=== PATIENT | female | born 1990 | race African-American/Black ===

== ENCOUNTER → 2021-02-12 20:00 | Outpatient (CLI) | payer MEDICAID, SELFPAY | PROVIDERS: PCP Internal Medicine; Referring Provider Internal Medicine; Visit Provider Internal Medicine | DX: G47.33 Obstructive sleep apnea (adult) (pediatric) (principal) | CPT/HCPCS: 95810 ==

== ENCOUNTER 2025-03-02 07:00 | Inpatient (IN) | payer MEDICAID, SELFPAY ==
[2025-03-02] VITALS (33 sets, daily range): BP systolic 120–171; BP diastolic 57–91; PULSE 81–105; RESP 16–18; TEMP 36.2–37.1; O2SAT 98–100; BMI 41.9; BMI 1015.0; BMI 20250710.0
--- OUTSIDE RECORDS SUMMARY | 2025-03-02 07:06 | XMS RPT_ITS | CCD ---
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 Unavailable Yolande PA-C Mee Unavailable Apple PA-C, Jaky L Unavailable Bogdevon PA-C Mee Unavailable GANTA, LAVERNE Primary Care Unavailable VALERIE ELIZABETH Attending Unavailable RUBI, SHI Referring Unavailable GANTA, LAVERNE Primary Care Unavailable RUBI, SHI Referring Unavailable GANTA, LAVERNE Primary Care Unavailable TORCHIA, CRISTAL Referring Unavailable GANTA, LAVERNE Primary Care Unavailable TORCHIA, CRISTAL Referring Unavailable GANTA, LAVERNE Primary Care Unavailable RUBI, SHI Referring Unavailable GANTA, LAVERNE Primary Care Unavailable GANTA, LAVERNE Primary Care Unavailable RUBI, SHI Referring Unavailable GANTA, LAVERNE Primary Care Unavailable FAYE TORRES Attending Unavailable RUBI, SHI Referring Unavailable GANTA, LAVERNE Primary Care Unavailable GANTA, LAVERNE Primary Care Unavailable FAYE TORRES Attending Unavailable RUBI, SHI Referring Unavailable GANTA, LAVERNE Primary Care Unavailable ROOSEVELT BECKMANRE Attending Unavail able RUBI, SHI Referring Unavailable GANTA, LAVERNE Primary Care Unavailable NEYHART JARETT RUTHIE Referring Unavail able GANTA, LAVERNE Primary Care Unavailable WISWELL, VALERIE Referring Unavailable GANTA, LAVERNE Primary Care Unavailable TORCHIA, CRISTAL Referring Unavailable GANTA, LAVERNE Attending Unavailable GANTA, LAVERNE Primary Care Unavailable TORCHIA, CRISTAL Referring Unavailable RUBI, SHI Referring Unavailable GANTA, LAVERNE Primary Care Unavailable RUBI, SHI Attending Unavailable RUBI, SHI Referring Unavailable GANTA, LAVERNE Primary Care Unavailable GANTA, LAVERNE Primary Care Unavailable FAYE TORRES Attending Unavailable SELF Referring Unavailable GANTA, LAVERNE Primary Care Unavailable RUBI, SHI Referring Unavailable KARIN IGNACIO Attending Unavailable GANTA, LAVERNE Primary Care Unavailable SELF Referring Unavailable CHANDLER MORAN Attending Unavailable GANTA, LAVERNE Primary Care Unavailable CHANDLER MORAN Referring Unavailable GANTA, LAVERNE Primary Care Unavailable RUBI, SHI Referring Unavailable MAYUR ALEJANDRE Attending Unavailable GANTA, LAVERNE Primary Care Unavailable RUBI, SHI Referring Unavailable GANTA, LAVERNE Primary Care Unavailable TORCHIA, CRISTAL Referring Unavailable GANTA, LAVERNE Primary Care Unavailable RUBI, SHI Referring Unavailable GANTA, LAVERNE Primary Care Unavailable FAYE TORRES Attending Unavailable RUBI, SHI Referring Unavailable GANTA, LAVERNE Primary Care Unavailable TORCHIA, CRISTAL Referring Unavailable RUBI, SHI Referring Unavailable GANTA, LAVERNE Primary Care Unavailable GANTA, LAVERNE Primary Care Unavailable URSULA ELIZABETHA Attending Unavailable RUBI, SHI Referring Unavailable GANTA, LAVERNE Primary Care Unavailable RUBI, SHI Referring Unavailable GANTA, LAVERNE Primary Care Unavailable FAYE TORRES Attending Unavailable GANTA, LAVERNE Primary Care Unavailable GANTA, LAVERNE Primary Care Unavailable RUBI, SHI Referring Unavailable GANTA, LAVERNE Primary Care Unavailable FAYE TORRES Referring Unavailable GANTA, LAVERNE Primary Care Unavailable RUBI, SHI Attending Unavailable RUBI, SHI Referring Unavailable GANTA, LAVERNE Primary Care Unavailable KARIN IGNACIO Attending Unavailable GANTA, LAVERNE Primary Care Unavailable RUBI, SHI Referring Unavailable Allergies Allergy Classification Reported Allergen(s) Allergy Type Date of Onset Reaction(s) Facility (20 sources) Morphine; Translations: [MORPHINE] Drug Allergy 04-16-2022 Mental Status Change [facility] Medications Current Medications Medication Drug Class(es) Dates Sig (Normalized) Sig (Original) [id number] 200 actuat albuterol 0.09 mg/actuat metered dose inhaler (20 sources) beta2-Adrenergic Agonist Start: 01-23-2021 End: 02-13-2025 take 2 puff(s) by inhalation every four hours as needed for wheezing albuterol HFA (VENTOLIN HFA) 90 mcg/actuation inhaler Indications: Reactive airway disease, unspecified asthma severity, uncomplicated (HCC) Inhale 2 puffs as instructed every 4 hours as needed for wheezing/shortness of breath. 18 g 02/13/2025 Active Comment on above: Inhale 2 Puffs as in structed every 4 hours as needed for wheezing/shortness of breath. amoxicillin 500 mg oral capsule (4 sources) Penicillin-class Antibacterial Start: 08-25-2024 End: 09-04-2024 take 1 capsule by mouth twice daily amoxicillin (AMOXIL) 500 mg capsule Take 1 capsule by mouth two times a day for 10 days. 20 capsule 08/25/2024 09/04/2024 Active Start: 12-05-2023 End: 12-10-2023 take 1 tablet by mouth twice daily amoxicillin (AMOXIL) 875 mg tablet Take 1 tablet by mouth two times a day for 5 days. 10 tablet 0 12/05/2023 12/10/2023 Active Comment on above: Take 1 tablet by rogerio two times a day for 5 days. aspirin 81 mg delayed release oral tablet (20 sources) Platelet Aggregation Inhibitor, Nonsteroidal Anti-inflammatory Drug Start: 08-30-2024 End: 08-30-2024 take 2 tablets by mouth once daily at bedtime aspirin, enteric coated (ECOTRIN LOW STRENGTH) 81 mg EC tablet Indications: Supervision of other high risk , antepartum (HCC) Take 2 tablets by mouth daily at bedtime. 180 tablet 3 08/30/2024 Active Start: 07-22-2024 End: 08-30-2024 take 1 tablet by mouth once daily aspirin, enteric coated (ECOTRIN LOW STRENGTH) 81 mg EC tablet Indications: with uncertain dates, antepartum Take 1 tablet by mouth once daily. 90 tablet 3 07/22/2024 08/30/2024 Discontinued cholecalciferol 0.025 mg oral tablet (20 sources) Vitamin D Start: 11-19-2023 End: 11-18-2024 take 1 tablet by mouth once daily cholecalciferol (VITAMIN D3) 1,000 unit tab tablet Take 1 tablet by mouth once daily. 30 tablet 11 11/19/2023 Active Start: 02-08-2019 End: 04-16-2022 take 2 capsules by mouth once daily Cholecalciferol, Vitamin D3, 2,000 unit cap Take 2 capsules by mouth once daily. 180 capsule 2 02/08/2019 04/16/2022 Discontinued Comment on above: Take 2 capsules by [facility] once daily. Take 1 tablet by rogerio once daily. ergocalciferol 1.25 mg oral capsule (3 sources) Provitamin D2 Compound Start: 10-26-19 End: 05-27-20 22 take 1 capsule by mouth two times weekly, then take 1 capsule by mouth two times weekly, then take 1 capsule by mouth every week ergocalciferol 50,000 unit capsule (VITAMIN D2, DRISDOL) Take 1 capsule by mouth two times a week. TO BE TAKEN ORALLY DIRECTED. Take 1 tablet by mouth twice weekly [id number], then decrease to 1 tablet weekly. 8 capsule 5 10/25/2020 05/27/2022 Discontinued Comment on above: Take 1 capsule by [facility] two times a week. TO BE TAKEN ORALLY DIRECTED. Take 1 tablet by mouth twice weekly [id number], then decrease to 1 tablet weekly. Ethinyl Estradiol / norgestimate (3 sources) Progestin, Estrogen Start: 04-23-20 End: 05-27-20 take 1 tablet by mouth once daily norgestimate 0.25 mg-ethinyl estradiol 35 mcg (SPRINTEC) 0.25-35 mg-mcg per tablet Take 1 tablet by mouth once daily. 1 Package 11 04/23/2021 05/27/2022 Discontinued Start: 04-23-2021 take 1 tablet by rogerio once daily norgestimate 0.25 mg-ethinyl estradiol 35 mcg (SPRINTEC) 0.25-35 mg-mcg per tablet Take 1 tablet by mouth once daily. 1 Package 11 04/23/2021 Active Comment on above: Take 1 tablet by rogerio th once daily. famotidine 40 mg oral tablet (1 source) Histamine-2 Receptor Antagonist Start: 07-22-20 End: 08-21-20 take 1 tablet by mouth once daily famotidine (PEPCID) 40 mg tablet Take 1 tablet by mouth once daily. 30 tablet 4 07/22/2024 08/21/2024 Active ferrous sulfate 325 mg oral tablet (18 sources) take 1 tablet by mouth every other day ferrous sulfate (IRON) 325 mg (65 mg iron) tablet Take 325 mg by mouth every other day. Active fluticasone propionate 0.05 mg/actuat metered dose nasal spray (20 sources) Corticosteroid Start: 05-25-20 End: 09-18-19 take 1 spray(s) by mouth once daily fluticasone (FLONASE) 50 mcg/actuation nasal spray Indications: Non-recurrent acute serous otitis media of right ear Use 1 [place] in each nostril once daily. Rinse mouth after use. 1 Each 09/19/2024 Active Comment on above: Use 1 [place] in each nostril once daily. Rinse mouth after use. pantoprazole 40 mg delayed release oral tablet (19 sources) Proton Pump Inhibitor Start: 12-24-19 take 1 tablet by mouth once daily pantoprazole DR (PROTONIX) 40 mg tablet Take 1 tablet by mouth once daily. 30 tablet 2 12/23/2024 Active VIT 9-EIEW-RGPUV-DHA ORAL (20 sources) VIT 3-KQRO-ONBKA-DHA ORAL Take by mouth. Active Completed/Discontinued Medications Medication Drug Class(es) Dates Sig (Normalized) Sig (Original) amitriptyline hydrochloride 10 mg oral tablet (11 sources) Tricyclic Antidepressant Start: 04-01-2023 End: 08-30-2024 take 2 tablets by mouth once daily at bedtime amitriptyline (ELAVIL) 10 mg tablet Take 2 tablets by mouth daily at bedtime. 60 tablet 3 07/02/2023 08/30/2024 Discontinued (Other) Start: 10-10-2021 take 2 tablets by mo uth once daily at bedtime amitriptyline (ELAVIL) 10 mg tablet Take 2 tablets by mouth daily at bedtime. 180 tablet 3 10/10/2021 Active Comment on above: Take 2 tablets by mo uth daily at bedtime. ibuprofen 800 mg oral tablet (8 sources) Nonsteroidal Anti-inflammatory Drug Start: End: take 1 tablet by mouth every eight hours as needed ibuprofen (MOTRIN) 800 mg tablet Take 1 tablet by mouth every 8 hours as needed for Pain. FOR PAIN. 60 tablet 1 09/30/2016 07/22/2024 Discontinued (Course of therapy completed) Comment on above: Take 1 tablet by rogerio th every 8 hours as needed for Pain. FOR PAIN. 10 ml iron sucrose 20 mg/ml injection (5 sources) Parenteral Iron Replacement Start: End: 200 mg, INTRAVENOUS, ONCE, 1 dose, On Thu02/17/25 at 1430, May administer up to 200 mg via IV push over 5-10 minutes. Start: 02-15-2025 End: 02-15-2025 200 mg, INTRAVENOUS, ONCE, 1 dose, On Thu02/15/25 at 1030, May administer up to 200 mg via IV push over 5-10 minutes. Start: 02-13-2025 End: 02-13-2025 200 mg, INTRAVENOUS, ONCE, 1 dose, On Thu02/13/25 at 1030, May administer up to 200 mg via IV push over 5-10 minutes. Start: 02-10-2025 End: 02-10-2025 200 mg, INTRAVENOUS, ONCE, 1 dose, On Thu02/10/25 at 0930, May administer up to 200 mg via IV push over 5-10 minutes. Start: 02-07-2025 End: 02-07-2025 200 mg, INTRAVENOUS, ONCE, 1 dose, On Thu02/07/25 at 1000, May administer up to 200 mg via IV push over 5-10 minutes. montelukast 10 mg oral tablet (11 sources) Leukotriene Receptor Antagonist Start: 01-23-2021 End: 08-30-2024 take 1 tablet by mouth once daily at bedtime montelukast (SINGULAIR) 10 mg tablet Indications: Reactive airway disease, unspecified asthma severity, uncomplicated , SOB (shortness of breath) Take 1 tablet by mouth daily at bedtime. 30 tablet 11 11/17/2023 08/30/2024 Discontinued (Other) Comment on above: Take 1 tablet by rogerio th daily at bedtime. SUMAtriptan 50 mg oral tablet (10 sources) Serotonin-1b and Serotonin-1d Receptor Agonist Start: 04-01-2023 End: 08-25-2024 take 1 tablet by mouth every two hours as needed for headache SUMAtriptan (IMITREX) 50 mg tablet Take 1 tablet (50 mg) by mouth as needed for migraine headache (see administration instructions). at onset of headache. May repeat after 2 hours. 6 tablet 4 07/02/2023 08/25/2024 Discontinued (Discontinued by Patient) Start: 10-10-2021 take 1 tablet by rogerio th every two hours as needed for headache SUMAtriptan (IMITREX) 50 mg tablet Take 1 tablet by mouth as needed for migraine headache (see administration instructions). at onset of headache. May repeat after 2 hours. 6 tablet 4 10/10/2021 Active Comment on above: Take 1 tablet by rogerio th as needed for migraine headache (see administration instructions). at onset of headache. May repeat after 2 hours. Take 1 tablet (50 mg ) by mouth as needed for migraine headache (see administration instructions). at onset of headache. May repeat after 2 hours. Problems Active Problems Problem Classification Problem Date Documented Da te Episodic/Chronic Asthma (20 sources) Reactive airway disease; Translations: [Unspecified asthma, uncomplicated] Onset: 09-21-2017 Chronic Deficiency and other anemia (1 source) Iron deficiency anemia, unspecified; Translations: [Maternal iron deficiency anemia complicating , third trimester (HCC)] Onset: 01-26-2025 Episodic Disorders of teeth and jaw (1 source) Toothache; Translations: [Other specified disorders of teeth and supporting structures] 12-05-2023 Episodic Headache; including migraine (20 sources) Migraine; Translations: [Migraine, unspecified, not intractable, without status migrainosus] Onset: 02-18-2023 Chronic Immunizations and screening for infectious disease (10 sources) Patient encounter status; Translations: [Encounter for screening for infections with a predominantly sexual mode of transmission] Episodic Nutritional deficiencies (20 sources) Vitamin D deficiency; Translations: [Vitamin D deficiency, unspecified] Onset: 10-21-2018 Chronic Other complications of (20 sources) Obesity; Translations: [Obesity complicating , unspecified trimester] Onset: 07-22-2024 07-22-2024 Chronic Other complications of (20 sources) Anemia in mother complicating , childbirth AND/OR puerperium; Translations: [Anemia complicating , third trimester] Onset: 01-26-2025 01-26-2025 Chronic Other complications of (2 sources) Anemia complicating , third trimester; Translations: [Maternal iron deficiency anemia complicating , third trimester (HCC)] Onset: 01-26-2025 Chronic Other complications of (2 sources) Obesity complicating , unspecified trimester; Translations: [Obesity in (HCC)] Onset: 07-22-2024 Chronic Other complications of (20 sources) High risk ; Translations: [Supervision of other high risk pregnancies, unspecified trimester] Onset: 07-22-2024 07-22-2024 Episodic Other complications of (19 sources) Multigravida of advanced maternal age; Translations: [Supervision of elderly multigravida, first trimester] 08-30-2024 Episodic Other complications of (2 sources) Supervision of other high risk pregnancies, unspecified trimester; Translations: [Supervision of other high risk , antepartum (HCC)] Onset: 11-01-2024 Episodic Other complications of (3 sources) Supervision of elderly multigravida, second trimester; Translations: [AMA (advanced maternal age) multigravida 35+, second trimester (HCC)] Onset: 09-21-2024 Episodic Other complications of (1 source) Supervision of high risk , unspecified, third trimester; Translations: [Supervision of high risk in third trimester (HCC)] Onset: 02-10-2025 Episodic Other complications of (1 source) Supervision of elderly multigravida, third trimester; Translations: [AMA (advanced maternal age) multigravida 35+, third trimester (HCC)] Onset: 01-13-2025 Episodic Other complications of (1 source) Other specified related conditions, third trimester; Translations: [Heartburn during in third trimester (HCC)] Onset: 12-23-2024 Episodic Other ear and sense organ disorders (1 source) Otalgia, right ear; Translations: [Otalgia, unspecified] 08-25-2024 Episodic Other gastrointestinal disorders (1 source) Heartburn; Translations: [Heartburn during in third trimester (HCC)] Onset: 12-23-2024 Episodic Other lower respiratory disease (1 source) Dyspnea; Translations: [Shortness of breath] 11-17-2023 Episodic Other lower respiratory disease (1 source) Cough; Translations: [Acute cough] 09-18-2024 Episodic Other screening for suspected conditions (not mental disorders or infectious disease) (4 sources) Cancer cervix screening status; Translations: [Encounter for screening for malignant neoplasm of cervix] Onset: 09-21-2024 11-05-2023 Episodic Other upper respiratory infections (4 sources) Sore throat symptom; Translations: [Acute pharyngitis, unspecified] 08-25-2024 Episodic Otitis media and related conditions (2 sources) Acute non-suppurative otitis media - serous; Translations: [Acute serous otitis media, right ear] 09-18-2024 Episodic Residual codes; unclassified (1 source) Family history of cancer of colon; Translations: [Family history of malignant neoplasm of digestive organs] Episodic Residual codes; unclassified (1 source) Gestation period, 7 weeks; Translations: [Less than 8 weeks gestation of ] 07-22-2024 Episodic Residual codes; unclassified (2 sources) Gestation period, 12 weeks; Translations: [12 weeks gestation of ] 08-30-2024 Episodic Residual codes; unclassified (2 sources) Gestation period, 15 weeks; Translations: [15 weeks gestation of ] 09-16-2024 Episodic Residual codes; unclassified (4 sources) Gestation period, 19 weeks; Translations: [19 weeks gestation of ] 10-14-2024 Episodic Residual codes; unclassified (1 source) Gestation period, 27 weeks; Translations: [27 weeks gestation of ] 12-09-2024 Episodic Residual codes; unclassified (1 source) Gestation period, 29 weeks; Translations: [29 weeks gestation of ] 12-23-2024 Episodic Residual codes; unclassified (1 source) Gestation period, 33 weeks; Translations: [33 weeks gestation of ] 01-20-2025 Episodic Residual codes; unclassified (1 source) Gestation period, 34 weeks; Translations: [34 weeks gestation of ] 01-27-2025 Episodic Residual codes; unclassified (1 source) Gestation period, 35 weeks; Translations: [35 weeks gestation of ] 02-03-2025 Episodic Residual codes; unclassified (1 source) Gestation period, 36 weeks; Translations: [36 weeks gestation of ] 02-10-2025 Episodic Residual codes; unclassified (2 sources) Gestation period, 37 weeks; Translations: [37 weeks gestation of ] 02-13-2025 Episodic Residual codes; unclassified (2 sources) Gestation period, 38 weeks; Translations: [38 weeks gestation of ] 02-23-2025 Episodic Residual codes; unclassified (1 source) 38 weeks gestation of ; Translations: [38 weeks gestation of (HCC)] Onset: 02-23-2025 Episodic Residual codes; unclassified (2 sources) 19 weeks gestation of ; Translations: [19 weeks gestation of (HCC)] Onset: 11-01-2024 Episodic Residual codes; unclassified (1 source) 37 weeks gestation of ; Translations: [37 weeks gestation of (HCC)] Onset: 02-17-2025 Episodic Residual codes; unclassified (1 source) 36 weeks gestation of ; Translations: [36 weeks gestation of (HCC)] Onset: 02-10-2025 Episodic Residual codes; unclassified (1 source) 35 weeks gestation of ; Translations: [35 weeks gestation of (HCC)] Onset: 02-03-2025 Episodic Residual codes; unclassified (1 source) 34 weeks gestation of ; Translations: [34 weeks gestation of (HCC)] Onset: 01-27-2025 Episodic Residual codes; unclassified (1 source) 33 weeks gestation of ; Translations: [33 weeks gestation of (HCC)] Onset: 01-20-2025 Episodic Residual codes; unclassified (1 source) 32 weeks gestation of ; Translations: [32 weeks gestation of (HCC)] Onset: 01-13-2025 Episodic Residual codes; unclassified (1 source) 29 weeks gestation of ; Translations: [29 weeks gestation of (HCC)] Onset: 12-23-2024 Episodic Residual codes; unclassified (1 source) 27 weeks gestation of ; Translations: [27 weeks gestation of (HCC)] Onset: 12-09-2024 Episodic Substance-related disorders (20 sources) Cannabis abuse; Translations: [Marijuana use disorder in remission] Onset: 07-22-2024 07-22-2024 Chronic Unclassified (20 sources) [facility] Education - COMMON Onset: 07-22-2024 07-22-2024 Unclassified (20 sources) Education - [place] Onset: 07-22-2024 07-22-2024 Past or Other Problems Problem Classification Problem Date Documented Date Episodic/Chronic Cancer of cervix (20 sources) Cervical atypism; Translations: [Atypical squamous cells of undetermined significance on cytologic smear of cervix (ASC-US)] Onset: 11-05-2011 Resolved: 11-06-2015 08-19-2021 Episodic Headache; including migraine (20 sources) Headache; Translations: [Chronic nonintractable headache, unspecified headache type] Onset: 10-10-2011 Resolved: 08-18-2024 Episodic Hemorrhage during ; abruptio placenta; placenta previa (20 sources) Low lying placenta; Translations: [Low lying placenta NOS or without hemorrhage, unspecified trimester] Onset: 04-04-2013 Resolved: 09-26-2013 08-19-2021 Episodic Inflammatory diseases of female pelvic organs (20 sources) Bacterial vaginosis; Translations: [Acute vaginitis] Onset: 09-04-2015 Resolved: 07-22-2024 09-04-2015 Episodic Menstrual disorders (20 sources) Irregular periods; Translations: [Irregular menstruation, unspecified] Onset: 07-22-2024 Resolved: 08-18-2024 07-22-2024 Chronic Other complications of (20 sources) Anemia of ; Translations: [Anemia complicating , unspecified trimester] Onset: 06-01-2013 Resolved: 09-26-2013 09-26-2013 Chronic Other complications of (20 sources) Heartburn; Translations: [Other specified related conditions, first trimester] Onset: 07-22-2024 07-22-2024 Episodic Other complications of (20 sources) Diseases of the digestive system complicating , first trimester; Translations: [Other current conditions classifiable elsewhere of mother, antepartum condition or complication] Onset: 07-22-2024 07-22-2024 Episodic Other complications of (20 sources) Rubella non-immune; Translations: [Supervision of other high risk pregnancies, unspecified trimester] Onset: 07-22-2024 08-18-2024 Episodic Other complications of (20 sources) History of hemorrhage; Translations: [Supervision of with other poor reproductive or obstetric history, first trimester] Onset: 08-30-2024 08-30-2024 Episodic Other female genital disorders (20 sources) Cervical intraepithelial neoplasia grade 2; Translations: [Moderate cervical dysplasia] Onset: 03-24-2013 08-19-2021 Episodic Other nutritional; endocrine; and metabolic disorders (20 sources) Obese class I; Translations: [Obesity, unspecified] Onset: 04-13-2014 Resolved: 07-22-2024 Chronic Other and delivery including normal (2 sources) with uncertain dates; Translations: [Encounter for supervision of normal , unspecified, unspecified trimester] Onset: 08-12-2024 07-22-2024 Episodic Residual codes; unclassified (20 sources) Finding of menstrual bleeding; Translations: [Other specified health status] Onset: 07-22-2024 Resolved: 08-30-2024 07-22-2024 Episodic Residual codes; unclassified (1 source) 15 weeks gestation of ; Translations: [15 weeks gestation of ] Onset: 09-21-2024 Episodic Residual codes; unclassified (1 source) 12 weeks gestation of ; Translations: [12 weeks gestation of ] Onset: 08-30-2024 Episodic Sexually transmitted infections (not HIV or hepatitis) (20 sources) Gonorrhea; Translations: [Gonococcal infection, unspecified] Onset: 02-08-2013 Resolved: 10-22-2015 08-19-2021 Episodic Results Test Name Value Interpretation Reference Range Facil ity URINE OB DIP B/Oon 5 Glucose Ql (U) Negative Neg mg/dL [facility] Interpretation and review of laboratory results Normal [facility] Protein.monoclonal (U) [Mass/Vol] trace Neg mg/dL [facility] URINE OB DIP B/Oon 5 Glucose Ql (U) Negative Neg mg/dL [facility] Interpretation and review of laboratory results Normal [facility] Protein.monoclonal (U) [Mass/Vol] Negative Neg mg/dL [facility] CNOVon 02-13-2025 CNOV Office Visit (INTMWS ) SLOANE LINDER ([id number]) 1990 F Date Time Provider Department 02/13/25 2:40 PM LAVERNE RAMIREZ INTMWS During your visit today, we recorded the following information about you: Pulse Respiration Blood pressure Weight 100/minute 16/minute 122/77 120.1 kg Laverne Ramirez MD 02/13/2025 3:22 PM Signed We discussed your : - Congratulations on your ! You are currently 37 weeks along, and your baby is head down, which is great. - Continue taking your vitamins, Protonix, Vitamin D, and Vitamin C as you have been. - Your iron levels are low, and you are already receiving iron infusions. Please continue with these as directed. - Your glucose tolerance test results were normal, with a reading of 120. - Keep active, eat healthy, and try to get as much rest as possible, even though sleeping may be uncomfortable at this stage. - The baby can arrive at any time now. Best of luck with your delivery! We discussed your vaccinations: - You are due for a tetanus vaccine. If you did not receive it during this , you can get it after delivery. We discussed your asthma: - You mentioned needing an albuterol refill. This has been provided for use only if you experience wheezing. Do not use it for general discomfort or heat-related symptoms. Follow-up: - I do not see the need for further investigations at this time. Please schedule a follow-up visit with me after your delivery. Laverne Ramirez MD 02/13/2025 3:35 PM Signed Reason for Visit HPI Sloane Linder is a 34-year-old female, , presenting for an annual visit. Sloane is currently 36 weeks and 5 days with her second child, a female, with an 11-year gap between pregnancies. She is under the care of Dr. Moran for her care. She is taking vitamins, iron supplements, vitamin D, vitamin C, and Protonix for reflux, which is well-controlled. She is also receiving iron infusions for low iron levels. She reports difficulty sleeping due to discomfort, but denies any stress, sadness, or depression. Sloane has not received a tetanus vaccine during this and is unsure if she is up to date. She has not needed to use her albuterol inhaler, but requests a refill due to the heat and living upstairs. She reports a normal glucose tolerance test with a result of 120 mg/dL. Social History Tobacco Use Smoking status: Never Passive exposure: Never Smokeless tobacco: Never Vaping Use Vaping status: Never Used Substance Use Topics Alcohol use: Yes Comment: occasionally, NOT WHILE Drug use: No Past medical history, appointments, medications, allergies reviewed. Pertinent Lab/Diagnostic Studies are reviewed and discussed today Current Outpatient Medications: ferrous sulfate (IRON) 325 mg (65 mg iron) tablet pantoprazole DR (PROTONIX) 40 mg tablet fluticasone (FLONASE) 50 mcg/actuation nasal spray aspirin, enteric coated (ECOTRIN LOW STRENGTH) 81 mg EC tablet VIT 9-CZZP-FOWLQ-DHA ORAL albuterol HFA (VENTOLIN HFA) 90 mcg/actuation inhaler cholecalciferol (VITAMIN D3) 1,000 unit tab tablet Health Maintenance HPV Vaccine: Recommended Based On Risk Depression Screening Anxiety Screening DTaP,Tdap,Td Vaccine(7 - Td or Tdap) Covid-19 Vaccine( season)@ Review Of Systems Constitutional: (+) insomnia Psychiatric: (-) stress, (-) depressed mood Physical Exam BP 122/77 Pulse 100 Resp 16 Wt 120.1 kg (264 lb 12.8 oz) LMP 04/30/2024 (Approximate) SpO2 99% BMI 42.42 kg/m? GENERAL: NAD, alert and oriented. SKIN: Unremarkable, no rash or skin lesions. HEAD: Normocephalic. EYES: PERRLA, EOMI, conjunctiva clear. EARS: External ears normal, canals clear, TM's normal. NOSE/SINUSES: Nares normal. Septum midline. OROPHARYNX: Lips, mucosa, and tongue normal, good dentition. No oral lesions noted. NECK: Supple, no lymphadenopathy, normal thyroid, no carotid bruits. LUNGS: Clear to auscultation bilaterally, no wheezes/rhonchi/rales . HEART: Regular rate and rhythm, no murmurs. No ectopy. EXTREMITIES: Normal, no deformities, no skin discoloration, no edema. NEURO: Awake, alert and oriented x3, cranial nerves II-XII grossly intact, normal gait, no involuntary motions. Labs: - Iron levels: Decreased - Hemoglobin: Decreased - White blood cell count: Elevated - Glucose tolerance test: 120 mg/dL Assessment and Plan 1. Annual physical exam (Z00.00) Patient is 37 weeks , experiencing difficulty sleeping due to discomfort. No significant stress, sadness, or depression reported. Reflux is well-controlled with Protonix. Up to date on vaccinations except for tetanus. No acute issues noted on physical exam. - Encouraged patient to maintain activity and rest as much as possible. - Follow-up after . 2. Reactiv (more content not included)... Normal [facility] Examination level ultrasound on 02-10-2025 [facility] Radiology Study observation (narrative) [facility] ROUTINE, GROUP B ST REPTOCOCCUS BY PCRon 02-10-2025 ROUTINE, GROUP B STREPTOCOCCUS BY PCR Detected Abnormal [facility] Comment on above: Performed By: #### G BPCR ####[facility] [id number] [place] [address] [place] URINE OB DIP B/Oon Glucose Ql (U) Negative Neg mg/dL [facility] Interpretation and review of laboratory results Normal [facility] Protein.monoclonal (U) [Mass/Vol] Negative Neg mg/dL [facility] CNPSneha 01-31-2025 CNPN Telephone (INTMMN) SLOANE LINDER ([id number]) 1990 F Date Time Provider Department 01/31/25 LESLEE CA During your visit today, we recorded the following information about you: Leslee Ca, PRANAY 01/31/2025 12:09 PM Signed Venofer order signed and PA completed. Ready for scheduling. Cristal Mayes 01/31/2025 1:38 PM Signed Please review and advise Cristal Sims Lucinda 02/02/2025 9:20 AM Signed Scheduled with patient Start email sent Allergies As of Date: 01/31/2025 Noted Allergy Reaction MORPHINE 04/16/2022 1 - Mental Status Change Date Reviewed: 01/27/2025 Reviewed by: Iraida Pak MA - Fully Assessed Reason for Visit: Hematology [Other] Prescriptions as of 02/04/2025 - ferrous sulfate (IRON) 325 mg (65 mg iron) tablet Take 325 mg by mouth every other day. - pantoprazole DR (PROTONIX) 40 mg tablet Take 1 tablet by mouth once daily. - albuterol HFA (VENTOLIN HFA) 90 mcg/actuation inhaler Inhale 2 Puffs as instructed every 4 hours as needed for wheezing/shortness of breath. - fluticasone (FLONASE) 50 mcg/actuation nasal spray Use 1 [place] in each nostril once daily. Rinse mouth after use. - aspirin, enteric coated (ECOTRIN LOW STRENGTH) 81 mg EC tablet Take 2 tablets by mouth daily at bedtime. - VIT 2-GILS-ZSUMF-DHA ORAL Take by mouth. - cholecalciferol (VITAMIN D3) 1,000 unit tab tablet Take 1 tablet by mouth once daily. Meds Comments as of 09/14/2007: Reviewed current med list, 09/14/2007. Bridgett White LPN Problem List As Of Date 01/31/2025 Noted Resolved Chronic headaches [R51.9, G89.29] 10/10/2011 08/18/2024 Papanicolaou smear of cervix with atypical squa*11/05/2011 11/06/2015 Gonorrhea [A54.9] 02/08/2013 10/22/2015 Chlamydia trachomatis infection of lower genito*02/08/2013 10/22/2015 BRUNO II (cervical intraepithelial neoplasia II) *03/24/2013 Low lying placenta without hemorrhage, antepart*04/04/2013 09/26/2013 Anemia in [O99.019] 06/01/2013 09/26/2013 Obesity (BMI 30.0-34.9) [E66.811] 04/13/2014 07/22/2024 BV (bacterial vaginosis) [N76.0, B96.89] 09/04/2015 07/22/2024 Reactive airway disease, unspecified asthma sev*09/21/2017 Vitamin D deficiency [E55.9] 10/21/2018 Migraine headache [G43.909] 02/18/2023 Diagnosed: 11/05/2023 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] 07/22/2024 Date of last menstrual period (LMP) unknown [Z7*07/22/2024 08/30/2024 Irregular menses [N92.6] 07/22/2024 08/18/2024 Heartburn during in first trimester (*07/22/2024 Constipation during in first trimeste*07/22/2024 headache, antepartum [O26.899, R51.9] 07/22/2024 Rubella non-immune status, antepartum [O09.899,*07/22/2024 Obesity in [O99.210] 07/22/2024 Supervision of other high risk pregnancies, sec*08/18/2024 History of hemorrhage, currently pre*08/30/2024 Maternal iron deficiency anemia complicating pr*01/26/2025 Encounter Status:Closed by LESLEE STEVEN on 01/31/25 Normal [facility] URINE OB DIP B/Oon Glucose Ql (U) Negative Neg mg/dL [facility] Interpretation and review of laboratory results Normal [facility] Protein.monoclonal (U) [Mass/Vol] Negative Neg mg/dL [facility] Ferritin SerPl-mCncon 2024 Ferritin [Mass/Vol] 28.8 ng/mL Normal 14.7-205.1 [facility] Comment on above: Order Comment: Speci men Type: BLOOD SPECIMEN Ordering Facility: [facility] Address: [address] [place], [place] [address] Performed By: #### 5 0190-8, 2276-4 #### [facility] CLIA [id number] [address] [place] [address] [place] Iron and Iron binding capaci ty panelon 01-24-2025 Iron [Mass/Vol] 55 ug/dL Normal 41-186 [facility] Comment on above: Order Comment: Speci men Type: BLOOD SPECIMEN Ordering Facility: [facility] Address: [address] [place] [address] Performed By: #### 5 0190-8, 2276-4 #### [facility] CLIA [id number] [address] [place] [address] [place] Iron binding capacity [Mass/Vol] 432 ug/dL High 232-386 [facility] Comment on above: Order Comment: Speci men Type: BLOOD SPECIMEN Ordering Facility: [facility] Address: [address] [place] [address] Performed By: #### 5 0190-8, 2276-4 #### [facility] CLIA [id number] [address] [place] [address] [place] Iron/TIBC [Molar ratio] 12.7 % Low 15.0-57.0 [facility] Comment on above: Order Comment: Speci men Type: BLOOD SPECIMEN Ordering Facility: [facility] Address: [address] [place] [address] Performed By: #### 5 0190-8, 2276-4 #### [facility] CLIA [id number] [address] [place] [address] [place] CBC panel Auto (Bld)on 01-20 Erythrocyte distribution width (RBC) [Ratio] 15 % 11.5 - 15.0 % [facility] Hematocrit (Bld) [Volume fraction] 30 % Low 36.0 - 46.0 % [facility] Hemoglobin (Bld) [Mass/Vol] 9.3 g/dL Low 11.5 - 15.5 g/dL [facility] Interpretation and review of laboratory results Abnormal [facility] MCH (RBC) [Entitic mass] 26.6 pg 26.0 - 34.0 pg [facility] MCHC (RBC) [Mass/Vol] 31 g/dL 30.5 - 36.0 g/dL [facility] MCV (RBC) [Entitic vol] 85.7 fL 80.0 - 100.0 fL [facility] Nucleated RBC (Bld) [#/Vol] NINF [facility] Platelet mean volume (Bld) [Entitic vol] 10.1 fL 9.0 - 12.7 fL [facility] Platelets (Bld) [#/Vol] 227 10*3/uL [facility] RBC (Bld) [#/Vol] 3.5 10*6/uL Low 3.90 - 5.2 0 m/uL [facility] WBC (Bld) [#/Vol] 11.33 10*3/uL [facility] Erythrocyte distribution width (RBC) [Ratio] 15.0 % Normal 11.5-15.0 [facility] Comment on above: Order Comment: Speci men Type: BLOOD SPECIMEN Ordering Facility: [facility] Address: [address] [place] [address] Performed By: #### 5 0190-8, 6-4 #### [facility] CLIA [id number] [address] [place] [address] [place] Hematocrit (Bld) [Volume fraction] 30.0 % Low 36.0-46.0 [facility] Comment on above: Order Comment: Speci men Type: BLOOD SPECIMEN Ordering Facility: [facility] Address: [address] [place] [address] Performed By: #### 5 0190-8, 6-4 #### [facility] CLIA [id number] [address] [place] [address] [place] Hemoglobin (Bld) [Mass/Vol] 9.3 g/dL Low 11.5-15.5 [facility] Comment on above: Order Comment: Speci men Type: BLOOD SPECIMEN Ordering Facility: [facility] Address: [address] [place] [address] Performed By: #### 5 0190-8, 6-4 #### [facility] CLIA [id number] [address] [place] [address] [place] MCH (RBC) [Entitic mass] 26.6 pg Normal 26.0-34.0 [facility] Comment on above: Order Comment: Speci men Type: BLOOD SPECIMEN Ordering Facility: [facility] Address: [address] [place] [address] Performed By: #### 5 0190-8, 2275- #### [facility] CLIA [id number] [address] [place] [address] [place] MCHC (RBC) [Mass/Vol] 31.0 g/dL Normal 30.5-36.0 [facility] Comment on above: Order Comment: Speci men Type: BLOOD SPECIMEN Ordering Facility: [facility] Address: [address] [place] [address] Performed By: #### 5 0190-8, 2275-11 #### [facility] CLIA [id number] [address] [place] [address] [place] MCV (RBC) [Entitic vol] 85.7 fL Normal 80.0-100.0 [facility] Comment on above: Order Comment: Speci men Type: BLOOD SPECIMEN Ordering Facility: [facility] Address: [address] [place] [address] Performed By: #### 5 0190-8, 2275-11 #### [facility] CLIA [id number] [address] [place] [address] [place] Nucleated RBC (Bld) [#/Vol] 10*3/uL Normal <0.01 [facility] Comment on above: Order Comment: Speci men Type: BLOOD SPECIMEN Ordering Facility: [facility] Address: [address] [place] [address] Performed By: #### 5 0190-8, 2275- #### [facility] CLIA [id number] [address] [id number] [address] [place] Platelet mean volume (Bld) [Entitic vol] 10.1 fL Normal 9.0-12.7 [facility] Comment on above: Order Comment: Speci men Type: BLOOD SPECIMEN Ordering Facility: [facility] Address: [address] [place] [address] Performed By: #### 5 0190-8, 6-4 #### [facility] CLIA [id number] [address] [place] [address] [place] Platelets (Bld) [#/Vol] 227 10*3/uL Normal 150-400 [facility] Comment on above: Order Comment: Speci men Type: BLOOD SPECIMEN Ordering Facility: [facility] Address: [address] [place] [address] Performed By: #### 5 0190-8, 2275-4 #### [facility] CLIA [id number] [address] [place] [address] [place] RBC (Bld) [#/Vol] 3.50 10*6/uL Low 3.90-5.20 [facility] Comment on above: Order Comment: Speci men Type: BLOOD SPECIMEN Ordering Facility: [facility] Address: [address] [place] [address] Performed By: #### 5 0190-8, 2275-4 #### [facility] CLIA [id number] [address] [place] [address] [place] WBC (Bld) [#/Vol] 11.33 10*3/uL High 3.70-11.00 [facility] Comment on above: Order Comment: Speci men Type: BLOOD SPECIMEN Ordering Facility: [facility] Address: [address] [place] [address] Performed By: #### 5 0190-8, 2275-4 #### [facility] CLIA [id number] [address] [place] [address] [place] CNPNon 01-20-2025 CNPN Telephone (OBGYWM) SLOANE LINDER ([id number]) 1990 F Date Time Provider Department 01/20/25 RUTHIE BECKMAN OBGYWM During your visit today, we recorded the following information about you: Kelsi Bates RN 01/20/2025 2:51 PM Signed Ruthie Beckman MD to [facility] Ob-Patient Services Clerk Pool (Selected Message) 01/20/25 2:33 PM Result Note Hg still low- will recommend IV iron therapy. Please pend smart set. COMPLETE BLOOD COUNT Kelsi Bates RN 01/20/2025 2:51 PM Signed Blood management referral placed. Please file and will route to Leslee Steven AND notify Pt. PRANAY Davidson Deidre, MD 01/20/2025 2:54 PM Signed ordered Kelsi Bates RN 01/20/2025 3:19 PM Signed Pt notified that Blood management referral has been placed and to anticipate a call re: iron infusions as we are forwarding her chart to Blood management/Hematology . Pt voiced understanding. PRANAY Davidson Tara, RN 01/23/2025 2:22 PM Signed 33w4d Pt needs new iron and ferritin drawn - the last ones were from November. Necessary to have within the last 30 days for insurance authorization. Lab orders pending. Please file and will call Pt. PRANAY Davidson Sara, MD 01/23/2025 3:43 PM Signed filed Kelsi Bates RN 02/07/2025 1:42 PM Signed Blood management has been in contact with Pt. See 01/26/25 patient update. Kelsi Bates RN Allergies As of Date: 01/20/2025 Noted Allergy Reaction MORPHINE 04/16/2022 1 - Mental Status Change Date Reviewed: 01/20/2025 Reviewed by: Nicola Nur MA - Fully Assessed Reason for Visit: Anemia [6] Primary Visit Diagnosis:Anemia during in third trimester (HCC) [O99.013] Order(s):BLOOD MANAGEMENT REFERRAL [[id number]] Order #: [id number]: 1 IRON AND TIBC [SQIRON] Order #: [id number] FUTURE FERRITIN [SQFERR] Order #: [id number] FUTURE Prescriptions as of 02/07/2025 - ferrous sulfate (IRON) 325 mg (65 mg iron) tablet Take 325 mg by mouth every other day. - pantoprazole DR (PROTONIX) 40 mg tablet Take 1 tablet by mouth once daily. - albuterol HFA (VENTOLIN HFA) 90 mcg/actuation inhaler Inhale 2 Puffs as instructed every 4 hours as needed for wheezing/shortness of breath. - fluticasone (FLONASE) 50 mcg/actuation nasal spray Use 1 [place] in each nostril once daily. Rinse mouth after use. - aspirin, enteric coated (ECOTRIN LOW STRENGTH) 81 mg EC tablet Take 2 tablets by mouth daily at bedtime. - VIT 7-LZRN-SYJIZ-DHA ORAL Take by mouth. - cholecalciferol (VITAMIN D3) 1,000 unit tab tablet Take 1 tablet by mouth once daily. Meds Comments as of 09/14/2007: Reviewed current med list, 09/14/2007. 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 Problem List As Of Date 01/20/2025 Noted Resolved Chronic headaches [R51.9, G89.29] 10/10/2011 08/18/2024 Papanicolaou smear of cervix with atypical squa*11/05/2011 11/06/2015 Gonorrhea [A54.9] 02/08/2013 10/22/2015 Chlamydia trachomatis infection of lower genito*02/08/2013 10/22/2015 BRUNO II (cervical intraepithelial neoplasia II) *03/24/2013 Low lying placenta without hemorrhage, antepart*04/04/2013 09/26/2013 Anemia in [O99.019] 06/01/2013 09/26/2013 Obesity (BMI 30.0-34.9) [E66.811] 04/13/2014 07/22/2024 BV (bacterial vaginosis) [N76.0, B96.89] 09/04/2015 07/22/2024 Reactive airway disease, unspecified asthma sev*09/21/2017 Vitamin D deficiency [E55.9] 10/21/2018 Migraine headache [G43.909] 02/18/2023 Diagnosed: 11/05/2023 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] 07/22/2024 Date of last menstrual period (LMP) unknown [Z7*07/22/2024 08/30/2024 Irregular menses [N92.6] 07/22/2024 08/18/2024 Heartburn during in first trimester (*07/22/2024 Constipation during in first trimeste*07/22/2024 headache, antepartum [O26.899, R51.9] 07/22/2024 Rubella non-immune status, antepartum [O09.899,*07/22/2024 Obesity in [O99.210] 07/22/2024 Supervision of other high risk pregnancies, sec*08/18/2024 History of hemorrhage, currently pre*08/30/2024 Encounter Status:Closed by MESHA FU on 01/23/25 Normal [facility] CBC W Auto Differential pane l (Bld)on 12-09-2024 Basophils (Bld) [#/Vol] 10*3/uL Normal <0.11 [facility] Comment on above: Order Comment: Speci men Type: BLOOD SPECIMEN Ordering Facility: [facility] Address: [address] [place] [address] Performed By: #### G LTGST #### [facility] CLIA [id number] [address] [place] [address] [place] Basophils/100 WBC (Bld) 0.2 % Normal [facility] Comment on above: Order Comment: Speci men Type: BLOOD SPECIMEN Ordering Facility: [facility] Address: [address] [place] [address] Performed By: #### G LTGST #### [facility] CLIA [id number] [address] [place] [address] [place] Differential cell count method Nom (Bld) Auto Normal [facility] Comment on above: Order Comment: Speci men Type: BLOOD SPECIMEN Ordering Facility: [facility] Address: [address] [place] [address] Performed By: #### G LTGST #### [facility] CLIA [id number] [address] [place] [address] [place] Eosinophils (Bld) [#/Vol] 0.09 10*3/uL Normal <0.46 [facility] Comment on above: Order Comment: Speci men Type: BLOOD SPECIMEN Ordering Facility: [facility] Address: [address] [place] [address] Performed By: #### G LTGST #### [facility] CLIA [id number] [address] [place] [address] [place] Eosinophils/100 WBC (Bld) 0.9 % Normal [facility] Comment on above: Order Comment: Speci men Type: BLOOD SPECIMEN Ordering Facility: [facility] Address: [address] [place] [address] Performed By: #### G LTGST #### [facility] CLIA [id number] [address] [place] [address] [place] Erythrocyte distribution width (RBC) [Ratio] 14.8 % Normal 11.5-15.0 [facility] Comment on above: Order Comment: Speci men Type: BLOOD SPECIMEN Ordering Facility: [facility] Address: [address] [place] [address] Performed By: #### G LTGST #### [facility] CLIA [id number] [address] [place] [address] [place] Hematocrit (Bld) [Volume fraction] 30.5 % Low 36.0-46.0 [facility] Comment on above: Order Comment: Speci men Type: BLOOD SPECIMEN Ordering Facility: [facility] Address: [address] [place] [address] Performed By: #### G LTGST #### [facility] CLIA [id number] [address] [place] [address] [place] Hemoglobin (Bld) [Mass/Vol] 9.6 g/dL Low 11.5-15.5 [facility] Comment on above: Order Comment: Speci men Type: BLOOD SPECIMEN Ordering Facility: [facility] Address: [address] [place] [address] Performed By: #### G LTGST #### [facility] CLIA [id number] [address] [place] [address] [place] Immature granulocytes (Bld) [#/Vol] 0.07 10*3/uL Normal <0.10 [facility] Comment on above: Order Comment: Speci men Type: BLOOD SPECIMEN Ordering Facility: [facility] Address: [address] [place] [address] Performed By: #### G LTGST #### [facility] CLIA [id number] [address] [place] [address] [place] Immature granulocytes/100 WBC (Bld) 0.7 % Normal [facility] Comment on above: Order Comment: Speci men Type: BLOOD SPECIMEN Ordering Facility: [facility] Address: [address] [place] [address] Performed By: #### G LTGST #### [facility] CLIA [id number] [address] [place] [address] [place] Lymphocytes (Bld) [#/Vol] 1.97 10*3/uL Normal 1.00-4.00 [facility] Comment on above: Order Comment: Speci men Type: BLOOD SPECIMEN Ordering Facility: [facility] Address: [address] [place] [address] Performed By: #### G LTGST #### [facility] CLIA [id number] [address] [place] [address] [place] Lymphocytes/100 WBC (Bld) 19.0 % Normal [facility] Comment on above: Order Comment: Speci men Type: BLOOD SPECIMEN Ordering Facility: [facility] Address: [address] [place] [address] Performed By: #### G LTGST #### [facility] CLIA [id number] [address] [place] [address] [place] MCH (RBC) [Entitic mass] 26.8 pg Normal 26.0-34.0 [facility] Comment on above: Order Comment: Speci men Type: BLOOD SPECIMEN Ordering Facility: [facility] Address: [address] [place] [address] Performed By: #### G LTGST #### [id number] [address] [place] [address] [place] MCHC (RBC) [Mass/Vol] 31.5 g/dL Normal 30.5-36.0 [facility] Comment on above: Order Comment: Speci men Type: BLOOD SPECIMEN Ordering Facility: [facility] Address: [address] [place] [address] Performed By: #### G LTGST #### [id number] [address] [place] [address] [place] MCV (RBC) [Entitic vol] 85.2 fL Normal 80.0-100.0 [facility] Comment on above: Order Comment: Speci men Type: BLOOD SPECIMEN [facility] [facility] Address: [address] [place] [address] Performed By: #### G LTGST #### [facility] CLIA [id number] [address] [place] [address] [place] Monocytes (Bld) [#/Vol] 0.54 10*3/uL Normal <0.87 [facility] Comment on above: Order Comment: Speci men Type: BLOOD SPECIMEN Ordering Facility: [facility] Address: [address] [place] [address] Performed By: #### G LTGST #### [facility] CLIA [id number] [address] [place] [address] [place] Monocytes/100 WBC (Bld) 5.2 % Normal [facility] Comment on above: Order Comment: Speci men Type: BLOOD SPECIMEN Ordering Facility: [facility] Address: [address] [place] [address] Performed By: #### G LTGST #### [facility] CLIA [id number] [address] [place] [address] [place] Neutrophils (Bld) [#/Vol] 7.66 10*3/uL High 1.45-7.50 [facility] Comment on above: Order Comment: Speci men Type: BLOOD SPECIMEN Ordering Facility: [facility] Address: [address] [place] [address] Performed By: #### G LTGST #### [facility] CLIA [id number] [address] [place] [address] [place] Neutrophils/100 WBC (Bld) 74.0 % Normal [facility] Comment on above: Order Comment: Speci men Type: BLOOD SPECIMEN Ordering Facility: [facility] Address: [address] [place] [address] Performed By: #### G LTGST #### [facility] CLIA [id number] [address] [place] [address] [place] Nucleated RBC (Bld) [#/Vol] 10*3/uL Normal <0.01 [facility] Comment on above: Order Comment: Speci men Type: BLOOD SPECIMEN Ordering Facility: [facility] Address: [address] [place] [address] Performed By: #### G LTGST #### [id number] [address] [place] [address] [place] Nucleated RBC/100 WBC (Bld) [Ratio] 0.0 /100 WBC Normal [facility] Comment on above: Order Comment: Speci men Type: BLOOD SPECIMEN Ordering Facility: [facility] Address: [address] [place] [address] Performed By: #### G LTGST #### [facility] CLIA [id number] [address] [place] [address] [place] Platelet mean volume (Bld) [Entitic vol] 10.1 fL Normal 9.0-12.7 [facility] Comment on above: Order Comment: Speci men Type: BLOOD SPECIMEN Ordering Facility: [facility] Address: [address] [place] [address] Performed By: #### G LTGST #### [facility] CLIA [id number] [address] [place] [address] [place] Platelets (Bld) [#/Vol] 252 10*3/uL Normal 150-400 [facility] Comment on above: Order Comment: Speci men Type: BLOOD SPECIMEN Ordering Facility: [facility] Address: [address] [place] [address] Performed By: #### G LTGST #### [facility] CLIA [id number] [address] [place] [address] [place] RBC (Bld) [#/Vol] 3.58 10*6/uL Low 3.90-5.20 [facility] Comment on above: Order Comment: Speci men Type: BLOOD SPECIMEN Ordering Facility: [facility] Address: [address] [place] [address] Performed By: #### G LTGST #### [facility] CLIA [id number] [address] [place] [address] [place] WBC (Bld) [#/Vol] 10.35 10*3/uL Normal 3.70-11.00 [facility] Comment on above: Order Comment: Speci debbie Type: BLOOD SPECIMEN Ordering Facility: [facility] Address: [address] [place] [address] Performed By: #### G LTGST #### [facility] CLIA [id number] [address] [place] [address] [place] Ferritin SerPl-mCncon 2024 Ferritin [Mass/Vol] 22.1 ng/mL Normal 14.7-205.1 [facility] Comment on above: Order Comment: Jesusi debbie Type: BLOOD SPECIMEN Ordering Facility: [facility] Address: [address] [place] [address] Performed By: #### G LTGST #### [facility] CLIA [id number] [address] [place] [address] [place] GESTATIONAL GLUCOSE SCREEN, 1-HOUR, 50 GRAM, NON-FASTINGon 12-09-2024 Glucose [Mass/Vol] 126 mg/dL Normal 74-134 [facility] Comment on above: Order Comment: Jeffry lewis Type: BLOOD SPECIMEN Ordering Facility: [facility] Address: [address] [place] [address] Result Comment: [facility] Congress of Obstetricians and Gynecologists (Betsy/Dago) guidelines state a gestational diabetes mellitus positive screen is made, in women not previously diagnosed with overt diabetes, when the 1 hr plasma glucose level is equal to or above 140 mg/dL. [facility] [employer] [facility] [employer] recommends a 135 mg/dL cutoff. Performed By: #### G LTGST #### [id number] [address] [place] [address] [place] Iron and Iron binding capaci ty panelon 12-09-2024 Iron [Mass/Vol] 96 ug/dL Normal 41-186 [facility] Comment on above: Order Comment: Speci men Type: BLOOD SPECIMEN Ordering Facility: [facility] Address: [address] [place], [place] [id number] Performed By: #### G LTGST #### [facility] CLIA [id number] [address] [place] [address] [place] Iron binding capacity [Mass/Vol] 413 ug/dL High 232-386 [facility] Comment on above: Order Comment: Speci men Type: BLOOD SPECIMEN Ordering Facility: [facility] Address: [address] [place] [address] Performed By: #### G LTGST #### [facility] CLIA [id number] [address] [place] [address] [place] Iron/TIBC [Molar ratio] 23.2 % Normal 15.0-57.0 [facility] Comment on above: Order Comment: Speci men Type: BLOOD SPECIMEN Ordering Facility: [facility] Address: [address] [place] [address] Performed By: #### G LTGST #### [facility] CLIA [id number] [address] [place] [address] [place] Reagin and Treponema pallidu m IgG and IgM [Interp]on 12-09-2024 T. pallidum IgG+IgM IA Ql (S) Non-Reactive Normal Nonreactive [facility] Comment on above: Order Comment: Speci men Type: BLOOD SPECIMEN Ordering Facility: [facility] Address: [address] [place] [address] Performed By: #### G LTGST #### [facility] [id number] [address] [place] [address] [place] Reagin+T pallidum IgG+IgM Se rPl-Impon 12-09-2024 Reagin and Treponema pallidum IgG and IgM [Interp] Cannot exclude recent Treponemal infection if specimen collected within 7-10 days after appearance of suspect lesions or 2-3 weeks after an exposure. Clinical correlation is required. Normal [facility] Comment on above: Order Comment: Speci men Type: BLOOD SPECIMEN Ordering Facility: [facility] Address: [address] [place] [address] Performed By: #### G LTGST #### [facility] CLIA [id number] [address] [id number] [place] Examination level ultrasound on 11-01-2024 Indication Cervical length Maternal obesity, BMI >40, Advanced maternal age, History of LEEP Impression REMOTE READ The patient is referred for completion of the anatomic survey. - Single, live, intrauterine . - No malformations were visualized on a follow-up anatomic survey. - Anatomic survey was completed today. - The amniotic fluid volume is normal amount. - The placenta is posterior, fundal. - Not all structural malformations can be detected by ultrasound examination. -The cervical length measures 31.3 mm with no evidence of funneling or other dynamic changes. Recommendations Additional follow-up as clinically indicated. Maternal Assessment Height 168 cm Height (ft) 5 ft Height (in) 6 in Physical Exam Initial weight (lb) 262 lb Initial BMI 42.29 kg/m Maternal assessment other: 2 Para 1 Growth Overview Exam date GA BPD (mm) HC (mm) AC (mm) FL (mm) HL (mm) EFW (g) 09/21/2024 15w 6d 33.3 69% 122.1 45% 106.8 76% 18.8 40% 18.6 34% 143 53% 10/14/2024 19w 1d 49 97% 172.2 70% 141.6 59% 29.4 63% 28.7 57% 288 57% Method Transabdominal and transvaginal ultrasound examination Wagoner . Number of fetuses: 1 Dating LMP on: 04/30/2024 GA by LMP 26 w + 3 d MATI by LMP: 02/04/2025 GA by prior assessment 21 w + 5 d MATI by prior assessment: 03/09/2025 Assigned: based on stated MATI, selected on 10/14/2024 Assigned GA 21 w + 5 d Assigned MATI: 03/09/2025 General Evaluation Cardiac activity present. FHR 149 bpm. movements: present. Presentation: cephalic Placenta: Placental site: posterior, fundal Umbilical cord: Cord vessels: 3 vessel cord Amniotic fluid: Amount of AF: normal amount Anatomy Lateral ventricles: normal Cavum septi pellucidi: normal Cerebellum: normal Profile: normal 4-chamber view: normal RVOT view: normal LVOT view: normal 3-vessel view: normal Heart / Thorax Situs: situs solitus (normal) Diaphragm: normal Stomach: normal Kidneys: normal Bladder: normal sex: female Wants to know sex: yes Maternal Structures Uterus / Cervix Cervix: Visualized Approach: Transvaginal Cervical length 31.3 mm Performed By: Madie Maria RDMS, RVT Read By: Hilda Menard M.D. MATERNAL MEDICINE [facility] (OBGYWM) SLOANE LINDER ([id number]) 1990 F Date Time Provider Department 10/17/24 SHI RUBI During your visit today, we recorded the following information about you: Sloane Davis 10/17/2024 9:24 AM Signed Patient called to schedule additional two OB US anatomy per 10/14/24 Results Follow-Up encounter. PSS only able to schedule one US due to current order not having enough visits remaining. Patient is needing to be scheduled for anatomy US again around 11/11/24. Please submit new orders for OB US and notify patient when available for scheduling. Madie Crooks RN 10/17/2024 9:30 AM Signed Patient only needs 1 anatomy ultrasound follow up within 2 to 4 week time frame. Follow up anatomy is scheduled, no further needed. Madie Crooks RN Allergies As of Date: 10/17/2024 Noted Allergy Reaction MORPHINE 04/16/2022 1 - Mental Status Change Date Reviewed: 10/14/2024 Reviewed by: Jose Cruz Muro MA - Fully Assessed Reason for Visit: Orders [681] Cmt: OB US - Anatomy Prescriptions as of 10/17/2024 - albuterol HFA (VENTOLIN HFA) 90 mcg/actuation inhaler Inhale 2 Puffs as instructed every 4 hours as needed for wheezing/shortness of breath. - fluticasone (FLONASE) 50 mcg/actuation nasal spray Use 1 [place] in each nostril once daily. Rinse mouth after use. - aspirin, enteric coated (ECOTRIN LOW STRENGTH) 81 mg EC tablet Take 2 tablets by mouth daily at bedtime. - VIT 7-IUXA-JWSTO-DHA ORAL Take by mouth. - cholecalciferol (VITAMIN D3) 1,000 unit tab tablet Take 1 tablet by mouth once daily. Meds Comments as of 09/14/2007: Reviewed current med list, 09/14/2007. 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 Problem List As Of Date 10/17/2024 Noted Resolved Chronic headaches [R51.9, G89.29] 10/10/2011 08/18/2024 Papanicolaou smear of cervix with atypical squa*11/05/2011 11/06/2015 Gonorrhea [A54.9] 02/08/2013 10/22/2015 Chlamydia trachomatis infection of lower genito*02/08/2013 10/22/2015 BRUNO II (cervical intraepithelial neoplasia II) *03/24/2013 Low lying placenta without hemorrhage, antepart*04/04/2013 09/26/2013 Anemia in [O99.019] 06/01/2013 09/26/2013 Obesity (BMI 30.0-34.9) [E66.811] 04/13/2014 07/22/2024 BV (bacterial vaginosis) [N76.0, B96.89] 09/04/2015 07/22/2024 Reactive airway disease, unspecified asthma sev*09/21/2017 Vitamin D deficiency [E55.9] 10/21/2018 Migraine headache [G43.909] 02/18/2023 Diagnosed: 11/05/2023 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] 07/22/2024 Date of last menstrual period (LMP) unknown [Z7*07/22/2024 08/30/2024 Irregular menses [N92.6] 07/22/2024 08/18/2024 Heartburn during in first trimester [*07/22/2024 Constipation during in first trimeste*07/22/2024 headache, antepartum [O26.899, R51.9] 07/22/2024 Rubella non-immune status, antepartum [O09.899,*07/22/2024 Obesity in [O99.210] 07/22/2024 Supervision of other high risk pregnancies, sec*08/18/2024 History of hemorrhage, currently pre*08/30/2024 Encounter Status:Closed by MADIE CROOKS on 10/17/24 Normal [facility] Examination level ultrasound on 10-14-2024 Indication Detailed anatomic survey Advanced maternal age, Maternal obesity, BMI >40, History of LEEP Impression REMOTE READ The patient is referred for a detailed anatomic survey. - Single, live, intrauterine . - biometry is consistent with the established gestational age. - No malformations were visualized on a detailed anatomic survey, although some anatomical structures were suboptimally seen as detailed below. - The amniotic fluid volume is normal amount. - The placenta is posterior, fundal. - The Transvaginal cervical length measures 30.8 mm with no evidence of funneling or other dynamic changes. - Not all structural malformations can be detected by ultrasound examination. Recommendations Return in 2-4 weeks to complete anatomic survey Maternal Assessment Height 168 cm Height (ft) 5 ft Height (in) 6 in Physical Exam Initial weight (lb) 262 lb Initial BMI 42.29 kg/m Maternal assessment other: 2 Para 1 Method Transabdominal and transvaginal ultrasound examination. View: Suboptimal view: limited by position Wagoner . Number of fetuses: 1 Dating LMP on: 04/30/2024 GA by LMP 23 w + 6 d MATI by LMP: 02/04/2025 GA by prior assessment 19 w + 1 d MATI by prior assessment: 03/09/2025 Ultrasound examination on: 10/14/2024 GA by U/S based upon: AC, BPD, Femur, HC GA by U/S 19 w + 6 d MATI by U/S: 03/04/2025 Assigned: based on stated MATI, selected on 10/14/2024 Assigned GA 19 w + 1 d Assigned MATI: 03/09/2025 General Evaluation Cardiac activity present. FHR 148 bpm. movements: present. Presentation: cephalic Placenta: Placental site: posterior, fundal Umbilical cord: Cord vessels: 3 vessel cord Amniotic fluid: Amount of AF: normal amount. MVP 4.4 cm Growth Overview Exam date GA BPD (mm) HC (mm) AC (mm) FL (mm) HL (mm) EFW (g) 09/21/2024 15w 6d 33.3 69% 122.1 45% 106.8 76% 18.8 40% 18.6 34% 143 53% 10/14/2024 19w 1d 49 97% 172.2 70% 141.6 59% 29.4 63% 28.7 57% 288 57% Biometry Standard BPD 49.0 mm 20w 6d 97% Hadlock OFD 58.9 mm 19w 2d 77% Nicolaides HC 172.2 mm 19w 5d 70% Dougie Cerebellum tr 21.9 mm 20w 4d 96% Hill Nuchal fold 2.7 mm AC 141.6 mm 19w 4d 59% Hadlock Femur 29.4 mm 19w 1d 63% Dougie Humerus 28.7 mm 19w 2d 57% Dougie EFW 288 g 19w 2d 57% Hadlock EFW (lb) 0 lb EFW (oz) 10 oz EFW by: Hadlock (HC-AC-FL) Extended Racing Secretary 6.5 mm CM 4.4 mm 38% Nicolaides Extremities / Bony Struc FL / HC 0.17 13% Hadlock Other Structures FHR 148 bpm Anatomy Cranium: normal Lateral ventricles: normal Choroid plexus: normal Midline falx: normal Cavum septi pellucidi: suboptimally visualized Cerebellum: normal Cisterna magna: normal Head / Neck Vermis: normal Neck: normal Nuchal fold: normal Lips: normal Profile: normal Nose: normal Face Maxilla: normal Mandible: normal Orbits: normal Lens: normal 4-chamber view: normal RVOT view: normal LVOT view: normal 3-vessel view: normal 8-[id number]-wkddpbq view: normal Heart / Thorax Situs: situs solitus (normal) Aortic arch view: normal SVC: normal IVC: normal Cardiac axis: normal Rt lung: normal Lt lung: normal Diaphragm: normal Cord insertion: normal Stomach: normal Kidneys: normal Bladder: normal Genitals: normal Abdomen Abdom. wall: normal Cervical spine: normal Thoracic spine: normal Lumbar spine: normal Sacral spine: normal Arms: normal Legs: normal Rt upper arm: normal Rt forearm: normal Rt hand: normal Rt fingers: normal Lt upper arm: normal Lt forearm: normal Lt hand: normal Lt fingers: normal Rt upper leg: normal Rt lower leg: normal Rt foot: normal Lt upper leg: normal Lt lower leg: normal Lt foot: normal sex: female Wants to know sex: yes Maternal Structures Uterus / Cervix Uterus: Visualized Cervix: Visualized Approach: Transvaginal Cervical length 30.8 mm Ovaries / Tubes / Adnexa Rt ovary: Visualized Lt ovary: Visualized Performed By: Madie Maria RDMS, RVT Read By: Hilda Menard M.D. MATERNAL MEDICINE [facility] Radiology Study observation (narrative) [facility] Telephone (OBGYWM) SLOANE LINDER ([id number]) 1990 F Date Time Provider Department 09/21/24 SHI RUBI During your visit today, we recorded the following information about you: Kelsi Bates RN 09/21/2024 2:08 PM Signed ----- Message from Shi Rubi APRN.CNM sent at 09/21/2024 12:55 PM EST ----- NT US normal. Please update PN record. Please assist in scheduling 20wk US with MARISEL same day if not scheduled. MURPHY Salazar Tara, RN 09/21/2024 2:10 PM Signed US sent to [facility]. Pt has US scheduled 10/14/24 with OB appt following. Kelsi Bates RN Allergies As of Date: 09/21/2024 Noted Allergy Reaction MORPHINE 04/16/2022 1 - Mental Status Change Date Reviewed: 09/18/2024 Reviewed by: Lucinda Silverio MA - Fully Assessed Prescriptions as of 09/21/2024 - albuterol HFA (VENTOLIN HFA) 90 mcg/actuation inhaler Inhale 2 Puffs as instructed every 4 hours as needed for wheezing/shortness of breath. - fluticasone (FLONASE) 50 mcg/actuation nasal spray Use 1 [place] in each nostril once daily. Rinse mouth after use. - aspirin, enteric coated (ECOTRIN LOW STRENGTH) 81 mg EC tablet Take 2 tablets by mouth daily at bedtime. - VIT 8-DBLV-EXELR-DHA ORAL Take by mouth. - cholecalciferol (VITAMIN D3) 1,000 unit tab tablet Take 1 tablet by mouth once daily. Meds Comments as of 09/14/2007: Reviewed current med list, 09/14/2007. 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 Problem List As Of Date 09/21/2024 Noted Resolved Chronic headaches [R51.9, G89.29] 10/10/2011 08/18/2024 Papanicolaou smear of cervix with atypical squa*11/05/2011 11/06/2015 Gonorrhea [A54.9] 02/08/2013 10/22/2015 Chlamydia trachomatis infection of lower genito*02/08/2013 10/22/2015 BRUNO II (cervical intraepithelial neoplasia II) *03/24/2013 Low lying placenta without hemorrhage, antepart*04/04/2013 09/26/2013 Anemia in [O99.019] 06/01/2013 09/26/2013 Obesity (BMI 30.0-34.9) [E66.811] 04/13/2014 07/22/2024 BV (bacterial vaginosis) [N76.0, B96.89] 09/04/2015 07/22/2024 Reactive airway disease, unspecified asthma sev*09/21/2017 Vitamin D deficiency [E55.9] 10/21/2018 Migraine headache [G43.909] 02/18/2023 Diagnosed: 11/05/2023 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] 07/22/2024 Date of last menstrual period (LMP) unknown [Z7*07/22/2024 08/30/2024 Irregular menses [N92.6] 07/22/2024 08/18/2024 Heartburn during in first trimester [*07/22/2024 Constipation during in first trimeste*07/22/2024 headache, antepartum [O26.899, R51.9] 07/22/2024 Rubella non-immune status, antepartum [O09.899,*07/22/2024 Obesity in [O99.210] 07/22/2024 Supervision of other high risk pregnancies, sec*08/18/2024 History of hemorrhage, currently pre*08/30/2024 Encounter Status:Closed by KELSI BATES on 09/21/24 Normal [facility] Examination level ultrasound on 09-21-2024 Indication Early anatomic survey Advanced maternal age, Maternal obesity, BMI >40, History of LEEP Impression REMOTE READ The patient is referred for an early anatomic survey because of identified risk factors. - Single, live, intrauterine . - biometry is consistent with the established gestational age. - No malformations were visualized on an early anatomic assessment, although some anatomical structures were suboptimally seen as detailed below. - The amniotic fluid volume is normal amount. - The placenta is posterior. - The transvaginal cervical length measures 34.6 mm with no evidence of funneling or other dynamic changes. - Not all structural malformations can be detected by ultrasound examination. Recommendations Return at 20 weeks for detailed anatomic survey Maternal Assessment Height 168 cm Height (ft) 5 ft Height (in) 6 in Physical Exam Initial weight (lb) 262 lb Initial BMI 42.29 kg/m Maternal assessment other: 2 Para 1 Method Transabdominal and transvaginal ultrasound examination. View: Suboptimal view: limited by early gestational age Wagoner . Number of fetuses: 1 Dating LMP on: 04/30/2024 GA by LMP 20 w + 4 d MATI by LMP: 02/04/2025 GA by prior assessment 15 w + 6 d MATI by prior assessment: 03/09/2025 Ultrasound examination on: 09/21/2024 GA by U/S based upon: AC, BPD, Femur, HC GA by U/S 16 w + 0 d MATI by U/S: 03/08/2025 Assigned: based on stated MATI, selected on 09/21/2024 Assigned GA 15 w + 6 d Assigned MATI: 03/09/2025 General Evaluation Cardiac activity present. FHR 144 bpm. movements: present. Presentation: breech Placenta: Placental site: posterior Umbilical cord: Cord vessels: 3 vessel cord Amniotic fluid: Amount of AF: normal amount Biometry Standard BPD 33.3 mm 16w 2d 69% Hadlock OFD 42.6 mm 15w 1d 32% Nicolaides HC 122.1 mm 15w 5d 45% Dougie AC 106.8 mm 16w 4d 76% Hadlock Femur 18.8 mm 15w 4d 40% Dougie Humerus 18.6 mm 15w 3d 34% Douige EFW 143 g 15w 6d 53% Hadlock EFW (lb) 0 lb EFW (oz) 5 oz EFW by: Hadlock (HC-AC-FL) Extremities / Bony Struc FL / HC 0.15 10% Hadlock Other Structures FHR 144 bpm Anatomy Cranium: normal Lateral ventricles: suboptimally visualized Choroid plexus: normal Midline falx: normal Cerebellum: normal Cisterna magna: normal Lips: normal Profile: normal Nose: normal 4-chamber view: normal RVOT view: normal LVOT view: suboptimally visualized 3-vessel view: normal 0-rhbkmy-rexfwos view: normal Heart / Thorax Diaphragm: normal Cord insertion: normal Stomach: normal Kidneys: normal Bladder: normal Cervical spine: normal Thoracic spine: normal Lumbar spine: normal Sacral spine: normal Arms: normal Legs: normal Rt upper arm: normal Rt forearm: normal Rt hand: normal Lt upper arm: normal Lt forearm: normal Lt hand: normal Rt upper leg: normal Rt lower leg: normal Rt foot: normal Lt upper leg: normal Lt lower leg: normal Lt foot: normal sex: female Wants to know sex: yes Maternal Structures Uterus / Cervix Uterus: Visualized Approach: Transvaginal Cervical length 34.6 mm Performed By: Madie Maria RDMS, RVT Read By: Hilda Menard M.D. MATERNAL MEDICINE [facility] Radiology Study observation (narrative) [facility] Marleny 09-19-2024 [facility] Telephone (WSTR) SLOANE LINDER ([id number]) 1990 F Date Time Provider Department 09/19/24 [place] ALEJANDRE During your visit today, we recorded the following information about you: Az Alejandre APRN.[employer]IDEO GAME TESTER 09/19/2024 7:16 AM Signed Patient mother know that she has RSV. This is a virus and there is no treatment. Patient should just do supportive therapies. Hanna Olmos LPN 09/19/2024 7:44 AM Signed Left message for patient to return call for results.CARL Yu Laurie Lynn, LPN 09/19/2024 9:10 AM Signed Spoke with pt and information listed below given. Pt verbalizes understanding. Kaleb Willingham LPN Allergies As of Date: 09/19/2024 Noted Allergy Reaction MORPHINE 04/16/2022 1 - Mental Status Change Date Reviewed: 09/18/2024 Reviewed by: Lucinda Silverio MA - Fully Assessed Reason for Visit: Results [95] Prescriptions as of 09/19/2024 - albuterol HFA (VENTOLIN HFA) 90 mcg/actuation inhaler Inhale 2 Puffs as instructed every 4 hours as needed for wheezing/shortness of breath. - fluticasone (FLONASE) 50 mcg/actuation nasal spray Use 1 [place] in each nostril once daily. Rinse mouth after use. - aspirin, enteric coated (ECOTRIN LOW STRENGTH) 81 mg EC tablet Take 2 tablets by mouth daily at bedtime. - VIT 0-LIVC-CKGFD-DHA ORAL Take by mouth. - cholecalciferol (VITAMIN D3) 1,000 unit tab tablet Take 1 tablet by mouth once daily. Meds Comments as of 09/14/2007: Reviewed current med list, 09/14/2007. Bridgett White LPN Problem List As Of Date 09/19/2024 Noted Resolved Chronic headaches [R51.9, G89.29] 10/10/2011 08/18/2024 Papanicolaou smear of cervix with atypical squa*11/05/2011 11/06/2015 Gonorrhea [A54.9] 02/08/2013 10/22/2015 Chlamydia trachomatis infection of lower genito*02/08/2013 10/22/2015 BRUNO II (cervical intraepithelial neoplasia II) *03/24/2013 Low lying placenta without hemorrhage, antepart*04/04/2013 09/26/2013 Anemia in [O99.019] 06/01/2013 09/26/2013 Obesity (BMI 30.0-34.9) [E66.811] 04/13/2014 07/22/2024 BV (bacterial vaginosis) [N76.0, B96.89] 09/04/2015 07/22/2024 Reactive airway disease, unspecified asthma sev*09/21/2017 Vitamin D deficiency [E55.9] 10/21/2018 Migraine headache [G43.909] 02/18/2023 Diagnosed: 11/05/2023 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] 07/22/2024 Date of last menstrual period (LMP) unknown [Z7*07/22/2024 08/30/2024 Irregular menses [N92.6] 07/22/2024 08/18/2024 Heartburn during in first trimester [*07/22/2024 Constipation during in first trimeste*07/22/2024 headache, antepartum [O26.899, R51.9] 07/22/2024 Rubella non-immune status, antepartum [O09.899,*07/22/2024 Obesity in [O99.210] 07/22/2024 Supervision of other high risk pregnancies, sec*08/18/2024 History of hemorrhage, currently pre*08/30/2024 Encounter Status:Closed by KALEB WILLINGHAM on 09/19/24 [facility] CNPN Telephone (OBGYWM) SLOANE LINDER ([id number]) 1990 F Date Time Provider Department 09/19/24 SHI RUBI During your visit today, we recorded the following information about you: Mesha Fu RN 09/19/2024 10:52 AM Signed 15w4d Ramses tested positive for RSV yesterday in urgent care. Asking if she can take Vitamin C and if so, how much? Any other recommendations to help? Also, she is scheduled for early anatomy u/s in 2 days on 09/21/24. Is that okay to keep? PRANAY Styles Jessica, APRN.CNM 09/19/2024 1:16 PM Signed Ok to take Vitamin 500mg PO once daily. Vitamin D 2,000 international unit(s) po daily. Hope she feels better soon. MURPHY Salazar Trisha, RN 09/19/2024 1:18 PM Signed Left message for patient to call office. PRANAY Styles Jennifer, RN 09/19/2024 2:49 PM Signed Patient notified. Faye Solis RN Allergies As of Date: 09/19/2024 Noted Allergy Reaction MORPHINE 04/16/2022 1 - Mental Status Change Date Reviewed: 09/18/2024 Reviewed by: Lucinda Silverio MA - Fully Assessed Reason for Visit: Positive RSV [Other] Prescriptions as of 09/19/2024 - albuterol HFA (VENTOLIN HFA) 90 mcg/actuation inhaler Inhale 2 Puffs as instructed every 4 hours as needed for wheezing/shortness of breath. - fluticasone (FLONASE) 50 mcg/actuation nasal spray Use 1 [place] in each nostril once daily. Rinse mouth after use. - aspirin, enteric coated (ECOTRIN LOW STRENGTH) 81 mg EC tablet Take 2 tablets by mouth daily at bedtime. - VIT 3-AYSU-ZTMXC-DHA ORAL Take by mouth. - cholecalciferol (VITAMIN D3) 1,000 unit tab tablet Take 1 tablet by mouth once daily. Meds Comments as of 09/14/2007: Reviewed current med list, 09/14/2007. Bridgett White LPN Problem List As Of Date 09/19/2024 Noted Resolved Chronic headaches [R51.9, G89.29] 10/10/2011 08/18/2024 Papanicolaou smear of cervix with atypical squa*11/05/2011 11/06/2015 Gonorrhea [A54.9] 02/08/2013 10/22/2015 Chlamydia trachomatis infection of lower genito*02/08/2013 10/22/2015 BRUNO II (cervical intraepithelial neoplasia II) *03/24/2013 Low lying placenta without hemorrhage, antepart*04/04/2013 09/26/2013 Anemia in [O99.019] 06/01/2013 09/26/2013 Obesity (BMI 30.0-34.9) [E66.811] 04/13/2014 07/22/2024 BV (bacterial vaginosis) [N76.0, B96.89] 09/04/2015 07/22/2024 Reactive airway disease, unspecified asthma sev*09/21/2017 Vitamin D deficiency [E55.9] 10/21/2018 Migraine headache [G43.909] 02/18/2023 Diagnosed: 11/05/2023 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] 07/22/2024 Date of last menstrual period (LMP) unknown [Z7*07/22/2024 08/30/2024 Irregular menses [N92.6] 07/22/2024 08/18/2024 Heartburn during in first trimester [*07/22/2024 Constipation during in first trimeste*07/22/2024 headache, antepartum [O26.899, R51.9] 07/22/2024 Rubella non-immune status, antepartum [O09.899,*07/22/2024 Obesity in [O99.210] 07/22/2024 Supervision of other high risk pregnancies, sec*08/18/2024 History of hemorrhage, currently pre*08/30/2024 Encounter Status:Closed by FAYE SOLIS on 09/19/24 [facility] CNOVon 09-18-2024 CNOV Office Visit (UCWSTR ) SLOANE LINDER ([id number]) 1990 F Date Time Provider Department 09/18/24 10:30 AM AZ ALEJANDREWSTR During your visit today, we recorded the following information about you: Temperature Pulse Respiration Blood pressure 98.2 degrees 96/minute 16/minute 124/80 Weight 113 kg Az Alejandre APRN.VIDEO GAME TESTER 09/18/2024 11:01 AM Signed CC: Patient presents with: Nasal Congestion: drainage, cough, and bilateral ear pain x 5 days HPI: Sloane Linder is a 34 year old female who presents to the office with complaint of head congestion, cough, nonproductive, sore throat, and sinus symptoms for 5 days. Symptoms are staying the same. Associated symptoms includes cough. Denies wheezing, dyspnea, nausea, vomiting , and diarrhea. Treatments tried include nothing so far. with no relief of symptoms. Sick contacts: unknown. History of asthma, frequent episodes of bronchitis, chronic bronchitis, bronchiectasis or COPD: No Smoker: No Seasonal/environmenta l allergies: No The ROS is otherwise negative. The patient's pmh, medications, allergies, and past visits are reviewed. PHYSICAL EXAM: BP 124/80 Pulse 96 Temp 36.8 ?C (98.2 ?F) Resp 16 Wt 113 kg (249 lb 1.9 oz) LMP 04/30/2024 (Approximate) SpO2 99% BMI 39.91 kg/m? General appearance: alert, cooperative, pleasant, in no acute distress Head: Normocephalic Eyes: EOM's intact, conjunctiva pink and moist, no icterus, sclera white, non-injected Ears: Right ear: External ear/canal- Normal, TM - clear with good landmarks. Left ear: External ear/canal- Normal, TM - clear with good landmarks Oropharynx:mild erythema, without exudates present Heart: Negative. RRR without obvious murmur, gallop, or rubs. No ectopy. Lungs: clear to auscultation, without rales or wheeze, good air exchange PAST MEDICAL HISTORY Diagnosis Date Abnormal Pap smear of cervix Anemia AGE 17 Bacterial vaginitis Chlamydia 08/24/2012 Chronic headaches 08/24/1999 Gonorrhea 02/08/2013 History of hemorrhage Migraines sometimes with auras Reactive airway disease, unspecified asthma severity, uncomplicated 09/21/2017 PAST SURGICAL HISTORY Procedure Laterality Date CERVIX UTERI CONIZA LP ELCTRO EXCI CONIZATION CERVIX W/WO DANDC RPR ELTRD EXC 11/2013 LEEP-Cervix NEXPLANON INSERTION 09/04/2015 removed OTHER SURGICAL HISTORY (PLEASE SPECIFY) HX 10/23/2015 diagnostic laparascopy ALLERGIES Morphine MEDICATIONS aspirin, enteric coated (ECOTRIN LOW STRENGTH) 81 mg EC tablet Take 2 tablets by mouth daily at bedtime. VIT 5-NCTG-EPIBQ-DHA ORAL Take by mouth. cholecalciferol (VITAMIN D3) 1,000 unit tab tablet Take 1 tablet by mouth once daily. albuterol HFA (VENTOLIN HFA) 90 mcg/actuation inhaler Inhale 2 Puffs as instructed every 4 hours as needed for wheezing/shortness of breath. fluticasone (FLONASE) 50 mcg/actuation nasal spray Use 1 [place] in each nostril once daily. Rinse mouth after use. FAMILY HISTORY Problem Relation Age of Onset Headache Mother Colon Cancer Father 52 No Known Problems Sister No Known Problems Sister Allergies Brother No Known Problems Maternal Grandmother Heart Maternal Grandfather Diabetes Paternal Grandmother Heart Paternal Grandfather Cancer Paternal Grandfather Social History Tobacco Use Smoking status: Never Passive exposure: Never Smokeless tobacco: Never Vaping Use Vaping status: Never Used Substance Use Topics Alcohol use: Yes Comment: occasionally, NOT WHILE Drug use: No ASSESSMENT/PLAN: 1. Sore throat - ICD9: 462, ICD10: J02.9 (primary diagnosis) - STREP A MOLECULAR (POC) - neg 2. URI, acute - ICD9: 465.9, ICD10: J06.9 - COVID AND INFLUENZA A/B AND RSV PCR, ROUTINE 3. Acute cough - ICD9: 786.2, ICD10: R05.1 - XR CHEST 2V FRONTAL/LAT -viral testing is negative patient will come in on Thursday to have the chest x-ray done. Patient was exposed to pneumonia but low risk for suspicions due to day 5 oxygen being normal no shortness of breath and lungs being clear. Not willing to treat without a positive x-ray due to patient being . Otc meds safe for baby and supportive care. . Potential red flag symptoms discussed with the patient. Reviewed appropriate action plan to take if red flag symptoms occur. Patient agreeable to treatment plan. Az Alejandre APRN.VIDEO GAME TESTER Allergies As of Date: 09/18/2024 Noted Allergy Reaction MORPHINE 04/16/2022 1 - Mental Status Change Date Reviewed: 09/18/2024 Reviewed by: Lucinda Silverio MA - Fully Assessed Reason for Visit: Nasal Congestion [235] Cmt: drainage, cough, and bilateral ear pain x 5 days Primary Visit Diagnosis:Sore throat [J02.9] Other Visit Diagnoses:URI, acute [J06.9] Acute cough [R05.1] Order(s):COVID AND INFLUENZA A/B AND RSV PCR, ROUTINE [SQCVFLRS] Order #: [id number] (more content not included)... Normal [facility] COVID AND INFLUENZA A/B AND RSV PCR, ROUTINEon 09-18-2024 SARS-CoV-2 (COVID-19) RNA NIKUNJ+probe Ql (Unsp spec) SARS-COV-2 (AGENT OF COVID-19) RNA: Not detected INFLUENZA A RNA: Not detected INFLUENZA B RNA: Not detected RESPIRATORY SYNCYTIAL VIRUS (RSV) RNA: Detected Abnormal [facility] Comment on above: Performed By: #### C VFLRS ####[facility] LABCLIA [id number] [place] [address] [place] STREP A MOLECULAR (POC)on Procedural Control Valid [facility] Strep A (POCT) Negative Negative [facility] CNPNon 09-15-2024 CNPN Telephone (OBGYWM) SLOANE LINDER ([id number]) 1990 F Date Time Provider Department 09/15/24 PILI, KARMON OBGYWM During your visit today, we recorded the following information about you: Madie Crooks RN 09/15/2024 4:11 PM Signed Left message to call office. Patient is scheduled for early anatomy ultrasound and cervical length tomorrrow. Patient will only be 15w1d, see needs to be at least 16 weeks to have this completed. plant technician/control room operator can add patient to her schedule on 09/21 at 11 for 60 minute ultrasound. If this date/time does not work patient will need to be seen at another location. PRANAY Ortega Trisha, RN 09/15/2024 4:48 PM Signed Patient notified and rescheduled to 09/21. Mesha Fu RN Allergies As of Date: 09/15/2024 Noted Allergy Reaction MORPHINE 04/16/2022 1 - Mental Status Change Date Reviewed: 08/30/2024 Reviewed by: Ning Holguin MA - Fully Assessed Reason for Visit: Future Appointment [256] Prescriptions as of 09/15/2024 - aspirin, enteric coated (ECOTRIN LOW STRENGTH) 81 mg EC tablet Take 2 tablets by mouth daily at bedtime. - VIT 9-LHZC-TYXZC-DHA ORAL Take by mouth. - cholecalciferol (VITAMIN D3) 1,000 unit tab tablet Take 1 tablet by mouth once daily. - albuterol HFA (VENTOLIN HFA) 90 mcg/actuation inhaler Inhale 2 Puffs as instructed every 4 hours as needed for wheezing/shortness of breath. - fluticasone (FLONASE) 50 mcg/actuation nasal spray Use 1 [place] in each nostril once daily. Rinse mouth after use. Meds Comments as of 09/14/2007: Reviewed current med list, 09/14/2007. Bridgett White LPN Problem List As Of Date 09/15/2024 Noted Resolved Chronic headaches [R51.9, G89.29] 10/10/2011 08/18/2024 Papanicolaou smear of cervix with atypical squa*11/05/2011 11/06/2015 Gonorrhea [A54.9] 02/08/2013 10/22/2015 Chlamydia trachomatis infection of lower genito*02/08/2013 10/22/2015 BRUNO II (cervical intraepithelial neoplasia II) *03/24/2013 Low lying placenta without hemorrhage, antepart*04/04/2013 09/26/2013 Anemia in [O99.019] 06/01/2013 09/26/2013 Obesity (BMI 30.0-34.9) [E66.811] 04/13/2014 07/22/2024 BV (bacterial vaginosis) [N76.0, B96.89] 09/04/2015 07/22/2024 Reactive airway disease, unspecified asthma sev*09/21/2017 Vitamin D deficiency [E55.9] 10/21/2018 Migraine headache [G43.909] 02/18/2023 Diagnosed: 11/05/2023 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] 07/22/2024 Date of last menstrual period (LMP) unknown [Z7*07/22/2024 08/30/2024 Irregular menses [N92.6] 07/22/2024 08/18/2024 Heartburn during in first trimester [*07/22/2024 Constipation during in first trimeste*07/22/2024 headache, antepartum [O26.899, R51.9] 07/22/2024 Rubella non-immune status, antepartum [O09.899,*07/22/2024 Obesity in [O99.210] 07/22/2024 Supervision of other high risk pregnancies, sec*08/18/2024 History of hemorrhage, currently pre*08/30/2024 Encounter Status:Closed by MESHA FU on 09/15/24 Normal [facility](OH)[facility] 25-hydroxyvitamin D3 [Mass/Vol] 36.4 ng/mL Normal 31.0-80.0 [facility] Comment on above: Order Comment: Speci men Type: BLOOD SPECIMENOrdering Facility: [facility] Address: [facility] [place] [address] Result Comment: Clas sification of 25 [place] Vitamin D status: Deficiency/Insufficiency: < or = 30 ng/ml. Sufficiency/Optimal Levels: 31-80 ng/mL Toxicity: > 100 ng/mL. Test performed by chemiluminescent immunoassay. Performed By: #### 1 989-3 ####[facility] LABCLIA [id number] [place] [address] [place] nuchal translucency me asured by on 08-30-2024 Indication First trimester anatomic survey, BMI > 35 Impression The patient is referred for a first trimester anatomy scan including nuchal translucency measurement as clinically indicated. - Single, live, intrauterine . - Scammon rump length measurement is consistent with the established gestational age. - A qualitative screen of the nuchal translucency and other anatomic structures was unremarkable on a complete first trimester anatomic assessment. - Not all structural malformations can be detected by ultrasound examination. Recommendations - A standard anatomic survey at 16 weeks can be offered and a detailed exam at 20 weeks is recommended for increased risk. Maternal Assessment Height 168 cm Height (ft) 5 ft Height (in) 6 in Physical Exam Initial weight (lb) 262 lb Initial BMI 42.29 kg/m Method Transabdominal ultrasound examination, Color Doppler examination. View: Adequate visualization Wagoner . Number of fetuses: 1 Dating LMP on: 04/30/2024 GA by LMP 17 w + 3 d MATI by LMP: 02/04/2025 GA by prior assessment 12 w + 5 d MATI by prior assessment: 03/09/2025 Ultrasound examination on: 08/30/2024 GA by U/S based upon: CRL GA by U/S 13 w + 1 d MATI by U/S: 03/06/2025 Assigned: based on ultrasound (CRL), selected on 07/22/2024 Assigned GA 12 w + 5 d Assigned MATI: 03/09/2025 General Evaluation Cardiac activity present Placenta: anterior Cord vessels: 3 vessel cord Amniotic fluid: normal amount Biometry Standard FHR 154 bpm CRL 68.1 mm 13w 1d 68% Hadlock First Trimester Anatomy Calvarium: normal Falx cerebri: normal Choroid plexus: normal Profile: normal Nasal bone: normal Retronasal triangle: normal Maxilla: normal Mandible: normal Nuchal translucency: Unremarkable Situs: normal Cardiac position: normal Cardiac axis: normal 4-chamber view: visualized 4-chamber view with color: visualized 8-[id number] view: normal Abdominal cord insertion: normal Stomach: normal Kidneys: normal Bladder: normal Color doppler of perivesical umbilical arteries: normal Vertebral alignment: suboptimal Arms: normal Hands: normal Legs: normal Feet: normal Maternal Structures Uterus / Cervix Uterus: Visualized Ovaries / Tubes / Adnexa Rt ovary: Not visualized Lt ovary: Not visualized Performed By: Grace Patel RDMS Read By: Hilda Menard M.D. MATERNAL MEDICINE [facility] Radiology Study observation (narrative) [facility] [id number] PLUSon 08-30-2024 Cell-free DNA./Cell-free DNA.total Dosage of chromosome-specific cfDNA (cfDNA) [Molar fraction] 16% Normal [facility] Comment on above: Order Comment: Speci men Type: BLOOD SPECIMENOrdering Facility: [facility] Address: [address] [place] [address] Performed By: #### M AT21 ####[facility] LABCLIA [id number] [place] [address] Chr 13+18+21+X+Y aneuploidy Dosage of chromosome-specific cfDNA Ql (cfDNA) Negative Normal [facility] Comment on above: Order Comment: Speci men Type: BLOOD SPECIMENOrdering Facility: [facility] Address: [address] [place] [address] Performed By: #### M AT21 ####[facility] LABShanghai Yinku networkIA [id number] [place] [address] Chr 21 trisomy Dosage of chromosome-specific cfDNA Ql (cfDNA) Negative Normal [facility] Comment on above: Order Comment: Speci men Type: BLOOD SPECIMENOrdering Facility: [facility] Address: [address] [place] [address] Performed By: #### M AT21 ####[facility] LABCLIA [id number] [place] [address] Chr X and Y aneuploidy risk Sequencing Ql (cfDNA) [Interp] Not detected Normal [facility] Comment on above: Order Comment: Speci men Type: BLOOD SPECIMENOrdering Facility: [facility] Address: [address] [place] [address] Result Comment: Not Detected Not Detected Performed By: #### M AT21 ####[facility] LABCLIA [id number] [place] [id number] Citation Severino (Reference lab test) Comment Normal [facility] Comment on above: Order Comment: Speci men Type: BLOOD SPECIMENOrdering Facility: [facility] Address: [address] [place] [address] Result Comment: 1. P denis ADAMES et al. Nancy Med. 2012;14(3):296-305. 2. Remigio SPARKS et al. Prenat Diag. 2013;33(6):591-597. 3. Tien C, et al. Clin Chem. 2015 Nov;61(4):608-616. 4. Ruiz ADAMES, et al. Nancy Med. 2011;13(11):913-920. 5. ACOG/SMFM Practice Bulletin No. 226, May 2020. Performed By: #### M AT21 ####[facility] LABCLIA [id number] [place] [id number] Gestational age Estimated from conception date Wagoner Normal [facility] Comment on above: Order Comment: Speci men Type: BLOOD SPECIMENOrdering Facility: [facility] Address: [address] [place] [address] Performed By: #### M AT21 ####[facility] LABCLIA [id number] [place] [id number] GESTATIONALAGE AGE > OR = 9W Yes Normal [facility] Comment on above: Order Comment: Speci debbie Type: BLOOD SPECIMENOrdering Facility: [facility] Address: [address] [place] [address] Performed By: #### M AT21 ####[facility] LABCLIA [id number] [place] [address] Laboratory comment Severino (Report) Comment Normal [facility] Comment on above: Order Comment: Jesusi men Type: BLOOD SPECIMENOrdering Facility: [facility] Address: [address] [place] [address] Result Comment: The MaterniT(R) 21 PLUS laboratory-developed test (LDT) analyzes circulating cell-free DNA from a maternal blood sample. This test is used for screening purposes and not diagnostic. Clinical correlation is recommended. Validation data on twin pregnancies is limited and the ability of this test to detect aneuploidy in higher multiple gestations has not yet been validated. Performed By: #### M AT21 ####[facility] LABCLIA [id number] [place] [address] director airport operations name Nom (Provider) Comment Normal [facility] Comment on above: Order Comment: Speci men Type: BLOOD SPECIMENOrdering Facility: [facility] Address: [address] [place] [address] Result Comment: This specimen showed an expected representation of chromosome 21, 18 and 13 material. Clinical correlation is suggested. Comment Smith Laura MD, PhD, Director, [facility] Performed By: #### M AT21 ####[facility] LABCLIA [id number] [place] [address] LIMITATIONS OF THE TEST Comment Normal [facility] Comment on above: Order Comment: Speci men Type: BLOOD SPECIMENOrdering Facility: [facility] Address: [address] [place] [address] Result Comment: Zenaida wallace the results of these tests are highly reliable, discordant results, including inaccurate sex prediction, may occur due to placental, maternal, or mosaicism or neoplasm; vanishing twin; prior maternal organ transplant; or other causes. These tests are screening tests and not diagnostic; they do not replace the accuracy and precision of diagnosis with CVS or amniocentesis. A patient with a positive test result should be referred for genetic counseling and offered invasive diagnosis for confirmation of test results.[5] The results of this testing, including the benefits and limitations, should be discussed with a qualified healthcare provider. management decisions, including termination of the , should not be based on the results of these tests alone. The healthcare provider is responsible for the use of this information in the management of their patient. Sex chromosomal aneuploidies are not reportable for known multiple gestations. A negative result does not ensure an unaffected nor does it exclude the possibility of other chromosomal abnormalities or defects which are not a part of these tests. An uninformative result may be reported, the causes of which may include, but are not limited to, insufficient sequencing coverage, noise or artifacts in the region, amplification or sequencing bias, or insufficient fraction. These tests are not intended to identify pregnancies at risk for neural tube defects or ventral wall defects. Testing for whole chromosome abnormalities (including sex chromosomes) and for subchromosomal abnormalities could lead to the potential discovery of both and maternal genomic abnormalities that could have major, minor, or no, clinical significance. Evaluating the significance of a positive or a non-reportable result may involve both invasive testing and additional studies on the mother. Such investigations may lead to a diagnosis of maternal chromosomal or subchromosomal abnormalities, which on occasion may be associated with benign or malignant maternal neoplasms. These tests may not accurately identify triploidy, balanced rearrangements, or the precise location of subchromosomal duplications or deletions; these may be detected by diagnosis with CVS or amniocentesis. The ability to report results may be impacted by maternal BMI, maternal weight, maternal systemic lupus erythematosus (SLE) and/or by certain pharmaceutical agents such as low molecular weight heparin (for example: Lovenox(R), Xaparin(R), Clexane(R) and Fragmin(R)). Performed By: #### M AT21 ####[facility] [id number] [place] [address] Monosomy X risk Dosage of chromosome-specific cfDNA Ql (Plasma cell-free+WBC DNA) [Interp] Not detected Normal [facility] Comment on above: Order Comment: Speci men Type: BLOOD SPECIMENOrdering Facility: [facility] Address: [address] [place] [address] Performed By: #### M AT21 ####[facility] LABCLIA [id number] [place] [address] NEGATIVE PREDICTIVE VALUE Note Normal [facility] Comment on above: Order Comment: Speci debbie Type: BLOOD SPECIMENOrdering Facility: [facility] Address: [address] [place], [place] [id number] Result Comment: The Negative Predictive Value (NPV) for trisomy 21, 18, and 13 is greater than 99%. The NPV for SCA and ESS cannot be calculated as SCA and ESS are only reported when an abnormality is detected. Performed By: #### M AT21 ####[facility] LABShanghai Yinku networkIA [id number] [place] [address] NOTE Comment Normal [facility] Comment on above: Order Comment: Speci men Type: BLOOD SPECIMENOrdering Facility: [facility] Address: [address] [place] [address] Result Comment: See Notes [employer] is a subsidiary of [employer], using the brand [employer]. This test was developed and its performance characteristics determined by [employer]. It has not been cleared or approved by the Food and Drug Administration. This laboratory is certified under the Clinical Laboratory Improvement Amendments (CLIA) as qualified to perform high complexity clinical laboratory testing and accredited by the [employer] ([employer]). If there is future clinical need for adding MaterniT GENOME testing, this specimen will be available until term. [facility] samples will not be retained beyond 60 days. [facility] patients will have to send a new sample for re-sequencing ([facility] Test Code: 216923). Performed By: #### M AT21 ####[facility]ST[facility]ITALM[facility] LABIA [id number] [place] [address] PERFORMANCE CHARACTERISTICS Note Normal [facility] Comment on above: Order Comment: Jesusi men Type: BLOOD SPECIMENOrdering Facility: [facility] Address: [address] [place] [address] Result Comment: ! Sex ! Accuracy: 99.4% ! ! ! ! Region (associated syndrome) ! Est. Sens# ! Est. Spec ! ! ! ! Trisomy 21 (Down Syndrome) ! 99.1% ! 99.9% ! ! ! ! Trisomy 18 ([place]wood Syndrome) ! >99.9% ! 99.6% ! ! ! ! Trisomy 13 ([place] Syndrome) ! 91.7% ! 99.7% ! ! ! ! Sex Chromosome Aneuploidies## ! 96.2% ! 99.7% ! ! ! * As reported in [facility] database nstd37 [https://www.ncbi.nlm.nih.gov/dbvar/studies/nstd37/ ] # Estimated Sensitivity. Sensitivity estimated across the observed size distribution of each syndrome [per ISC[employer] database nstd37] and across the range of fractions observed in routine clinical NIPT. Actual sensitivity can also be influenced by other factors such as the size of the event, total sequence counts, amplification bias, or sequence bias. ## Wagoner gestation only. Performed By: #### M AT21 ####[employer] LABCLIA [id number] [place] [address] POSITIVE PREDICTIVE VALUE N/A Normal [facility] Comment on above: Order Comment: Speci men Type: BLOOD SPECIMENOrdering Facility: [facility] Address: [address] [place] [address] Performed By: #### M AT21 ####[employer] LABCLIA [id number] [place] [address] Reference Lab Test Method Comment Normal [facility] Comment on above: Order Comment: Speci men Type: BLOOD SPECIMENOrdering Facility: [facility] Address: [address] [place] [address] Result Comment: See Notes Circulating cell-free DNA was purified from the plasma component of maternal blood. The extracted DNA was then converted into a genomic DNA library for aneuploidy analysis of chromosomes 21, 18, and 13 via next generation sequencing.[1] Optional findings based on the test order include sex chromosome aneuploidy (SCA)[2], and enhanced sequencing series (ESS)[3], which will only be reported on as an additional finding when an abnormality is detected. SCA testing includes information on X and Y representation, while ESS testing includes deletions in selected regions (22q, 15q, 11q, 8q, 5p, 4p, 1p) and trisomy of chromosomes 16 and 22. Performed By: #### M AT21 ####[employer] LABCLIA [id number] [place] [address] Sex Dosage of chromosome-specific cfDNA Nom (cfDNA) Comment Normal [facility] Comment on above: Order Comment: Speci debbie Type: BLOOD SPECIMENOrdering Facility: [facility] Address: [address] [place] [address] Result Comment: Cons istent with Female Performed By: #### M AT21 ####[facility] LABCLIA [id number] [place] [address] Test performance information Severino (Unsp spec) Comment Normal [facility] Comment on above: Order Comment: Speci men Type: BLOOD SPECIMENOrdering Facility: [facility] Address: [address] [place] [address] Result Comment: The performance characteristics of the MaterniT(R) 21 PLUS laboratory-developed test (LDT) have been determined in a clinical validation study with women at increased risk for chromosomal aneuploidy.[1-4] Performed By: #### M AT21 ####[facility] LABCLIA [id number] [place] [address] Trisomy 13 risk Dosage of chromosome-specific cfDNA Ql (cfDNA) [Interp] Negative Normal [facility] Comment on above: Order Comment: Speci men Type: BLOOD SPECIMENOrdering Facility: [facility] Address: [address] [place] [address] Performed By: #### M AT21 ####[facility] LABCLIA [id number] [place] [address] Trisomy 18 risk Dosage of chromosome-specific cfDNA Ql (Plasma cell-free+WBC DNA) [Interp] Negative Normal [facility] Comment on above: Order Comment: Speci men Type: BLOOD SPECIMENOrdering Facility: [facility] Address: [address] [place] [address] Performed By: #### M AT21 ####[facility] LABCLIA [id number] [place] [address] CNOVon 08-25-2024 CNOV Office Visit (UCWSTR ) SLOANE LINDER ([id number]) 1990 F Date Time Provider Department 08/25/24 6:30 PM RICKY GRAVES [facility] During your visit today, we recorded the following information about you: Temperature Pulse Respiration Blood pressure 99.4 degrees 120/minute 20/minute 119/84 Weight 114 kg Ricky Graves PA 08/25/2024 7:06 PM Signed This note was created using 3G Multimediariter. Subjective Sloane Linder is a 34 year old female. HPI 34-year-old female presents for sore throat, headache, chills, right ear pain starting last night. Patient states she started getting sore throat and ear pain yesterday. She denies any cough or congestion. She has some chills and fatigue. She has a low-grade fever today. She took Tylenol around 12:30 PM. Patient is 12 weeks . No vaginal bleeding, vaginal discharge, pelvic pain or abdominal pain. Still able to eat and drink. No vomiting or diarrhea. No other complaint. PAST MEDICAL HISTORY Diagnosis Date Abnormal Pap smear of cervix Anemia AGE 17 Bacterial vaginitis Chlamydia 08/24/2012 Chronic headaches 08/24/1999 Gonorrhea 02/08/2013 History of hemorrhage Migraines sometimes with auras Reactive airway disease, unspecified asthma severity, uncomplicated 09/21/2017 PAST SURGICAL HISTORY Procedure Laterality Date CERVIX UTERI CONIZA LP ELCTRO EXCI CONIZATION CERVIX W/WO DANDC RPR ELTRD EXC 11/2013 LEEP-Cervix NEXPLANON INSERTION 09/04/2015 removed OTHER SURGICAL HISTORY (PLEASE SPECIFY) HX 10/23/2015 diagnostic laparascopy ALLERGIES Morphine MEDICATIONS aspirin, enteric coated (ECOTRIN LOW STRENGTH) 81 mg EC tablet Take 1 tablet by mouth once daily. VIT 9-MMIX-PAOAA-DHA ORAL Take by mouth. cholecalciferol (VITAMIN D3) 1,000 unit tab tablet Take 1 tablet by mouth once daily. albuterol HFA (VENTOLIN HFA) 90 mcg/actuation inhaler Inhale 2 Puffs as instructed every 4 hours as needed for wheezing/shortness of breath. fluticasone (FLONASE) 50 mcg/actuation nasal spray Use 1 [place] in each nostril once daily. Rinse mouth after use. montelukast (SINGULAIR) 10 mg tablet Take 1 tablet by mouth daily at bedtime. (Patient not taking: Reported on 08/25/2024) amitriptyline (ELAVIL) 10 mg tablet Take 2 tablets by mouth daily at bedtime. FAMILY HISTORY Problem Relation Age of Onset Headache Mother Colon Cancer Father 52 No Known Problems Sister No Known Problems Sister Allergies Brother No Known Problems Maternal Grandmother Heart Maternal Grandfather Diabetes Paternal Grandmother Heart Paternal Grandfather Cancer Paternal Grandfather Social History Tobacco Use Smoking status: Never Passive exposure: Never Smokeless tobacco: Never Vaping Use Vaping status: Never Used Substance Use Topics Alcohol use: Yes Comment: occasionally, NOT WHILE Drug use: No Review of Systems Constitutional: Positive for chills, fatigue and fever. HENT: Positive for ear pain and sore throat. Negative for congestion. Respiratory: Negative for cough and shortness of breath. Cardiovascular: Negative for chest pain. Gastrointestinal: Negative for diarrhea and vomiting. Neurological: Positive for headaches. Objective BP 119/84 Pulse 120 Temp 37.4 ?C (99.4 ?F) Resp 20 Wt 114 kg (251 lb 5.2 oz) LMP 04/30/2024 (Approximate) SpO2 100% BMI 40.26 kg/m? Physical Exam Vitals and nursing note reviewed. Constitutional: General: She is not in acute distress. Appearance: Normal appearance. She is not toxic-appearing. HENT: Right Ear: Tympanic membrane and ear canal normal. Left Ear: Tympanic membrane and ear canal normal. Nose: Nose normal. Mouth/Throat: Mouth: Mucous membranes are moist. Pharynx: Uvula midline. Posterior oropharyngeal erythema present. Tonsils: Tonsillar exudate present. 2+ on the right. 2+ on the left. Eyes: Conjunctiva/sclera: Conjunctivae normal. Cardiovascular: Rate and Rhythm: Normal rate and regular rhythm. Pulmonary: Effort: Pulmonary effort is normal. Breath sounds: Normal breath sounds. Lymphadenopathy: Cervical: No cervical adenopathy. Skin: General: Skin is warm and dry. Neurological: Mental Status: She is alert. Assessment and Plan ASSESSMENT/PLAN: 1. Strep pharyngitis - ICD9: 034.0, ICD10: J02.0 (primary diagnosis) - suspect strep - Group A strep molecular testing positive - Amoxicillin for 10 days. - Discussed supportive care treatment with fluids, rest and analgesia. 2. Sore throat - ICD9: 462, ICD10: J02.9 - STREP A MOLECULAR (POC) - COVID AND INFLUENZA A/B AND RSV PCR, ROUTINE -COVID/flu pending. In window for Tamiflu until evening of 08/26/2024. Patient is . 3. Right ear pain - ICD9: 388.70, ICD10: H92.01 -Normal exam. -Suspect radiating from throat -Treating strep as above. Diagnosis and treatment pl (more content not included)... Normal [facility] COVID AND INFLUENZA A/B AND RSV PCR, ROUTINEon 08-25-2024 SARS-CoV-2 (COVID-19) RNA NIKUNJ+probe Ql (Unsp spec) SARS-COV-2 (AGENT OF COVID-19) RNA: Not detected INFLUENZA A RNA: Not detected INFLUENZA B RNA: Not detected RESPIRATORY SYNCYTIAL VIRUS (RSV) RNA: Not detected Normal [facility] Comment on above: Performed By: #### C VFLRS ####[facility] LABCLIA [id number] [place] [address] [place] STREP A MOLECULAR (POC)on Interpretation and review of laboratory results Abnormal [facility] Procedural Control Valid [facility] Strep A (POCT) Positive Abnormal Negative [facility] CBC W Auto Diff [place] 2023 Erythrocyte distribution width (RBC) [Ratio] 15.9 % High 11.5-15.0 [facility] Comment on above: Order Comment: Jeffry lewis Type: BLOOD SPECIMEN [facility] Address: [address] [place] [address] Performed By: #### G LTGST #### [facility] [id number] [address] [place] [address] [place] Hematocrit (Bld) [Volume fraction] 36.3 % Normal 36.0-46.0 [facility] Comment on above: Order Comment: Jeffry lewis Type: BLOOD SPECIMEN [facility] Address: [address] [place] [address] Performed By: #### G LTGST #### [facility] [id number] [address] [place] [address] [place] Hemoglobin (Bld) [Mass/Vol] 11.1 g/dL Low 11.5-15.5 [facility] Comment on above: Order Comment: Jeffry lewis Type: BLOOD SPECIMEN [facility] Address: [address] [place] [address] Performed By: #### G LTGST #### [facility] [id number] [address] [place] [address] [place] MCH (RBC) [Entitic mass] 25.5 pg Low 26.0-34.0 [facility] Comment on above: Order Comment: Speci men Type: BLOOD SPECIMEN [facility] Address: [address] [place] [address] Performed By: #### G LTGST #### [facility] CLIA [id number] [address] [place] [address] [facility] MCHC (RBC) [Mass/Vol] 30.6 g/dL Normal 30.5-36.0 [facility] Comment on above: Order Comment: Speci men Type: BLOOD SPECIMEN [facility] Address: [address] [place] [address] Performed By: #### G LTGST #### [facility] [id number] [address] [place] [address] MCV (RBC) [Entitic vol] 83.4 fL Normal 80.0-100.0 [facility] Comment on above: Order Comment: Speci men Type: BLOOD SPECIMEN [facility] Address: [address] [place] [address] Performed By: #### G LTGST #### [facility] [id number] [address] [place] [address] [place] RBC (Bld) [#/Vol] 4.35 10*6/uL Normal 3.90-5.20 [facility] Comment on above: Order Comment: Speci men Type: BLOOD SPECIMEN [facility] Address: [address] [place] [address] Performed By: #### G LTGST #### [facility] [id number] [address] [place] [address] [place] CBC W Auto Differential pane l (Bld)on 08-12-2024 Basophils (Bld) [#/Vol] 0.03 10*3/uL Normal <0.11 [facility] Comment on above: Order Comment: Speci men Type: BLOOD SPECIMEN [facility] Address: [address] [place] [address] Performed By: #### G LTGST #### [facility] CLIA [id number] [address] [place] [address] [place] Basophils/100 WBC (Bld) 0.3 % Normal [facility] Comment on above: Order Comment: Speci men Type: BLOOD SPECIMEN [facility] Address: [address] [place] [address] Performed By: #### G LTGST #### [facility] CLIA [id number] [address] [place] [address] [place] Differential cell count method Nom (Bld) Auto Normal [facility] Comment on above: Order Comment: Speci men Type: BLOOD SPECIMEN [facility] Address: [address] [place] [address] Performed By: #### G LTGST #### [facility] CLIA [id number] [address] [place] [address] [place] Eosinophils (Bld) [#/Vol] 0.12 10*3/uL Normal <0.46 [facility] Comment on above: Order Comment: Speci men Type: BLOOD SPECIMEN [facility] Address: [address] [place] [address] Performed By: #### G LTGST #### [facility] CLIA [id number] [address] [place] [address] [place] Eosinophils/100 WBC (Bld) 1.0 % Normal [facility] Comment on above: Order Comment: Speci men Type: BLOOD SPECIMEN [facility] Address: [address] [place] [address] Performed By: #### G LTGST #### [facility] CLIA [id number] [address] [place] [address] [place] Immature granulocytes (Bld) [#/Vol] 0.05 10*3/uL Normal <0.10 [facility] Comment on above: Order Comment: Speci men Type: BLOOD SPECIMEN [facility] Address: [address] [place] [address] Performed By: #### G LTGST #### [facility] CLIA [id number] [address] [place] [address] [place] Immature granulocytes/100 WBC (Bld) 0.4 % Normal [facility] Comment on above: Order Comment: Speci men Type: BLOOD SPECIMEN [facility] Address: [address] [place] [address] Performed By: #### G LTGST #### [facility] CLIA [id number] [address] [place] [address] [place] Lymphocytes (Bld) [#/Vol] 3.01 10*3/uL Normal 1.00-4.00 [facility] Comment on above: Order Comment: Speci men Type: BLOOD SPECIMEN [facility] Address: [address] [place] [address] Performed By: #### G LTGST #### [facility] CLIA [id number] [address] [place] [address] [place] Lymphocytes/100 WBC (Bld) 25.7 % Normal [facility] Comment on above: Order Comment: Speci men Type: BLOOD SPECIMEN [facility] Address: [address] [place] [address] Performed By: #### G LTGST #### [facility] CLIA [id number] [address] [place] [address] [place] Monocytes (Bld) [#/Vol] 0.57 10*3/uL Normal <0.87 [facility] Comment on above: Order Comment: Speci men Type: BLOOD SPECIMEN [facility] Address: [address] [id number] Performed By: #### G LTGST #### [facility] CLIA [id number] [address] [place] [address] [place] Monocytes/100 WBC (Bld) 4.9 % Normal [facility] Comment on above: Order Comment: Speci men Type: BLOOD SPECIMEN [facility] Address: [address] [place] [address] Performed By: #### G LTGST #### [facility] CLIA [id number] [address] [place] [address] [place] Neutrophils (Bld) [#/Vol] 7.92 10*3/uL High 1.45-7.50 [facility] Comment on above: Order Comment: Speci men Type: BLOOD SPECIMEN [facility] Address: [address] [place] [address] Performed By: #### G LTGST #### [facility] CLIA [id number] [address] [place] [address] [place] Neutrophils/100 WBC (Bld) 67.7 % Normal [facility] Comment on above: Order Comment: Speci men Type: BLOOD SPECIMEN [facility] Address: [address] [place] [address] Performed By: #### G LTGST #### [facility] CLIA [id number] [address] [place] [address] [place] Nucleated RBC (Bld) [#/Vol] 10*3/uL Normal <0.01 [facility] Comment on above: Order Comment: Speci men Type: BLOOD SPECIMEN [facility] Address: [address] [place], [place] [address] Performed By: #### G LTGST #### [facility] CLIA [id number] [address] [place] [address] [place] Nucleated RBC/100 WBC (Bld) [Ratio] 0.0 /100 WBC Normal [facility] Comment on above: Order Comment: Speci men Type: BLOOD SPECIMEN [facility] Address: [address] [place] [address] Performed By: #### G LTGST #### [facility] [id number] [address] [place] [address] [place] Platelet mean volume (Bld) [Entitic vol] 11.5 fL Normal 9.0-12.7 [facility] Comment on above: Order Comment: Jesusi men Type: BLOOD SPECIMEN [facility] Address: [address] [place] [address] Performed By: #### G LTGST #### [facility] [id number] [address] [place] [address] [place] Platelets (Bld) [#/Vol] 337 10*3/uL Normal 150-400 [facility] Comment on above: Order Comment: Speci men Type: BLOOD SPECIMEN [facility] Address: [address] [place] [address] Performed By: #### G LTGST #### [facility] [id number] [address] [place] [address] [place] WBC (Bld) [#/Vol] 11.70 10*3/uL High 3.70-11.00 [facility] Comment on above: Order Comment: Speci men Type: BLOOD SPECIMEN [facility] Address: [address] [place] [address] Performed By: #### G LTGST #### [facility] [id number] [address] [place] [address] [place] HBV surface Ag Ser Qlon 07-25 HBV surface Ag Ql (S) Negative Normal Negative [facility] Comment on above: Order Comment: Speci men Type: BLOOD SPECIMEN [facility] Address: [address] [place] [address] Performed By: #### 5 0190-8, 2276-4 #### [facility] CLIA [id number] [address] [place] [address] [place] HCV Ab Ser Qlon 08-12-2024 HCV Ab Ql (S) Negative Normal Negative [facility] Comment on above: Order Comment: Speci men Type: BLOOD SPECIMEN [facility] Address: [address] [place] [address] Result Comment: The result suggests no evidence of active infection with Hepatitis C virus. Should recent infection be suspected, repeat testing may be considered 4-6 weeks after this draw. Performed By: #### 5 0190-8, 6-4 #### [facility] CLIA [id number] [address] [place] [address] [place] HGB ELECTROPHORESIS FOR EVAL (LAB ORDER)on 08-12-2024 Hemoglobin A (Bld) [Mass fraction] 97.6 % Normal 96.2-98.0 [facility] Comment on above: Order Comment: Jesusi men Type: BLOOD SPECIMENOrdering Facility: [facility] Address: [address] [place] [address] Performed By: #### L [id number], HGBELEV ####[facility] LABCLIA [id number] [place] [address] [place] Hemoglobin A2 (Bld) [Mass fraction] 2.4 % Normal 2.0-3.1 [facility] Comment on above: Order Comment: Jesusi men Type: BLOOD SPECIMENOrdering Facility: [facility] Address: [address] [place] [address] Performed By: #### L [id number], HGBELEV ####[facility] LABCLIA [id number] [place] [address] [place] Hemoglobin Unsp Elph (Bld) [Mass fraction] No abnormal hemoglobin identified. Normal No abnormal hemoglobin identified. [facility] Comment on above: Order Comment: Speci men Type: BLOOD SPECIMENOrdering Facility: [facility] Address: [address] [place] [address] Performed By: #### L [id number], HGBELEV ####[facility] LABCLIA [id number] [place] [address] [place] HGB EVALUATION CASCADE INTER Eric 08-12-2024 Hemoglobin pattern (Bld) [Interp] Reviewed by Chacorta Farley MD, PhD Normal [facility] Comment on above: Order Comment: Speci men Type: BLOOD SPECIMENOrdering Facility: [facility] Address: [address] [place] [address] Performed By: #### L [id number], HGBELEV ####[facility] LABIA [id number] [place] [address] [place] INTERPRETATION (HGB EVAL) Normal [facility] Comment on above: Order Comment: Speci men Type: BLOOD SPECIMENOrdering Facility: [facility] Address: [address] [place] [address] Result Comment: Hemo globins were analyzed by capillary electrophoresis and CBC red cell parameters were reviewed. No abnormal hemoglobin is identified. There is a normal hemoglobin capillary electrophoresis pattern. Performed By: #### L [id number], HGBELEV ####[facility]CL[facility] [id number] [place] [address] [place] HIV 1+2 Ab IA Qlon 4 HIV 1 and 2 Ab IA.rapid Nom (S/P/Bld) Normal [facility] Comment on above: Order Comment: Speci men Type: BLOOD SPECIMEN [facility] Address: [address] [place] [address] Result Comment: Test not indicated. Performed By: #### 5 0190-8, 2276-4 #### [facility] CLIA [id number] [address] [place] [address] [place] HIV 1+2 Ab+HIV1 p24 Ag IA Ql Non-Reactive Normal Nonreactive [facility] Comment on above: Order Comment: Speci men Type: BLOOD SPECIMEN [facility] Address: [address] [place] [address] Performed By: #### 5 0190-8, 6-4 #### [facility] CLIA [id number] [address] [place] [address] [place] HIV immunoassay testing algorithm interpretation (S/P/Bld) [Interp] Normal [facility] Comment on above: Order Comment: Speci men Type: BLOOD SPECIMEN Ordering Facility: [facility] Address: [address] [place] [address] Result Comment: No e vidence of HIV-1 or HIV-2 infection. Should recent infection be suspected, repeat testing may be considered 2-3 weeks after this draw. [place] Rev. Code 3701.243(E): This information has been disclosed to you from confidential records protected from disclosure by state law. ???You shall make no further disclosure of this information without the specific, written, and informed release of the individual to whom it pertains or as otherwise permitted by state law. A general authorization for the release of medical or other information is not sufficient for the purpose of the release of HIV test results or diagnoses. Performed By: #### 5 0190-8, 6-4 #### [facility] CLIA [id number] [address] [place] [address] [place] HbA1c (Bld)on 08-12-2024 Average glucose Estimated from glycated hemoglobin (Bld) [Mass/Vol] 85 mg/dL Normal [facility] Comment on above: Order Comment: Speci men Type: BLOOD SPECIMEN Ordering Facility: [facility] Address: [address] [place] [address] Result Comment: eAG: (Estimated average glucose) is a calculated value from HgbA1c and is procurement representative of the average blood glucose level in the last 2-3 month period. Performed By: #### 5 0190-8, 2275- #### [facility] CLIA [id number] [address] [place] [address] [place] HbA1c (Bld) [Mass fraction] 4.6 % Normal 4.3-5.6 [facility] Comment on above: Order Comment: Speci debbie Type: BLOOD SPECIMEN Ordering Facility: [facility] Address: [address] [place] [address] Result Comment: Amer [place] Diabetes Association guidelines indicate that patients with HgbA1c in the range 5.7-6.4% are at increased risk for development of diabetes, and intervention by lifestyle modification may be beneficial. HgbA1c greater or equal to 6.5% is considered diagnostic of diabetes. Performed By: #### 5 0190-8, 2275-11 #### [facility] CLIA [id number] [address] [place] [address] [place] RUBELLA IGG ANTIBODYon 08-12 RUBELLA IGG AB, QUAL Equivocal Abnormal Positive [facility] Comment on above: Order Comment: Jeffry lewis Type: BLOOD SPECIMENOrdering Facility: [facility] Address: [address] [place] [address] Result Comment: Juhi ot exclude non-specific reactivity or recent or past exposure to Rubella virus including vaccination. Equivocal result may also be seen due to waning immunity to Rubella virus or presence of passively-transferred antibodies. Please correlate with patient's history. Performed By: #### R UBIGG ####[facility] [id number] [place] [address] [place] Reagin and Treponema pallidu m IgG and IgM [Interp]on 08-12-2024 T. pallidum IgG+IgM IA Ql (S) Non-Reactive Normal Nonreactive [facility] Comment on above: Order Comment: Jeffry lewis Type: BLOOD SPECIMEN Ordering Facility: [facility] Address: [address] [place] [address] Performed By: #### 5 0190-8, 2275-4 #### [facility] CLIA [id number] [address] [place] [address] [place] Reagin+T pallidum IgG+IgM Se rPl-Impon 08-12-2024 Reagin and Treponema pallidum IgG and IgM [Interp] Cannot exclude recent Treponemal infection if specimen collected within 7-10 days after appearance of suspect lesions or 2-3 weeks after an exposure. Clinical correlation is required. Normal [facility] Comment on above: Order Comment: Speci men Type: BLOOD SPECIMEN Ordering Facility: [facility] Address: [address] [place] [address] Performed By: #### 5 0190-8, 2276-4 #### [facility] CLIA [id number] [address] [place] [address] [place] TYPE + SCREEN PRENATALon ABO A Normal [facility] Comment on above: Order Comment: Speci men Type: BLOOD SPECIMEN Ordering Facility: [facility] Address: [address] [place] [address] Performed By: #### G LTGST #### [facility] CLIA [id number] [address] [place] [address] [place] Rh Nom (Bld) Positive Normal [facility] Comment on above: Order Comment: Speci men Type: BLOOD SPECIMEN Ordering Facility: [facility] Address: [address] [place] [address] Performed By: #### G LTGST #### [facility] CLIA [id number] [address] [place] [address] [place] TYPE AND SCREEN EXPIRATION 08/15/2024 23:59 Normal [facility] Comment on above: Order Comment: Speci men Type: BLOOD SPECIMEN Ordering Facility: [facility] Address: [address] [place] [address] Performed By: #### G LTGST #### [facility] CLIA [id number] [address] [place] [address] [place] BACTERIAL VAGINOSIS NAATon 1 09-21-2023 Lactobacillus crispatus+gasseri+je nsenii + Gardnerella vaginalis + Atopobium vaginae rRNA NIKUNJ+probe Ql (Vag fld) Not detected Normal Not detected [facility] Comment on above: Order Comment: Speci men Type: SWABOrdering Facility: [facility] Address: [address] [place] [address] Performed By: #### B VAMP, CVTV ####[facility] [id number] [place] [address] [place] Bacteria Ur Culton Bacteria identified Cx Nom (U) ORGANISM ID: 1 10,000 -<50,000 CFU/ml Normal urogenital ganesh Normal [facility] Comment on above: Performed By: #### 6 30-4 ####[facility] [id number] [place] [address] [place] C. trachomatis+N. gonorrhoea e DNA NIKUNJ+probe Ql (Unsp spec)on 07-22-2024 C. trachomatis rRNA NIKUNJ+probe Ql (Unsp spec) Not detected Normal Not detected [facility] Comment on above: Order Comment: Speci men Type: BLOOD SPECIMEN Ordering Facility: [facility] Address: [address] [place] [address] Performed By: #### 5 0190-8, 6-4 #### [facility] CLIA [id number] [address] [place] [address] [place] N. gonorrhoeae rRNA NIKUNJ+probe Ql (Unsp spec) Not detected Normal Not detected [facility] Comment on above: Order Comment: Speci men Type: BLOOD SPECIMEN Ordering Facility: [facility] Address: [address] [place] [address] Performed By: #### 5 0190-8, 6-4 #### [facility] CLIA [id number] [address] [place] [address] [place] SHIRA/TRICHOMONAS NAATon 1 09-21-2023 C. glabrata RNA NIKUNJ+probe Ql (Vag fld) Not detected Normal Not detected [facility] Comment on above: Order Comment: Speci men Type: SWABOrdering Facility: [facility] Address: [address] [place] [address] Performed By: #### B VAMP, CVTV ####[facility] [id number] [place] [address] [place] Shira sp DNA NIKUNJ+probe Ql (Vag fld) Not detected Normal Not detected [facility] Comment on above: Order Comment: Speci men Type: SWABOrdering Facility: [facility] Address: [address] [place] [address] Result Comment: The Shria species group target includes C. albicans, C. tropicalis, C. parapsilosis, and C. dubliniensis. Performed By: #### B VAMP, CVTV ####[facility] [id number] [address] [place] T. vaginalis DNA NIKUNJ+probe Ql (Unsp spec) Not detected Normal Not detected [facility] Comment on above: Order Comment: Speci men Type: SWABOrdering Facility: [facility] Address: [address] [place] [address] Performed By: #### B VAMP, CVTV ####[facility] [id number] [place] [address] [place] Office Visit Reporton 2023 Office Visit Report [facility] [address] [place] [address] OFFICE VISIT Date of Service: 06/13/24 MR#: [id number] Acct: [id number] Patient: SLOANE LINDER Rep #: [id number] 7 : 1990 Provider: KIMBERLEE Flores Age/Sex: 34/F Location: [facility] Status: Signed Intake Vital Signs 08/11/13 00:13 06/13/24 09:16 Height 5 ft 6 in 5 ft 6 in Intake Visit Reasons: PE NON DOT DRUG SCREEN/ [place] Allergies No Known Allergies Allergy (Verified 08/11/13 00:03) Office Procedures [facility] Billing Sheet Testing Drug Screen Collection Only: Yes 06/14/24 0837 Date Dylan Larson Signature: Date (if applicable) CC: Normal [facility] CBC panel Auto (Bld)on 04-16 Erythrocyte distribution width (RBC) [Ratio] 14.6 % 11.5 - 15.0 % [facility] Hematocrit (Bld) [Volume fraction] 39.1 % 36.0 - 46.0 % [facility] Hemoglobin (Bld) [Mass/Vol] 11.9 g/dL 11.5 - 15.5 g/dL [facility] MCH (RBC) [Entitic mass] 25.6 pg Low 26.0 - 34.0 pg [facility] MCHC (RBC) [Mass/Vol] 30.4 g/dL Low 30.5 - 36.0 g/dL [facility] MCV (RBC) [Entitic vol] 84.1 fL 80.0 - 100.0 fL [facility] Nucleated RBC (Bld) [#/Vol] <0.01 k/uL [facility] Platelet mean volume (Bld) [Entitic vol] 11.3 fL 9.0 - 12.7 fL [facility] Platelets (Bld) [#/Vol] 292 10*3/uL 150 - 400 k/uL [facility] RBC (Bld) [#/Vol] 4.65 10*6/uL 3.90 - 5.2 0 m/uL [facility] WBC (Bld) [#/Vol] 10.10 10*3/uL 3.70 - 11 .00 k/uL [facility] NOVEL CORONAVIRUS NASOPHARYN GEAL - [facility] SPECIMEN ONLYon 04-05-2020 SARS-COV-2 NOT DETECTED Normal NOT DETECTED [facility] Comment on above: Order Comment: Submi tter Name: YON DONG Agent Suspected: SARS-COV-2 This test was performed using real time PCR and has been approved for the qualitative detection of SARS-CoV-2 nucleic acid. The test has been authorized by the FDA under an emergency use authorization for use by authorized laboratories. Result Comment: Nega tive results do not preclude SARS-CoV-2 infection and should not be used as the sole basis for treatment or other patient management decisions. Optimum specimen types and timing for peak viral levels during infections caused by SARS-CoV-2 has not been determined. The possibility of a false negative result should especially be considered if the patient's recent exposures or clinical presentation suggest that SARS-CoV-2 infection is probable, and diagnostic tests for other causes of illness (e.g., other respiratory illness) are negative. Collection of a new specimen and re-testing may be necessary if the patient is critically ill or clinically deteriorating. Performed By: #### L [id number] #### [facility] (DEFAULT) [address] [place] [address] COVID PCR, SCREENING CONGREG ATEon 02-16-2020 CORONAVIRUS 2019,PCR NOT DETECTED Normal Not Detected [facility] Comment on above: Result Comment: This assay is designed to detect the N, ORF1ab and/or S genes of SARS-CoV-2 via nucleic acid amplification. A Negative (NOT DETECTED) result does not preclude 2019-nCoV infection since the adequacy of sample collection and/or low viral burden may result in presence of viral nucleic acids below the clinical sensitivity of this test method. Negative (NOT DETECTED) result should not be used as the sole basis for treatment or other patient management decisions. Rather negative results should be combined with clinical observations, patient history, and epidemiological information to make patient management decisions. Fact sheet for providers: https://www.fda.gov/media/341489/download Fact sheet for patients: https://www.fda.gov/media/569284/download This test has received FDA Emergency Use Authorization (EUA) and has been verified by [facility] ([facility]). This test is only authorized for the duration of time that circumstances exist to justify the authorization of the emergency use of in vitro diagnostic tests for the detection of SARS-CoV-2 virus and/or diagnosis of COVID-19 infection under section 564(b)(1) of the Act, 21 U.S.C. 360bbb-3(b)(1), unless the authorization is terminated or revoked sooner. [facility] ([facility]) is certified under CLIA-88 as qualified to perform high complexity testing. This tests analytical performance characteristics have been determined by [facility]. Testing is performed at [facility] is located at [address] [place] [address] (CLIA License #[id number], CAP #[id number]). Performed By: #### C VCLA #### [facility] [address] [place] [address] COVID PCR, SCREENING CONGREG ATEon 02-15-2020 Lab Specimen Source Nasal, Nasopharyngeal Normal [facility] Comment on above: Performed By: #### C VCLA #### [facility] [address] [place] [address] Vital Signs Date Time Vital Sign Value Performing Clinician Facility 02-27-2025 10:53-0400 Body mass index (BMI) [Ratio] 41.71 kg/m2 Faye Torres MD Work Phone: [facility] 02-27-2025 10:53-0400 Body weight 118.12 kg Faye Torres MD Work Phone: [facility] 02-27-2025 10:53-0400 Diastolic blood pressure 83 mm[Hg] Faye Torres MD Work Phone: [facility] 02-27-2025 10:53-0400 Systolic blood pressure 132 mm[Hg] Faye Torres MD Work Phone: [facility] 02-23-2025 10:09-0400 Body mass index (BMI) [Ratio] 41.81 kg/m2 Karin Ignacio APRN.CNM Work Phone: [facility] 02-23-2025 10:09-0400 Body weight 118.39 kg Karin Ignacio TOW TRUCK OPERATOR.CNM Work Phone: [facility] 02-23-2025 10:09-0400 Diastolic blood pressure 72 mm[Hg] Karin Ignacio TOW TRUCK OPERATOR.CNM Work Phone: [facility] 02-23-2025 10:09-0400 Systolic blood pressure 124 mm[Hg] Karin Ignacio TOW TRUCK OPERATOR.CNM Work Phone: [facility] 02-17-2025 14:00-0400 Body temperature 97.2 [degF] Treatment Wstr Work Phone: [facility] 02-17-2025 14:00-0400 Diastolic blood pressure 77 mm[Hg] Treatment Wstr Work Phone: [facility] 02-17-2025 14:00-0400 Heart rate 75 /min Treatment Wstr Work Phone: [facility] 02-17-2025 14:00-0400 Systolic blood pressure 122 mm[Hg] Treatment Wstr Work Phone: [facility] 02-17-2025 09:49-0400 Body mass index (BMI) [Ratio] 42.29 kg/m2 Faye Torres MD Work Phone: [facility] 02-17-2025 09:49-0400 Body weight 119.75 kg Faye Torres MD Work Phone: [facility] 02-17-2025 09:49-0400 Diastolic blood pressure 80 mm[Hg] Faye Torres MD Work Phone: [facility] 02-17-2025 09:49-0400 Systolic blood pressure 126 mm[Hg] Faye Torres MD Work Phone: [facility] 02-15-2025 10:07-0400 Body temperature 98.01 [degF] Treatment Wstr Work Phone: [facility] 02-15-2025 10:07-0400 Diastolic blood pressure 81 mm[Hg] Treatment Wstr Work Phone: [facility] 02-15-2025 10:07-0400 Heart rate 107 /min Treatment Wstr Work Phone: [facility] 02-15-2025 10:07-0400 SaO2% (BldA) [Mass fraction] 97 % Treatment Wstr Work Phone: [facility] 02-15-2025 10:07-0400 Systolic blood pressure 119 mm[Hg] Treatment Wstr Work Phone: [facility] 02-13-2025 14:40-0400 Body mass index (BMI) [Ratio] 42.42 kg/m2 Laverne Ramirez MD Work Phone: [facility] 02-13-2025 14:40-0400 Body weight 120.11 kg Laverne Ramirez MD Work Phone: [facility] 02-13-2025 14:40-0400 Diastolic blood pressure 77 mm[Hg] Laverne Ramirez MD Work Phone: [facility] 02-13-2025 14:40-0400 Heart rate 100 /min Laverne Ramirez MD Work Phone: [facility] 02-13-2025 14:40-0400 Respiratory rate 16 /min Laverne Ramirez MD Work Phone: [facility] 02-13-2025 14:40-0400 SaO2% (BldA) [Mass fraction] 99 % Laverne Ramirez MD Work Phone: [facility] 02-13-2025 14:40-0400 Systolic blood pressure 122 mm[Hg] Laverne Ramirez MD Work Phone: [facility] 02-10-2025 10:23-0400 Body mass index (BMI) [Ratio] 42.42 kg/m2 Faye Torres MD Work Phone: [facility] 02-10-2025 10:23-0400 Body weight 120.11 kg Faye Torres MD Work Phone: [facility] 02-10-2025 10:23-0400 Diastolic blood pressure 70 mm[Hg] Faye Torres MD Work Phone: [facility] 02-10-2025 10:23-0400 Systolic blood pressure 110 mm[Hg] Faye Torres MD Work Phone: [facility] 02-10-2025 09:06-0400 Body temperature 97.3 [degF] Treatment Wstr Work Phone: [facility] 02-10-2025 09:06-0400 Diastolic blood pressure 82 mm[Hg] Treatment Wstr Work Phone: [facility] 02-10-2025 09:06-0400 Heart rate 90 /min Treatment Wstr Work Phone: [facility] 02-10-2025 09:06-0400 SaO2% (BldA) [Mass fraction] 98 % Treatment Wstr Work Phone: [facility] 02-10-2025 09:06-0400 Systolic blood pressure 130 mm[Hg] Treatment Wstr Work Phone: [facility] 02-07-2025 09:50-0400 Body temperature 97.81 [degF] Treatment Wstr Work Phone: [facility] 02-07-2025 09:50-0400 Diastolic blood pressure 78 mm[Hg] Treatment Wstr Work Phone: [facility] 02-07-2025 09:50-0400 Heart rate 100 /min Treatment Wstr Work Phone: [facility] 02-07-2025 09:50-0400 Respiratory rate 20 /min Treatment Wstr Work Phone: [facility] 02-07-2025 09:50-0400 SaO2% (BldA) [Mass fraction] 97 % Treatment Wstr Work Phone: [facility] 02-07-2025 09:50-0400 Systolic blood pressure 114 mm[Hg] Treatment Wstr Work Phone: [facility] 02-03-2025 09:30-0400 Body mass index (BMI) [Ratio] 42.03 kg/m2 Faye Torres MD Work Phone: [facility] 02-03-2025 09:30-0400 Body weight 119.02 kg Faye Torres MD Work Phone: [facility] 02-03-2025 09:30-0400 Diastolic blood pressure 82 mm[Hg] Faye Torres MD Work Phone: [facility] 02-03-2025 09:30-0400 Systolic blood pressure 127 mm[Hg] Faye Torres MD Work Phone: [facility] 01-27-2025 10:17-0400 Body mass index (BMI) [Ratio] 41.23 kg/m2 Valerie Elizabeth MD Work Phone: [facility] 01-27-2025 10:17-0400 Body weight 116.76 kg Valerie Elizabeth MD Work Phone: [facility] 01-27-2025 10:17-0400 Diastolic blood pressure 64 mm[Hg] Valerie Elizabeth MD Work Phone: [facility] 01-27-2025 10:17-0400 Systolic blood pressure 108 mm[Hg] Valerie Elizabeth MD Work Phone: [facility] 01-20-2025 13:40-0400 Body mass index (BMI) [Ratio] 41.01 kg/m2 Ruthie Bundy MD Work Phone: [facility] 01-20-2025 13:40-0400 Body weight 116.12 kg Ruthie Bundy MD Work Phone: [facility] 01-20-2025 13:40-0400 Diastolic blood pressure 77 mm[Hg] Ruthie Bundy MD Work Phone: [facility] 01-20-2025 13:40-0400 Systolic blood pressure 123 mm[Hg] Ruthie Bundy MD Work Phone: [facility] 12-23-2024 09:51-0400 Body mass index (BMI) [Ratio] 40.53 kg/m2 Karin Ignacio TOW TRUCK OPERATOR.CNM Work Phone: [facility] 12-23-2024 09:51-0400 Body weight 114.76 kg Karin Ignacio TOW TRUCK OPERATOR.CNM Work Phone: [facility] 12-23-2024 09:51-0400 Diastolic blood pressure 62 mm[Hg] Karin Ignacio TOW TRUCK OPERATOR.CNM Work Phone: [facility] 12-23-2024 09:51-0400 Systolic blood pressure 116 mm[Hg] Karin Ignacio TOW TRUCK OPERATOR.CNM Work Phone: [facility] 12-09-2024 09:52-0400 Body mass index (BMI) [Ratio] 40.69 kg/m2 Faye Torres MD Work Phone: [facility] 12-09-2024 09:52-0400 Body weight 115.21 kg Faye Torres MD Work Phone: [facility] 12-09-2024 09:52-0400 Diastolic blood pressure 74 mm[Hg] Faye Torres MD Work Phone: [facility] 12-09-2024 09:52-0400 Systolic blood pressure 118 mm[Hg] Faye Torres MD Work Phone: [facility] 11-11-2024 10:00-0400 Body mass index (BMI) [Ratio] 39.73 kg/m2 Faye Torres MD Work Phone: [facility] 11-11-2024 10:00-0400 Body weight 112.49 kg Faye Torres MD Work Phone: [facility] 11-11-2024 10:00-0400 Diastolic blood pressure 84 mm[Hg] Faye Torres MD Work Phone: [facility] 11-11-2024 10:00-0400 Systolic blood pressure 122 mm[Hg] Faye Torres MD Work Phone: [facility] 10-14-2024 11:02-0500 Body mass index (BMI) [Ratio] 39.73 kg/m2 Shi Rubi APRN.CNM Work Phone: [facility] 10-14-2024 11:02-0500 Body weight 112.49 kg Shi Rubi APRN.CNM Work Phone: [facility] 09-18-2024 10:31-0500 Body mass index (BMI) [Ratio] 39.91 kg/m2 Az Alejandre APRN.VIDEO GAME TESTER Work Phone: [facility] 09-18-2024 10:31-0500 Body temperature 98.2 [degF] Az Alejandre APRN.VIDEO GAME TESTER Work Phone: [facility] 09-18-2024 10:31-0500 Body weight 113 kg Az Alejandre APRN.VIDEO GAME TESTER Work Phone: [facility] 09-18-2024 10:31-0500 Diastolic blood pressure 80 mm[Hg] Az Alejandre APRN.VIDEO GAME TESTER Work Phone: [facility] 09-18-2024 10:31-0500 Heart rate 96 /min Az Alejandre APRN.VIDEO GAME TESTER Work Phone: [facility] 09-18-2024 10:31-0500 Respiratory rate 16 /min Az Alejandre APRN.VIDEO GAME TESTER Work Phone: [facility] 09-18-2024 10:31-0500 SaO2% (BldA) [Mass fraction] 99 % Az Alejandre APRN.VIDEO GAME TESTER Work Phone: [facility] 09-18-2024 10:31-0500 Systolic blood pressure 124 mm[Hg] Az Alejandre APRN.VIDEO GAME TESTER Work Phone: [facility] 09-16-2024 09:53-0500 Body mass index (BMI) [Ratio] 39.73 kg/m2 Mayur Alejandre MD Work Phone: [facility] 09-16-2024 09:53-0500 Body weight 112.49 kg Mayur Alejandre MD Work Phone: [facility] 09-16-2024 09:53-0500 Diastolic blood pressure 64 mm[Hg] Mayur Alejandre MD Work Phone: [facility] 09-16-2024 09:53-0500 Systolic blood pressure 120 mm[Hg] Mayur Alejandre MD Work Phone: [facility] 08-30-2024 10:26-0500 Body mass index (BMI) [Ratio] 39.89 kg/m2 Chandler Moran MD Work Phone: [facility] 08-30-2024 10:26-0500 Body weight 112.95 kg Chandler Moran MD Work Phone: [facility] 08-30-2024 10:26-0500 Diastolic blood pressure 74 mm[Hg] Chandler Moran MD Work Phone: [facility] 08-30-2024 10:26-0500 Systolic blood pressure 122 mm[Hg] Chandler Moran MD Work Phone: [facility] 08-25-2024 18:47-0500 Body mass index (BMI) [Ratio] 40.26 kg/m2 Krislyn Aberegg PA Work Phone: [facility] 08-25-2024 18:47-0500 Body temperature 99.39 [degF] Krislyn Aberegg PA Work Phone: [facility] 08-25-2024 18:47-0500 Body weight 114 kg Krislyn Aberegg PA Work Phone: [facility] 08-25-2024 18:47-0500 Diastolic blood pressure 84 mm[Hg] Krislyn Aberegg PA Work Phone: [facility] 08-25-2024 18:47-0500 Heart rate 120 /min Krislyn Aberegg PA Work Phone: [facility] 08-25-2024 18:47-0500 Respiratory rate 20 /min Krislyn Aberegg PA Work Phone: [facility] 08-25-2024 18:47-0500 SaO2% (BldA) [Mass fraction] 100 % Krislyn Aberegg PA Work Phone: [facility] 08-25-2024 18:47-0500 Systolic blood pressure 119 mm[Hg] Krislyn Aberegg PA Work Phone: [facility] 07-22-2024 08:43-0500 Body height 168.3 cm Shi Rubi APRN.CNM Work Phone: [facility] 07-22-2024 08:43-0500 Body mass index (BMI) [Ratio] 42.29 kg/m2 Shi Rubi TOW TRUCK OPERATOR.CNM Work Phone: [facility] 07-22-2024 08:43-0500 Body weight 119.75 kg Shi Rubi APRN.CNM Work Phone: [facility] 07-22-2024 08:43-0500 Diastolic blood pressure 72 mm[Hg] Shi Rubi APRN.CNM Work Phone: [facility] 07-22-2024 08:43-0500 Systolic blood pressure 116 mm[Hg] Shi Rubi APRN.CNM Work Phone: [facility] 12-05-2023 13:31-0400 Body temperature 97.39 [degF] Krislyn Aberegg PA Work Phone: [facility] 12-05-2023 13:31-0400 Body weight 119.2 kg Krislyn Aberegg PA Work Phone: [facility] 12-05-2023 13:31-0400 Diastolic blood pressure 90 mm[Hg] Krislyn Aberegg PA Work Phone: [facility] 12-05-2023 13:31-0400 Heart rate 110 /min Krislyn Aberegg PA Work Phone: [facility] 12-05-2023 13:31-0400 Respiratory rate 21 /min Krislyn Aberegg PA Work Phone: [facility] 12-05-2023 13:31-0400 SaO2% (BldA) [Mass fraction] 99 % Ricky Graves PA Work Phone: [facility] 12-05-2023 13:31-0400 Systolic blood pressure 134 mm[Hg] Ricky Romerogg PA Work Phone: [facility] 11-17-2023 09:35-0400 Body height 166.4 cm Radha Lorenz TOW TRUCK OPERATOR.TAPE EDGE MACHINE OPERATOR Work Phone: [facility] 11-17-2023 09:35-0400 Body temperature 98.49 [degF] Radha Lorenz TOW TRUCK OPERATOR.TAPE EDGE MACHINE OPERATOR Work Phone: [facility] 11-17-2023 09:35-0400 Body weight 117.03 kg Radha Lorenz TOW TRUCK OPERATOR.TAPE EDGE MACHINE OPERATOR Work Phone: [facility] 11-17-2023 09:35-0400 Diastolic blood pressure 81 mm[Hg] Radha Lorenz TOW TRUCK OPERATOR.TAPE EDGE MACHINE OPERATOR Work Phone: [facility] 11-17-2023 09:35-0400 Heart rate 82 /min Radha Lorenz TOW TRUCK OPERATOR.TAPE EDGE MACHINE OPERATOR Work Phone: [facility] 11-17-2023 09:35-0400 Respiratory rate 16 /min Radha Lorenz TOW TRUCK OPERATOR.TAPE EDGE MACHINE OPERATOR Work Phone: [facility] 11-17-2023 09:35-0400 Systolic blood pressure 122 mm[Hg] Radha Lorenz TOW TRUCK OPERATOR.TAPE EDGE MACHINE OPERATOR Work Phone: [facility] 11-05-2023 12:55-0400 Body height 165.1 cm Namita Kimberly TOW TRUCK OPERATOR.VIDEO GAME TESTER Work Phone: [facility] 11-05-2023 12:55-0400 Body weight 120.2 kg Namita Kimberly TOW TRUCK OPERATOR.VIDEO GAME TESTER Work Phone: [facility] 11-05-2023 12:55-0400 Diastolic blood pressure 82 mm[Hg] Namita Rosita TOW TRUCK OPERATOR.VIDEO GAME TESTER Work Phone: [facility] 11-05-2023 12:55-0400 Systolic blood pressure 120 mm[Hg] Namita Becker SHERLEY Work Phone: [facility] 07-02-2023 10:24-0500 Body height 167.6 cm Farida Nagy MD Work Phone: [facility] 07-02-2023 10:24-0500 Diastolic blood pressure 75 mm[Hg] Farida Nagy MD Work Phone: [facility] 07-02-2023 10:24-0500 Heart rate 68 /min Farida Nagy MD Work Phone: [facility] 07-02-2023 10:24-0500 Respiratory rate 16 /min Farida Nagy MD Work Phone: [facility] 07-02-2023 10:24-0500 SaO2% (BldA) [Mass fraction] 99 % Farida Nagy MD Work Phone: [facility] 07-02-2023 10:24-0500 Systolic blood pressure 113 mm[Hg] Farida Nagy MD Work Phone: [facility] 02-18-2023 23:15-0400 Body height 167.6 cm JEANA GAGE MD [facility] 02-18-2023 23:15-0400 Body temperature 98.24 [degF] JEANA GAGE MD [facility] 02-18-2023 23:15-0400 Body weight 120.5 kg JEANA GAGE MD [facility] 02-18-2023 23:15-0400 Diastolic Blood Pressure Non-Invasive 77 1 JEANA GAGE MD [facility] 02-18-2023 23:15-0400 Heart rate 88 /min JEANA GAGE MD [facility] 02-18-2023 23:15-0400 Respiratory rate 16 /min JEANA GAGE MD [facility] 02-18-2023 23:15-0400 Systolic Blood Pressure Non-Invasive 129 1 JEANA GAGE MD [facility] 05-27-2022 07:01-0400 Body height 167.6 cm Namita Rosita TOW TRUCK OPERATOR.VIDEO GAME TESTER Work Phone: [facility] 05-27-2022 07:01-0400 Body weight 115.21 kg Namita Kimberly TOW TRUCK OPERATOR.VIDEO GAME TESTER Work Phone: [facility] 05-27-2022 07:01-0400 Diastolic blood pressure 70 mm[Hg] Namita Rosita TOW TRUCK OPERATOR.VIDEO GAME TESTER Work Phone: [facility] 05-27-2022 07:01-0400 Systolic blood pressure 112 mm[Hg] Namita Rosita TOW TRUCK OPERATOR.VIDEO GAME TESTER Work Phone: [facility] 04-16-2022 10:41-0400 Body height 166 cm 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: [facility] 04-16-2022 10:41-0400 Body weight 117.21 kg 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: [facility] 04-16-2022 10:41-0400 Diastolic blood pressure 78 mm[Hg] 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: [facility] 04-16-2022 10:41-0400 Heart rate 64 /min 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: [facility] 04-16-2022 10:41-0400 Respiratory rate 18 /min 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: [facility] 04-16-2022 10:41-0400 Systolic blood pressure 120 mm[Hg] 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: [facility] Encounters Encounter Date Encounter Type Care Provider Facility Start: 02-27-2025 End: 02-27-2025 Patient encounter procedure Faye Torres MD Work Phone: OB/Gynecology Comment on above: 38 weeks gestation o f (HCC) (Primary Dx); AMA (advanced maternal age) multigravida 35+, third trimester (HCC); Obesity in (HCC); Supervision of high risk in third trimester (HCC) Start: 02-23-2025 End: 02-23-2025 Patient encounter procedure Karin Ignacio TOW TRUCK OPERATOR.CNM Work Phone: OB/Gynecology Comment on above: 38 weeks gestation o f (HCC) (Primary Dx); AMA (advanced maternal age) multigravida 35+, third trimester (HCC); Obesity in (HCC) Start: 02-23-2025 End: 02-23-2025 ambulatory LAVERNE RAMIREZ Facility:[facility] Start: 02-17-2025 End: 02-17-2025 Patient encounter procedure Faye Torres MD Work Phone: OB/Gynecology Comment on above: 37 weeks gestation o f (HCC) (Primary Dx); AMA (advanced maternal age) multigravida 35+, third trimester (HCC); Obesity in (HCC); Supervision of high risk in third trimester (HCC) Start: 02-17-2025 End: 02-17-2025 [facility] Work Phone: [facility] Comment on above: Maternal iron defici ency anemia complicating , third trimester (HCC) (Primary Dx) Start: 02-15-2025 End: 02-15-2025 ambulatory Treatment Rm 17 [facility] Work Phone: Hematology/Oncology Comment on above: Maternal iron defici ency anemia complicating , third trimester (HCC) (Primary Dx) Start: 02-13-2025 End: 02-13-2025 Periodic preventive med est patient 18-39 yrs Laverne Ramirez MD Work Phone: [facility] [place] Comment on above: Annual physical exam (Primary Dx); Reactive airway disease, unspecified asthma severity, uncomplicated (HCC); with 37 weeks completed gestation (HCC); Maternal iron deficiency anemia complicating in third trimester (HCC) Start: 02-13-2025 End: 02-13-2025 ambulatory LAVERNE RAMIREZ Facility:[facility] Start: 02-13-2025 End: 02-13-2025 Patient encounter procedure Laverne Ramirez MD Work Phone: [facility] Work Phone: Start: 02-13-2025 End: 02-13-2025 ambulatory Treatment Rm 15 [facility] Work Phone: Hematology/Oncology Comment on above: Maternal iron defici ency anemia complicating , third trimester (HCC) (Primary Dx) Start: 02-10-2025 End: 02-10-2025 Patient encounter procedure [employer] [facility] Comment on above: AMA (advanced matern al age) multigravida 35+, second trimester (HCC); Obesity in (HCC) 36 weeks gestation o f (HCC) (Primary Dx); AMA (advanced maternal age) multigravida 35+, third trimester (HCC); Obesity in (HCC); Supervision of high risk in third trimester (HCC) Start: 02-10-2025 End: 02-10-2025 ambulatory Treatment Rm 16 [facility] Work Phone: Hematology/Oncology Comment on above: Maternal iron defici ency anemia complicating , third trimester (HCC) (Primary Dx) Start: 02-07-2025 End: 02-07-2025 ambulatory Treatment Rm 17 [facility] Work Phone: Hematology/Oncology Comment on above: Maternal iron defici ency anemia complicating , third trimester (HCC) (Primary Dx) Start: 02-03-2025 End: 02-03-2025 Patient encounter procedure Faye Torres MD Work Phone: OB/Gynecology Comment on above: AMA (advanced matern al age) multigravida 35+, third trimester (HCC) (Primary Dx); Obesity in (HCC); Supervision of high risk in third trimester (HCC); Anemia during in third trimester (HCC); 35 weeks gestation of (HCC) Start: 02-03-2025 End: 02-03-2025 [facility] Facility:[facility] Start: 01-31-2025 End: 01-31-2025 Telephone encounter Leslee Ca 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 compressor [employer] [place] Comment on above: Hematology Start: 01-27-2025 End: 01-27-2025 Patient encounter procedure Valerie Elizabeth MD Work Phone: OB/Gynecology Comment on above: AMA (advanced matern al age) multigravida 35+, third trimester (HCC) (Primary Dx); 34 weeks gestation of (HCC); Obesity in (HCC); Supervision of high risk in third trimester (HCC) Start: 01-27-2025 End: 01-27-2025 [facility] Facility:[facility] Start: 01-26-2025 End: 01-26-2025 ambulatory Leslee Ca RNoutsole compressor [employer] [place] Comment on above: Blood Management Maternal iron defici ency anemia complicating , third trimester (HCC) (Primary Dx) Start: 01-24-2025 End: 01-24-2025 [facility] Facility:[facility] Start: 01-20-2025 End: 01-20-2025 [facility] Facility:[facility] Start: 01-20-2025 End: 01-20-2025 Patient encounter procedure Ruthie Bundy MD Work Phone: OB/Gynecology Comment on above: AMA (advanced matern al age) multigravida 35+, third trimester (HCC) (Primary Dx); Obesity in (HCC); Anemia during in third trimester (HCC); 33 weeks gestation of (HCC) Start: 01-20-2025 End: 01-23-2025 Telephone encounter Ruthie Bundy MD Work Phone: OB/Gynecology Comment on above: Anemia Start: 01-20-2025 End: 01-20-2025 [facility] Facility[facility] Start: 01-13-2025 End: 01-13-2025 [facility] Facility[facility] Start: 12-23-2024 End: 12-23-2024 Patient encounter procedure Karin Ignacio TOW TRUCK OPERATOR.CNM Work Phone: OB/Gynecology Comment on above: AMA (advanced matern al age) multigravida 35+, third trimester (HCC) (Primary Dx); Obesity in (HCC); 29 weeks gestation of (HCC); Supervision of high risk in third trimester ([facility]); Reactive airway disease, unspecified asthma severity, uncomplicated ([facility]); Heartburn during in third trimester ([facility]) Start: 12-23-2024 End: 12-23-2024 [facility] [place] Facility:[facility] Start: 12-09-2024 End: 02-08-2025 Follow-up encounter Faye Torres MD Work Phone: OB/Gynecology Start: 12-09-2024 End: 12-09-2024 Patient encounter procedure Faye Torres MD Work Phone: OB/Gynecology Comment on above: AMA (advanced matern al age) multigravida 35+, second trimester (HCC) (Primary Dx); Obesity in (HCC); Screening for diabetes mellitus; 27 weeks gestation of ([facility]) Start: 12-09-2024 End: 12-09-2024 [facility] Facility[facility] Start: 11-11-2024 End: 11-11-2024 [facility] Start: 11-11-2024 End: 11-11-2024 Patient encounter procedure Faye Torres MD Work Phone: OB/Gynecology Comment on above: Supervision of other high risk , antepartum (Primary Dx); AMA (advanced maternal age) multigravida 35+, second trimester; Obesity in ; Marijuana use disorder in remission; Screening for diabetes mellitus Start: 11-02-2024 End: 01-02-2025 Follow-up encounter Chandler Moran MD Work Phone: OB/Gynecology Start: 11-01-2024 End: 11-01-2024 ambulatory [facility] Facility:[facility] Start: 11-01-2024 End: 11-01-2024 Patient encounter procedure [employer] [facility] Maternal [facility] Comment on above: Encounter for follow -up ultrasound of anatomy (Primary Dx); AMA (advanced maternal age) multigravida 35+, second trimester; Obesity in ; History of loop electrical excision procedure (LEEP) Start: 10-17-2024 End: 10-17-2024 Telephone encounter Shi Rubi APRN.CNM Work Phone: OB/Gynecology Comment on above: Orders (OB US - Renea milagros) Start: 10-14-2024 End: 12-14-2024 Follow-up encounter Shi Rubi APRN.CNM Work Phone: OB/Gynecology Start: 10-14-2024 End: 10-14-2024 Refill Stormy Hope APRN.CNP Work Phone: [facility] Comment on above: Med Change Request Start: 10-14-2024 End: 10-14-2024 ambulatory [facility] Facility:[facility] Start: 10-14-2024 End: 10-14-2024 Patient encounter procedure Shi Rubi APRN.CNM Work Phone: OB/Gynecology Comment on above: Supervision of other high risk , antepartum (Primary Dx); AMA (advanced maternal age) multigravida 35+, second trimester; 19 weeks gestation of ; Obesity in ; Marijuana use disorder in remission; History of hemorrhage, currently in first trimester; Constipation during in first trimester; Heartburn during in first trimester; Reactive airway disease, unspecified asthma severity, uncomplicated Encounter for anatomic survey (Primary Dx); Obesity in ; 19 weeks gestation of ; Multigravida of advanced maternal age in second trimester Start: 09-21-2024 End: 09-21-2024 Telephone encounter Shi Rubi APRN.CNM Work Phone: OB/Gynecology Start: 09-21-2024 End: 09-21-2024 Patient encounter procedure [employer] [facility] Comment on above: Encounter for hoang elizalde screening for malformation using ultrasound (Primary Dx); Obesity in ; 15 weeks gestation of ; Multigravida of advanced maternal age in second trimester Start: 09-21-2024 End: 09-21-2024 [facility] SHI [facility] Facility:[facility] Start: 09-19-2024 End: 09-19-2024 Telephone encounter Az Alejandre APRN.VIDEO GAME TESTER Work Phone: [facility] Comment on above: Results Positive RSV Start: 09-18-2024 End: 09-18-2024 [facility] Facility:[facility] Start: 09-18-2024 End: 09-19-2024 Patient encounter procedure Az Alejandre APRN.VIDEO GAME TESTER Work Phone: [facility] Comment on above: Sore throat (Primary Dx); URI, acute; Acute cough Refill Request Start: 09-16-2024 End: 09-16-2024 [facility] Facility:[facility] Start: 09-16-2024 End: 09-16-2024 Patient encounter procedure Mayur Alejandre MD Work Phone: OB/Gynecology Comment on above: Supervision of other high risk , antepartum (Primary Dx); Obesity in ; AMA (advanced maternal age) multigravida 35+, first trimester; 15 weeks gestation of Start: 09-15-2024 End: 09-15-2024 Telephone encounter Mayur Alejandre MD Work Phone: OB/Gynecology Comment on above: Future Appointment Start: 08-30-2024 End: 08-30-2024 [facility] Facility:[facility] Start: 08-30-2024 End: 08-30-2024 [facility] Start: 08-30-2024 End: 08-30-2024 Patient encounter procedure Chandler Moran MD Work Phone: OB/Gynecology Comment on above: Supervision of other high risk , antepartum (Primary Dx); Obesity in ; 12 weeks gestation of ; AMA (advanced maternal age) multigravida 35+, first trimester; Vitamin D deficiency; History of hemorrhage, currently in first trimester; Supervision of other high risk pregnancies, second trimester Encounter for hoang elizalde screening for malformation using ultrasound (Primary Dx); 12 weeks gestation of Start: 08-25-2024 End: 08-25-2024 [facility] Facility:[facility] Start: 08-25-2024 End: 08-25-2024 Patient encounter procedure Ricky MOHAN Work Phone: [facility] Comment on above: Strep pharyngitis (P rimary Dx); Sore throat; Right ear pain Start: 08-12-2024 End: 08-12-2024 [facility] Facility[facility] Start: 07-22-2024 End: 07-22-2024 [facility] Facility:[facility] Start: 07-22-2024 End: 07-22-2024 Patient encounter procedure Shi Rubi APRN.CNM Work Phone: OB/Gynecology Comment on above: Supervision of other high risk , antepartum (Primary Dx); with uncertain dates, antepartum; Marijuana use disorder in remission; Obesity in ; Date of last menstrual period (LMP) unknown; Irregular menses; Heartburn during in first trimester; Constipation during in first trimester; headache, antepartum; 7 weeks gestation of Start: 06-13-2024 End: 06-13-2024 ambulatory Dylan MOHAN Facility:[facility] Start: 12-05-2023 End: 12-05-2023 Patient encounter procedure Ricky MOHAN Work Phone: [facility] Comment on above: Pain, dental (Primar y Dx) Start: 11-17-2023 End: 11-17-2023 Patient encounter procedure Radha Lorenz APRN.CNS Work Phone: [facility] [place] Comment on above: Routine medical exam (Primary Dx); Special screening examination for viral disease; Encounter for immunization; Reactive airway disease, unspecified asthma severity, uncomplicated; SOB (shortness of breath); Vitamin D deficiency; Chronic nonintractable headache, unspecified headache type Start: 11-17-2023 End: 11-17-2023 Patient encounter status Radha Lorenz TOW TRUCK OPERATORScarletTAPE EDGE MACHINE OPERATOR Work Phone: [facility] Work Phone: Start: 11-05-2023 End: 11-05-2023 Patient encounter procedure Namita Becker TOW TRUCK OPERATOR.VIDEO GAME TESTER Work Phone: OB/Gynecology Comment on above: Encounter for gyneco logical examination (general) (routine) without abnormal findings (Primary Dx); Screening for cervical cancer; Encounter for screening for human papillomavirus (HPV) Start: 11-05-2023 End: 11-05-2023 Patient encounter status Namita Becker TOW TRUCK OPERATOR.VIDEO GAME TESTER Work Phone: [facility] Start: 07-02-2023 End: 07-02-2023 Office outpatient visit 25 minutes Farida Nagy MD Work Phone: Neurology Comment on above: Chronic nonintractab le headache, unspecified headache type (Primary Dx) Start: 02-19-2023 End: 02-19-2023 Emergency department patient visit JEANA GAGE MD Facility:[facility] Start: 02-18-2023 End: 02-18-2023 Emergency department patient visit JEANA GAGE MD [facility] [place] [facility] Start: 05-27-2022 End: 05-27-2022 Patient encounter procedure Namita Becker TOW TRUCK OPERATOR.VIDEO GAME TESTER Work Phone: OB/Gynecology Comment on above: Encounter for gyneco logical examination (general) (routine) without abnormal findings (Primary Dx); Screen for STD (sexually transmitted disease) Start: 05-27-2022 End: 05-27-2022 Patient encounter status Namita Becker TOW TRUCK OPERATOR.VIDEO GAME TESTER Work Phone: OB/Gynecology Start: 04-17-2022 Telephone encounter Lauren jordan TOW TRUCK OPERATOR.VIDEO GAME TESTER Work Phone: [facility] Comment on above: Results Start: 04-16-2022 End: 04-16-2022 Patient encounter procedure Lauren Encinas TOW TRUCK OPERATOR.VIDEO GAME TESTER Work Phone: [facility] [place] Comment on above: Wellness examination (Primary Dx); Chronic nonintractable headache, unspecified headache type; Obesity (BMI 30.0-34.9); Reactive airway disease, unspecified asthma severity, uncomplicated; Vitamin D deficiency; Family hx of colon cancer Start: 04-16-2022 End: 04-16-2022 Patient encounter status Lauren Encinas TOW TRUCK OPERATOR.VIDEO GAME TESTER Work Phone: [facility] [place] Procedures Date Procedure Procedure Detail Performing Clinician Start: 02-23-2025 Urnls dip stick/tabl et rgnt non-auto w/o micrscp Karin Ignacio TOW TRUCK OPERATOR.CNM Work Phone: Start: 02-17-2025 Urnls dip stick/tabl et rgnt non-auto w/o micrscp Faye Torres MD Work Phone: Start: 02-10-2025 Urnls dip stick/tabl et rgnt non-auto w/o micrscp Faye Torres MD Work Phone: Start: 02-10-2025 Us preg uterus after 1st trimest / gestation Shi Rubi APRN.CNM Work Phone: Start: 01-27-2025 Urnls dip stick/tabl et rgnt non-auto w/o micrscp Valerie Elizabeth MD Work Phone: Start: 11-01-2024 Us preg uterus after 1st trimest /1st gestation Shi Rubi TOW TRUCK OPERATOR.CNM Work Phone: Start: 10-14-2024 Us preg uterus after 1st trimest /1st gestation Shi Rubi TOW TRUCK OPERATOR.CNM Work Phone: Start: 09-21-2024 Us preg uterus after 1st trimest /1st gestation Shi Rubi APRN.CNM Work Phone: Start: 09-18-2024 STREP A MOLECULAR (POC) Az Alejandre TOW TRUCK OPERATOR.VIDEO GAME TESTER Work Phone: Start: 08-30-2024 Us nuchal translucency 1st gestation Shi Rubi MICA.CNM Work Phone: Start: 08-25-2024 STREP A MOLECULAR (POC) Ricky MOHAN Work Phone: Start: 08-12-2024 Antibody screen LAVERNE RAMIREZ Comment on above: Order Comment: Speci men Type: BLOOD SPECIMEN Ordering Facility: [facility] Address: [address] [place] [address] Performed By: #### G LTGST #### [facility] CLIA [id number] [address] [place] [address] Start: 10-10-2021 Adult depression screening assessment Lauren Sherinikki NINO.VIDEO GAME TESTER Work Phone: H/O: surgery History of loop electrical excision procedure (LEEP) Whi [facility] Plan of Treatment Date Care Activity Detail Author Start: 11-04-2028 Screening for malign ant neoplasm of cervix [facility] Start: 05-16-2025 End: 05-16-2025 Patient encounter procedure 05/16/2025 9:40 AM EDT Office Visit [facility] [place] [address] [place], [place] [id number] Laverne Ramirez MD [address] [place], [place] [id number] 3 Month F/U [facility] [place] Comment on above: 3 Month F/U Start: 04-24-2025 Influenza vaccination C [facility] Start: 03-02-2025 End: 03-02-2025 Patient encounter procedure 03/02/2025 11:00 AM EDT Routine Office Visit OB/Gynecology [address] [place], [place] [id number] Faye Torres MD [address] [place] [address] NST/OB no available slots OB/Gynecology Comment on above: NST/OB no available slots Start: 02-23-2025 End: 02-23-2025 Patient encounter procedure OB/Gynecology Comment on above: NST NST/OB 38wk Start: 02-20-2025 Influenza vaccination Influenza Vacc ine (#1) [facility] Comment on above: Postponed from 04/24 (Declined at this time) Start: 02-17-2025 End: 02-17-2025 ambulatory 02/17/2025 3:00 PM EDT [facility]fusion [facility] Hematology/Oncology [address] [place] [address] 2ND Hematology/Oncology Comment on above: 2ND Start: 02-17-2025 End: 02-17-2025 Patient encounter procedure OB/Gynecology Comment on above: NST 37wk NST/OB Start: 02-15-2025 End: 02-15-2025 ambulatory 02/15/2025 10:00 AM EDT [facility] Hematology/Oncology [address] [place] [address] 2ND Hematology/Oncology Comment on above: 2ND Start: 02-13-2025 End: 02-13-2025 ambulatory 02/13/2025 10:30 AM EDT [facility] Hematology/Oncology [address] [place] [address] 2ND Hematology/Oncology Comment on above: 2ND Start: 02-10-2025 End: 02-10-2025 Patient encounter procedure Maternal Medicine Comment on above: Growth 36wk Growth /OB Start: 02-10-2025 End: 02-10-2025 ambulatory 02/10/2025 9:00 AM EDT [facility]fusion [facility] Hematology/Oncology [address] [place] [address] 2ND Hematology/Oncology Comment on above: 2ND Start: 02-07-2025 End: 02-07-2025 ambulatory 02/07/2025 10:00 AM EDT [facility]fusion [facility] Hematology/Oncology [address] [place] [address] 2ND Hematology/Oncology Comment on above: 2ND Start: 02-03-2025 End: 02-03-2025 Patient encounter procedure OB/Gynecology Comment on above: NST only 35wk Start: 01-27-2025 End: 01-27-2025 Patient encounter procedure OB/Gynecology Comment on above: NST /OB 34wk NST/OB Start: 01-24-2025 End: 01-24-2025 ambulatory 01/24/2025 8:00 AM EDT Results Only [facility] Draw Station [address] [place] [address] [facility] Draw Station Start: 01-23-2025 End: 04-24-2025 Ferritin [Mass/volume] in Serum or Plasma FERRITIN Lab Routine Anemia during in third trimester (HCC) Expected: 01/23/2025, Expires: 04/24/2025 [facility] Comment on above: Expected: 01/23/2025 , Expires: 04/24/2025 Start: 01-23-2025 End: 04-24-2025 Iron and Iron binding capacity panel - Serum or Plasma IRON AND TIBC Lab Routine Anemia during in third trimester (HCC) Expected: 01/23/2025, Expires: 04/24/[address] [facility] Work Phone: Comment on above: Expected: 01/23/2025 , Expires: 04/24/2025 Start: 01-20-2025 End: 01-20-2025 Patient encounter procedure OB/Gynecology Comment on above: NST only 33wk Start: 01-13-2025 End: 01-13-2025 Patient encounter procedure Maternal Medicine Comment on above: Growth Growth /OB Start: 12-23-2024 End: 12-23-2024 Patient encounter procedure 12/23/2024 10:00 AM EDT Routine Office Visit OB/Gynecology [address] [place] [address] Karin Ignacio APRN.[facility] [address] [place] [address] OB OB/Gynecology Comment on above: OB Start: 12-12-2024 End: 03-13-2025 ANEMIA REFLEX PANEL ANEMIA REFLEX PANEL Lab Routine Supervision of other high risk , antepartum Expected: 12/12/2024, Expires: 03/13/2025 [facility] Comment on above: Expected: 12/12/2024 , Expires: 03/13/2025 Start: 12-12-2024 End: 11-11-2025 GESTATIONAL GLUCOSE SCREEN, 1-HOUR, 50 GRAM, NON-FASTING GESTATIONAL GLUCOSE SCREEN, 1-HOUR, 50 GRAM, NON-FASTING Lab Routine Screening for diabetes mellitus Expected: 12/12/2024, Expires: 11/11/[address] [facility] Work Phone: Comment on above: Expected: 12/12/2024 , Expires: 11/11/2025 Start: 12-12-2024 End: 11-11-2025 SYPHILIS TREPONEMAL W/REFLEX SYPHILIS TREPONEMAL W/REFLEX Lab Routine Supervision of other high risk , antepartum Expected: 12/12/2024, Expires: 11/11/2025 [facility] Comment on above: Expected: 12/12/2024 , Expires: 11/11/2025 Start: 12-09-2024 End: 12-09-2024 Patient encounter procedure 12/09/2024 9:50 AM EDT Routine Office Visit OB/Gynecology [address] [place] [address] Faye Torres MD [address] [place] [address] OB OB/Gynecology Comment on above: OB Start: 11-16-2024 Hepatitis C screening Hepatitis C [facility] Comment on above: Postponed from 03/26 (Declined at this time) Start: 11-11-2024 End: 11-11-2024 Patient encounter procedure 11/11/2024 10:00 AM EDT Routine Office Visit OB/Gynecology [address] [place] [address] Faye Torres MD [address] [place] [address] OB OB/Gynecology Comment on above: OB Start: 11-01-2024 End: 11-01-2024 Patient encounter procedure 11/01/2024 1:00 PM EDT Routine Office Visit Maternal Medicine [address] [place] [address] Anatomy [facility]aternal [facility] Comment on above: Anatomy Start: 10-14-2024 End: 10-14-2024 Patient encounter procedure Maternal Medicine Comment on above: Anatomy OB Start: 09-21-2024 End: 09-21-2024 Patient encounter procedure 09/21/2024 11:00 AM EST Routine Office Visit Maternal Medicine [address] [place] [address] Early Anatomy/cervical length per LM Maternal Medicine Comment on above: Early Anatomy/cervic al length per LM Start: 09-16-2024 End: 09-16-2024 Patient encounter procedure Maternal Medicine Comment on above: Early Anatomy OB Start: 08-30-2024 End: 11-29-2024 25-hydroxyvitamin D3 [Mass/volume] in Serum or Plasma [facility] Comment on above: Expected: 08/30/2024 , Expires: 11/29/2024 Start: 08-30-2024 End: 11-29-2024 Chromosome 21 trisomy [Presence] in Blood or Tissue by Cytogenetics [facility] Work Phone: Comment on above: Expected: 08/30/2024 , Expires: 11/29/2024 Start: 08-30-2024 End: 08-30-2024 Patient encounter procedure OB/Gynecology Comment on above: new Ob lmp ?? nuchal Start: 08-19-2024 End: 08-19-2024 Patient encounter procedure Maternal Medicine Comment on above: Nuchal OB Start: 07-22-2024 End: 10-21-2024 ANEMIA REFLEX PANEL ANEMIA REFLEX PANEL Lab Routine with uncertain dates, antepartum Expected: 07/22/2024, Expires: 10/21/2024 [facility] Comment on above: Expected: 07/22/2024 , Expires: 10/21/2024 Start: 07-22-2024 End: 10-21-2024 Hemoglobin A1c in Blood HEMOGLOBIN A1C Lab Routine with uncertain dates, antepartum Expected: 07/22/2024, Expires: 10/21/2024 [facility] Comment on above: Expected: 07/22/2024 , Expires: 10/21/2024 Start: 07-22-2024 End: 10-21-2024 HEMOGLOBIN EVALUATION CASCADE HEMOGLOBIN EVALUATION CASCADE Lab Routine with uncertain dates, antepartum Expected: 07/22/2024, Expires: 10/21/2024 [facility] Comment on above: Expected: 07/22/2024 , Expires: 10/21/2024 Start: 07-22-2024 End: 10-21-2024 Hepatitis B virus surface Ag [Presence] in Serum HEPATITIS B SURFACE ANTIGEN Lab Routine with uncertain dates, antepartum Expected: 07/22/2024, Expires: 10/21/2024 [facility] Comment on above: Expected: 07/22/2024 , Expires: 10/21/2024 Start: 07-22-2024 End: 10-21-2024 Hepatitis C virus Ab [Presence] in Serum HEPATITIS C ANTIBODY IA WITH CONFIRMATION Lab Routine with uncertain dates, antepartum Expected: 07/22/2024, Expires: 10/21/2024 [facility] Comment on above: Expected: 07/22/2024 , Expires: 10/21/2024 Start: 07-22-2024 End: 10-21-2024 HIV 1+2 Ab [Presence] in Serum or Plasma by Immunoassay HIV 1/2 COMBO WITH REFLEX TO DIFFERENTIATION Lab Routine with uncertain dates, antepartum Expected: 07/22/2024, Expires: 10/21/2024 [facility] Comment on above: Expected: 07/22/2024 , Expires: 10/21/2024 Start: 07-22-2024 End: 07-22-2025 NUCHAL TRANSLUCENCY WHI NUCHAL TRANSLUCENCY WHI Anc Imaging Routine with uncertain dates, antepartum Expected: 07/22/2024, Expires: 07/22/2025 [facility] Comment on above: Expected: 07/22/2024 , Expires: 07/22/2025 Start: 07-22-2024 End: 10-21-2024 RUBELLA IGG ANTIBODY RUBELLA IGG ANTIBODY Lab Routine with uncertain dates, antepartum Expected: 07/22/2024, Expires: 10/21/2024 [facility] Comment on above: Expected: 07/22/2024 , Expires: 10/21/2024 Start: 07-22-2024 End: 10-21-2024 SYPHILIS TREPONEMAL W/REFLEX SYPHILIS TREPONEMAL W/REFLEX Lab Routine with uncertain dates, antepartum Expected: 07/22/2024, Expires: 10/21/2024 [facility] Comment on above: Expected: 07/22/2024 , Expires: 10/21/2024 Start: 07-22-2024 End: 10-21-2024 TYPE + SCREEN TYPE + SCREEN Blood Bank Routine with uncertain dates, antepartum Expected: 07/22/2024, Expires: 10/21/2024 [facility] Comment on above: Expected: 07/22/2024 , Expires: 10/21/2024 Start: 05-05-2024 HPV TESTING HPV TESTING [facility] Start: 05-05-2024 PAP TESTING PAP TESTING [facility] Start: 05-05-2024 Screening for malign ant neoplasm of cervix [facility] Start: 04-24-2024 Covid-19 Vaccine () Covid-19 Vaccine () [facility] Start: 04-24-2024 Influenza vaccination C [facility] Start: 11-17-2023 End: 02-16-2024 25-hydroxyvitamin D3 [Mass/volume] in Serum or Plasma VITAMIN D 25 HYDROXY Lab Routine Vitamin D deficiency Expected: 11/17/2023, Expires: 02/16/[address] [facility] Work Phone: Comment on above: Expected: 11/17/2023 , Expires: 02/16/2024 Start: 11-17-2023 End: 02-16-2024 CBC W Auto Differential panel - Blood CBC + DIFF Lab Routine Reactive airway disease, unspecified asthma severity, uncomplicated Expected: 11/17/2023, Expires: 02/16/[address] [facility] Work Phone: Comment on above: Expected: 11/17/2023 , Expires: 02/16/2024 Start: 11-17-2023 End: 02-16-2024 Comprehensive metabolic 2000 panel - Serum or Plasma COMP METABOLIC PANEL Lab Routine Reactive airway disease, unspecified asthma severity, uncomplicated Expected: 11/17/2023, Expires: 02/16/[address] [facility] Work Phone: Comment on above: Expected: 11/17/2023 , Expires: 02/16/2024 Start: 08-24-2023 Behavioral Health Screening Behavioral Health Screening [facility] Start: 08-24-2023 Depression Assessment Depression Ass [facility] [facility] Start: 05-31-2023 Urine microalbumin profile [facility] Start: 04-24-2023 Covid-19 Vaccine () Covid-19 Vaccine () [facility] Start: 04-24-2023 Influenza vaccination Influenza Vacc ine (#1) [facility] Start: 04-16-2023 HEPATITIS C SCREENING HEPATITIS C SC [facility] Comment on above: Postponed from 03/26 (Declined at this time) Start: 10-10-2022 Adult depression screening assessment DEPRESSION SCREENING [facility] Start: 08-24-2022 Depression Assessment Depression Ass [facility] [place] [facility] Start: 04-24-2022 COVID-19 VACCINE (3 - Booster for Moderna series) COVID-19 VACCINE (3 - Booster for Moderna series) [facility] Start: 04-24-2022 Influenza vaccination INFLUENZA (#1) [facility] Start: 04-16-2022 End: 06-16-2022 25-hydroxyvitamin D3 [Mass/volume] in Serum or Plasma [facility] Work Phone: Comment on above: Expected: 04/16/2022 , Expires: 06/16/2022 Start: 04-16-2022 End: 06-16-2022 BLOOD TB SCREEN [facility] Work Phone: Comment on above: Expected: 04/16/2022 , Expires: 06/16/2022 Start: 04-16-2022 End: 06-16-2022 Comprehensive metabolic 2000 panel - Serum or Plasma [facility] Work Phone: Comment on above: Expected: 04/16/2022 , Expires: 06/16/2022 Start: 04-16-2022 End: 06-16-2022 Hemoglobin A1c in Blood [facility] Work Phone: Comment on above: Expected: 04/16/2022 , Expires: 06/16/2022 Start: 04-16-2022 End: 06-16-2022 Lipid 1996 panel - Serum or Plasma [facility] Work Phone: Comment on above: Expected: 04/16/2022 , Expires: 06/16/2022 Start: 04-16-2022 End: 06-16-2022 Thyrotropin [Units/volume] in Serum or Plasma [facility] Work Phone: Comment on above: Expected: 04/16/2022 , Expires: 06/16/2022 Start: 01-17-2022 COVID-19 VACCINE (3 - Booster for Moderna series) COVID-19 VACCINE (3 - Booster for Moderna series) [facility] Start: 08-24-2021 DEPRESSION ASSESSMENT DEPRESSION ASS ESSMENT [facility] Start: 2007 Anxiety Screening Anxiety Screening [facility] Start: 2007 Depression Screening Depression Scre ening [facility] Start: 2007 Hepatitis C Screening Hepatitis C [facility] Start: 2007 Hepatitis C screening Hepatitis C [facility] Start: 1989 HPV Vaccine: Recommended Based On Risk HPV Vaccine: Recommended Based On Risk [facility] Bacteria identified in Urine by Culture URINE CULTURE Microbiology Routine with uncertain dates, antepartum 07/22/2024 9:49 AM EST [facility] BACTERIAL VAGINOSIS NAAT BACTERIAL VAGINOSIS NAAT Lab Routine with uncertain dates, antepartum Ordered: 07/22/2024 [facility] Comment on above: Ordered: 07/22/2024 SHIRA/TRICHOMONAS NAAT SHIRA/TRICHOMONAS NAAT Lab Routine with uncertain dates, antepartum Ordered: 07/22/2024 [facility] Comment on above: Ordered: 07/22/2024 Chlamydia trachomatis+Neisseria gonorrhoeae DNA [Presence] in Unspecified specimen by NIKUNJ with probe detection GC/CHLAMYDIA DNA DET Lab Routine Screen for STD (sexually transmitted disease) Ordered: 05/27/[address] [facility] Work Phone: Comment on above: Ordered: 05/27/2022 Chlamydia trachomatis+Neisseria gonorrhoeae DNA [Presence] in Unspecified specimen by NIKUNJ with probe detection GONORRHEA/CHLAMYDIA NAAT Lab Routine with uncertain dates, antepartum 07/22/2024 9:49 AM [facility] COVID & INFLUENZA A/ B & RSV PCR, ROUTINE COVID & INFLUENZA A/B & RSV PCR, ROUTINE Microbiology Routine Sore throat 08/25/2024 7:15 PM EST [facility] Work Phone: COVID & INFLUENZA A/ B & RSV PCR, ROUTINE COVID & INFLUENZA A/B & RSV PCR, ROUTINE Microbiology Routine URI, acute Ordered: 09/18/[address] [facility] Work Phone: Comment on above: Ordered: 09/18/2024 End: 10-04-2025 nonstress test NON-STRESS TEST Procedures Routine Supervision of other high risk , antepartum AMA (advanced maternal age) multigravida 35+, second trimester 19 weeks gestation of Obesity in Once per week for 7 Occurrences starting 10/14/2024 until 10/04/[address] [facility] Work Phone: Comment on above: Once per week for 7 Occurrences starting 10/14/2024 until 10/04/2025 INFLUENZA VACCINE, A GE 6 MO - 64 YR, QUADRIVALENT (AFLURIA, FLULAVAL, FLUZONE) INFLUENZA VACCINE, AGE 6 MO - 64 YR, QUADRIVALENT (AFLURIA, FLULAVAL, FLUZONE) Immunization/Injection Routine Encounter for immunization 1 Occurrences starting 11/17/[address] [facility] Work Phone: Comment on above: 1 Occurrences starti ng 11/17/2023 End: 10-14-2024 OBSTETRIC ULTRASOUND WHI OBSTETRIC ULTRASOUND WHI Anc Imaging Routine Obesity in Once per month for 2 Occurrences starting 07/22/2024 until 10/14/2024 [facility] Comment on above: Once per month for 2 Occurrences starting 07/22/2024 until 10/14/2024 End: 09-28-2025 OBSTETRIC ULTRASOUND WHI OBSTETRIC ULTRASOUND WHI Anc Imaging Routine Supervision of other high risk , antepartum AMA (advanced maternal age) multigravida 35+, second trimester 19 weeks gestation of Obesity in Once per month for 3 Occurrences starting 10/14/2024 until 09/28/2025 [facility] Comment on above: Once per month for 3 Occurrences starting 10/14/2024 until 09/28/2025 PAP TEST PAP TEST Lab Iggy perkins Encounter for gynecological examination (general) (routine) without abnormal findings Screening for cervical cancer Encounter for screening for human papillomavirus (HPV) 11/05/2023 1:19 PM EDT [facility] Work Phone: PFIZER-BIONTECH COVID-19 VACCINE () AGE 12+ YR PFIZER-BIONTECH COVID-19 VACCINE () AGE 12+ YR Immunization/Injection Routine Encounter for immunization 1 Occurrences starting 11/17/[address] [facility] Work Phone: Comment on above: 1 Occurrences starti ng 11/17/2023 POC GAMING COMMISSIONER ULTRASOUND POC GAMING COMMISSIONER ULTRASO UND Anc Imaging Routine with uncertain dates, antepartum Ordered: 07/22/[address] [facility] Work Phone: Comment on above: Ordered: 07/22/2024 ROUTINE, GR OUP B STREPTOCOCCUS BY PCR ROUTINE, GROUP B STREPTOCOCCUS BY PCR Microbiology Routine 36 weeks gestation of (HCC) AMA (advanced maternal age) multigravida 35+, third trimester ([facility]) Supervision of high risk in third trimester ([facility]) 02/10/2025 1:15 PM EDT [facility] Work Phone: Tdap vaccine 7 yrs/> im TDAP VAC CINE, AGE 7+ YR (ADACEL, BOOSTRIX) Immunization/Injection Routine Encounter for immunization 1 Occurrences starting 11/17/[address] [facility] Work Phone: Comment on above: 1 Occurrences starti ng 11/17/2023 URINE OB DIP B/O URINE OB DIP B/ O Lab Routine 38 weeks gestation of (HCC) AMA (advanced maternal age) multigravida 35+, third trimester (HCC) Obesity in (HCC) Supervision of high risk in third trimester ([facility]) Ordered: 02/27/[address] [facility] Work Phone: Comment on above: Ordered: 02/27/2025 End: 09-23-2024 XR Chest PA and Lateral XR CHEST 2V FRONTAL/LAT Radiology STAT Acute cough 1 Occurrences starting 09/18/2024 until 09/23/2024 [facility] Comment on above: 1 Occurrences starti ng 09/18/2024 until 09/23/2024 [facility] Immunizations Immunization Date Immunization Notes Care Provider Namrata martinez 05-31-2019 influenza, injectabl e, quadrivalent, contains preservative 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 Phone: [facility] 05-31-2019 influenza virus vaccine, unspecified formulation Farida Nagy MD Work Phone: [facility] 05-19-2017 influenza, injectabl e, quadrivalent, contains preservative 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 Phone: [facility] 03-21-2016 tuberculin skin test ; purified protein derivative solution, intradermal Shi Rubi TOW TRUCK OPERATOR.CN Work Phone: [facility] 03-07-2016 tuberculin skin test ; purified protein derivative solution, intradermal Shi Rubi TOW TRUCK OPERATOR.CNM Work Phone: [facility] 05-31-2013 influenza virus vaccine, unspecified formulation 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 Phone: [facility] Work Phone: 05-31-2013 tetanus toxoid, redu ronda diphtheria toxoid, and acellular pertussis vaccine, adsorbed 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 Phone: [facility] Work Phone: 12-16-2004 tetanus and diphther ia toxoids, adsorbed, preservative free, for adult use (2 Lf of tetanus toxoid and 2 Lf of diphtheria toxoid) 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 Phone: [facility] Work Phone: 03-27-2003 hepatitis B vaccine, pediatric or pediatric/adolescent dosage 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 Phone: [facility] Work Phone: 05-19-2002 hepatitis B vaccine, pediatric or pediatric/adolescent dosage 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 Phone: [facility] Work Phone: 05-19-2002 measles, mumps and rubella virus vaccine 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: [facility] Work Phone: 03-11-2002 hepatitis B vaccine, pediatric or pediatric/adolescent dosage 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 Phone: [facility] Work Phone: 04-17-1994 diphtheria, tetanus toxoids and pertussis vaccine 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 Phone: [facility] Work Phone: 04-17-1994 trivalent poliovirus vaccine, live, oral 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 Phone: [facility] Work Phone: 05-05-1992 diphtheria, tetanus toxoids and pertussis vaccine 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 Phone: [facility] Work Phone: 05-05-1992 trivalent poliovirus vaccine, live, oral 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 Phone: [facility] Work Phone: 05-05-1992 tuberculin skin test ; purified protein derivative solution, intradermal Shi Rubi APRN.ROLA Work Phone: [facility] 03-18-1991 haemophilus influenz ae type b vaccine, PRP-D conjugate 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 Phone: [facility] Work Phone: 03-18-1991 measles, mumps and rubella virus vaccine 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 Phone: [facility] Work Phone: 1989 diphtheria, tetanus toxoids and pertussis vaccine 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: [facility] Work Phone: 1989 diphtheria, tetanus toxoids and pertussis vaccine 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 Phone: [facility] Work Phone: 1989 trivalent poliovirus vaccine, live, oral 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 2023 Unknown [employer] PPO [id number] 2023-Present [phone] [address] [place] [address] PPO [id number] 2023 Unknown [id number] 2023 Medicaid [id number] 2016 Medicaid [employer] [id number] 2016-Present [phone] [address] [place] [address] Medicaid [id number] 1989 Unknown [id number] Unknown [id number] Social History Date Type Detail Facility Start: 04-16-2022 End: 11-05-2023 Tobacco smoking status NHIS Never smoked tobacco [facility] Start: 04-16-2022 End: 11-05-2023 Tobacco use and exposure Smokeless tobacco non-user [facility] Start: 04-16-2022 End: 02-27-2025 Alcohol intake Current drinker of alcohol (finding) [facility] Start: 04-13-2022 History SDOH Alcohol Frequency 3 [facility] Start: 04-13-2022 End: 04-16-2022 History SDOH Alcohol Std Drinks 2 [facility] Start: 01-31-2013 History SDOH Alcohol Comment occasionally, NOT WHILE [facility] Start: 04-13-2022 History SDOH Social Connections Phone 5 [facility] Start: 04-13-2022 History SDOH Social Connections Meetings 98 [facility] Start: 04-13-2022 History SDOH Social Connections Living 8 [facility] Start: 04-13-2022 History SDOH Stress 4 [facility] Start: 04-13-2022 End: 04-16-2022 History SDOH Food Worry 1 [facility] Start: 05-24-2020 Education 15 [facility] Start: 1990 Sex Assigned At Not on file C [facility] Start: 04-06-2022 End: 05-09-2022 Exposure to SARS-CoV-2 (event) Not sure [facility] Sex Assigned At Sex [facility] Start: 04-13-2022 End: 07-02-2023 History of Social function [facility] Start: 04-13-2022 End: 07-02-2023 Social connection and isolation panel [facility] Do you belong to any clubs or organizations such as rastafarian groups, unions, fraternal or athletic groups, or school groups? No [facility] How often do you att end meetings of the clubs or organizations you belong to? Patient refused [facility] Are you now , , , , never or living with a partner? Living with partner [facility] How often to you hav e a drink containing alcohol? 2-4 times a month [facility] How many standard dr inks containing alcohol do you have on a typical day? 3 or 4 [facility] How often do you hav e 6 or more drinks on 1 occasion? Less than monthly [facility] How hard is it for y ou to pay for the very basics like food, housing, medical care, and heating Not very hard [facility] Do you feel stress - tense, restless, nervous, or anxious, or unable to sleep at night because your mind is troubled all the time - these days [OSQ] Rather much [facility] (I/We) worried wheth er (my/our) food would run out before (I/we) got money to buy more. Never true [facility] In the past 12 month s, was there a time when you were not able to pay the mortgage or rent on time? Yes [facility] How often to you hav e a drink containing alcohol? Monthly or less [facility] How many standard dr inks containing alcohol do you have on a typical day? 1 or 2 [facility] Do you feel stress - tense, restless, nervous, or anxious, or unable to sleep at night because your mind is troubled all the time - these days [OSQ] To some extent [facility] (I/We) worried [facility] (my/our) food would run out before (I/we) got money to buy more. Sometimes true [facility] Start: 06-16-2024 [facility] NEGATED: Highlighted rowStart: SALONIF History of tobacco use Passive smoker [facility] Medical Equipment Procedure Code Equipment Code Equipment Origin al Text Equipment Identifier Dates [id number] Implant - [id number] Start: 10-23-2015 Goals Date Patient Goal Desired Activity /State Personal health goal Functional Status Date Assessment Result Facility 02-18-2023 Functional Status ID band on, Call device within reach, Bed in low position, Wheels locked, Upper/Half-Length side-rails up, personal items within reach [facility] 11-10-2014 Are you deaf, or do you have serious difficulty hearing No 11/10/2014 9:54 AM EDT Ning Holguin [facility] 11-10-2014 Are you blind, or do you have serious difficulty seeing, even when wearing glasses No 11/10/2014 9:54 AM EDT Ning Holguin [facility] 11-10-2014 Do you have serious difficulty walking or climbing stairs No 11/10/2014 9:54 AM EDT Ning Holguin [facility] 11-10-2014 Do you have difficul ty dressing or bathing No 11/10/2014 9:54 AM EDT Ning Holguin [facility] 11-10-2014 Because of a physica l, mental, or emotional condition, do you have difficulty doing errands alone such as visiting a physician's office or shopping No 11/10/2014 9:54 AM EDT Ning Holguin [facility] Mental Status Date Assessment Result Facility 02-18-2023 Mental Status Oriented x 4 [facility] 11-10-2014 Because of a physica l, mental, or emotional condition, do you have serious difficulty concentrating, remembering, or making decisions No 11/10/2014 9:54 AM EDT Ning Holguin [facility] Clinical Notes 06-01-2013 to 02-27-2025 Quick Notes - Faye Torres MD - 02/27/2025 11:25 AM Faye Bello MD - 02/27/2025 11:25 AM EDTPrenatal Quick Notes - Faye Torres MD - 02/27/2025 11:25 AM EDT Note Date & Type Note Facility 02-27-2025 Progress note Formatting of t his note might be different from the original. S: Sloane Linder is a 34 year old female who presents at 03/09/2025, by Ultrasound for a routine visit. Denies headache, visual changes, chest pain, shortness of breath, vaginal bleeding, leakage of fluid, or dysuria. Feeling well, no complaints. Good movement, No contractions O: See flow sheet Gen: No apparent distress Abd: Gravid, nontender SENSITIVE EXAMINATION CONSENT: The sensitive examination was discussed with the Patient or Patient's Authorized Director Talent Management. As applicable, any other physician, advance practice provider, medical student, or other health professional student that will be observing or involved in the sensitive examination for educational or training purposes was discussed with the Patient or Authorized Director Talent Management. The Patient or Authorized Director Talent Management has agreed to proceed with the sensitive examination. Reactive NST ASSESSMENT/PLAN: 1. 38 weeks gestation of ([facility]) - ICD9: V22.2, ICD10: Z3A.38 (primary diagnosis) - URINE OB DIP B/O 2. AMA (advanced maternal age) multigravida 35+, third trimester ([facility]) - ICD9: 659.63, ICD10: O09.523 - URINE OB DIP B/O 3. Obesity in ([facility]) - ICD9: 649.10, ICD10: O99.210 NST reactive - URINE OB DIP B/O 4. Supervision of high risk in third trimester ([facility]) - ICD9: V23.9, ICD10: O09.93 - URINE OB DIP B/O Faye Torres MD [facility] 02-27-2025 History of Presen t illness Narrative NST SUMMARY PROVIDER ASSESSMENT AND INTERPRETATION Indications for NST: Obesity Baseline: 145 Variability: Moderate Accelerations: Present 15 X 15 Decelerations: None Interpretation: Reactive SIGNATURE: Faye Torres MD documented in this encounter [facility] 02-27-2025 Miscellaneous Notes S: Sloane Linder is a 34 year old female who presents at 03/09/2025, by Ultrasound for a routine visit. Denies headache, visual changes, chest pain, shortness of breath, vaginal bleeding, leakage of fluid, or dysuria. Feeling well, no complaints. Good movement, No contractions O: See flow sheet Gen: No apparent distress Abd: Gravid, nontender SENSITIVE EXAMINATION CONSENT: The sensitive examination was discussed with the Patient or Patient's Authorized Director Talent Management. As applicable, any other physician, advance practice provider, medical student, or other health professional student that will be observing or involved in the sensitive examination for educational or training purposes was discussed with the Patient or Authorized Director Talent Management. The Patient or Authorized Director Talent Management has agreed to proceed with the sensitive examination. Reactive NST ASSESSMENT/PLAN: 1. 38 weeks gestation of ([facility]) - ICD9: V22.2, ICD10: Z3A.38 (primary diagnosis) - URINE OB DIP B/O 2. AMA (advanced maternal age) multigravida 35+, third trimester ([facility]) - ICD9: 659.63, ICD10: O09.523 - URINE OB DIP B/O 3. Obesity in ([facility]) - ICD9: 649.10, ICD10: O99.210 NST reactive - URINE OB DIP B/O 4. Supervision of high risk in third trimester ([facility]) - ICD9: V23.9, ICD10: O09.93 - URINE OB DIP B/O Faye Torres MD documented in this encounter [facility] 02-27-2025 Instructions Iraida Pak MA - 02/27/2025 10:53 AM EDT SEQUENTIAL SCREENINGS The [facility] offers sequential screenings for women who are interested in screenings for chromosomal abnormalities and certain defects during a . The sequential screen combines ultrasound and blood tests to determine the risk of chromosomal abnormalities, including Down's Syndrome (Trisomy 21) and Trisomy 18, as well as open neural tube defects including spina bifida. Ultrasound examination is performed between 11 weeks and 13 weeks gestational age. Blood tests are drawn after the ultrasound and again later in the between 15 and 21 weeks gestational age. Please let your physician know if you are interested in this testing. It will require an appointment with our support technician. This is not an ultrasound performed by a physician in our office during a routine visit. SIGNS AND SYMPTOMS OF LABOR 1. Contractions every 10 minutes or more often 2. Clear, pink, or brownish fluid (water) leaking from vagina 3. Feeling that baby is pushing down, pressure 4. Low, dull backache 5. Cramps that feel like a period 6. Cramps with or without diarrhea If you notice any of the above symptoms, contact our office at [phone] and ask to speak with a nurse. After hours, you can call doctors registry at [phone] OR call [facility] at [phone] and ask to have the doctor telephone interviewer paged. If you consider this an emergency, dial [phone] or go to your nearest emergency department. NEED HELP? Are you dealing with a violent or abusive relationship? Are you a victim of rape or sexual assult? Call [facility] ([place]) 24 hour Crisis Hotline: 519.888.2329 or 795-931-1347. MANUAL Your Guide to a Healthy manual is now on-line. Visit [email or web address] to download your free copy documented in this encounter [facility] 02-23-2025 Note HNO ID: [id number] Author: KARIN IGNACIO APRN.CNM Service: ? Author Type: Screen Printing Equipment Setter Type: Progress Notes Filed: 02/23/2025 12:24 Note Text: NST SUMMARY PROVIDER ASSESSMENT AND INTERPRETATION Sloane Linder is a 34 year old female, , who is at 38w0d with an MATI of 03/09/2025, by Ultrasound dating method. Indications for NST: AMA and Obesity Baseline: 125 Variability: Moderate Accelerations: Present 15 X 15 Decelerations: None Contractions: TOCO: None Interpretation: Reactive SIGNATURE: Karin Ignacio APRN.CNM [facility] 02-23-2025 History of Presen t illness Narrative NST SUMMARY PROVIDER ASSESSMENT AND INTERPRETATION Sloane Linder is a 34 year old female, , who is at 38w0d with an MATI of 03/09/2025, by Ultrasound dating method. Indications for NST: AMA and Obesity Baseline: 125 Variability: Moderate Accelerations: Present 15 X 15 Decelerations: None Contractions: TOCO: None Interpretation: Reactive SIGNATURE: Karin Ignacio APRN.CNM documented in this encounter [facility] 02-23-2025 Progress note Formatting of t his note might be different from the original. S: Sloane Linder is a 34 year old female who presents at 38 weeks gestation for a routine visit with NST. NST reactive. Positive movements. Reports occasional contractions. Denies headache, visual changes, chest pain, shortness of breath, vaginal bleeding, leakage of fluid, or dysuria. Feeling well, no complaints. Requesting CE today. O: See flow sheet Gen: No apparent distress Abd: Gravid, non tender CE- 1/50/-3 (posterior) ASSESSMENT/PLAN: 1. 38 weeks gestation of 2. AMA (advanced maternal age) multigravida 35+, third trimester 3. Obesity in - Pregravid BMI 41 - 34 years old at time of delivery - Growth US 02/10/25- The EFW is 3371 g, at the 92%. AC is at the >99%. - Recommendation is induction at 39 weeks gestation - R/B/A reviewed and consents signed - Induction of labor scheduled for 03/02/25 7 am mooney bulb/ pitocin - RTO early next week for NST and CE Karin Ignacio APRN.CNM [facility] 02-23-2025 Miscellaneous Notes S: Sloane Linder is a 34 year old female who presents at 38 weeks gestation for a routine visit with NST. NST reactive. Positive movements. Reports occasional contractions. Denies headache, visual changes, chest pain, shortness of breath, vaginal bleeding, leakage of fluid, or dysuria. Feeling well, no complaints. Requesting CE today. O: See flow sheet Gen: No apparent distress Abd: Gravid, non tender CE- 1/50/-3 (posterior) ASSESSMENT/PLAN: 1. 38 weeks gestation of 2. AMA (advanced maternal age) multigravida 35+, third trimester 3. Obesity in - Pregravid BMI 41 - 34 years old at time of delivery - Growth US 02/10/25- The EFW is 3371 g, at the 92%. AC is at the >99%. - Recommendation is induction at 39 weeks gestation - R/B/A reviewed and consents signed - Induction of labor scheduled for 03/02/25 7 am mooney bulb/ pitocin - RTO early next week for NST and CE Karin Ignacio APRN.CNM documented in this encounter [facility] 02-23-2025 Instructions Stephenie Willingham LPN - 02/23/2025 9:50 AM EDT SEQUENTIAL SCREENINGS The [facility] offers sequential screenings for women who are interested in screenings for chromosomal abnormalities and certain defects during a . The sequential screen combines ultrasound and blood tests to determine the risk of chromosomal abnormalities, including Down's Syndrome (Trisomy 21) and Trisomy 18, as well as open neural tube defects including spina bifida. Ultrasound examination is performed between 11 weeks and 13 weeks gestational age. Blood tests are drawn after the ultrasound and again later in the between 15 and 21 weeks gestational age. Please let your physician know if you are interested in this testing. It will require an appointment with our support technician. This is not an ultrasound performed by a physician in our office during a routine visit. SIGNS AND SYMPTOMS OF LABOR 1. Contractions every 10 minutes or more often 2. Clear, pink, or brownish fluid (water) leaking from vagina 3. Feeling that baby is pushing down, pressure 4. Low, dull backache 5. Cramps that feel like a period 6. Cramps with or without diarrhea If you notice any of the above symptoms, contact our office at [phone] and ask to speak with a nurse. After hours, you can call doctors registry at [phone] OR call [facility] at [phone] and ask to have the doctor telephone interviewer paged. If you consider this an emergency, dial [phone]- or go to your nearest emergency department. NEED HELP? Are you dealing with a violent or abusive relationship? Are you a victim of rape or sexual assult? Call [facility] ([place]) 24 hour Crisis Hotline: 117.100.2560 or 088-990-5923. MANUAL Your Guide to a Healthy manual is now on-line. Visit [email or web address] to download your free copy documented in this encounter [facility] 02-17-2025 Note HNO ID: [id number] Author: FAYE TORRES MD Service: ? Author Type: Physician Type: Progress Notes Filed: 02/17/2025 10:24 Note Text: NST SUMMARY PROVIDER ASSESSMENT AND INTERPRETATION Indications for NST: Obesity Baseline: 135 Variability: Moderate Accelerations: Present 15 X 15 Decelerations: None Interpretation: Reactive SIGNATURE: Faye Torres MD [facility] 02-17-2025 History of Presen t illness Narrative NST SUMMARY PROVIDER ASSESSMENT AND INTERPRETATION Indications for NST: Obesity Baseline: 135 Variability: Moderate Accelerations: Present 15 X 15 Decelerations: None Interpretation: Reactive SIGNATURE: Faye Torres MD documented in this encounter [facility] 02-17-2025 Progress note Formatting of t his note might be different from the original. S: Sloane Linder is a 34 year old female who presents at 03/09/2025, by Ultrasound for a routine visit. Denies headache, visual changes, chest pain, shortness of breath, vaginal bleeding, leakage of fluid, or dysuria. Feeling well, no complaints. Good movement, No contractions O: See flow sheet Gen: No apparent distress Abd: Gravid, nontender SENSITIVE EXAMINATION CONSENT: The sensitive examination was discussed with the Patient or Patient's Authorized Director Talent Management. As applicable, any other physician, advance practice provider, medical student, or other health professional student that will be observing or involved in the sensitive examination for educational or training purposes was discussed with the Patient or Authorized Director Talent Management. The Patient or Authorized Director Talent Management has agreed to proceed with the sensitive examination. Unable to reach cervix behind head Reactive Nst ASSESSMENT/PLAN: 1. 37 weeks gestation of ([facility]) - ICD9: V22.2, ICD10: Z3A.37 (primary diagnosis) - URINE OB DIP B/O 2. AMA (advanced maternal age) multigravida 35+, third trimester ([facility]) - ICD9: 659.63, ICD10: O09.523 - URINE OB DIP B/O 3. Obesity in ([facility]) - ICD9: 649.10, ICD10: O99.210 Weekly NSts - URINE OB DIP B/O 4. Supervision of high risk in third trimester ([facility]) - ICD9: V23.9, ICD10: O09.93 - URINE OB DIP B/O Faye Torres MD [facility] 02-17-2025 Miscellaneous Notes S: Sloane Linder is a 34 year old female who presents at 03/09/2025, by Ultrasound for a routine visit. Denies headache, visual changes, chest pain, shortness of breath, vaginal bleeding, leakage of fluid, or dysuria. Feeling well, no complaints. Good movement, No contractions O: See flow sheet Gen: No apparent distress Abd: Gravid, nontender SENSITIVE EXAMINATION CONSENT: The sensitive examination was discussed with the Patient or Patient's Authorized Director Talent Management. As applicable, any other physician, advance practice provider, medical student, or other health professional student that will be observing or involved in the sensitive examination for educational or training purposes was discussed with the Patient or Authorized Director Talent Management. The Patient or Authorized Director Talent Management has agreed to proceed with the sensitive examination. Unable to reach cervix behind head Reactive Nst ASSESSMENT/PLAN: 1. 37 weeks gestation of ([facility]) - ICD9: V22.2, ICD10: Z3A.37 (primary diagnosis) - URINE OB DIP B/O 2. AMA (advanced maternal age) multigravida 35+, third trimester ([facility]) - ICD9: 659.63, ICD10: O09.523 - URINE OB DIP B/O 3. Obesity in ([facility]) - ICD9: 649.10, ICD10: O99.210 Weekly NSts - URINE OB DIP B/O 4. Supervision of high risk in third trimester ([facility]) - ICD9: V23.9, ICD10: O09.93 - URINE OB DIP B/O Faye Torres MD documented in this encounter [facility] 02-17-2025 Instructions Iraida Pak MA - 02/17/2025 9:47 AM EDT SEQUENTIAL SCREENINGS The [facility] offers sequential screenings for women who are interested in screenings for chromosomal abnormalities and certain defects during a . The sequential screen combines ultrasound and blood tests to determine the risk of chromosomal abnormalities, including Down's Syndrome (Trisomy 21) and Trisomy 18, as well as open neural tube defects including spina bifida. Ultrasound examination is performed between 11 weeks and 13 weeks gestational age. Blood tests are drawn after the ultrasound and again later in the between 15 and 21 weeks gestational age. Please let your physician know if you are interested in this testing. It will require an appointment with our support technician. This is not an ultrasound performed by a physician in our office during a routine visit. SIGNS AND SYMPTOMS OF LABOR 1. Contractions every 10 minutes or more often 2. Clear, pink, or brownish fluid (water) leaking from vagina 3. Feeling that baby is pushing down, pressure 4. Low, dull backache 5. Cramps that feel like a period 6. Cramps with or without diarrhea If you notice any of the above symptoms, contact our office at [phone] and ask to speak with a nurse. After hours, you can call doctors registry at [phone] OR call [facility] at [phone] and ask to have the doctor telephone interviewer paged. If you consider this an emergency, dial 8 or go to your nearest emergency department. NEED HELP? Are you dealing with a violent or abusive relationship? Are you a victim of rape or sexual assult? Call [facility] ([place]) 24 hour Crisis Hotline: 330.178.5152 or 224-819-7474. MANUAL Your Guide to a Healthy manual is now on-line. Visit [email or web address] to download your free copy documented in this encounter [facility] 02-13-2025 Note HNO ID: [id number] Author: LAVERNE RAMIREZ MD Service: ? Author Type: Physician Type: Progress Notes Filed: 02/13/2025 15:35 Note Text: Reason for Visit HPI Sloane Linder is a 34-year-old female, , presenting for an annual visit. Sloane is currently 36 weeks and 5 days with her second child, a female, with an 11-year gap between pregnancies. She is under the care of Dr. Moran for her care. She is taking vitamins, iron supplements, vitamin D, vitamin C, and Protonix for reflux, which is well-controlled. She is also receiving iron infusions for low iron levels. She reports difficulty sleeping due to discomfort, but denies any stress, sadness, or depression. Sloane has not received a tetanus vaccine during this and is unsure if she is up to date. She has not needed to use her albuterol inhaler, but requests a refill due to the heat and living upstairs. She reports a normal glucose tolerance test with a result of 120 mg/dL. Social History Tobacco Use Smoking status: Never Passive exposure: Never Smokeless tobacco: Never Vaping Use Vaping status: Never Used Substance Use Topics Alcohol use: Yes Comment: occasionally, NOT WHILE Drug use: No Past medical history, appointments, medications, allergies reviewed. Pertinent Lab/Diagnostic Studies are reviewed and discussed today Current Outpatient Medications: ferrous sulfate (IRON) 325 mg (65 mg iron) tablet pantoprazole DR (PROTONIX) 40 mg tablet fluticasone (FLONASE) 50 mcg/actuation nasal spray aspirin, enteric coated (ECOTRIN LOW STRENGTH) 81 mg EC tablet VIT 0-[id number]-DHA ORAL albuterol HFA (VENTOLIN HFA) 90 mcg/actuation inhaler cholecalciferol (VITAMIN D3) 1,000 unit tab tablet Health Maintenance HPV Vaccine: Recommended Based On Risk Depression Screening Anxiety Screening DTaP,Tdap,Td Vaccine(7 - Td or Tdap) Covid-19 Vaccine(3 - 2024-25 season)@ Review Of Systems Constitutional: (+) insomnia Psychiatric: (-) stress, (-) depressed mood Physical Exam BP 122/77 Pulse 100 Resp 16 Wt 120.1 kg (264 lb 12.8 oz) LMP 04/30/2024 (Approximate) SpO2 99% BMI 42.42 kg/m? GENERAL: NAD, alert and oriented. SKIN: Unremarkable, no rash or skin lesions. HEAD: Normocephalic. EYES: PERRLA, EOMI, conjunctiva clear. EARS: External ears normal, canals clear, TM's normal. NOSE/SINUSES: Nares normal. Septum midline. OROPHARYNX: Lips, mucosa, and tongue normal, good dentition. No oral lesions noted. NECK: Supple, no lymphadenopathy, normal thyroid, no carotid bruits. LUNGS: Clear to auscultation bilaterally, no wheezes/rhonchi/rales. HEART: Regular rate and rhythm, no murmurs. No ectopy. EXTREMITIES: Normal, no deformities, no skin discoloration, no edema. NEURO: Awake, alert and oriented x3, cranial nerves II-XII grossly intact, normal gait, no involuntary motions. Labs: - Iron levels: Decreased - Hemoglobin: Decreased - White blood cell count: Elevated - Glucose tolerance test: 120 mg/dL Assessment and Plan 1. Annual physical exam (Z00.00) Patient is 37 weeks , experiencing difficulty sleeping due to discomfort. No significant stress, sadness, or depression reported. Reflux is well-controlled with Protonix. Up to date on vaccinations except for tetanus. No acute issues noted on physical exam. - Encouraged patient to maintain activity and rest as much as possible. - Follow-up after . 2. Reactive airway disease, unspecified asthma severity, uncomplicated ([facility]) (J45.909) No recent episodes of wheezing or shortness of breath reported. Patient requested albuterol refill as a precaution due to heat and . - Refilled albuterol inhaler. - Advised patient to use inhaler only for wheezing episodes. 3. with 37 weeks completed gestation ([facility]) (Z3A.37) progressing well without complications. Patient under the care of Dr. Moran. Glucose tolerance test results were normal. - Continue care with Dr. Moran. - Monitor for signs of labor. 4. Maternal iron deficiency anemia complicating in third trimester ([facility]) (O99.013) Iron levels are low; patient is receiving iron infusions. - Continue iron infusions as prescribed. - Follow-up on iron levels post-. Voice recognition software was used to compose this office note. Please excuse any unintended typographical errors. Recording using [employer] software for draft documentation of the visit was discussed with the patient/authorized procurement representative; all questions welcomed and answered. Patient/authorized procurement representative agreed to proceed Laverne Ramirez MD [facility] 02-13-2025 History of Presen t illness Narrative Reason for Visit HPI Sloane Linder is a 34-year-old female, , presenting for an annual visit. Sloane is currently 36 weeks and 5 days with her second child, a female, with an 11-year gap between pregnancies. She is under the care of Dr. Moran for her care. She is taking vitamins, iron supplements, vitamin D, vitamin C, and Protonix for reflux, which is well-controlled. She is also receiving iron infusions for low iron levels. She reports difficulty sleeping due to discomfort, but denies any stress, sadness, or depression. Sloane has not received a tetanus vaccine during this and is unsure if she is up to date. She has not needed to use her albuterol inhaler, but requests a refill due to the heat and living upstairs. She reports a normal glucose tolerance test with a result of 120 mg/dL. Social History Tobacco Use Smoking status: Never Passive exposure: Never Smokeless tobacco: Never Vaping Use Vaping status: Never Used Substance Use Topics Alcohol use: Yes Comment: occasionally, NOT WHILE Drug use: No Past medical history, appointments, medications, allergies reviewed. Pertinent Lab/Diagnostic Studies are reviewed and discussed today Current Outpatient Medications: ferrous sulfate (IRON) 325 mg (65 mg iron) tablet pantoprazole DR (PROTONIX) 40 mg tablet fluticasone (FLONASE) 50 mcg/actuation nasal spray aspirin, enteric coated (ECOTRIN LOW STRENGTH) 81 mg EC tablet VIT [id number] ORAL albuterol HFA (VENTOLIN HFA) 90 mcg/actuation inhaler cholecalciferol (VITAMIN D3) 1,000 unit tab tablet Health Maintenance HPV Vaccine: Recommended Based On Risk Depression Screening Anxiety Screening DTaP,Tdap,Td Vaccine(7 - Td or Tdap) Covid-19 Vaccine( season)@ Review Of Systems Constitutional: (+) insomnia Psychiatric: (-) stress, (-) depressed mood Physical Exam BP 122/77 Pulse 100 Resp 16 Wt 120.1 kg (264 lb 12.8 oz) LMP 04/30/2024 (Approximate) SpO2 99% BMI 42.42 kg/m GENERAL: NAD, alert and oriented. SKIN: Unremarkable, no rash or skin lesions. HEAD: Normocephalic. EYES: PERRLA, EOMI, conjunctiva clear. EARS: External ears normal, canals clear, TM's normal. NOSE/SINUSES: Nares normal. Septum midline. OROPHARYNX: Lips, mucosa, and tongue normal, good dentition. No oral lesions noted. NECK: Supple, no lymphadenopathy, normal thyroid, no carotid bruits. LUNGS: Clear to auscultation bilaterally, no wheezes/rhonchi/rales. HEART: Regular rate and rhythm, no murmurs. No ectopy. EXTREMITIES: Normal, no deformities, no skin discoloration, no edema. NEURO: Awake, alert and oriented x3, cranial nerves II-XII grossly intact, normal gait, no involuntary motions. Labs: - Iron levels: Decreased - Hemoglobin: Decreased - White blood cell count: Elevated - Glucose tolerance test: 120 mg/dL Assessment and Plan 1. Annual physical exam (Z00.00) Patient is 37 weeks , experiencing difficulty sleeping due to discomfort. No significant stress, sadness, or depression reported. Reflux is well-controlled with Protonix. Up to date on vaccinations except for tetanus. No acute issues noted on physical exam. - Encouraged patient to maintain activity and rest as much as possible. - Follow-up after . 2. Reactive airway disease, unspecified asthma severity, uncomplicated ([facility]) (J45.909) No recent episodes of wheezing or shortness of breath reported. Patient requested albuterol refill as a precaution due to heat and . - Refilled albuterol inhaler. - Advised patient to use inhaler only for wheezing episodes. 3. with 37 weeks completed gestation (HCC) (Z3A.37) progressing well without complications. Patient under the care of Dr. Moran. Glucose tolerance test results were normal. - Continue care with Dr. Moran. - Monitor for signs of labor. 4. Maternal iron deficiency anemia complicating in third trimester (HCC) (O99.013) Iron levels are low; patient is receiving iron infusions. - Continue iron infusions as prescribed. - Follow-up on iron levels post-. Voice recognition software was used to compose this office note. Please excuse any unintended typographical errors. Recording using ambient Routeware software for draft documentation of the visit was discussed with the patient/authorized procurement representative; all questions welcomed and answered. Patient/authorized procurement representative agreed to proceed Laverne Ramirez MD documented in this encounter [facility] 02-13-2025 Instructions Laverne Ramirez MD - 02/13/2025 3:22 PM EDT We discussed your : - Congratulations on your ! You are currently 37 weeks along, and your baby is head down, which is great. - Continue taking your vitamins, Protonix, Vitamin D, and Vitamin C as you have been. - Your iron levels are low, and you are already receiving iron infusions. Please continue with these as directed. - Your glucose tolerance test results were normal, with a reading of 120. - Keep active, eat healthy, and try to get as much rest as possible, even though sleeping may be uncomfortable at this stage. - The baby can arrive at any time now. Best of luck with your delivery! We discussed your vaccinations: - You are due for a tetanus vaccine. If you did not receive it during this , you can get it after delivery. We discussed your asthma: - You mentioned needing an albuterol refill. This has been provided for use only if you experience wheezing. Do not use it for general discomfort or heat-related symptoms. Follow-up: - I do not see the need for further investigations at this time. Please schedule a follow-up visit with me after your delivery. documented in this encounter [facility] 02-10-2025 Progress note Formatting of t his note might be different from the original. S: Sloane Linder is a 34 year old female who presents at 03/09/2025, by Ultrasound for a routine visit. Denies headache, visual changes, chest pain, shortness of breath, vaginal bleeding, leakage of fluid, or dysuria. Feeling well, no complaints. Good movement, No contractions O: See flow sheet Gen: No apparent distress Abd: Gravid, nontender SENSITIVE EXAMINATION CONSENT: The sensitive examination was discussed with the Patient or Patient's Authorized Director Talent Management. As applicable, any other physician, advance practice provider, medical student, or other health professional student that will be observing or involved in the sensitive examination for educational or training purposes was discussed with the Patient or Authorized Director Talent Management. The Patient or Authorized Director Talent Management has agreed to proceed with the sensitive examination. GBS collected EFW92% REGINALD 18 Vtx on US BPP 03/31 ASSESSMENT/PLAN: 1. 36 weeks gestation of ([facility]) - ICD9: V22.2, ICD10: Z3A.36 (primary diagnosis) - URINE OB DIP B/O - ROUTINE, GROUP B STREPTOCOCCUS BY PCR 2. AMA (advanced maternal age) multigravida 35+, third trimester ([facility]) - ICD9: 659.63, ICD10: O09.523 - URINE OB DIP B/O - ROUTINE, GROUP B STREPTOCOCCUS BY PCR 3. Obesity in ([facility]) - ICD9: 649.10, ICD10: O99.210 NSTs weekly - URINE OB DIP B/O 4. Supervision of high risk in third trimester ([facility]) - ICD9: V23.9, ICD10: O09.93 - URINE OB DIP B/O - ROUTINE, GROUP B STREPTOCOCCUS BY PCR Faye Torres MD [facility] 02-10-2025 Miscellaneous Notes S: Sloane Linder is a 34 year old female who presents at 03/09/2025, by Ultrasound for a routine visit. Denies headache, visual changes, chest pain, shortness of breath, vaginal bleeding, leakage of fluid, or dysuria. Feeling well, no complaints. Good movement, No contractions O: See flow sheet Gen: No apparent distress Abd: Gravid, nontender SENSITIVE EXAMINATION CONSENT: The sensitive examination was discussed with the Patient or Patient's Authorized Director Talent Management. As applicable, any other physician, advance practice provider, medical student, or other health professional student that will be observing or involved in the sensitive examination for educational or training purposes was discussed with the Patient or Authorized Director Talent Management. The Patient or Authorized Director Talent Management has agreed to proceed with the sensitive examination. GBS collected EFW92% REGINALD 18 Vtx on US BPP 03/31 ASSESSMENT/PLAN: 1. 36 weeks gestation of ([facility]) - ICD9: V22.2, ICD10: Z3A.36 (primary diagnosis) - URINE OB DIP B/O - ROUTINE, GROUP B STREPTOCOCCUS BY PCR 2. AMA (advanced maternal age) multigravida 35+, third trimester ([facility]) - ICD9: 659.63, ICD10: O09.523 - URINE OB DIP B/O - ROUTINE, GROUP B STREPTOCOCCUS BY PCR 3. Obesity in ([facility]) - ICD9: 649.10, ICD10: O99.210 NSTs weekly - URINE OB DIP B/O 4. Supervision of high risk in third trimester ([facility]) - ICD9: V23.9, ICD10: O09.93 - URINE OB DIP B/O - ROUTINE, GROUP B STREPTOCOCCUS BY PCR Faye Torres MD documented in this encounter [facility] 02-10-2025 Note Indication Evaluation of growth. Evaluation of well-being. Advanced maternal age, Maternal obesity, BMI >40 Impression REMOTE READ - Single, live, intrauterine . - presentation is cephalic. - The biometry is consistent with the assigned gestational dating. - The EFW is 3371 g, at the 92%. AC is at the >99%. - Amniotic fluid volume is normal amount with an MVP of 6 cm and REGINALD of 18.5 cm. - The placenta is posterior, fundal. - No malformations visualized on a limited survey as detailed below. Recommendations Additional follow-up as clinically indicated. Maternal Assessment Height 168 cm Height (ft) 5 ft Height (in) 6 in Physical Exam Initial weight (lb) 262 lb Initial BMI 42.29 kg/m Method Transabdominal ultrasound examination [place] . Number of fetuses: 1 Dating GA by prior assessment 36 w + 1 d MATI by prior assessment: 03/09/2025 Ultrasound examination on: 02/10/2025 GA by U/S based upon: AC, BPD, Femur, HC GA by U/S 36 w + 6 d MATI by U/S: 03/04/2025 Assigned: based on stated MATI, selected on 01/13/2025 Assigned GA 36 w + 1 d Assigned MATI: 03/09/2025 General Evaluation Cardiac activity present. FHR 135 bpm. movements: present. Presentation: cephalic Placenta: Placental site: posterior, fundal Umbilical cord: Cord vessels: 3 vessel cord. Insertion site: normal insertion Amniotic fluid: Amount of AF: normal amount. MVP 6.0 cm. REGINALD 18.5 cm. Q1 3.6 cm, Q2 6.0 cm, Q3 5.0 cm, Q4 3.9 cm Biophysical Profile 2: breathing movements 2: Gross body movements 2: tone 2: Amniotic fluid volume 8/8 Biophysical profile score Growth Overview Exam date GA BPD (mm) HC (mm) AC (mm) FL (mm) HL (mm) EFW (g) 09/21/2024 15w 6d 33.3 69% 122.1 45% 106.8 76% 18.8 40% 18.6 34% 143 53% 10/14/2024 19w 1d 49 97% 172.2 70% 141.6 59% 29.4 63% 28.7 57% 288 57% 01/13/2025 32w 1d 84.1 87% 304.5 66% 303.8 95% 63.7 84% 2281 87% 02/10/2025 36w 1d 90.1 69% 315.4 25% 350.8 >99% 75.1 99% 3371 92% Biometry Standard BPD 90.1 mm 36w 3d 69% Hadlock OFD 107.1 mm 32w 0d 9% Nicolaides HC 315.4 mm 34w 3d 25% Dougie AC 350.8 mm 39w 0d >99% Hadlock Femur 75.1 mm 37w 5d 99% Dougie EFW 3,371 g 38w 5d 92% Hadlock EFW (lb) 7 lb EFW (oz) 7 oz EFW by: Hadlock (HC-AC-FL) Extended Racing Secretary 2.0 mm Extremities / Bony Struc FL / HC 0.24 Other Structures FHR 135 bpm Anatomy Lateral ventricles: normal Cavum septi pellucidi: normal Cerebellum: normal Cisterna magna: normal 4-chamber view: suboptimally visualized RVOT view: suboptimally visualized LVOT view: suboptimally visualized 3-vessel view: suboptimally visualized Heart / Thorax Situs: situs solitus (normal) Diaphragm: normal Stomach: normal Kidneys: normal Bladder: normal sex: female Wants to know sex: yes Performed By: Noemy Reddy RDMS Read By: Lucinda Shaver M.D. [facility] 02-10-2025 Instructions Iriada Pak MA - 02/10/2025 10:19 AM EDT SEQUENTIAL SCREENINGS The [facility] offers sequential screenings for women who are interested in screenings for chromosomal abnormalities and certain defects during a . The sequential screen combines ultrasound and blood tests to determine the risk of chromosomal abnormalities, including Down's Syndrome (Trisomy 21) and Trisomy 18, as well as open neural tube defects including spina bifida. Ultrasound examination is performed between 11 weeks and 13 weeks gestational age. Blood tests are drawn after the ultrasound and again later in the between 15 and 21 weeks gestational age. Please let your physician know if you are interested in this testing. It will require an appointment with our support technician. This is not an ultrasound performed by a physician in our office during a routine visit. SIGNS AND SYMPTOMS OF LABOR 1. Contractions every 10 minutes or more often 2. Clear, pink, or brownish fluid (water) leaking from vagina 3. Feeling that baby is pushing down, pressure 4. Low, dull backache 5. Cramps that feel like a period 6. Cramps with or without diarrhea If you notice any of the above symptoms, contact our office at [phone] and ask to speak with a nurse. After hours, you can call doctors registry at [phone] OR call [facility] at [phone] and ask to have the doctor telephone interviewer paged. If you consider this an emergency, dial 9- or go to your nearest emergency department. NEED HELP? Are you dealing with a violent or abusive relationship? Are you a victim of rape or sexual assult? Call [facility] ([place]) 24 hour Crisis Hotline: 529.565.4016 or 631-990-4742. MANUAL Your Guide to a Healthy manual is now on-line. Visit [email or web address] to download your free copy documented in this encounter [facility] 02-03-2025 Note HNO ID: [id number] Author: FAYE TORRES MD Service: ? Author Type: Physician Type: Progress Notes Filed: 02/03/2025 10:00 Note Text: NST SUMMARY PROVIDER ASSESSMENT AND INTERPRETATION Indications for NST: Obesity Baseline: 135 Variability: Moderate Accelerations: Present 15 X 15 Decelerations: None Interpretation: Reactive SIGNATURE: Faye Torres MD [facility] 02-03-2025 History of Presen t illness Narrative NST SUMMARY PROVIDER ASSESSMENT AND INTERPRETATION Indications for NST: Obesity Baseline: 135 Variability: Moderate Accelerations: Present 15 X 15 Decelerations: None Interpretation: Reactive SIGNATURE: Faye Torres MD documented in this encounter [facility] 02-03-2025 Progress note Formatting of t his note might be different from the original. NST-only. Reactive. [facility] 02-03-2025 Miscellaneous Notes NST-only. Reactive. documented in this encounter [facility] 02-03-2025 Instructions Iraida Pak MA - 02/03/2025 9:30 AM EDT SEQUENTIAL SCREENINGS The [facility] offers sequential screenings for women who are interested in screenings for chromosomal abnormalities and certain defects during a . The sequential screen combines ultrasound and blood tests to determine the risk of chromosomal abnormalities, including Down's Syndrome (Trisomy 21) and Trisomy 18, as well as open neural tube defects including spina bifida. Ultrasound examination is performed between 11 weeks and 13 weeks gestational age. Blood tests are drawn after the ultrasound and again later in the between 15 and 21 weeks gestational age. Please let your physician know if you are interested in this testing. It will require an appointment with our support technician. This is not an ultrasound performed by a physician in our office during a routine visit. SIGNS AND SYMPTOMS OF LABOR 1. Contractions every 10 minutes or more often 2. Clear, pink, or brownish fluid (water) leaking from vagina 3. Feeling that baby is pushing down, pressure 4. Low, dull backache 5. Cramps that feel like a period 6. Cramps with or without diarrhea If you notice any of the above symptoms, contact our office at [phone] and ask to speak with a nurse. After hours, you can call doctors registry at [phone] OR call [facility] at [phone] and ask to have the doctor telephone interviewer paged. If you consider this an emergency, dial 5-3-2 or go to your nearest emergency department. NEED HELP? Are you dealing with a violent or abusive relationship? Are you a victim of rape or sexual assult? Call [facility] ([place]) 24 hour Crisis Hotline: 265.774.3483 or 160-826-1784. MANUAL Your Guide to a Healthy manual is now on-line. Visit [email or web address] to download your free copy documented in this encounter [facility] 01-31-2025 Telephone encounter Note Please review and advise Cristal Mayes [facility] 01-31-2025 Miscellaneous Notes Please review and advise Cristal Mayes Venofer order signed and PA completed. Ready for scheduling. documented in this encounter [facility] 01-31-2025 Telephone encounter Note Venofer order signed and PA completed. Ready for scheduling. [facility] 01-27-2025 Note HNO ID: [id number] Author: VALERIE ELIZABETH MD Service: ? Author Type: Physician Type: Progress Notes Filed: 01/27/2025 12:54 Note Text: NST SUMMARY PROVIDER ASSESSMENT AND INTERPRETATION Sloane Linder is a 34 year old female, , who is at 34w1d with an MATI of 03/09/2025, by Ultrasound dating method. Indications for NST: Obesity Baseline: 135 Variability: Moderate Accelerations: Present 15 X 15 Decelerations: None Contractions: TOCO: None Interpretation: Reactive SIGNATURE: Valerie Elizabeth DO [facility] 01-27-2025 History of Presen t illness Narrative NST SUMMARY PROVIDER ASSESSMENT AND INTERPRETATION Sloane Linder is a 34 year old female, , who is at 34w1d with an MATI of 03/09/2025, by Ultrasound dating method. Indications for NST: Obesity Baseline: 135 Variability: Moderate Accelerations: Present 15 X 15 Decelerations: None Contractions: TOCO: None Interpretation: Reactive SIGNATURE: Valerie Elizabeth DO documented in this encounter [facility] 01-27-2025 Progress note Formatting of t his note might be different from the original. SW- Yesterday at work she had a headache with hand numbness and tingling. Some nausea and lightheadedness associated with the symptoms as well. She reports chronic migraines. Her symptoms have improved. 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 No ctx, vb, lof. Good FM. She feels better today. She had checked her BP yesterday and it was normal PE: Gen- NAD, well appearing Abd- Soft, gravid, NT LE- No swelling or calf tenderness See flowsheet A/p 34 wk gestation - Migraine headaches: Discussed reasons to call. Encouraged hydration and tylenol PRN - Obesity: NST reactive today. Cont weekly antepartum testing and growth US. Delivery 39 weeks - RTO 1 wk Valerie Elizabeth DO [facility] 01-27-2025 Miscellaneous Notes SW- Yesterday at work she had a headache with hand numbness and tingling. Some nausea and lightheadedness associated with the symptoms as well. She reports chronic migraines. Her symptoms have improved. 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 No ctx, vb, lof. Good FM. She feels better today. She had checked her BP yesterday and it was normal PE: Gen- NAD, well appearing Abd- Soft, gravid, NT LE- No swelling or calf tenderness See flowsheet A/p 34 wk gestation - Migraine headaches: Discussed reasons to call. Encouraged hydration and tylenol PRN - Obesity: NST reactive today. Cont weekly antepartum testing and growth US. Delivery 39 weeks - RTO 1 wk Valerie Elizabeth DO documented in this encounter [facility] 01-27-2025 Instructions Iraida Pak MA - 01/27/2025 10:15 AM EDT SEQUENTIAL SCREENINGS The [facility] offers sequential screenings for women who are interested in screenings for chromosomal abnormalities and certain defects during a . The sequential screen combines ultrasound and blood tests to determine the risk of chromosomal abnormalities, including Down's Syndrome (Trisomy 21) and Trisomy 18, as well as open neural tube defects including spina bifida. Ultrasound examination is performed between 11 weeks and 13 weeks gestational age. Blood tests are drawn after the ultrasound and again later in the between 15 and 21 weeks gestational age. Please let your physician know if you are interested in this testing. It will require an appointment with our support technician. This is not an ultrasound performed by a physician in our office during a routine visit. SIGNS AND SYMPTOMS OF LABOR 1. Contractions every 10 minutes or more often 2. Clear, pink, or brownish fluid (water) leaking from vagina 3. Feeling that baby is pushing down, pressure 4. Low, dull backache 5. Cramps that feel like a period 6. Cramps with or without diarrhea If you notice any of the above symptoms, contact our office at [phone] and ask to speak with a nurse. After hours, you can call doctors registry at [phone] OR call [facility] at [phone] and ask to have the doctor telephone interviewer paged. If you consider this an emergency, dial 7-1-7 or go to your nearest emergency department. NEED HELP? Are you dealing with a violent or abusive relationship? Are you a victim of rape or sexual assult? Call [facility] ([place]) 24 hour Crisis Hotline: 403.242.3197 or 356-845-9773. MANUAL Your Guide to a Healthy manual is now on-line. Visit [email or web address] to download your free copy documented in this encounter [facility] 01-26-2025 Note HNO ID: [id number] Author: CRISTAL BRITO PA-C Service: ? Author Type: Physician Security Engineer Type: Progress Notes Filed: 01/26/2025 11:55 Note Text: [facility] DEPARTMENT OF BLOOD MANAGEMENT ORDERS ONLY ENCOUNTER PATIENT NAME: Sloane Linder DATE OF SERVICE: January 26, 2025 REFERRING PROVIDER: Ruthie Bundy MD Subjective Patient referred to Blood Management for evaluation and treatment of anemia in and iron deficiency anemia. Patient's relevant history, recent diagnostic data, and treatment plan as entered by Leslee Steven RN were reviewed. Medical/Surgical History: PAST MEDICAL HISTORY Diagnosis Date Abnormal Pap smear of cervix Anemia AGE 17 Bacterial vaginitis Chlamydia 08/24/2012 Chronic headaches 08/24/1999 Gonorrhea 02/08/2013 History of hemorrhage Migraines sometimes with auras Reactive airway disease, unspecified asthma severity, uncomplicated (HCC) 09/21/2017 PAST SURGICAL HISTORY Procedure Laterality Date CERVIX UTERI CONIZA LP ELCTRO EXCI CONIZATION CERVIX W/WO DANDC RPR ELTRD EXC 11/2013 LEEP-Cervix NEXPLANON INSERTION 09/04/2015 removed OTHER SURGICAL HISTORY (PLEASE SPECIFY) HX 10/23/2015 diagnostic laparascopy Other significant Medical/Surgical history: - None CURRENT MEDICATIONS: Current Outpatient Medications Medication Instructions albuterol HFA (VENTOLIN HFA) 90 mcg/actuation inhaler 2 puffs, INHALATION, EVERY 4 HOURS NEEDED aspirin, enteric coated (ECOTRIN LOW STRENGTH) 162 mg, ORAL, AT BEDTIME cholecalciferol (VITAMIN D3) 1,000 Units, ORAL, DAILY ferrous sulfate (IRON) 325 mg, EVERY 48 HOURS fluticasone (FLONASE) 50 mcg/actuation nasal spray 1 spray, EACH NOSTRIL, DAILY, Rinse mouth after use. pantoprazole DR (PROTONIX) 40 mg, ORAL, DAILY VIT [id number] ORAL Take by mouth. Current medications that may affect iron absorption and/or blood loss: - Antacids (H2 receptor blockers, PPI) - Aspirin Objective Data Reviewed: WBC (k/uL) Date Value 01/20/2025 11.33 (H) RBC (m/uL) Date Value 01/20/2025 3.50 (L) Hemoglobin (g/dL) Date Value 01/20/2025 9.3 (L) Hematocrit (%) Date Value 01/20/2025 30.0 (L) MCV (fL) Date Value 01/20/2025 85.7 MCH (pg) Date Value 01/20/2025 26.6 MCHC (g/dL) Date Value 01/20/2025 31.0 RDW-CV (%) Date Value 01/20/2025 15.0 Platelet Count (k/uL) Date Value 01/20/2025 227 MPV (fL) Date Value 01/20/2025 10.1 Iron Date Value Ref Range Status 01/24/2025 55 41 - 186 ug/dL Final TIBC Date Value Ref Range Status 01/24/2025 432 (H) 232 - 386 ug/dL Final Ferritin Date Value Ref Range Status 01/24/2025 28.8 14.7 - 205.1 ng/mL Final Folate Date Value Ref Range Status 10/20/2018 14.7 >4.7 ng/mL Final Vitamin B12 Date Value Ref Range Status 10/16/2020 330 232 - 1,245 pg/mL Final Transferrin Saturation Date Value Ref Range Status 01/24/2025 12.7 (L) 15.0 - 57.0 % Final Assessment AND Plan Maternal iron deficiency anemia complicating , third trimester (HCC) - Patient referred to blood management for anemia in and iron deficiency anemia - Previously prescribed Ferrous sulfate 325 mg tablet (65 mg elemental iron) PO daily and pre-daniel vitamin including iron supplement PO daily - Patient with treatment failure from oral iron supplementation and ongoing iron deficiency anemia noted on most recent labs from 01/24/2025: - Ferritin 28.8, Iron 55, TIBC 432, TSAT 12.7%, and Hgb 9.3 g/dL - Per Ganzoni equation, 908 mg iron deficient utilizing pre- weight (>100kg) and goal Hgb 11 g/dL. - Therapy plan for Venofer (iron sucrose) 200 mg IV infusion x 5 doses was reviewed and signed. - Recommend ongoing monitoring of iron deficiency anemia by referring provider to ensure adequate response to IV iron supplementation. Portions of this note were copied from prior encounter from Leslee Steven RN on 01/26/25. The patient's medications, allergies, past medical/surgical hx, and family hx have all been reviewed and updated as appropriate. The interval history and assessment/plan content have been modified and are specific to today's (January 26, 2025) purpose for the visit. Cristal Brito PA-C Department of Blood Management January 26, 2025 CC: Referring Provider: Ruthie Bundy MD [facility] 01-26-2025 History of Presen t illness Narrative [facility] DEPARTMENT OF BLOOD MANAGEMENT ORDERS ONLY ENCOUNTER PATIENT NAME: Sloane Linder DATE OF SERVICE: January 26, 2025 REFERRING PROVIDER: Ruthie Bundy MD Subjective Patient referred to Blood Management for evaluation and treatment of anemia in and iron deficiency anemia. Patient's relevant history, recent diagnostic data, and treatment plan as entered by Leslee Steven RN were reviewed. Medical/Surgical History: PAST MEDICAL HISTORY Diagnosis Date Abnormal Pap smear of cervix Anemia AGE 17 Bacterial vaginitis Chlamydia 08/24/2012 Chronic headaches 08/24/1999 Gonorrhea 02/08/2013 History of hemorrhage Migraines sometimes with auras Reactive airway disease, unspecified asthma severity, uncomplicated (HCC) 09/21/2017 PAST SURGICAL HISTORY Procedure Laterality Date CERVIX UTERI CONIZA LP ELCTRO EXCI CONIZATION CERVIX W/WO D&C RPR ELTRD EXC 11/2013 LEEP-Cervix NEXPLANON INSERTION 09/04/2015 removed OTHER SURGICAL HISTORY (PLEASE SPECIFY) HX 10/23/2015 diagnostic laparascopy Other significant Medical/Surgical history: - None CURRENT MEDICATIONS: Current Outpatient Medications Medication Instructions albuterol HFA (VENTOLIN HFA) 90 mcg/actuation inhaler 2 puffs, INHALATION, EVERY 4 HOURS NEEDED aspirin, enteric coated (ECOTRIN LOW STRENGTH) 162 mg, ORAL, AT BEDTIME cholecalciferol (VITAMIN D3) 1,000 Units, ORAL, DAILY ferrous sulfate (IRON) 325 mg, EVERY 48 HOURS fluticasone (FLONASE) 50 mcg/actuation nasal spray 1 spray, EACH NOSTRIL, DAILY, Rinse mouth after use. pantoprazole DR (PROTONIX) 40 mg, ORAL, DAILY VIT 2-[id number]-DHA ORAL Take by mouth. Current medications that may affect iron absorption and/or blood loss: - Antacids (H2 receptor blockers, PPI) - Aspirin Objective Data Reviewed: WBC (k/uL) Date Value 01/20/2025 11.33 (H) RBC (m/uL) Date Value 01/20/2025 3.50 (L) Hemoglobin (g/dL) Date Value 01/20/2025 9.3 (L) Hematocrit (%) Date Value 01/20/2025 30.0 (L) MCV (fL) Date Value 01/20/2025 85.7 MCH (pg) Date Value 01/20/2025 26.6 MCHC (g/dL) Date Value 01/20/2025 31.0 RDW-CV (%) Date Value 01/20/2025 15.0 Platelet Count (k/uL) Date Value 01/20/2025 227 MPV (fL) Date Value 01/20/2025 10.1 Iron Date Value Ref Range Status 01/24/2025 55 41 - 186 ug/dL Final TIBC Date Value Ref Range Status 01/24/2025 432 (H) 232 - 386 ug/dL Final Ferritin Date Value Ref Range Status 01/24/2025 28.8 14.7 - 205.1 ng/mL Final Folate Date Value Ref Range Status 10/20/2018 14.7 >4.7 ng/mL Final Vitamin B12 Date Value Ref Range Status 10/16/2020 330 232 - 1,245 pg/mL Final Transferrin Saturation Date Value Ref Range Status 01/24/2025 12.7 (L) 15.0 - 57.0 % Final Assessment & Plan Maternal iron deficiency anemia complicating , third trimester (HCC) - Patient referred to blood management for anemia in and iron deficiency anemia - Previously prescribed Ferrous sulfate 325 mg tablet (65 mg elemental iron) PO daily and pre- vitamin including iron supplement PO daily - Patient with treatment failure from oral iron supplementation and ongoing iron deficiency anemia noted on most recent labs from 01/24/2025: - Ferritin 28.8, Iron 55, TIBC 432, TSAT 12.7%, and Hgb 9.3 g/dL - Per Ganzoni equation, 908 mg iron deficient utilizing pre- weight (>100kg) and goal Hgb 11 g/dL. - Therapy plan for Venofer (iron sucrose) 200 mg IV infusion x 5 doses was reviewed and signed. - Recommend ongoing monitoring of iron deficiency anemia by referring provider to ensure adequate response to IV iron supplementation. Portions of this note were copied from prior encounter from Leslee Steven RN on 01/26/25. The patient's medications, allergies, past medical/surgical hx, and family hx have all been reviewed and updated as appropriate. The interval history and assessment/plan content have been modified and are specific to today's (January 26, 2025) purpose for the visit. Cristal Brito PA-C Department of Blood Management January 26, 2025 CC: Referring Provider: Ruthie Bundy MD documented in this encounter [facility] 01-26-2025 Note HNO ID: [id number] Author: LESLEE CA, RN Service: ? Author Type: Registered Nurse Type: Progress Notes Filed: 01/26/2025 11:25 Note Text: Patient referred to Blood Management for evaluation and treatment of pre-surgical anemia and/or iron deficiency. Non-surgical: anemia in Date of surgery: NA Medical/Surgical History: PAST MEDICAL HISTORY Diagnosis Date Abnormal Pap smear of cervix Anemia AGE 17 Bacterial vaginitis Chlamydia 08/24/2012 Chronic headaches 08/24/1999 Gonorrhea 02/08/2013 History of hemorrhage Migraines sometimes with auras Reactive airway disease, unspecified asthma severity, uncomplicated (HCC) 09/21/2017 PAST SURGICAL HISTORY Procedure Laterality Date CERVIX UTERI CONIZA LP ELCTRO EXCI CONIZATION CERVIX W/WO DANDC RPR ELTRD EXC 11/2013 LEEP-Cervix NEXPLANON INSERTION 09/04/2015 removed OTHER SURGICAL HISTORY (PLEASE SPECIFY) HX 10/23/2015 diagnostic laparascopy Other significant Medical/Surgical history: - None Current Outpatient Medications Medication Sig ferrous sulfate (IRON) 325 mg (65 mg iron) tablet Take 325 mg by mouth every other day. pantoprazole DR (PROTONIX) 40 mg tablet Take 1 tablet by mouth once daily. albuterol HFA (VENTOLIN HFA) 90 mcg/actuation inhaler Inhale 2 Puffs as instructed every 4 hours as needed for wheezing/shortness of breath. fluticasone (FLONASE) 50 mcg/actuation nasal spray Use 1 [place] in each nostril once daily. Rinse mouth after use. aspirin, enteric coated (ECOTRIN LOW STRENGTH) 81 mg EC tablet Take 2 tablets by mouth daily at bedtime. VIT 2-[id number]-DHA ORAL Take by mouth. cholecalciferol (VITAMIN D3) 1,000 unit tab tablet Take 1 tablet by mouth once daily. No current facility-administered medications for this visit. Current medications that may affect iron absorption and/or blood loss: - Antacids (H2 receptor blockers, PPI) and - Aspirin Baseline laboratory values: WBC (k/uL) Date Value 01/20/2025 11.33 (H) RBC (m/uL) Date Value 01/20/2025 3.50 (L) Hemoglobin (g/dL) Date Value 01/20/2025 9.3 (L) Hematocrit (%) Date Value 01/20/2025 30.0 (L) MCV (fL) Date Value 01/20/2025 85.7 MCH (pg) Date Value 01/20/2025 26.6 MCHC (g/dL) Date Value 01/20/2025 31.0 RDW-CV (%) Date Value 01/20/2025 15.0 Platelet Count (k/uL) Date Value 01/20/2025 227 MPV (fL) Date Value 01/20/2025 10.1 Iron Date Value Ref Range Status 01/24/2025 55 41 - 186 ug/dL Final TIBC Date Value Ref Range Status 01/24/2025 432 (H) 232 - 386 ug/dL Final Ferritin Date Value Ref Range Status 01/24/2025 28.8 14.7 - 205.1 ng/mL Final Folate Date Value Ref Range Status 10/20/2018 14.7 >4.7 ng/mL Final Vitamin B12 Date Value Ref Range Status 10/16/2020 330 232 - 1,245 pg/mL Final Transferrin Saturation Date Value Ref Range Status 01/24/2025 12.7 (L) 15.0 - 57.0 % Final Assess for the need to augment a patient?s natural red blood cell production: - Blood transfusion avoidance - Iron depletion Recommendations according to Blood Management patient care guidelines: - Iron Sucrose 200 mg, IV infusion, dose(s) 5 total iron deficit using Ganzoni eqaution = 908 mg (wt >100 kg/goal hgb 11 g/dL) Clinical information is sent to a provider for review and evaluation for treatment. [facility] 01-26-2025 History of Presen t illness Narrative Patient referred to Blood Management for evaluation and treatment of pre-surgical anemia and/or iron deficiency. Non-surgical: anemia in Date of surgery: NA Medical/Surgical History: PAST MEDICAL HISTORY Diagnosis Date Abnormal Pap smear of cervix Anemia AGE 17 Bacterial vaginitis Chlamydia 08/24/2012 Chronic headaches 08/24/1999 Gonorrhea 02/08/2013 History of hemorrhage Migraines sometimes with auras Reactive airway disease, unspecified asthma severity, uncomplicated (HCC) 09/21/2017 PAST SURGICAL HISTORY Procedure Laterality Date CERVIX UTERI CONIZA LP ELCTRO EXCI CONIZATION CERVIX W/WO D&C RPR ELTRD EXC 11/2013 LEEP-Cervix NEXPLANON INSERTION 09/04/2015 removed OTHER SURGICAL HISTORY (PLEASE SPECIFY) HX 10/23/2015 diagnostic laparascopy Other significant Medical/Surgical history: - None Current Outpatient Medications Medication Sig ferrous sulfate (IRON) 325 mg (65 mg iron) tablet Take 325 mg by mouth every other day. pantoprazole DR (PROTONIX) 40 mg tablet Take 1 tablet by mouth once daily. albuterol HFA (VENTOLIN HFA) 90 mcg/actuation inhaler Inhale 2 Puffs as instructed every 4 hours as needed for wheezing/shortness of breath. fluticasone (FLONASE) 50 mcg/actuation nasal spray Use 1 [place] in each nostril once daily. Rinse mouth after use. aspirin, enteric coated (ECOTRIN LOW STRENGTH) 81 mg EC tablet Take 2 tablets by mouth daily at bedtime. VIT 7-[id number]-DHA ORAL Take by mouth. cholecalciferol (VITAMIN D3) 1,000 unit tab tablet Take 1 tablet by mouth once daily. No current facility-administered medications for this visit. Current medications that may affect iron absorption and/or blood loss: - Antacids (H2 receptor blockers, PPI) and - Aspirin Baseline laboratory values: WBC (k/uL) Date Value 01/20/2025 11.33 (H) RBC (m/uL) Date Value 01/20/2025 3.50 (L) Hemoglobin (g/dL) Date Value 01/20/2025 9.3 (L) Hematocrit (%) Date Value 01/20/2025 30.0 (L) MCV (fL) Date Value 01/20/2025 85.7 MCH (pg) Date Value 01/20/2025 26.6 MCHC (g/dL) Date Value 01/20/2025 31.0 RDW-CV (%) Date Value 01/20/2025 15.0 Platelet Count (k/uL) Date Value 01/20/2025 227 MPV (fL) Date Value 01/20/2025 10.1 Iron Date Value Ref Range Status 01/24/2025 55 41 - 186 ug/dL Final TIBC Date Value Ref Range Status 01/24/2025 432 (H) 232 - 386 ug/dL Final Ferritin Date Value Ref Range Status 01/24/2025 28.8 14.7 - 205.1 ng/mL Final Folate Date Value Ref Range Status 10/20/2018 14.7 >4.7 ng/mL Final Vitamin B12 Date Value Ref Range Status 10/16/2020 330 232 - 1,245 pg/mL Final Transferrin Saturation Date Value Ref Range Status 01/24/2025 12.7 (L) 15.0 - 57.0 % Final Assess for the need to augment a patient s natural red blood cell production: - Blood transfusion avoidance - Iron depletion Recommendations according to Blood Management patient care guidelines: - Iron Sucrose 200 mg, IV infusion, dose(s) 5 total iron deficit using Ganzoni eqaution = 908 mg (wt >100 kg/goal hgb 11 g/dL) Clinical information is sent to a provider for review and evaluation for treatment. documented in this encounter [facility] 01-23-2025 Telephone encounter Note filed [facility] Work Phone: 01-23-2025 Miscellaneous Notes filed 33w4d Pt needs new iron and ferritin drawn - the last ones were from November. Necessary to have within the last 30 days for insurance authorization. Lab orders pending. Please file and will call Pt. Kelsi Bates RN Pt notified that Blood management referral has been placed and to anticipate a call re: iron infusions as we are forwarding her chart to Blood management/Hematology. Pt voiced understanding. Kelsi Bates RN ordered Blood management referral placed. Please file and will route to Leslee Steven & notify Pt. Kelsi Bates RN Images from the original note were not included. Ruthie Beckman MD to [facility] Ob-Patient Services Clerk Pool (Selected Message) 01/20/25 2:33 PM Result Note Hg still low- will recommend IV iron therapy. Please pend smart set. COMPLETE BLOOD COUNT documented in this encounter [facility] 01-23-2025 Telephone encounter Note 33w4d Pt needs new iron and ferritin drawn - the last ones were from November. Necessary to have within the last 30 days for insurance authorization. Lab orders pending. Please file and will call Pt. Kelsi Bates RN [facility] 01-20-2025 Telephone encounter Note Pt notified that Blood management referral has been placed and to anticipate a call re: iron infusions as we are forwarding her chart to Blood management/Hematology. Pt voiced understanding. Kelsi Bates RN [facility] 01-20-2025 Telephone encounter Note ordered [facility] 01-20-2025 Telephone encounter Note Blood management referral placed. Please file and will route to Leslee Steven & notify Pt. Kelsi Bates RN [facility] 01-20-2025 Telephone encounter Note Images from the original note were not included. Ruthie Beckman MD to [facility] Ob-Patient Services Clerk Pool (Selected Message) 01/20/25 2:33 PM Result Note Hg still low- will recommend IV iron therapy. Please pend smart set. COMPLETE BLOOD COUNT [facility] 01-20-2025 Note HNO ID: [id number] Author: RUTHIE BECKMAN MD Service: ? Author Type: Physician Type: Progress Notes Filed: 01/20/2025 14:16 Note Text: NST SUMMARY PROVIDER ASSESSMENT AND INTERPRETATION Sloane Linder is a 34 year old female, , who is at 33w1d with an MATI of 03/09/2025, by Ultrasound dating method. Indications for NST: AMA and Obesity Baseline: 140 Variability: Moderate Accelerations: Present 15 X 15 Decelerations: None Contractions: TOCO: None Interpretation: Category I and Reactive SIGNATURE: Ruthie Presley MD [facility] 01-20-2025 History of Presen t illness Narrative NST SUMMARY PROVIDER ASSESSMENT AND INTERPRETATION Sloane Linder is a 34 year old female, , who is at 33w1d with an MATI of 03/09/2025, by Ultrasound dating method. Indications for NST: AMA and Obesity Baseline: 140 Variability: Moderate Accelerations: Present 15 X 15 Decelerations: None Contractions: TOCO: None Interpretation: Category I and Reactive SIGNATURE: Ruthie Presley MD documented in this encounter [facility] 01-20-2025 Progress note Formatting of t his note might be different from the original. DM-Pt doing well. Denies vaginal Bleeding, Leaking fluid, or regular Contractions. Pt reports good movement Physical Exam: Gen: female in no apparent distress Abd: soft, Gravid. Non tender to palpation. See flow sheet @ 33.1 weeks Assessment & Plan AMA (advanced maternal age) multigravida 35+, third trimester (HCC) Obesity in (HCC) NSTs weekly and growth us monthly 39 week iOL indicated Anemia during in third trimester ([facility]) Orders: COMPLETE BLOOD COUNT; Future 33 weeks gestation of ([facility]) RTO 1 week for NST and 2 weeks for routine visit Kick counts and labor reviewed Orders: COMPLETE BLOOD COUNT; Future Ruthie Presley MD [facility] 01-20-2025 Miscellaneous Notes DM-Pt doing well. Denies vaginal Bleeding, Leaking fluid, or regular Contractions. Pt reports good movement Physical Exam: Gen: female in no apparent distress Abd: soft, Gravid. Non tender to palpation. See flow sheet @ 33.1 weeks Assessment & Plan AMA (advanced maternal age) multigravida 35+, third trimester (HCC) Obesity in ([facility]) NSTs weekly and growth us monthly 39 week iOL indicated Anemia during in third trimester ([facility]) Orders: COMPLETE BLOOD COUNT; Future 33 weeks gestation of ([facility]) RTO 1 week for NST and 2 weeks for routine visit Kick counts and labor reviewed Orders: COMPLETE BLOOD COUNT; Future Ruthie Presley MD documented in this encounter [facility] 12-23-2024 Progress note Formatting of t his note might be different from the original. S: Sloane Linder is a 34 year old female who presents at 29 weeks gestation for a routine visit. Positive movements. Increased acid reflux with no relief from TUMS/Pepcid. Denies headache, visual changes, chest pain, shortness of breath, vaginal bleeding, leakage of fluid, or dysuria. O: See flow sheet Gen: No apparent distress Abd: Gravid, nontender ASSESSMENT/PLAN: 1. AMA (advanced maternal age) multigravida 35+, third trimester 2. Obesity in (HCC) 3. 29 weeks gestation of 4. Supervision of high risk in third trimester 5. Asthma in 6. Heartburn in - D/C Pepcid PO - Rx for Protonix 40 mg XR PO daily - Continue vitamin - Continue ASA at bedtime - GCT completed - normal - Starting to take oral iron- has not gotten - Will need repeat CBC Karin Ignacio APRN.CNM [facility] 12-23-2024 Miscellaneous Notes S: Sloane Linder is a 34 year old female who presents at 29 weeks gestation for a routine visit. Positive movements. Increased acid reflux with no relief from TUMS/Pepcid. Denies headache, visual changes, chest pain, shortness of breath, vaginal bleeding, leakage of fluid, or dysuria. O: See flow sheet Gen: No apparent distress Abd: Gravid, nontender ASSESSMENT/PLAN: 1. AMA (advanced maternal age) multigravida 35+, third trimester 2. Obesity in (HCC) 3. 29 weeks gestation of 4. Supervision of high risk in third trimester 5. Asthma in 6. Heartburn in - D/C Pepcid PO - Rx for Protonix 40 mg XR PO daily - Continue vitamin - Continue ASA at bedtime - GCT completed - normal - Starting to take oral iron- has not gotten - Will need repeat CBC Karin Ignacio APRN.CNM documented in this encounter [facility] 12-23-2024 Instructions Jose Cruz Muro MA - 12/23/2024 9:48 AM EDT SEQUENTIAL SCREENINGS The [facility] offers sequential screenings for women who are interested in screenings for chromosomal abnormalities and certain defects during a . The sequential screen combines ultrasound and blood tests to determine the risk of chromosomal abnormalities, including Down's Syndrome (Trisomy 21) and Trisomy 18, as well as open neural tube defects including spina bifida. Ultrasound examination is performed between 11 weeks and 13 weeks gestational age. Blood tests are drawn after the ultrasound and again later in the between 15 and 21 weeks gestational age. Please let your physician know if you are interested in this testing. It will require an appointment with our support technician. This is not an ultrasound performed by a physician in our office during a routine visit. SIGNS AND SYMPTOMS OF LABOR 1. Contractions every 10 minutes or more often 2. Clear, pink, or brownish fluid (water) leaking from vagina 3. Feeling that baby is pushing down, pressure 4. Low, dull backache 5. Cramps that feel like a period 6. Cramps with or without diarrhea If you notice any of the above symptoms, contact our office at [phone] and ask to speak with a nurse. After hours, you can call doctors registry at [phone] OR call [facility] at [phone] and ask to have the doctor telephone interviewer paged. If you consider this an emergency, dial [phone] or go to your nearest emergency department. NEED HELP? Are you dealing with a violent or abusive relationship? Are you a victim of rape or sexual assult? Call [facility] ([place]) 24 hour Crisis Hotline: 601.302.3970 or 825-130-2359. MANUAL Your Guide to a Healthy manual is now on-line. Visit [email or web address] to download your free copy documented in this encounter [facility] 12-09-2024 Progress note Formatting of t his note might be different from the original. S: Sloane Linder is a 34 year old female who presents at 03/09/2025, by Ultrasound for a routine visit. Denies headache, visual changes, chest pain, shortness of breath, vaginal bleeding, leakage of fluid, or dysuria. Feeling well, no complaints. Good movement, No contractions O: See flow sheet Gen: No apparent distress Abd: Gravid, nontender GCT today Declined LARC and TDAP ASSESSMENT/PLAN: 1. AMA (advanced maternal age) multigravida 35+, second trimester (HCC) - ICD9: 659.63, ICD10: O09.522 (primary diagnosis) 2. Obesity in (HCC) - ICD9: 649.10, ICD10: O99.210 Q 4 week US NSTs at 32 weeks 3. Screening for diabetes mellitus - ICD9: V77.1, ICD10: Z13.1 4. 27 weeks gestation of (HCC) - ICD9: V22.2, ICD10: Z3A.27 Faye Torres MD [facility] 12-09-2024 Miscellaneous Notes S: Sloane Linder is a 34 year old female who presents at 03/09/2025, by Ultrasound for a routine visit. Denies headache, visual changes, chest pain, shortness of breath, vaginal bleeding, leakage of fluid, or dysuria. Feeling well, no complaints. Good movement, No contractions O: See flow sheet Gen: No apparent distress Abd: Gravid, nontender GCT today Declined LARC and TDAP ASSESSMENT/PLAN: 1. AMA (advanced maternal age) multigravida 35+, second trimester ([facility]) - ICD9: 659.63, ICD10: O09.522 (primary diagnosis) 2. Obesity in (HCC) - ICD9: 649.10, ICD10: O99.210 Q 4 week US NSTs at 32 weeks 3. Screening for diabetes mellitus - ICD9: V77.1, ICD10: Z13.1 4. 27 weeks gestation of (HCC) - ICD9: V22.2, ICD10: Z3A.27 Faye Torres MD documented in this encounter [facility] 11-11-2024 Progress note Formatting of t his note might be different from the original. S: Sloane Linder is a 34 year old female who presents at 03/09/2025, by Ultrasound for a routine visit. Denies headache, visual changes, chest pain, shortness of breath, vaginal bleeding, leakage of fluid, or dysuria. Feeling well, no complaints. Good movement, No contractions O: See flow sheet Gen: No apparent distress Abd: Gravid, nontender Intermittent heartburn -taking tums and pepcid ASSESSMENT/PLAN: 1. Supervision of other high risk , antepartum - ICD9: V23.89, ICD10: O09.899 (primary diagnosis) - SYPHILIS TREPONEMAL W/REFLEX - ANEMIA REFLEX PANEL 2. AMA (advanced maternal age) multigravida 35+, second trimester - ICD9: 659.63, ICD10: O09.522 3. Obesity in - ICD9: 649.10, ICD10: O99.210 NST at 32 weeks 4. Marijuana use disorder in remission - ICD9: 305.23, ICD10: F12.91 5. Screening for diabetes mellitus - ICD9: V77.1, ICD10: Z13.1 - GESTATIONAL GLUCOSE SCREEN, 1-HOUR, 50 GRAM, NON-FASTING Faye Torres MD [facility] 11-11-2024 Miscellaneous Notes S: Sloane Linder is a 34 year old female who presents at 03/09/2025, by Ultrasound for a routine visit. Denies headache, visual changes, chest pain, shortness of breath, vaginal bleeding, leakage of fluid, or dysuria. Feeling well, no complaints. Good movement, No contractions O: See flow sheet Gen: No apparent distress Abd: Gravid, nontender Intermittent heartburn -taking tums and pepcid ASSESSMENT/PLAN: 1. Supervision of other high risk , antepartum - ICD9: V23.89, ICD10: O09.899 (primary diagnosis) - SYPHILIS TREPONEMAL W/REFLEX - ANEMIA REFLEX PANEL 2. AMA (advanced maternal age) multigravida 35+, second trimester - ICD9: 659.63, ICD10: O09.522 3. Obesity in - ICD9: 649.10, ICD10: O99.210 NST at 32 weeks 4. Marijuana use disorder in remission - ICD9: 305.23, ICD10: F12.91 5. Screening for diabetes mellitus - ICD9: V77.1, ICD10: Z13.1 - GESTATIONAL GLUCOSE SCREEN, 1-HOUR, 50 GRAM, NON-FASTING Faye Torres MD documented in this encounter [facility] 11-11-2024 Instructions Lucy Perez MA - 11/11/2024 9:57 AM EDT SEQUENTIAL SCREENINGS The [facility] offers sequential screenings for women who are interested in screenings for chromosomal abnormalities and certain defects during a . The sequential screen combines ultrasound and blood tests to determine the risk of chromosomal abnormalities, including Down's Syndrome (Trisomy 21) and Trisomy 18, as well as open neural tube defects including spina bifida. Ultrasound examination is performed between 11 weeks and 13 weeks gestational age. Blood tests are drawn after the ultrasound and again later in the between 15 and 21 weeks gestational age. Please let your physician know if you are interested in this testing. It will require an appointment with our support technician. This is not an ultrasound performed by a physician in our office during a routine visit. SIGNS AND SYMPTOMS OF LABOR 1. Contractions every 10 minutes or more often 2. Clear, pink, or brownish fluid (water) leaking from vagina 3. Feeling that baby is pushing down, pressure 4. Low, dull backache 5. Cramps that feel like a period 6. Cramps with or without diarrhea If you notice any of the above symptoms, contact our office at [phone] and ask to speak with a nurse. After hours, you can call doctors registry at [phone] OR call [facility] at [phone] and ask to have the doctor telephone interviewer paged. If you consider this an emergency, dial 9-1- or go to your nearest emergency department. NEED HELP? Are you dealing with a violent or abusive relationship? Are you a victim of rape or sexual assult? Call [facility] ([place]) 24 hour Crisis Hotline: 506.565.2188 or 520-795-5629. MANUAL Your Guide to a Healthy manual is now on-line. Visit [email or web address] [email or web address] to download your free copy documented in this encounter [facility] 11-02-2024 Progress note Formatting of t his note might be different from the original. Anatomy ultrasound reviewed. No abnormalities identified. Follow up as clinically indicated. Please place copy in ob chart. Chandler Moran MD [facility] 11-02-2024 Miscellaneous Notes Anatomy ultrasound reviewed. No abnormalities identified. Follow up as clinically indicated. Please place copy in ob chart. Chandler Moran MD documented in this encounter [facility] 10-17-2024 Telephone encounter Note Patient only needs 1 anatomy ultrasound follow up within 2 to 4 week time frame. Follow up anatomy is scheduled, no further needed. Madie Crooks RN [facility] 10-17-2024 Miscellaneous Notes Patient only needs 1 anatomy ultrasound follow up within 2 to 4 week time frame. Follow up anatomy is scheduled, no further needed. Madie Crooks RN Patient called to schedule additional two OB US anatomy per 10/14/24 Results Follow-Up encounter. PSS only able to schedule one US due to current order not having enough visits remaining. Patient is needing to be scheduled for anatomy US again around 11/11/24. Please submit new orders for OB US and notify patient when available for scheduling. documented in this encounter [facility] 10-17-2024 Telephone encounter Note Patient called to schedule additional two OB US anatomy per 10/14/24 Results Follow-Up encounter. PSS only able to schedule one US due to current order not having enough visits remaining. Patient is needing to be scheduled for anatomy US again around 11/11/24. Please submit new orders for OB US and notify patient when available for scheduling. [facility] 10-14-2024 Progress note Formatting of t his note might be different from the original. ELAINA-S: Sloane Linder is a 34 year old female who presents at 19w1d with MATI:03/09/2025, by Ultrasound for a routine visit. Denies headache, visual changes, chest pain, shortness of breath, vaginal bleeding, leakage of fluid, or dysuria. Feeling well, no complaints. O: See flow sheet Gen: No apparent distress Abd: Gravid, nontender ASSESSMENT/PLAN: 1. Supervision of other high risk , antepartum -Anatomy US today, awaiting formal results -Continue PNV and ASA 2. AMA (advanced maternal age) multigravida 35+, second trimester -34 at time of delivery, no additional testing 3. 19 weeks gestation of 4. Obesity in - ICD9: 649.10, ICD10: O99.210 -Reviewed pregravid BMI 41. Discussed testing with growth US at 32 weeks and weekly NSTs. -Discussed recommendation for IOL at 39 weeks 5. Marijuana use disorder in remission -Denies any further use, advised continued cessation 6. History of hemorrhage, currently in first trimester -Active management in 3rd stage PTL precautions reviewed and when to call RTO in 4 weeks Shi Rubi APRN.CNM [facility] 10-14-2024 Miscellaneous Notes ELAINA-S: Sloane Linder is a 34 year old female who presents at 19w1d with MATI:03/09/2025, by Ultrasound for a routine visit. Denies headache, visual changes, chest pain, shortness of breath, vaginal bleeding, leakage of fluid, or dysuria. Feeling well, no complaints. O: See flow sheet Gen: No apparent distress Abd: Gravid, nontender ASSESSMENT/PLAN: 1. Supervision of other high risk , antepartum -Anatomy US today, awaiting formal results -Continue PNV and ASA 2. AMA (advanced maternal age) multigravida 35+, second trimester -34 at time of delivery, no additional testing 3. 19 weeks gestation of 4. Obesity in - ICD9: 649.10, ICD10: O99.210 -Reviewed pregravid BMI 41. Discussed testing with growth US at 32 weeks and weekly NSTs. -Discussed recommendation for IOL at 39 weeks 5. Marijuana use disorder in remission -Denies any further use, advised continued cessation 6. History of hemorrhage, currently in first trimester -Active management in 3rd stage PTL precautions reviewed and when to call RTO in 4 weeks Shi Rubi APRN.CNM documented in this encounter [facility] 10-14-2024 Instructions Jose Cruz Muro MA - 10/14/2024 11:02 AM EST SEQUENTIAL SCREENINGS The [facility] offers sequential screenings for women who are interested in screenings for chromosomal abnormalities and certain defects during a . The sequential screen combines ultrasound and blood tests to determine the risk of chromosomal abnormalities, including Down's Syndrome (Trisomy 21) and Trisomy 18, as well as open neural tube defects including spina bifida. Ultrasound examination is performed between 11 weeks and 13 weeks gestational age. Blood tests are drawn after the ultrasound and again later in the between 15 and 21 weeks gestational age. Please let your physician know if you are interested in this testing. It will require an appointment with our support technician. This is not an ultrasound performed by a physician in our office during a routine visit. SIGNS AND SYMPTOMS OF LABOR 1. Contractions every 10 minutes or more often 2. Clear, pink, or brownish fluid (water) leaking from vagina 3. Feeling that baby is pushing down, pressure 4. Low, dull backache 5. Cramps that feel like a period 6. Cramps with or without diarrhea If you notice any of the above symptoms, contact our office at [phone] and ask to speak with a nurse. After hours, you can call [facility] at [phone] OR call [facility] at [phone] and ask to have the doctor telephone interviewer paged. If you consider this an emergency, dial 9-1-1 or go to your nearest emergency department. NEED HELP? Are you dealing with a violent or abusive relationship? Are you a victim of rape or sexual assult? Call [facility] ([place]) 24 hour Crisis Hotline: 670.195.5121 or 001-340-0767. MANUAL Your Guide to a Healthy manual is now on-line. Visit [email or web address] to download your free copy documented in this encounter [facility] 09-21-2024 Telephone encounter Note US sent to L&D. Pt has US scheduled 10/14/24 with OB appt following. Kelsi Bates RN [facility] 09-21-2024 Telephone encounter Note ----- Message from Shi Rubi APRN.CNM sent at 09/21/2024 12:55 PM EST ----- NT US normal. Please update PN record. Please assist in scheduling 20wk US with MARISEL same day if not scheduled. Shi Rubi APRN.CNM [facility] 09-21-2024 Miscellaneous Notes US sent to L&D. Pt has US scheduled 10/14/24 with OB appt following. Kelsi Bates RN ----- Message from Shi Rubi APRN.CNM sent at 09/21/2024 12:55 PM EST ----- NT US normal. Please update PN record. Please assist in scheduling 20wk US with MARISEL same day if not scheduled. Shi Rubi APRN.CNM documented in this encounter [facility] 09-19-2024 Telephone encounter Note Patient notified. Faye Solis RN [facility] 09-19-2024 Miscellaneous Notes Patient notified. Faye Solis RN Left message for patient to call office. Mesha Fu RN Ok to take Vitamin 500mg PO once daily. Vitamin D 2,000 international unit(s) po daily. Hope she feels better soon. Shi Rubi APRN.CNM 15w4d Ramses tested positive for RSV yesterday in urgent care. Asking if she can take Vitamin C and if so, how much? Any other recommendations to help? Also, she is scheduled for early anatomy u/s in 2 days on 09/21/24. Is that okay to keep? Mesha Fu RN documented in this encounter [facility] 09-19-2024 Telephone encounter Note Left message for patient to call office. Mesha Fu RN [facility] 09-19-2024 Telephone encounter Note Ok to take Vitamin 500mg PO once daily. Vitamin D 2,000 international unit(s) po daily. Hope she feels better soon. Shi Rubi APRN.CNM [facility] 09-19-2024 Telephone encounter Note 15w4d Ramses tested positive for RSV yesterday in urgent care. Asking if she can take Vitamin C and if so, how much? Any other recommendations to help? Also, she is scheduled for early anatomy u/s in 2 days on 09/21/24. Is that okay to keep? Mesha Fu RN [facility] 09-19-2024 Telephone encounter Note Spoke with pt and information listed below given. Pt verbalizes understanding. Kaleb Willingham LPN [facility] 09-19-2024 Miscellaneous Notes Spoke with pt and information listed below given. Pt verbalizes understanding. Kaleb Willingham LPN Left message for patient to return call for results.Hanna Olmos LPN Patient mother know that she has RSV. This is a virus and there is no treatment. Patient should just do supportive therapies. documented in this encounter [facility] 09-19-2024 Telephone encounter Note Needs annual exam Thank you Stormy Hope APRN.VALERIY [facility] 09-19-2024 Miscellaneous Notes Needs annual exam Thank you Stormy Hope APRN.VIDEO GAME TESTER Patient MyChart message requesting the following refill Refill(s) Requested: Requested Prescriptions Pending Prescriptions Disp Refills albuterol HFA (VENTOLIN HFA) 90 mcg/actuation inhaler 18 g 11 Sig: Inhale 2 Puffs as instructed every 4 hours as needed for wheezing/shortness of breath. ALLERGIES Allergen Reactions Morphine Mental Status Change (home) [phone] (cell) Last Office Visit Date: 11/17/2023 Last Distance Health Visit: Visit date not found Future Appointment: none found The patients preferred pharmacy has been captured for this encounter? yes Request is for script(s) to be escript to pharmacy. Flores Guzmán LPN documented in this encounter [facility] 09-19-2024 Telephone encounter Note Patient MyChart message requesting the following refill Refill(s) Requested: Requested Prescriptions Pending Prescriptions Disp Refills fluticasone (FLONASE) 50 mcg/actuation nasal spray 1 Each 0 Sig: Use 1 [place] in each nostril once daily. Rinse mouth after use. ALLERGIES Allergen Reactions Morphine Mental Status Change (home) [phone] (cell) Last Office Visit Date: 11/17/2023 Last Distance Health Visit: Visit date not found Future Appointment: Visit date not found The patients preferred pharmacy has been captured for this encounter? yes Request is for script(s) to be escript to pharmacy. Flores Guzmán LPN [facility] 09-19-2024 Miscellaneous Notes Patient MyChart message requesting the following refill Refill(s) Requested: Requested Prescriptions Pending Prescriptions Disp Refills fluticasone (FLONASE) 50 mcg/actuation nasal spray 1 Each 0 Sig: Use 1 [place] in each nostril once daily. Rinse mouth after use. ALLERGIES Allergen Reactions Morphine Mental Status Change (home) [phone] (cell) Last Office Visit Date: 11/17/2023 Last Distance Health Visit: Visit date not found Future Appointment: Visit date not found The patients preferred pharmacy has been captured for this encounter? yes Request is for script(s) to be escript to pharmacy. Flores Guzmán LPN documented in this encounter [facility] 09-19-2024 Telephone encounter Note Patient MyChart message requesting the following refill Refill(s) Requested: Requested Prescriptions Pending Prescriptions Disp Refills albuterol HFA (VENTOLIN HFA) 90 mcg/actuation inhaler 18 g 11 Sig: Inhale 2 Puffs as instructed every 4 hours as needed for wheezing/shortness of breath. ALLERGIES Allergen Reactions Morphine Mental Status Change (home) [phone] (cell) Last Office Visit Date: 11/17/2023 Last Distance Health Visit: Visit date not found Future Appointment: none found The patients preferred pharmacy has been captured for this encounter? yes Request is for script(s) to be escript to pharmacy. Flores Guzmán LPN [facility] 09-19-2024 Telephone encounter Note Left message for patient to return call for results.Hanna Olmos LPN [facility] 09-19-2024 Telephone encounter Note Patient mother know that she has RSV. This is a virus and there is no treatment. Patient should just do supportive therapies. [facility] Work Phone: 09-18-2024 Note HNO ID: [id number] Author: AZ ALEJANDRE APRN.VIDEO GAME TESTER Service: ? Author Type: Nurse Practitioner Type: Progress Notes Filed: 09/18/2024 11:01 Note Text: CC: Patient presents with: Nasal Congestion: drainage, cough, and bilateral ear pain x 5 days HPI: Sloane Linder is a 34 year old female who presents to the office with complaint of head congestion, cough, nonproductive, sore throat, and sinus symptoms for 5 days. Symptoms are staying the same. Associated symptoms includes cough. Denies wheezing, dyspnea, nausea, vomiting , and diarrhea. Treatments tried include nothing so far. with no relief of symptoms. Sick contacts: unknown. History of asthma, frequent episodes of bronchitis, chronic bronchitis, bronchiectasis or COPD: No Smoker: No Seasonal/environmental allergies: No The ROS is otherwise negative. The patient's pmh, medications, allergies, and past visits are reviewed. PHYSICAL EXAM: BP 124/80 Pulse 96 Temp 36.8 ?C (98.2 ?F) Resp 16 Wt 113 kg (249 lb 1.9 oz) LMP 04/30/2024 (Approximate) SpO2 99% BMI 39.91 kg/m? General appearance: alert, cooperative, pleasant, in no acute distress Head: Normocephalic Eyes: EOM's intact, conjunctiva pink and moist, no icterus, sclera white, non-injected Ears: Right ear: External ear/canal- Normal, TM - clear with good landmarks. Left ear: External ear/canal- Normal, TM - clear with good landmarks Oropharynx:mild erythema, without exudates present Heart: Negative. RRR without obvious murmur, gallop, or rubs. No ectopy. Lungs: clear to auscultation, without rales or wheeze, good air exchange PAST MEDICAL HISTORY Diagnosis Date Abnormal Pap smear of cervix Anemia AGE 17 Bacterial vaginitis Chlamydia 08/24/2012 Chronic headaches 08/24/1999 Gonorrhea 02/08/2013 History of hemorrhage Migraines sometimes with auras Reactive airway disease, unspecified asthma severity, uncomplicated 09/21/2017 PAST SURGICAL HISTORY Procedure Laterality Date CERVIX UTERI CONIZA LP ELCTRO EXCI CONIZATION CERVIX W/WO [facility] RPR ELTRD EXC 11/2013 LEEP-Cervix NEXPLANON INSERTION 09/04/2015 removed OTHER SURGICAL HISTORY (PLEASE SPECIFY) HX 10/23/2015 diagnostic laparascopy ALLERGIES Morphine MEDICATIONS aspirin, enteric coated (ECOTRIN LOW STRENGTH) 81 mg EC tablet Take 2 tablets by mouth daily at bedtime. VIT 0-[id number] ORAL Take by mouth. cholecalciferol (VITAMIN D3) 1,000 unit tab tablet Take 1 tablet by mouth once daily. albuterol HFA (VENTOLIN HFA) 90 mcg/actuation inhaler Inhale 2 Puffs as instructed every 4 hours as needed for wheezing/shortness of breath. fluticasone (FLONASE) 50 mcg/actuation nasal spray Use 1 [place] in each nostril once daily. Rinse mouth after use. FAMILY HISTORY Problem Relation Age of Onset Headache Mother Colon Cancer Father 52 No Known Problems Sister No Known Problems Sister Allergies Brother No Known Problems Maternal Grandmother Heart Maternal Grandfather Diabetes Paternal Grandmother Heart Paternal Grandfather Cancer Paternal Grandfather Social History Tobacco Use Smoking status: Never Passive exposure: Never Smokeless tobacco: Never Vaping Use Vaping status: Never Used Substance Use Topics Alcohol use: Yes Comment: occasionally, NOT WHILE Drug use: No ASSESSMENT/PLAN: 1. Sore throat - ICD9: 462, ICD10: J02.9 (primary diagnosis) - STREP A MOLECULAR (POC) - neg 2. URI, acute - ICD9: 465.9, ICD10: J06.9 - COVID AND INFLUENZA A/B AND RSV PCR, ROUTINE 3. Acute cough - ICD9: 786.2, ICD10: R05.1 - XR CHEST 2V FRONTAL/LAT -viral testing is negative patient will come in on Thursday to have the chest x-ray done. Patient was exposed to pneumonia but low risk for suspicions due to day 5 oxygen being normal no shortness of breath and lungs being clear. Not willing to treat without a positive x-ray due to patient being . Otc meds safe for baby and supportive care. . Potential red flag symptoms discussed with the patient. Reviewed appropriate action plan to take if red flag symptoms occur. Patient agreeable to treatment plan. Az Alejandre APRN.[facility] 09-18-2024 History of Presen t illness Narrative CC: Patient presents with: Nasal Congestion: drainage, cough, and bilateral ear pain x 5 days HPI: Sloane Linder is a 34 year old female who presents to the office with complaint of head congestion, cough, nonproductive, sore throat, and sinus symptoms for 5 days. Symptoms are staying the same. Associated symptoms includes cough. Denies wheezing, dyspnea, nausea, vomiting , and diarrhea. Treatments tried include nothing so far. with no relief of symptoms. Sick contacts: unknown. History of asthma, frequent episodes of bronchitis, chronic bronchitis, bronchiectasis or COPD: No Smoker: No Seasonal/environmental allergies: No The ROS is otherwise negative. The patient's pmh, medications, allergies, and past visits are reviewed. PHYSICAL EXAM: BP 124/80 Pulse 96 Temp 36.8 C (98.2 F) Resp 16 Wt 113 kg (249 lb 1.9 oz) LMP 04/30/2024 (Approximate) SpO2 99% BMI 39.91 kg/m General appearance: alert, cooperative, pleasant, in no acute distress Head: Normocephalic Eyes: EOM's intact, conjunctiva pink and moist, no icterus, sclera white, non-injected Ears: Right ear: External ear/canal- Normal, TM - clear with good landmarks. Left ear: External ear/canal- Normal, TM - clear with good landmarks Oropharynx:mild erythema, without exudates present Heart: Negative. RRR without obvious murmur, gallop, or rubs. No ectopy. Lungs: clear to auscultation, without rales or wheeze, good air exchange PAST MEDICAL HISTORY Diagnosis Date Abnormal Pap smear of cervix Anemia AGE 17 Bacterial vaginitis Chlamydia 08/24/2012 Chronic headaches 08/24/1999 Gonorrhea 02/08/2013 History of hemorrhage Migraines sometimes with auras Reactive airway disease, unspecified asthma severity, uncomplicated 09/21/2017 PAST SURGICAL HISTORY Procedure Laterality Date CERVIX UTERI CONIZA LP ELCTRO EXCI CONIZATION CERVIX W/WO [facility] RPR ELTRD EXC 11/2013 LEEP-Cervix NEXPLANON INSERTION 09/04/2015 removed OTHER SURGICAL HISTORY (PLEASE SPECIFY) HX 10/23/2015 diagnostic laparascopy ALLERGIES Morphine MEDICATIONS aspirin, enteric coated (ECOTRIN LOW STRENGTH) 81 mg EC tablet Take 2 tablets by mouth daily at bedtime. VIT 4-[id number]-DHA ORAL Take by mouth. cholecalciferol (VITAMIN D3) 1,000 unit tab tablet Take 1 tablet by mouth once daily. albuterol HFA (VENTOLIN HFA) 90 mcg/actuation inhaler Inhale 2 Puffs as instructed every 4 hours as needed for wheezing/shortness of breath. fluticasone (FLONASE) 50 mcg/actuation nasal spray Use 1 [place] in each nostril once daily. Rinse mouth after use. FAMILY HISTORY Problem Relation Age of Onset Headache Mother Colon Cancer Father 52 No Known Problems Sister No Known Problems Sister Allergies Brother No Known Problems Maternal Grandmother Heart Maternal Grandfather Diabetes Paternal Grandmother Heart Paternal Grandfather Cancer Paternal Grandfather Social History Tobacco Use Smoking status: Never Passive exposure: Never Smokeless tobacco: Never Vaping Use Vaping status: Never Used Substance Use Topics Alcohol use: Yes Comment: occasionally, NOT WHILE Drug use: No ASSESSMENT/PLAN: 1. Sore throat - ICD9: 462, ICD10: J02.9 (primary diagnosis) - STREP A MOLECULAR (POC) - neg 2. URI, acute - ICD9: 465.9, ICD10: J06.9 - COVID & INFLUENZA A/B & RSV PCR, ROUTINE 3. Acute cough - ICD9: 786.2, ICD10: R05.1 - XR CHEST 2V FRONTAL/LAT -viral testing is negative patient will come in on Thursday to have the chest x-ray done. Patient was exposed to pneumonia but low risk for suspicions due to day 5 oxygen being normal no shortness of breath and lungs being clear. Not willing to treat without a positive x-ray due to patient being . Otc meds safe for baby and supportive care. . Potential red flag symptoms discussed with the patient. Reviewed appropriate action plan to take if red flag symptoms occur. Patient agreeable to treatment plan. Az Alejandre APRN.VALERIY documented in this encounter [facility] 09-16-2024 Progress note Formatting of t his note might be different from the original. KJ - VB No. LOF No. CTXS No. Movement: absent. Other c/o: a mild cough Medication list reviewed. Physical Exam See Flow Sheet Gen: no accute distress, well appearing Abd: soft, nontender, gravid A/P 15w1d Estimated Date of Delivery: 03/09/25 H/o LEEP - CL US next week Anatomy US scheduled Cough - referred to meds in [facility] guide Mayur Alejandre MD [facility] 09-16-2024 Miscellaneous Notes KJ - VB No. LOF No. CTXS No. Movement: absent. Other c/o: a mild cough Medication list reviewed. Physical Exam See Flow Sheet Gen: no accute distress, well appearing Abd: soft, nontender, gravid A/P 15w1d Estimated Date of Delivery: 03/09/25 H/o LEEP - CL US next week Anatomy US scheduled Cough - referred to meds in [facility] guide Mayur Alejandre MD documented in this encounter [facility] 09-16-2024 Instructions Lucy Perez MA - 09/16/2024 9:52 AM EST SEQUENTIAL SCREENINGS The [facility] offers sequential screenings for women who are interested in screenings for chromosomal abnormalities and certain defects during a . The sequential screen combines ultrasound and blood tests to determine the risk of chromosomal abnormalities, including Down's Syndrome (Trisomy 21) and Trisomy 18, as well as open neural tube defects including spina bifida. Ultrasound examination is performed between 11 weeks and 13 weeks gestational age. Blood tests are drawn after the ultrasound and again later in the between 15 and 21 weeks gestational age. Please let your physician know if you are interested in this testing. It will require an appointment with our support technician. This is not an ultrasound performed by a physician in our office during a routine visit. SIGNS AND SYMPTOMS OF LABOR 1. Contractions every 10 minutes or more often 2. Clear, pink, or brownish fluid (water) leaking from vagina 3. Feeling that baby is pushing down, pressure 4. Low, dull backache 5. Cramps that feel like a period 6. Cramps with or without diarrhea If you notice any of the above symptoms, contact our office at [phone] and ask to speak with a nurse. After hours, you can call doctors registry at [phone] OR call [facility] at [phone] and ask to have the doctor telephone interviewer paged. If you consider this an emergency, dial 9-1-1 or go to your nearest emergency department. NEED HELP? Are you dealing with a violent or abusive relationship? Are you a victim of rape or sexual assult? Call [facility] ([place]) 24 hour Crisis Hotline: 873.559.9039 or 272-739-7134. MANUAL Your Guide to a Healthy manual is now on-line. Visit [email or web address] to download your free copy documented in this encounter [facility] 09-15-2024 Telephone encounter Note Patient notified and rescheduled to 09/21. Mesha Fu RN [facility] 09-15-2024 Miscellaneous Notes Patient notified and rescheduled to 09/21. Mesha Fu RN Left message to call office. Patient is scheduled for early anatomy ultrasound and cervical length tomorrrow. Patient will only be 15w1d, see needs to be at least 16 weeks to have this completed. plant technician/control room operator can add patient to her schedule on 09/21 at 11 for 60 minute ultrasound. If this date/time does not work patient will need to be seen at another location. Madie Crooks RN documented in this encounter [facility] 09-15-2024 Telephone encounter Note Left message to call office. Patient is scheduled for early anatomy ultrasound and cervical length tomorrrow. Patient will only be 15w1d, see needs to be at least 16 weeks to have this completed. plant technician/control room operator can add patient to her schedule on 09/21 at 11 for 60 minute ultrasound. If this date/time does not work patient will need to be seen at another location. Madie Crooks RN [facility] 08-30-2024 Progress note Formatting of t his note might be different from the original. RR- VB No. LOF No. CTXS No. Movement: present. Other c/o: No. Medication list reviewed. SENSITIVE EXAM: Sensitive exam not performed. Physical Exam See Flow Sheet Gen: no accute distress, well appearing A/P 12w5d Estimated Date of Delivery: 03/09/25 . Supervision of other high risk , antepartum Orders: [id number] PLUS; Future VITAMIN D 25 HYDROXY; Future aspirin, enteric coated (ECOTRIN LOW STRENGTH) 81 mg EC tablet; Take 2 tablets by mouth daily at bedtime. Obesity in asa 162 mg qhs 12 weeks gestation of Orders: [id number] PLUS; Future AMA (advanced maternal age) multigravida 35+, first trimester declines carrier screening Vitamin D deficiency Orders: VITAMIN D 25 HYDROXY; Future History of hemorrhage, currently in first trimester Supervision of other high risk pregnancies, second trimester Chandler Moran M.D. [facility] 08-30-2024 Miscellaneous Notes RR- VB No. LOF No. CTXS No. Movement: present. Other c/o: No. Medication list reviewed. SENSITIVE EXAM: Sensitive exam not performed. Physical Exam See Flow Sheet Gen: no accute distress, well appearing A/P 12w5d Estimated Date of Delivery: 03/09/25 . Supervision of other high risk , antepartum Orders: [id number] PLUS; Future VITAMIN D 25 HYDROXY; Future aspirin, enteric coated (ECOTRIN LOW STRENGTH) 81 mg EC tablet; Take 2 tablets by mouth daily at bedtime. Obesity in asa 162 mg qhs 12 weeks gestation of Orders: [id number] PLUS; Future AMA (advanced maternal age) multigravida 35+, first trimester declines carrier screening Vitamin D deficiency Orders: VITAMIN D 25 HYDROXY; Future History of hemorrhage, currently in first trimester Supervision of other high risk pregnancies, second trimester <!--[id number]--> Chandler Moran M.D. documented in this encounter [facility] 08-25-2024 Note HNO ID: [id number] Author: RICKY GRAVES PA Service: ? Author Type: Physician Security Engineer Type: Progress Notes Filed: 08/25/2024 19:06 Note Text: This note was created using 3G Multimediar[employer]. Subjective Sloane Linder is a 34 year old female. HPI 34-year-old female presents for sore throat, headache, chills, right ear pain starting last night. Patient states she started getting sore throat and ear pain yesterday. She denies any cough or congestion. She has some chills and fatigue. She has a low-grade fever today. She took Tylenol around 12:30 PM. Patient is 12 weeks . No vaginal bleeding, vaginal discharge, pelvic pain or abdominal pain. Still able to eat and drink. No vomiting or diarrhea. No other complaint. PAST MEDICAL HISTORY Diagnosis Date Abnormal Pap smear of cervix Anemia AGE 17 Bacterial vaginitis Chlamydia 08/24/2012 Chronic headaches 08/24/1999 Gonorrhea 02/08/2013 History of hemorrhage Migraines sometimes with auras Reactive airway disease, unspecified asthma severity, uncomplicated 09/21/2017 PAST SURGICAL HISTORY Procedure Laterality Date CERVIX UTERI CONIZA LP ELCTRO EXCI CONIZATION CERVIX W/WO DANDC RPR ELTRD EXC 11/2013 LEEP-Cervix NEXPLANON INSERTION 09/04/2015 removed OTHER SURGICAL HISTORY (PLEASE SPECIFY) HX 10/23/2015 diagnostic laparascopy ALLERGIES Morphine MEDICATIONS aspirin, enteric coated (ECOTRIN LOW STRENGTH) 81 mg EC tablet Take 1 tablet by mouth once daily. VIT 3-[id number]-[id number] ORAL Take by mouth. cholecalciferol (VITAMIN D3) 1,000 unit tab tablet Take 1 tablet by mouth once daily. albuterol HFA (VENTOLIN HFA) 90 mcg/actuation inhaler Inhale 2 Puffs as instructed every 4 hours as needed for wheezing/shortness of breath. fluticasone (FLONASE) 50 mcg/actuation nasal spray Use 1 [place] in each nostril once daily. Rinse mouth after use. montelukast (SINGULAIR) 10 mg tablet Take 1 tablet by mouth daily at bedtime. (Patient not taking: Reported on 08/25/2024) amitriptyline (ELAVIL) 10 mg tablet Take 2 tablets by mouth daily at bedtime. FAMILY HISTORY Problem Relation Age of Onset Headache Mother Colon Cancer Father 52 No Known Problems Sister No Known Problems Sister Allergies Brother No Known Problems Maternal Grandmother Heart Maternal Grandfather Diabetes Paternal Grandmother Heart Paternal Grandfather Cancer Paternal Grandfather Social History Tobacco Use Smoking status: Never Passive exposure: Never Smokeless tobacco: Never Vaping Use Vaping status: Never Used Substance Use Topics Alcohol use: Yes Comment: occasionally, NOT WHILE Drug use: No Review of Systems Constitutional: Positive for chills, fatigue and fever. HENT: Positive for ear pain and sore throat. Negative for congestion. Respiratory: Negative for cough and shortness of breath. Cardiovascular: Negative for chest pain. Gastrointestinal: Negative for diarrhea and vomiting. Neurological: Positive for headaches. Objective BP 119/84 Pulse 120 Temp 37.4 ?C (99.4 ?F) Resp 20 Wt 114 kg (251 lb 5.2 oz) LMP 04/30/2024 (Approximate) SpO2 100% BMI 40.26 kg/m? Physical Exam Vitals and nursing note reviewed. Constitutional: General: She is not in acute distress. Appearance: Normal appearance. She is not toxic-appearing. HENT: Right Ear: Tympanic membrane and ear canal normal. Left Ear: Tympanic membrane and ear canal normal. Nose: Nose normal. Mouth/Throat: Mouth: Mucous membranes are moist. Pharynx: Uvula midline. Posterior oropharyngeal erythema present. Tonsils: Tonsillar exudate present. 2+ on the right. 2+ on the left. Eyes: Conjunctiva/sclera: Conjunctivae normal. Cardiovascular: Rate and Rhythm: Normal rate and regular rhythm. Pulmonary: Effort: Pulmonary effort is normal. Breath sounds: Normal breath sounds. Lymphadenopathy: Cervical: No cervical adenopathy. Skin: General: Skin is warm and dry. Neurological: Mental Status: She is alert. Assessment and Plan ASSESSMENT/PLAN: 1. Strep pharyngitis - ICD9: 034.0, ICD10: J02.0 (primary diagnosis) - suspect strep - Group A strep molecular testing positive - Amoxicillin for 10 days. - Discussed supportive care treatment with fluids, rest and analgesia. 2. Sore throat - ICD9: 462, ICD10: J02.9 - STREP A MOLECULAR (POC) - COVID AND INFLUENZA A/B AND RSV PCR, ROUTINE -COVID/flu pending. In window for Tamiflu until evening of 08/26/2024. Patient is . 3. Right ear pain - ICD9: 388.70, ICD10: H92.01 -Normal exam. -Suspect radiating from throat -Treating strep as above. Diagnosis and treatment plan were discussed and questions were answered to the patient's satisfaction. Pt acknowledged understanding of concepts and follow up plan. Specific signs and symptoms that would indicate the need for higher level of care were discussed in detail warranting prompt ER evaluation. Ricky (more content not included)... [facility] 08-25-2024 History of Presen t illness Narrative This note was created using Netlogonter. Subjective Sloane Linder is a 34 year old female. HPI 34-year-old female presents for sore throat, headache, chills, right ear pain starting last night. Patient states she started getting sore throat and ear pain yesterday. She denies any cough or congestion. She has some chills and fatigue. She has a low-grade fever today. She took Tylenol around 12:30 PM. Patient is 12 weeks . No vaginal bleeding, vaginal discharge, pelvic pain or abdominal pain. Still able to eat and drink. No vomiting or diarrhea. No other complaint. PAST MEDICAL HISTORY Diagnosis Date Abnormal Pap smear of cervix Anemia AGE 17 Bacterial vaginitis Chlamydia 08/24/2012 Chronic headaches 08/24/1999 Gonorrhea 02/08/2013 History of hemorrhage Migraines sometimes with auras Reactive airway disease, unspecified asthma severity, uncomplicated 09/21/2017 PAST SURGICAL HISTORY Procedure Laterality Date CERVIX UTERI CONIZA LP ELCTRO EXCI CONIZATION CERVIX W/WO D&C RPR ELTRD EXC 11/2013 LEEP-Cervix NEXPLANON INSERTION 09/04/2015 removed OTHER SURGICAL HISTORY (PLEASE SPECIFY) HX 10/23/2015 diagnostic laparascopy ALLERGIES Morphine MEDICATIONS aspirin, enteric coated (ECOTRIN LOW STRENGTH) 81 mg EC tablet Take 1 tablet by mouth once daily. VIT 0-[id number]-DHA ORAL Take by mouth. cholecalciferol (VITAMIN D3) 1,000 unit tab tablet Take 1 tablet by mouth once daily. albuterol HFA (VENTOLIN HFA) 90 mcg/actuation inhaler Inhale 2 Puffs as instructed every 4 hours as needed for wheezing/shortness of breath. fluticasone (FLONASE) 50 mcg/actuation nasal spray Use 1 [place] in each nostril once daily. Rinse mouth after use. montelukast (SINGULAIR) 10 mg tablet Take 1 tablet by mouth daily at bedtime. (Patient not taking: Reported on 08/25/2024) amitriptyline (ELAVIL) 10 mg tablet Take 2 tablets by mouth daily at bedtime. FAMILY HISTORY Problem Relation Age of Onset Headache Mother Colon Cancer Father 52 No Known Problems Sister No Known Problems Sister Allergies Brother No Known Problems Maternal Grandmother Heart Maternal Grandfather Diabetes Paternal Grandmother Heart Paternal Grandfather Cancer Paternal Grandfather Social History Tobacco Use Smoking status: Never Passive exposure: Never Smokeless tobacco: Never Vaping Use Vaping status: Never Used Substance Use Topics Alcohol use: Yes Comment: occasionally, NOT WHILE Drug use: No Review of Systems Constitutional: Positive for chills, fatigue and fever. HENT: Positive for ear pain and sore throat. Negative for congestion. Respiratory: Negative for cough and shortness of breath. Cardiovascular: Negative for chest pain. Gastrointestinal: Negative for diarrhea and vomiting. Neurological: Positive for headaches. Objective BP 119/84 Pulse 120 Temp 37.4 C (99.4 F) Resp 20 Wt 114 kg (251 lb 5.2 oz) LMP 04/30/2024 (Approximate) SpO2 100% BMI 40.26 kg/m Physical Exam Vitals and nursing note reviewed. Constitutional: General: She is not in acute distress. Appearance: Normal appearance. She is not toxic-appearing. HENT: Right Ear: Tympanic membrane and ear canal normal. Left Ear: Tympanic membrane and ear canal normal. Nose: Nose normal. Mouth/Throat: Mouth: Mucous membranes are moist. Pharynx: Uvula midline. Posterior oropharyngeal erythema present. Tonsils: Tonsillar exudate present. 2+ on the right. 2+ on the left. Eyes: Conjunctiva/sclera: Conjunctivae normal. Cardiovascular: Rate and Rhythm: Normal rate and regular rhythm. Pulmonary: Effort: Pulmonary effort is normal. Breath sounds: Normal breath sounds. Lymphadenopathy: Cervical: No cervical adenopathy. Skin: General: Skin is warm and dry. Neurological: Mental Status: She is alert. Assessment and Plan ASSESSMENT/PLAN: 1. Strep pharyngitis - ICD9: 034.0, ICD10: J02.0 (primary diagnosis) - suspect strep - Group A strep molecular testing positive - Amoxicillin for 10 days. - Discussed supportive care treatment with fluids, rest and analgesia. 2. Sore throat - ICD9: 462, ICD10: J02.9 - STREP A MOLECULAR (POC) - COVID & INFLUENZA A/B & RSV PCR, ROUTINE -COVID/flu pending. In window for Tamiflu until evening of 08/26/2024. Patient is . 3. Right ear pain - ICD9: 388.70, ICD10: H92.01 -Normal exam. -Suspect radiating from throat -Treating strep as above. Diagnosis and treatment plan were discussed and questions were answered to the patient's satisfaction. Pt acknowledged understanding of concepts and follow up plan. Specific signs and symptoms that would indicate the need for higher level of care were discussed in detail warranting prompt ER evaluation. KIMBERLEE Chahal documented in this encounter [facility] 07-22-2024 Progress note Formatting of t his note might be different from the original. ELAINA-NOB visit today. See progress note. Declines aneuploidy and carrier screening. Would like 16 wk and 20wk anatomy US. NT US ordered and will get labs that day. ASA 81mg PO once daily after 12 weeks. MATI by 7 wk US due to unknown menses and inconsistent with LMP. Shi Rubi APRN.CNM [facility] 11-29-2024 Miscellaneous Notes ELAINA-NOB visit today. See progress note. Declines aneuploidy and carrier screening. Would like 16 wk and 20wk anatomy US. NT US ordered and will get labs that day. ASA 81mg PO once daily after 12 weeks. MATI by 7 wk US due to unknown menses and inconsistent with LMP. Shi Rubi APRN.CNM documented in this encounter [facility] 07-22-2024 Instructions Shi Rubi APRN.CNM - 07/22/2024 8:45 AM EST Please select the following link to access the [facility] Your Guide to a Healthy . [email or web address] MyChart Neuorologist to see medications during for migraines. Magnesium Citrate 400mg by mouth at bedtime. Start Aspirin 81mg by mouth once daily after 12 weeks Low Dose Aspirin This sheet talks about exposure to low dose aspirin in and while . This information should not take the place of medical care and advice from your healthcare provider.\ What is low dose aspirin? Aspirin is also known as acetylsalicylic acid. It is a common prescription and bbue-uzl-[id number] medication similar to other non-steroidal inflammatory drugs (NSAIDs) like ibuprofen (Motrin ) and naproxen (Aleve ). Aspirin reduces inflammation, fever, and pain. Aspirin can prevent blood clots, which can make it useful in treating or preventing conditions like heart attacks and strokes. Low dose aspirin ranges from 60 to 150 mg daily, but the usual dose taken during to treat or prevent certain conditions is 81 mg daily.Regular strength and high strength aspirin and other NSAIDs are NOT preferred pain relievers during .Sometimes when people find out they are , they think about changing how they take their medication, or stopping their medication altogether. However, it is important to talk with your healthcare providers before making any changes to how you take this medication. Your healthcare providers can talk with you about the benefits of treating your condition and the risks of untreated illness during . I take low dose aspirin. Can it make it harder for me to get ? Low dose aspirin is not expected to make it harder to get . A study that included people who had 1 or 2 documented losses then asked to take daily low dose aspirin found that taking low dose aspirin at least 4 days a week increased the chance of a . Does taking low dose aspirin increase the chance for miscarriage? Miscarriage can occur in any . Taking low doses of aspirin is not thought to increase the chance of miscarriage. Some studies have shown that taking low dose aspirin before may help lower the chance of miscarriage in some people who have had one or more miscarriages before 20 weeks of . These findings are similar to studies that showed improved outcomes in people undergoing assisted reproductive technologies (fertility treatments) and were treated with low dose aspirin prior to implantation of the fertilized egg into the uterus. Does taking low dose aspirin increase the chance of defects? Every starts out with a 3-5% chance of having a defect. This is called the background risk. Studies on the use of low dose aspirin during have not found a higher chance of defects. Does taking low dose aspirin in increase the chance of other related problems? Taking low dose aspirin as directed by a healthcare provider is not expected to cause other problems. Studies have shown that low dose aspirin might improve outcomes in some people by increasing blood flow to and reducing inflammation or swelling in the uterus. Studies have also shown that low dose aspirin might lower the chances for preeclampsia (dangerously high blood pressure and complications) in people who are at high risk for this condition. However, people who are should only take low dose aspirin if their healthcare provider recommends it. Does taking low dose aspirin in affect future behavior or learning for the child? There are not many studies about long-term effects for children exposed to low dose aspirin during . However, studies have not found an increased chance for problems with physical or mental development in infants at 18 months of age. A study that looked at children up to 5 years of age who were born very early (before 33 weeks) and who were exposed to low dose aspirin during did not find an effect on their learning or behavior compared to children who were not exposed to low dose aspirin during . while taking low dose aspirin: The occasional use of low dose aspirin (75 mg daily to below 300 mg daily) is not expected to increase risks to a . Only small amounts of low dose aspirin enter the breast milk and adverse effects have not been reported in breastfed newborns or older infants. Healthcare providers might recommend low dose aspirin in some people during to treat certain medical conditions. However, regular strength aspirin (over 325 mg) is not preferred during . Aspirin eliminates from an infant s body more slowly than from an adult s body, so aspirin levels in the infant s body could build up over time with long-term use of aspirin. Using high dose aspirin can lower the body s ability to clot blood(could lead to easier bruising or bleeding). This is not likely to happen with low dose aspirin. Talk with your Healthcare provider about your questions. If a male takes low dose aspirin, could it affect fertility (ability to get partner ) or increase the chance of defects? There is very limited information about the effects of low dose aspirin on male reproduction. One study looked at men who attended an infertility clinic and were taking non-prescribed low dose aspirin at different doses and frequencies for at least six months. The study reported a decrease in the amount and quality of sperm, especially in those who used higher amounts of aspirin. Generally, it is not considered necessary for men to stop using low dose aspirin before trying to get their partner . However, men undergoing fertility treatment may want to talk with their healthcare providers about whether or not they need to stop taking aspirin. In general, exposures that fathers or sperm donors have are unlikely to increase the risks to a . For more information, please see the [employer] fact sheet Paternal Exposures at https://[employer].org/fact-sh eets/whssmwly-unyagsmgq-alhoqjws y/. documented in this encounter [facility] 07-22-2024 Note HNO ID: [id number] Author: SHI RUBI APRN.CNM Service: ? Author Type: Screen Printing Equipment Setter Type: Progress Notes Filed: 07/22/2024 10:15 Note Text: OB point of care ultrasound was performed. See imaging tab for details. Jose Cruz Muro MA INITIAL OB ASSESSMENT HPI: Sloane is a 34 year old White here to establish Obstetrical Care. Patient's last menstrual period was 04/30/2024 (approximate). from OB Dating Form. was unplanned but accepted. Menses are irregular and will skip menses. Randomly takes tests and it was positive. Complaints: No OB History T1 L1 SAB0 IAB0 Ectopic0 Multiple0 Live Births1 Comment: G1 CANDELARIA Mcwilliamskas Previous history: Prior : No History of 4th degree laceration: History question Answer Diagnosis Date Comment Perineal Laceration, 3rd or 4th degree No History of perineal laceration 07/22/2024 History of shoulder dystocia: Shoulder Dystocia No History of Hypertensive disorders including pre-eclampsia or gestational hypertension: Gestational Hypertension No Preeclampsia No History of gestational diabetes: Diabetes in No Patient's Risk Screening for delivery: Have you had a prior wagoner between 20w and 36w6d? No How many pregnancies have you had before? 1 Did you have a previous baby with a GBS Infection? (!) Yes Please select all that apply for any prior : N/A MEDICAL/PSYCHOSOCIAL HISTORY: Severe bleeding with delivery Yes History question Answer Diagnosis Date Comment Thyroid Disease No Thyroid disease 01/31/2013 Gestational Hypertension No Preeclampsia No Diabetes in No ABO/RH(D) Date Value Ref Range Status 02/07/2013 A POS Final BMI 42.29 kg/(m2) Last Pap: 11/19/2023 History of abnormal pap: Abnormal Pap Yes Prior treatment for cervical dysplasia: LEEP. Last HPV: 11/19/2023 History of STDs: Gonorrhea; Chlamydia Partner History of STDs: chlamydia, GC, and HPV. Positive with CT and GC last , nothing since then. Did you have a partner with Herpes? No Tobacco use: No E-Cigarette/Vaping Use: No Caffeine use: Yes Drug use: Yes, marijuana Alcohol use: No Multivitamin with Folic acid: Yes Would refuse blood transfusion if medically necessary: No Social Needs: How often does this describe you? I don't have enough money to pay my bills: Never Within the past 12 months, have you worried that your food would run out before you had money to buy more? Never In the past 12 months, has lack of reliable transportation kept you from going to medical appointments or work, or from getting things needed for daily living? Never In the past 12 months, have you had any concerns about having a place to live, or about the condition or quality of your housing? Never Would you like more information on any of the following (please check all that apply)? Not interested Social History: Do you have any history of depression, anxiety, PTSD, or other mood problems? No Do you have a history of abuse or trauma that may impact your experience? No Are you currently employed? Yes Depression/Anxiety Screening: denies symptoms of depression. OB Depression and Anxiety Screening- This Encounter (since 07/21/2024) None Genetic Screening: Partner present: Yes Patient verbalized knowledge of partner family health history: No Do you or your partner have any personal or family history of defects not previously discussed: No Do you have history of a complicated by anomaly, genetic condition, or demise: No Preeclampsia Risk Screening: Screening for prevention of preeclampsia: High risk factors: None Moderate risk ractors: Obesity (body mass index greater than 30) and Age 35 years or older OB Risk Screening: Completed, positive findings include: Patient answered 'Yes' to previous baby with a GBS Infection Marital Status:Co-habitating Partner: Name: Archie Medina Age: 33 Occupation: Tube Draw Helper Gender: Male PAST MEDICAL HISTORY Diagnosis Date Abnormal Pap smear of cervix Anemia AGE 17 Bacterial vaginitis Chlamydia 08/24/2012 Chronic headaches 08/24/1999 Gonorrhea 02/08/2013 History of hemorrhage Migraines sometimes with auras Reactive airway disease, unspecified asthma severity, uncomplicated 09/21/2017 PAST SURGICAL HISTORY Procedure Laterality Date CERVIX UTERI CONIZA LP ELCTRO EXCI CONIZATION CERVIX W/WO DANDC RPR ELTRD EXC 11/2013 LEEP-Cervix NEXPLANON INSERTION 09/04/2015 removed OTHER SURGICAL HISTORY (PLEASE SPECIFY) HX 10/23/2015 diagnostic laparascopy Current Outpatient Medications Medication Sig Dispense Refill VIT 9-[id number] ORAL Take by mouth. cholecalciferol (VITAMIN D3) 1,000 unit tab tablet Take 1 tablet by mouth once daily. 30 tablet 11 albuterol HFA (VENTOLIN HFA) 90 mcg/actuation inhaler I (more content not included)... [facility] 07-22-2024 History of Presen t illness Narrative Images from the original note were not included. OB point of care ultrasound was performed. See imaging tab for details. Jose Cruz Muro MA INITIAL OB ASSESSMENT HPI: Sloane is a 34 year old White here to establish Obstetrical Care. Patient's last menstrual period was 04/30/2024 (approximate). from OB Dating Form. was unplanned but accepted. Menses are irregular and will skip menses. Randomly takes tests and it was positive. Complaints: No OB History T1 L1 SAB0 IAB0 Ectopic0 Multiple0 Live Births1 Comment: G1 CANDELARIA Lynch Previous history: Prior : No History of 4th degree laceration: History question Answer Diagnosis Date Comment Perineal Laceration, 3rd or 4th degree No History of perineal laceration 07/22/2024 History of shoulder dystocia: Shoulder Dystocia No History of Hypertensive disorders including pre-eclampsia or gestational hypertension: Gestational Hypertension No Preeclampsia No History of gestational diabetes: Diabetes in No Patient's Risk Screening for delivery: Have you had a prior wagoner between 20w and 36w6d? No How many pregnancies have you had before? 1 Did you have a previous baby with a GBS Infection? (!) Yes Please select all that apply for any prior : N/A MEDICAL/PSYCHOSOCIAL HISTORY: Severe bleeding with delivery Yes History question Answer Diagnosis Date Comment Thyroid Disease No Thyroid disease 01/31/2013 Gestational Hypertension No Preeclampsia No Diabetes in No ABO/RH(D) Date Value Ref Range Status 02/07/2013 A POS Final BMI 42.29 kg/(m^2) Last Pap: 11/19/2023 History of abnormal pap: Abnormal Pap Yes Prior treatment for cervical dysplasia: LEEP. Last HPV: 11/19/2023 History of STDs: Gonorrhea; Chlamydia Partner History of STDs: chlamydia, GC, and HPV. Positive with CT and GC last , nothing since then. Did you have a partner with Herpes? No Tobacco use: No E-Cigarette/Vaping Use: No Caffeine use: Yes Drug use: Yes, marijuana Alcohol use: No Multivitamin with Folic acid: Yes Would refuse blood transfusion if medically necessary: No Social Needs: How often does this describe you? I don't have enough money to pay my bills: Never Within the past 12 months, have you worried that your food would run out before you had money to buy more? Never In the past 12 months, has lack of reliable transportation kept you from going to medical appointments or work, or from getting things needed for daily living? Never In the past 12 months, have you had any concerns about having a place to live, or about the condition or quality of your housing? Never Would you like more information on any of the following (please check all that apply)? Not interested Social History: Do you have any history of depression, anxiety, PTSD, or other mood problems? No Do you have a history of abuse or trauma that may impact your experience? No Are you currently employed? Yes Depression/Anxiety Screening: denies symptoms of depression. OB Depression and Anxiety Screening- This Encounter (since 07/21/2024) None Genetic Screening: Partner present: Yes Patient verbalized knowledge of partner family health history: No Do you or your partner have any personal or family history of defects not previously discussed: No Do you have history of a complicated by anomaly, genetic condition, or demise: No Preeclampsia Risk Screening: Screening for prevention of preeclampsia: High risk factors: None Moderate risk ractors: Obesity (body mass index greater than 30) and Age 35 years or older OB Risk Screening: Completed, positive findings include: Patient answered 'Yes' to previous baby with a GBS Infection Marital Status:Co-habitating Partner: Name: Archie Medina Age: 33 Occupation: Tube Draw Helper Gender: Male PAST MEDICAL HISTORY Diagnosis Date Abnormal Pap smear of cervix Anemia AGE 17 Bacterial vaginitis Chlamydia 08/24/2012 Chronic headaches 08/24/1999 Gonorrhea 02/08/2013 History of hemorrhage Migraines sometimes with auras Reactive airway disease, unspecified asthma severity, uncomplicated 09/21/2017 PAST SURGICAL HISTORY Procedure Laterality Date CERVIX UTERI CONIZA LP ELCTRO EXCI CONIZATION CERVIX W/WO D&C RPR ELTRD EXC 11/2013 LEEP-Cervix NEXPLANON INSERTION 09/04/2015 removed OTHER SURGICAL HISTORY (PLEASE SPECIFY) HX 10/23/2015 diagnostic laparascopy Current Outpatient Medications Medication Sig Dispense Refill VIT [id number] ORAL Take by mouth. cholecalciferol (VITAMIN D3) 1,000 unit tab tablet Take 1 tablet by mouth once daily. 30 tablet 11 albuterol HFA (VENTOLIN HFA) 90 mcg/actuation inhaler Inhale 2 Puffs as instructed every 4 hours as needed for wheezing/shortness of breath. 18 g 11 montelukast (SINGULAIR) 10 mg tablet Take 1 tablet by mouth daily at bedtime. 30 tablet 11 fluticasone (FLONASE) 50 mcg/actuation nasal spray Use 1 [place] in each nostril once daily. Rinse mouth after use. 1 Bottle 0 amitriptyline (ELAVIL) 10 mg tablet Take 2 tablets by mouth daily at bedtime. 60 tablet 3 SUMAtriptan (IMITREX) 50 mg tablet Take 1 tablet (50 mg) by mouth as needed for migraine headache (see administration instructions). at onset of headache. May repeat after 2 hours. (Patient not taking: Reported on 07/18/2024) 6 tablet 4 ibuprofen (MOTRIN) 800 mg tablet Take 1 tablet by mouth every 8 hours as needed for Pain. FOR PAIN. (Patient not taking: Reported on 07/18/2024) 60 tablet 1 No current facility-administered medications for this visit. Allergies As of Date: 07/22/2024 Allergen Noted Reaction MORPHINE 04/16/2022 Mental Status Change Fully Assessed 07/22/2024 Does patient have penicillin allergy: No REVIEW OF SYSTEMS: GENERAL: Negative for: Fever or Chills HEENT: Negative for: Headache, Impaired Vision, Ringing in Ears, Nosebleeds NECK: Negative for: Swelling, Pain, Stiffness RESPIRATORY: Negative for: Cough, Shortness of breath, Wheezing GASTROINTESTINAL: Negative for: Heartburn, Constipation, Diarrhea, Blood in stool, Vomiting MUSCULOSKELETAL: Negative for: Muscle or joint pain, stiffness, Joint swelling NEUROLOGIC/PSYCHIATRIC: Negative for: Weakness, Paralysis, Numbness, Tingling, Tremor, Anxiety, Depression, Memory loss SKIN: Negative for: Rash, Itching GENITOURINARY: Negative for: vaginal itching, vaginal discharge, hematuria or dysuria SENSITIVE EXAM: The sensitive examination was discussed with the Patient or Patient's Authorized Director Talent Management. As applicable, any other physician, advance practice provider, medical student, or other health professional student that will be observing or involved in the sensitive examination for educational or training purposes was discussed with the Patient or Authorized Director Talent Management. The Patient or Authorized Director Talent Management has agreed to proceed with the sensitive examination. (Sensitive examination includes inspection and/or palpation of the breasts, pelvis, prostate and anorectal regions). PHYSICAL EXAM: BP 116/72 Ht 5' 6.25 (1.68m) Wt 264 lb (119.8kg) LMP 04/30/2024 BMI 42.28 kg/(m^2). GENERAL: pleasant in no apparent distress DERMATOLOGY: Normal, without lesions, non-icteric, and non-hirsute NECK: Supple, full range of motion, no adenopathy, and thyroid normal CHEST: Clear to auscultation, Normal inspiratory effort, Regular rate and rhythm, and No murmurs, clicks, rubs or gallops BREAST: soft, non-tender, symmetric, no dominant mass, normal nipple-areolar complex, no lymphadenopathy, and no nipple discharge ABDOMEN: soft, non-tender, no masses, and pannus moderate NEURO: alert and oriented x3,exam grossly non-focal PELVIS: External genitalia normal without lesions. Perineal body intact. No vaginal or cervical lesions. Cervix closed. Uterus 8 week size. No adnexal masses or tenderness. Clinical Pelvimetry: Pelvimetry clinically assessed as adequate Limited OB ultrasound exam: single intrauterine , positive cardiac activity, crown-rump length 7w1d, and normal bilateral adnexa LMP 11w6d US 7w1d, MATI: 03/09/25 by US, inconsistent with LMP SBIRT Sloane Linder was given the 4's screening tool. Sloane answered as follows: OB Opioid Screening - Last Recorded (since 10/26/2023) Did any of your parents have a problem with alcohol or other drug use? Yes father-etoh and drugs Does your partner have a problem with alcohol or other drug use? No In the past, have you had difficulties in your life because of alcohol or other drugs, including prescription medications? No In the past month have you drunk any alcohol or used other drugs? No Are you taking medication for pain during the either prescribed or not? No Based on the screen and further questions, she is considered at Low risk due to:Low level of use stopped prior to or immediately upon known . Positive reinforcement of current behavior. Plan to rescreen early third trimester. Shi Rubi APRN.CNM ASSESSMENT: 34 year old at 11w6d wks gestational age PLAN: Problem List Items Addressed This Visit Constipation during in first trimester Overview 07/22/24-Will start Magnesium citrate 400mg PO once daily. If no improvement can add Colace. Shi Rubi APRN.CNM Date of last menstrual period (LMP) unknown Overview LMP 11w6d US 7w1d, MATI: 03/09/25 by US, inconsistent with LMP Heartburn during in first trimester Overview 07/22/24-Will start Pepcid 40mg PO once daily. Shi Rubi APRN.CNM Irregular menses Overview 07/22/24-Menses irregular prior to . Uncertain LMP. Shi Rubi APRN.CNM Marijuana use disorder in remission Overview 07/22/24-Using once every other month. Uses for migraines. Shi Rubi APRN.CNM Obesity in Overview 07/22/24-Pregravid BMI 41. Growth US every 4 weeks starting at 32 weeks Weekly NST at 32 weeks Discussed IOL at 39 weeks Shi Rubi APRN.CNM Relevant Orders OBSTETRIC ULTRASOUND WHI headache, antepartum Overview 07/22/24-History of migraines. Was taking Amytriptyline but stopped once test. Took Imitrex as well for abortive therapy. Patient to make appointment with neurology for medication management during . Start Magnesium citrate 400mg PO once daily. Shi Rubi APRN.CNM Supervision of other high risk , antepartum Overview Care Checklist Vaccines: [] Flu vaccine [] declined [] RSV vaccine 32 0/7 - 36 6/7 (Apr - Sep) [] declined [] COVID vaccine [] declined [] TDaP -36 [] declined First trimester: [] Dating US [] 1st tri labs [] Pap smear [] Carrier screening [x] declined [] NIPT screening [x] declined [] First trimester anatomy scan [] declined [x] universal ASA ordered (start 12w-16w) [] declined [] M Power Consult [] not indicated [] declined Second trimester: [] AFP [] declined [] Anatomy scan [] Mode of Delivery - [] Feeding - [] Pump ordered [] Diabetes screen [] CBC, RPR Third trimester (28-30 weeks): [] Consent [] Contraception - [] Viscosity Tester Third trimester (36-40 weeks): [] GBS [] Presentation - [] Scheduled [] yes - Hibiclens, pre-op instructions, CBC, T&S ordered [] no [] H&P Other Visit Diagnoses with uncertain dates, antepartum - Primary Relevant Medications aspirin, enteric coated (ECOTRIN LOW STRENGTH) 81 mg EC tablet Other Relevant Orders POC GAMING COMMISSIONER ULTRASOUND ANEMIA REFLEX PANEL SYPHILIS TREPONEMAL W/REFLEX RUBELLA IGG ANTIBODY HEPATITIS B SURFACE ANTIGEN HEPATITIS C ANTIBODY IA WITH CONFIRMATION HIV 1/2 COMBO WITH REFLEX TO DIFFERENTIATION TYPE + SCREEN HEMOGLOBIN A1C URINE CULTURE NUCHAL TRANSLUCENCY WHI SKILLS INSTRUCTOR BACTERIAL VAGINOSIS NAAT SHIRA/TRICHOMONAS NAAT GONORRHEA/CHLAMYDIA NAAT HEMOGLOBIN EVALUATION CASCADE 1) Patient oriented to practice. Patient given new OB orientation folder. Discussed nutrition, folic acid supplementation, dietary guidelines, exercise, smoking, alcohol, caffeine, and drug use. Discussed gestational weight gain guidelines. Discussed routine OB labs including STD/HIV. Discussed how to access Your guide to a health and the Dedicated Truck Driver. Discussed hemoglobin electrophoresis. Patient: Accepts 2) Screening: Hemoglobin A1C: ordered Baby Aspirin: The patient has been counseled about the potential benefits of low dose aspirin in and our recommendation that this be offered to all patients, regardless of whether they meet the high risk criteria specified above. She Accepts Aneuploidy Screening: Discussed aneuploidy screening, nuchal translucency/first trimester early anatomy ultrasound and NIPT. The risks/benefits and limitations of NIPT/aneuploidy screening were reviewed including the potential for false negative and false positive results. The availability of genetic counseling was reviewed. Information on aneuploidy screening was provided. The patient declines screening Myriad Carrier Screening: Discussed myriad carrier screening. We discussed the availability of professional-society guided carrier screening and reviewed the conditions screened and limitations of screening. The availability of genetic counseling was reviewed. Information on carrier screening was provided. The patient Declines 3) Patient offered option of Virtual Visits. Patient prefers in person visits. 4) Obesity (BMI >30), will order early glucose screen or Hemoglobin A1C. AMA: Aneuploidy screening reviewed 5) LMP 11w6d, US 7w1d, MATI: 03/09/25 by US, inconsistent with LMP Follow up in 4 weeks or sooner prmirella Rubi APRN.CNM documented in this encounter [facility] 07-18-2024 Note HNO ID: [id number] Author: SHI RUBI APRN.JENNY Service: ? Author Type: Screen Printing Equipment Setter Type: Progress Notes Filed: 07/22/2024 10:15 Note Text: [facility] 12-05-2023 History of Presen t illness Narrative This note was created using [employer]. Subjective Sloane Linder is a 33 year old female. HPI 33-year-old female presents for right-sided dental pain. Patient states that pain started about 2 days ago. She reports pain in her upper teeth and right lower teeth. She states she has an appointment with her dentist on Thursday. She does have an impacted wisdom tooth, unsure if this is contributing. She denies any tongue or floor of mouth swelling. No difficulty swallowing. No sore throat. No fevers. She states that eating makes the pain worse. She denies any headache, vision changes. No congestion, sinus pressure, sinus pain, cough or recent illness. No history of dental infection in the past. No other complaint. PAST MEDICAL HISTORY Diagnosis Date Abnormal Pap smear of cervix Anemia AGE 17 Bacterial vaginitis Chlamydia 08/24/2012 Chronic headaches 08/24/1999 Gonorrhea 02/08/2013 Migraines sometimes with auras Reactive airway disease, unspecified asthma severity, uncomplicated 09/21/2017 PAST SURGICAL HISTORY Procedure Laterality Date CONIZATION CERVIX W/WO D&C RPR ELTRD EXC 11/2013 LEEP-Cervix NEXPLANON INSERTION 09/04/2015 removed OTHER SURGICAL HISTORY (PLEASE SPECIFY) HX 10/23/15 diagnostic laparascopy ALLERGIES Morphine MEDICATIONS cholecalciferol (VITAMIN D3) 1,000 unit tab tablet Take 1 tablet by mouth once daily. albuterol HFA (VENTOLIN HFA) 90 mcg/actuation inhaler Inhale 2 Puffs as instructed every 4 hours as needed for wheezing/shortness of breath. montelukast (SINGULAIR) 10 mg tablet Take 1 tablet by mouth daily at bedtime. amitriptyline (ELAVIL) 10 mg tablet Take 2 tablets by mouth daily at bedtime. SUMAtriptan (IMITREX) 50 mg tablet Take 1 tablet (50 mg) by mouth as needed for migraine headache (see administration instructions). at onset of headache. May repeat after 2 hours. fluticasone (FLONASE) 50 mcg/actuation nasal spray Use 1 [place] in each nostril once daily. Rinse mouth after use. ibuprofen (MOTRIN) 800 mg tablet Take 1 tablet by mouth every 8 hours as needed for Pain. FOR PAIN. amoxicillin (AMOXIL) 875 mg tablet Take 1 tablet by mouth two times a day for 5 days. FAMILY HISTORY Problem Relation Age of Onset Colon Cancer Father 52 Headache Mother Diabetes Paternal Grandmother Heart Paternal Grandfather Cancer Paternal Grandfather Heart Maternal Grandfather Allergies Brother Social History Tobacco Use Smoking status: Never Passive exposure: Never Smokeless tobacco: Never Vaping Use Vaping Use: Never used Substance Use Topics Alcohol use: Yes Comment: occasionally, NOT WHILE Drug use: No Review of Systems Constitutional: Negative for chills and fever. HENT: Positive for dental problem. Negative for congestion, ear pain and sore throat. Respiratory: Negative for cough and shortness of breath. Cardiovascular: Negative for chest pain. Gastrointestinal: Negative for diarrhea and vomiting. Objective BP 134/90 Pulse 110 Temp 36.3 C (97.4 F) Resp 21 Wt 119.2 kg (262 lb 12.6 oz) LMP 09/20/2023 SpO2 99% BMI 43.07 kg/m Physical Exam Vitals and nursing note reviewed. Constitutional: General: She is not in acute distress. Appearance: Normal appearance. She is not toxic-appearing. HENT: Head: Jaw: Tenderness present. No swelling, pain on movement or malocclusion. Comments: Tenderness with palpation over right cheek/maxillary area and right jaw. No pain with light touch. Right Ear: Tympanic membrane and ear canal normal. Left Ear: Tympanic membrane and ear canal normal. Nose: Nose normal. Mouth/Throat: Mouth: Mucous membranes are moist. Dentition: Abnormal dentition. Dental tenderness and dental caries present. No dental abscesses. Comments: Patient has dental tenderness over right lower molar, tooth #31. This tooth does have a cavity present. No abscess felt. She also has tenderness over right upper molar, tooth #1. No abscess. No tongue or floor of mouth swelling. Uvula midline. No intraoral lesions. Eyes: Conjunctiva/sclera: Conjunctivae normal. Cardiovascular: Rate and Rhythm: Normal rate and regular rhythm. Pulmonary: Effort: Pulmonary effort is normal. Breath sounds: Normal breath sounds. Skin: General: Skin is warm and dry. Neurological: Mental Status: She is alert. Assessment and Plan ASSESSMENT/PLAN: 1. Pain, dental - ICD9: 525.9, ICD10: K08.89 -Rx for amoxicillin. -Patient has follow-up with dentist on Thursday. -Recommend Aleve or Motrin, Tylenol as needed for pain, ice. -Patient's pain is on maxillary and mandibular region. She has no pain of the forehead. Did discuss trigeminal neuralgia, as her pain is in a portion of this distribution. However, patient's symptoms do not really seem consistent with this at this point. Recommend follow-up with dentist and if pain continues, close follow-up with PCP. Diagnosis and treatment plan were discussed and questions were answered to the patient's satisfaction. Pt acknowledged understanding of concepts and follow up plan. Specific signs and symptoms that would indicate the need for higher level of care were discussed in detail warranting prompt ER evaluation. KIMBERLEE Chahal documented in this encounter [facility] 11-17-2023 History of Presen t illness Narrative SUBJECTIVE: Influenza Vaccine(1) due on 04/24/2023 Covid-19 Vaccine(2022- season) due on 04/24/2023 DTaP,Tdap,Td Vaccine(7 - Td or Tdap) due on 05/31/2023 Pap Testing due on 05/05/2024 HPV Testing due on 05/05/2024 HPI Sloane Linder is a 33 year old female. PMH significan for ACTIVE PROBLEM LIST Chronic Headaches Bruno II (Cervical Intraepithelial Neoplasia Ii) Obesity (Bmi 30.0-34.9) Bv (Bacterial Vaginosis) Reactive Airway Disease, Unspecified Asthma Severity, Uncomplicated Vitamin D Deficiency Migraine Headache PCP: Laverne Ramirez MD Presents today for routine physical exam. She is in her usual state of health. She is changing to a new job at [employer]. She has followed with neurology for chronic headache, Dr. Nagy. Started on Elavil at bedtime for preventative treatment. Imitrex for acute headache. 1-2 month follow up recommended. October 2023 LPN PER DIEM visit with Namita Becker CNP. She notes currently asthma is well-controlled. No recent exacerbations noted. Has not needed medication of late. She notes headaches are currently less frequent, 3/month now instead of 3/week since starting amitriptyline. No adverse effects noted. Review of Systems Constitutional: Negative. Neurological: Positive for headaches. Objective BP 122/81 Pulse 82 Temp 36.9 C (98.5 F) Resp 16 Ht 166.4 cm (5' 5.5) Wt 117 kg (258 lb) LMP 09/20/2023 BMI 42.28 kg/m Physical Exam Vitals and nursing note reviewed. Constitutional: Appearance: Normal appearance. HENT: Head: Normocephalic and atraumatic. Eyes: Conjunctiva/sclera: Conjunctivae normal. Neck: Thyroid: No thyromegaly. Vascular: Normal carotid pulses. No JVD. Cardiovascular: Rate and Rhythm: Normal rate and regular rhythm. Pulses: Carotid pulses are 2+ on the right side and 2+ on the left side. Radial pulses are 2+ on the right side and 2+ on the left side. Heart sounds: Normal heart sounds. Pulmonary: Effort: Pulmonary effort is normal. Breath sounds: Normal breath sounds. Abdominal: General: Bowel sounds are normal. Palpations: Abdomen is soft. Musculoskeletal: Right lower leg: No edema. Left lower leg: No edema. Skin: General: Skin is warm and dry. Neurological: General: No focal deficit present. Mental Status: She is alert and oriented to person, place, and time. ALLERGIES Allergen Reactions Morphine Mental Status Change Medication amitriptyline (ELAVIL) 10 mg tablet Take 2 tablets by mouth daily at bedtime. SUMAtriptan (IMITREX) 50 mg tablet Take 1 tablet (50 mg) by mouth as needed for migraine headache (see administration instructions). at onset of headache. May repeat after 2 hours. fluticasone (FLONASE) 50 mcg/actuation nasal spray Use 1 [place] in each nostril once daily. Rinse mouth after use. ibuprofen (MOTRIN) 800 mg tablet Take 1 tablet by mouth every 8 hours as needed for Pain. FOR PAIN. albuterol HFA (VENTOLIN HFA) 90 mcg/actuation inhaler Inhale 2 Puffs as instructed every 4 hours as needed for wheezing/shortness of breath. montelukast (SINGULAIR) 10 mg tablet Take 1 tablet by mouth daily at bedtime. PAST MEDICAL HISTORY Diagnosis Date Abnormal Pap smear of cervix Anemia AGE 17 Bacterial vaginitis Chlamydia 08/24/2012 Chronic headaches 08/24/1999 Gonorrhea 02/08/2013 Migraines sometimes with auras Reactive airway disease, unspecified asthma severity, uncomplicated 09/21/2017 Social History Tobacco Use Smoking status: Never Passive exposure: Never Smokeless tobacco: Never Vaping Use Vaping Use: Never used Substance Use Topics Alcohol use: Yes Comment: occasionally, NOT WHILE Drug use: No Latest Ref Rn 04/16/2022 Protein, Total 6.3 - 8.0 g/dL 6.9 Albumin 3.9 - 4.9 g/dL 4.1 Calcium 8.5 - 10.2 mg/dL 9.4 Bilirubin, Total 0.2 - 1.3 mg/dL 0.6 Alkaline Phosphatase 34 - 123 U/L 72 AST 13 - 35 U/L 23 ALT 7 - 38 U/L 42 (H) Glucose 74 - 99 mg/dL 84 BUN 7 - 21 mg/dL 7 Creatinine 0.58 - 0.96 mg/dL 0.58 Sodium 136 - 144 mmol/L 140 Potassium 3.7 - 5.1 mmol/L 4.0 Chloride 97 - 105 mmol/L 105 CO2 22 - 30 mmol/L 23 Anion Gap 9 - 18 mmol/L 12 eGFR >=60 mL/min/1.73m 123 WBC 3.70 - 11.00 k/uL 10.10 RBC 3.90 - 5.20 m/uL 4.65 Hemoglobin 11.5 - 15.5 g/dL 11.9 Hematocrit 36.0 - 46.0 % 39.1 MCV 80.0 - 100.0 fL 84.1 MCH 26.0 - 34.0 pg 25.6 (L) MCHC 30.5 - 36.0 g/dL 30.4 (L) RDW-CV 11.5 - 15.0 % 14.6 Platelet Count 150 - 400 k/uL 292 MPV 9.0 - 12.7 fL 11.3 Absolute nRBC <0.01 k/uL <0.01 Cholesterol, Total <200 mg/dL 131 Triglyceride <150 mg/dL 60 HDL Cholesterol >39 mg/dL 32 (L) Non HDL Cholesterol <130 mg/dL 99 Fasting Time hrs 16 VLDL Cholesterol <30 mg/dL 12 TC:HDL Ratio <5.10 4.09 LDL Cholesterol <100 mg/dL 87 LDL:HDL Ratio <2.54 2.72 (H) TB Nil <=8.00 IU/mL 0.03 TB Interpretation Infection with M. tuberculosis complex is unlikely. If latent tuberculosis infection is highly suspected, a negative result does not rule out the infection. Specimens from immunocompromised patients and those <5 years of age may show false negative results. In case of a contact investigation, please repeat 8-12 weeks after a known exposure. TB1 Ag minus Nil <0.35 IU/mL 0.01 TB2 Ag minus Nil <0.35 IU/mL 0.02 TB Result Negative Mitogen minus Nil >=0.50 IU/mL >9.97 Hemoglobin A1C 4.3 - 5.6 % 5.3 Estimated Average Glucose mg/dL 105 Vitamin D 25 Hydroxy 31.0 - 80.0 ng/mL 23.3 (L) TSH 0.270 - 4.200 mIU/L 2.510 ASSESSMENT/PLAN: 1. Routine medical exam - ICD9: V70.0, ICD10: Z00.00 (primary diagnosis) - Endorse a healthy plant-based diet such as Mediterranean diet and regular exercise such as walking. Endorse portion control for weight loss. -Endorse calcium intake with supplements or by diet of 1000 mg/day 2. Special screening examination for viral disease - ICD9: V73.99, ICD10: Z11.59 declined at this time 3. Encounter for immunization - ICD9: V03.89, ICD10: Z23 declined at this time - INFLUENZA VACCINE, AGE 6 MO - 64 YR, QUADRIVALENT (AFLURIA, FLULAVAL, FLUZONE) - [place] COVID-19 VACCINE (2022- SEASON) AGE 12+ YR - TDAP VACCINE, AGE 7+ YR (ADACEL, BOOSTRIX) 4. Reactive airway disease, unspecified asthma severity, uncomplicated - ICD9: 493.90, ICD10: J45.909 - MONTEL[place]AST 10 MG TABLET - COMP METABOLIC PANEL - CBC + DIFF 5. SOB (shortness of breath) - ICD9: 786.05, ICD10: R06.02 - MONTEL[place]AST 10 MG TABLET 6. Vitamin D deficiency - ICD9: 268.9, ICD10: E55.9 - VITAMIN D 25 HYDROXY 7. Chronic nonintractable headache, unspecified headache type - ICD9: 784.0, ICD10: R51.9, G89.29 Improved control with current preventive treatment Form completed and returned. See scanned documents. She will get TB test at facility. 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 Sloane is a 33 year old who presents for an annual gynecologic exam without complaints. Menses: irregular cycle LMP end of Aug 2023 flow lasting 7 or more. Contraception: none HPV vaccine: No Last Pap: 05/11/2019 normal HPV: 05/10/2019 negative History of abnormal pap: Yes HPV in 2014 Last mammogram: never Sexually active: Yes Patient concerns for STD exposure: No. OB History T1 L1 SAB0 IAB0 Ectopic0 Multiple0 Live Births1 Comment: G1 RR- Syed Patient Services Clerk History LMP: 09/20/2023, Having periods Age at Menarche: Age at First : Age at Menopause: Patient Services Clerk History Comments: Sexual Activity: Yes; Male Contraception: No contraception data on record PAST MEDICAL HISTORY Diagnosis Date Abnormal Pap smear of cervix Anemia AGE 17 Bacterial vaginitis Chlamydia 08/24/2012 Chronic headaches 08/24/1999 Gonorrhea 02/08/2013 Migraines sometimes with auras Reactive airway disease, unspecified asthma severity, uncomplicated 09/21/2017 PAST SURGICAL HISTORY Procedure Laterality Date CONIZATION CERVIX W/WO D&C RPR ELTRD EXC 11/2013 LEEP-Cervix NEXPLANON INSERTION 09/04/2015 removed OTHER SURGICAL HISTORY (PLEASE SPECIFY) HX 10/23/15 diagnostic laparascopy FAMILY HISTORY Problem Relation Age of Onset Colon Cancer Father 52 Headache Mother Diabetes Paternal Grandmother Heart Paternal Grandfather Cancer Paternal Grandfather Heart Maternal Grandfather Allergies Brother SOCIAL HISTORY Social History Tobacco Use Smoking status: Never Passive exposure: Never Smokeless tobacco: Never Vaping Use Vaping Use: Never used Substance Use Topics Alcohol use: Yes Comment: occasionally, NOT WHILE Drug use: No REVIEW OF SYSTEMS Abdomen: No abdominal pain, nausea, vomiting, diarrhea, or constipation. No bloating, early satiety, indigestion, or increased flatulence. Bladder: No dysuria, gross hematuria, urinary frequency, urinary urgency, or incontinence. Breast: No breast lumps, nipple d/c, overlying skin changes, redness or skin retraction. Allergies and current medication updated:Yes EXAM: Ht 5' 5 (1.65m) Wt 265 lb (120.2kg) LMP 09/20/2023 BMI 44.10 kg/(m^2). GENERAL: pleasant, female in no apparent distress HEENT: Normocephalic, atraumatic, mucus membranes moist, and no lesions NECK: Supple, full range of motion, no adenopathy, and thyroid normal DERMATOLOGY: Normal, without lesions, non-icteric, and non-hirsute BREAST: soft, non-tender, symmetric, no dominant mass, normal nipple-areolar complex, no lymphadenopathy, and no nipple discharge CHEST: Normal inspiratory effort ABDOMEN: soft, non-tender, and no masses PELVIC: external genitalia normal, normal Bartholin's glands, urethra, [place]'s glands, no vulvar lesions, no cervical lesions, good vaginal support, physiologic discharge present, normal appearing perineal body and perianal region BIMANUAL: uterus normal size, shape and consistency, no adnexal masses, and non-tender RECTOVAGINAL: deferred. NEURO: alert and oriented x3,exam grossly non-focal EXTREMITIES: normal ASSESSMENT/PLAN: 1) Health maintenance: Pap done with HPV. Mammogram starting age 40. Nutrition, exercise and routine health maintenance exams reviewed. Calcium/Vitamin D supplementation information provided. 2) Contraception: none. Contraceptive options reviewed and information provided. 3) STD screening: Declined STD check. 4) Follow up one year or sooner as needed Namita Becker APRN.VALERIY documented in this encounter [facility] 07-02-2023 History of Presen t illness Narrative Images from the original note were not included. Follow up visit Interval history No orders found for this visit on 07/02/23. 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 15 headaches a month with work shift. Average per month 3 headaches a month, With regular daily shift. She came today accompanied by her young son . To discuss test results and plan of care New prescription written,for acute and preventive therapy Interval history Headache improved in frequency and intensity 2 OR 3 A WEEK imitrex as needed for headache ,now using lower dose of imitrex Happy with the improvement No medications side effects And willing to increase the dose to get better releif New prescriptions written to continue acute and preventive therapy ASSESSMENT: 30 year old female with chronic migraine headache, PLAN: --->No orders found for this visit on 07/02/23. New prescriptions per patient request Prescription written, for acute headache she will take Imitrex, Maximum 200 mg in 24 hours Preventive treatment with Elavil 10 mg every night or before bedtime Patient not wanting to get medications that can interact with her hormonal therapy for fear of getting . ---> Follow-up: 1-2 months, Tests results will be discussed in the follow up appointment Medications side effects explained and discussed with the patient . CC: headache HxCC: 30 year old female , who presents for evaluation of headaches. Migraine since school age and and gradually getting progressively worse through the years. maxalt only and is not working for her headache. 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 No new loss of hearing, vertigo, or tinnitus. No dysarthria, dysphonia or dysphagia. No frequent falls or incoordination. No bowel or bladder incontinence. No saddle anesthesia. No muscular atrophy or fasciculations. RECENT LABS: WBC (k/uL) Date Value 10/20/2018 10.16 RBC (m/uL) Date Value 10/20/2018 4.58 Hemoglobin (g/dL) Date Value 10/20/2018 12.3 Hematocrit (%) Date Value 10/20/2018 40.4 MCV (fL) Date Value 10/20/2018 88.2 MCH (pG) Date Value 10/20/2018 26.9 MCHC (g/dL) Date Value 10/20/2018 30.4 (L) RDW-CV (%) Date Value 10/20/2018 13.3 Platelet Count (k/uL) Date Value 10/20/2018 308 MPV (fL) Date Value 10/20/2018 11.3 Last BMP (Basic Metabolic Panel) Lab Results Component Value Date NA 142 10/20/2018 Lab Results Component Value Date K 3.7 11/12/2018 Lab Results Component Value Date CHLOR 105 10/20/2018 Lab Results Component Value Date CO2 25 10/20/2018 Lab Results Component Value Date BUN 8 10/20/2018 Lab Results Component Value Date CREAT 0.65 10/20/2018 Lab Results Component Value Date GLUC 90 10/20/2018 Lab Results Component Value Date ANION 12 10/20/2018 Lab Results Component Value Date CA 9.6 10/20/2018 TSH Date Value Ref Range Status 04/16/2022 2.510 0.270 - 4.200 mIU/L Final Comment: If the patient is , TSH reference range varies by gestational period: First Trimester (weeks 9-12): 0.180-2.990 mIU/L Second Trimester: 0.110-3.980 mIU/L Third Trimester: 0.480-4.710 mIU/L Tim Hutchison et al. A Practical Approach for the Verifications and Determination of Site- and Trimester-Specific Reference Intervals for Thyroid Function tests in . Thyroid, 2019:29:3:412-420. Arthur E, et al. 2017 Guidelines of the [place] [employer] for the Diagnosis and Management of Thyroid Disease during and the . Thyroid, 2017:27:3:315-389. B12: RECENT IMAGING/DIAGNOSTICS: --MRI/MRA/MRV Brain w/wo contrast (//): --MRI Cervical Spine w/wo contrast (/): --EEG (/): PMH: PAST MEDICAL HISTORY Diagnosis Date Abnormal Pap smear of cervix Anemia AGE 17 Bacterial vaginitis Chlamydia 08/24/2012 Chronic headaches 08/24/1999 Gonorrhea 02/08/2013 Migraines sometimes with auras Reactive airway disease, unspecified asthma severity, uncomplicated 09/21/2017 PSH: PAST SURGICAL HISTORY Procedure Laterality Date CONIZATION CERVIX W/WO D&C RPR ELTRD EXC 11/2013 LEEP-Cervix NEXPLANON INSERTION 09/04/2015 removed OTHER SURGICAL HISTORY (PLEASE SPECIFY) HX 10/23/15 diagnostic laparascopy CURRENT MEDS: @IPMED@ Current Outpatient Medications Medication Sig albuterol HFA (VENTOLIN HFA) 90 mcg/actuation inhaler Inhale 2 Puffs as instructed every 4 hours as needed for wheezing/shortness of breath. montelukast (SINGULAIR) 10 mg tablet Take 1 tablet by mouth daily at bedtime. fluticasone (FLONASE) 50 mcg/actuation nasal spray Use 1 [place] in each nostril once daily. Rinse mouth after use. ibuprofen (MOTRIN) 800 mg tablet Take 1 tablet by mouth every 8 hours as needed for Pain. FOR PAIN. amitriptyline (ELAVIL) 10 mg tablet Take 2 tablets by mouth daily at bedtime. SUMAtriptan (IMITREX) 50 mg tablet Take 1 tablet (50 mg) by mouth as needed for migraine headache (see administration instructions). at onset of headache. May repeat after 2 hours. No current facility-administered medications for this visit. ALLERGIES: ALLERGIES Allergen Reactions Morphine Mental Status Change FMH: FAMILY HISTORY Problem Relation Age of Onset Colon Cancer Father 52 Headache Mother Diabetes Paternal Grandmother Heart Paternal Grandfather Cancer Paternal Grandfather Heart Maternal Grandfather Allergies Brother SOCIAL: Social History Tobacco Use Smoking status: Never Smokeless tobacco: Never Vaping Use Vaping Use: Never used Substance Use Topics Alcohol use: Yes Comment: occasionally, NOT WHILE Drug use: No REVIEW OF SYSTEMS (In addition to HPI): PHYSICAL EXAM: BP 113/75 Pulse 68 Resp 16 Ht 167.6 cm (5' 6) LMP 05/05/2022 SpO2 99% BMI 41.00 kg/m GEN: Alert. NAD. Normal affect. Cooperative. HEENT: No icterus. Normal mucosa. No temporal artery tenderness. Fundoscopic exam unremarkable. NECK/BACK: No meningismus. No lymphadenopathy. No significant paraspinal neck or shoulder musculature tenderness or hypertonicity. No spinous process tenderness. CV: RRR. No M/G/R/C. No carotid bruits. RESP: CTA b/l. EXT: No cyanosis. No edema. No erythema. SKIN: No rashes. No lesions. NEUROLOGICAL: MENTAL STATUS: Alert and oriented x 3. Recent and remote memory intact. Immediate memory intact by 3 item recall and 7 digit recall. Attention knowledge intact. Speech fluent .Normal clock drawing. Normal copy of pentagon intersection. Reading intact. Writing intact. Comprehension intact. CN: II: Visual watts intact. PERRLA. No Papilledema. III, IV, : EOMI. No ptosis present. Normal saccades. V: Symmetric facial sensation to PP. VII: Face symmetric. VIII: Hearing symmetric. No nystagmus. IX, X: Symmetric palatal rise. XI: Symmetric shoulder shrug. XII: Tongue midline with symmetric movements. MOTOR: Finger tap normal. No involuntary movement seen during today's exam. Normal tone and strength. She has no arm drift Free movement of all extremities with normal strength and tone REFLEXES: Bilateral symmetrical Plantar response flexor b/l. No clonus. Negative White/Troemner. Negative palmomental, grasp, rooting, snouting and glabellar blink reflexes. SENSATION: PP, Proprioception, Vibration intact and symmetric. Negative Romberg. CEREBELLAR: Normal F-N-F. Normal H-S. No dysmetria. No nystagmus. GAIT: Stable primary gait. Normal tandem gait. Farida Nagy M.D. [facility] [place] Department of Neurology Total time in minutes spent with patient, reviewing records, labs, imaging, formulating plan, and documentinminutes with more than 50% of the time spent in patient education/counselling/coordinati ng care with the patient and /or family. 06/30/2023 PROMIS Global Health Physical Health Summary Physical health: Good Everyday physical activity, ability: Mostly Fatigue: Moderate Pain level: 3 General health: Good Social activities/roles, ability: Good Physical Health T-Score 44.9 (Good) PROMIS Global Health Mental Health Summary Quality of life: Good Mental health (mood,thinking): Good Social satisfaction: Good Emotional problems (anxious,depressed): Sometimes Mental Health T-Score 43.5 (Good) Mental Health Percentile 26 (Minimal Depression) PHQ-9 Self-Harm: Not at all YANNA-7 Score: 7(Mild Anxiety) PROMIS NEUROQOL COGNITIVE FUNCTION SCORE 06/30/2023 02/06/2023 Promis Neuroqol Cognitive Percentile 27* 54 PROMIS PHYSICAL FUNCTION SCORE 06/30/2023 Promis Physical Function Percentile 42 Percentiles provide an indication of how a patient's score ranks in relation to the [place] general population. > 31st percentile is within normal limits or better *< 31st percentile is at least SD worse than population, which may be clinically relevant < 16th percentile is at least 1 SD worse than population and warrants attention Sleep Apnea Probability There is no data to display for this encounter documented in this encounter [facility] 02-19-2023 Hospital Discharg e instructions Patient Education 02/18/2023 23:23:45 HEADACHE, Migraine (Classical) Migraine Headache Migraine headaches are caused by changes in blood flow to the brain. This causes throbbing or constant pain on one or both sides of your head. The pain may last from a few hours to several days. You usually will have nausea, vomiting, sensitivity to light and sound, and blurred vision. A migraine may be triggered by emotional stress or depression, or by hormone changes during the menstrual cycle. Other triggers include control pills, overuse of migraine medicines, alcohol or caffeine, foods with tyramine, eye strain, weather changes, missed meals, or too little or too much sleep. Home care Follow these tips when taking care of yourself at home: Don t drive yourself home if you were given pain medicine for your headache. Instead, have someone else drive you home. Try to sleep when you get home. You should feel much better when you wake up. Cold can help ease migraine symptoms. Put an ice pack on your forehead or at the base of your skull. Put heat on the back of your neck to help ease any neck spasm. Drink only clear liquids or eat a light diet until your symptoms get better. This will help you avoid nausea and vomiting. How to prevent migraines Pay attention to what seems to trigger your headache. Try to avoid the triggers when you can. If you have frequent headaches, consider keeping a headache diary. In it, write down what you were doing, feeling, or eating in the hours before each headache. Show this to your health care provider to help find the cause of your headaches. If stress seems to be a trigger for your headaches, figure out what is causing stress in your life. Learn new ways to handle your stress. Ideas include regular exercise, biofeedback, self-hypnosis, and meditation. Talk with your health care provider to find out more information about managing stress. Many books and digital media are also available on this subject. Tyramine is a substance found in many foods. It can trigger a migraine in some people. These foods contain tyramine: Chocolate Yogurt All cheeses but cottage cheese and cream cheese Smoked or pickled fish and meat, including bill[place]ley, caviar, bologna, pepperoni, and salami Liver Avocados Bananas Figs Raisins Red wine Try staying away from these foods for 1 to 2 months to see if you have fewer headaches. How to treat future headaches Take time out at the first sign of a headache, if possible. Find a quiet, dark, comfortable place to sit or lie down. Let yourself relax or sleep. Put an ice pack on your forehead or on the area of greatest pain. A heating pad and massage may help if you are having a muscle spasm and tightness in your neck. If you have been prescribed a medicine to stop a migraine headache, use this at the first warning sign of the headache for best results. First signs may be an aura or pain. If you need to take medicine often for your migraine, talk with your health care provider about other ways to prevent your headaches. Follow-up care Follow up with your health care provider if your headache doesn t get better within the next 24 hours. Talk with your provider if you have frequent headaches. He or she can figure out a treatment plan. Ask if you can have medicine to take at home the next time you get a bad headache. This may keep you from having to visit the emergency department in the future. You may need to see a headache specialist (neurologist) if you continue to have headaches. When to seek medical advice Call your health care provider right away if any of these occur: Your head pain gets worse, or doesn t get better within 24 hours You can t keep liquids down (repeated vomiting) Pain in your sinuses, ears, or throat Fever of 100.4 F (38 C) or higher, or as directed by your health care provider Stiff neck Extreme drowsiness, confusion, or fainting Dizziness, or dizziness with spinning sensation (vertigo) Weakness in an arm or leg, or on one side of your face Difficulty talking or seeing 8510-0864 [employer]. [address] [place] [address]227. All rights reserved. This information is not intended as a substitute for professional medical care. Always follow your healthcare professional's instructions. Follow Up Care 02/18/2023 23:14:52 With:LAVERNE RAMIREZ MD Address: [address] [place] [place], [place] [id number]- When:2-4 days [facility] 02-18-2023 Note Discharge Instructions Thank you for allowing [facility] to assist you with your healthcare needs. The following is important discharge information regarding your hospital visit. Diagnosis from Today's Visit Migraine Headache What to Do Next Instructions from Your Care Team No qualifying data available. Post Acute Orders No qualifying data available. You Need to Schedule the Following Appointments Follow Up with LAVERNE RAMIREZ MD When Within 2-4 days Where: [address] [place] [place], [place] [id number]- Allergies NKA Medications Please ask your primary doctor or pharmacist before taking any other medication not listed, including over the counter drugs, herbal medications, vitamins and or supplements as they may interact with your home medications. Please take this list to your next doctor s visit. Bring all medications you take, including over the counter medications, herbals and other supplements with you to your doctor s visit. Patients and families are reminded to discard old lists and to update any records with all medication providers or retail pharmacies. Education Materials Migraine Headache Migraine headaches are caused by changes in blood flow to the brain. This causes throbbing or constant pain on one or both sides of your head. The pain may last from a few hours to several days. You usually will have nausea, vomiting, sensitivity to light and sound, and blurred vision. A migraine may be triggered by emotional stress or depression, or by hormone changes during the menstrual cycle. Other triggers include control pills, overuse of migraine medicines, alcohol or caffeine, foods with tyramine, eye strain, weather changes, missed meals, or too little or too much sleep. Home care Follow these tips when taking care of yourself at home: Don t drive yourself home if you were given pain medicine for your headache. Instead, have someone else drive you home. Try to sleep when you get home. You should feel much better when you wake up. Cold can help ease migraine symptoms. Put an ice pack on your forehead or at the base of your skull. Put heat on the back of your neck to help ease any neck spasm. Drink only clear liquids or eat a light diet until your symptoms get better. This will help you avoid nausea and vomiting. How to prevent migraines Pay attention to what seems to trigger your headache. Try to avoid the triggers when you can. If you have frequent headaches, consider keeping a headache diary. In it, write down what you were doing, feeling, or eating in the hours before each headache. Show this to your health care provider to help find the cause of your headaches. If stress seems to be a trigger for your headaches, figure out what is causing stress in your life. Learn new ways to handle your stress. Ideas include regular exercise, biofeedback, self-hypnosis, and meditation. Talk with your health care provider to find out more information about managing stress. Many books and digital media are also available on this subject. Tyramine is a substance found in many foods. It can trigger a migraine in some people. These foods contain tyramine: Chocolate Yogurt All cheeses but cottage cheese and cream cheese Smoked or pickled fish and meat, including [place], caviar, bologna, pepperoni, and salami Liver Avocados Bananas Figs Raisins Red wine Try staying away from these foods for 1 to 2 months to see if you have fewer headaches. How to treat future headaches Take time out at the first sign of a headache, if possible. Find a quiet, dark, comfortable place to sit or lie down. Let yourself relax or sleep. Put an ice pack on your forehead or on the area of greatest pain. A heating pad and massage may help if you are having a muscle spasm and tightness in your neck. If you have been prescribed a medicine to stop a migraine headache, use this at the first warning sign of the headache for best results. First signs may be an aura or pain. If you need to take medicine often for your migraine, talk with your health care provider about other ways to prevent your headaches. Follow-up care Follow up with your health care provider if your headache doesn t get better within the next 24 hours. Talk with your provider if you have frequent headaches. He or she can figure out a treatment plan. Ask if you can have medicine to take at home the next time you get a bad headache. This may keep you from having to visit the emergency department in the future. You may need to see a headache specialist (neurologist) if you continue to have headaches. When to seek medical advice Call your health care provider right away if any of these occur: Your head pain gets worse, or doesn t get better within 24 hours You can t keep liquids down (repeated vomiting) Pain in your sinuses, ears, or throat Fever of 100.4 F (38 C) or higher, or as directed by your health care provider Stiff neck Extreme drowsiness, confusion, or fainting Dizziness, or dizziness with spinning sensation (vertigo) Weakness in an arm or leg, or on one side of your face Difficulty talking or seeing [id number] [employer]. [address] [place] [address]. All rights reserved. This information is not intended as a substitute for professional medical care. Always follow your healthcare professional's instructions. Additional Information VACCINATE! IT SAVES LIVES! Members of the community who have not yet received the COVID-19 vaccine and would like to receive it can visit one of [facility] vaccine clinics. There are many vaccine clinic locations within the [facility]. For locations and available times, please visit [email or web address] It is important to note that some COVID mobile vaccine clinics are held outdoors and may be canceled in rainy or stormy conditions. To learn more about pediatric vaccinations (ages 5-11), we invite you to visit the [facility] webpage. [email or web address] To learn more about the COVID-19 vaccine, we invite you to visit the CDC website for a list of frequently asked questions. https://www.cdc.gov/coronavirus/ 2019-ncov/vaccines/faq.html [facility] Patient Portal Access Instructions: Stay connected with your healthcare team and access your personal medical information anytime with the [facility] Patient Portal. If you would like a full copy of your medical records please contact the [facility] Medical Records Department Thursday through Thursday between 8a.m. and 4:30p.m. Please follow the directions below to access the portal: 1.Access the email account you provided upon registration to the [facility].2.Look for an invitation email from [facility].3.Open the email and access the invitation link: Accept Invitation to [facility].Fill in the required watts to create your account. Sign into [email or web address] with your username and password that you created in the above steps to stay up to date. You can then view a summary of results, a summary of your visits, and the ability to download your summaries to your computer or send the information securely to a physician. Remember that your healthcare information is confidential, so carefully consider who you will allow to register on the [facility] Patient Portal for access to your information. You can also access the [facility] Patient Portal on the [employer] amna. Simply click on Health Records under Health Data and then click on the [employer] logo. HOW TO SAFELY DISPOSE OF PRESCRIPTION MEDICATIONS Please use one of the following methods to safely dispose of your unused medications. 1.Use a drug disposal kit: the drug disposal pouch allows you to safely discard your old and unused drugs. Ask your nurse to give you one when you are discharged.2.Visit a local take-back location: Many local pharmacies and police departments have programs that collect old and unwanted prescription drugs. Call your local pharmacy or go to http://[email or web address]/9H7Do9l to find one close to you.3.Make use of household items: Use cat litter or old coffee grounds to dispose medications if other options are not available. Mix your drugs with these household products, seal them in an airtight container and throw it into the garbage. Call [facility]: [phone] to be sure your drugs can be disposed of in this way. Some medicines may require a different approach.4.Never flush your medications down the toilet. IF YOU HAVE BEEN PRESCRIBED AN OPIOIDS FOR PAIN If you have been prescribed an opioid (such as hydrocodone, oxycodone or morphine), it is critical to understand the possible side effects and risks of opioid pain medications. Even when taken as directed, opioids can have several side effects including: Tolerance, meaning you might need to take more of a medication for the same pain relief. Nausea, vomiting and/or constipation. Sleepiness, dizziness, dry mouth, confusion, depression or itching. Physical dependence, meaning you have withdrawal symptoms when a medication is stopped ? this can develop within a few days. KNOW YOUR RESPONSIBILITIES It is important to know exactly how much and how often to take the opioid pain medications you are prescribed. Never take opioids in higher amounts or more often than prescribed. Do not combine opioids with alcohol or other drugs that cause drowsiness, such as benzodiazepines, also known as benzos, including diazepam and alprazolam, muscle relaxants or sleep aids. Never sell or share prescription opioids. This is illegal. Store opioids in a secure place and out of reach of others (including children, family, friends and visitors). The last page(s) of this document has been signed and retained as a CHART COPY Signatures Patient Education Materials HEADACHE, Migraine (Classical) Medication Leaflets My discharge plan and instructions have been reviewed and explained to me and I,SLOANE LINDER understand my current condition and have read and understand these discharge instructions. I have received a written copy of the plan/instructions. If I have questions, I am aware that I should contact my doctor. 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 Menses: irregular LMP 04/2022. Contraception: none HPV vaccine: No Last Pap: 05/11/2019 normal HPV: 05/10/2019 negative History of abnormal pap: Yes Last mammogram: never Sexually active: Yes Patient concerns for STD exposure: No. OB History T1 L1 SAB0 IAB0 Ectopic0 Multiple0 Live Births1 Comment: G1 RR- [facility] Patient Services Clerk History LMP: LMP Unknown, Drug Induced Amenorrhea Age at Menarche: Age at First : Age at Menopause: Patient Services Clerk History Comments: Sexual Activity: Yes; Male Contraception: Condom, Inserts PAST MEDICAL HISTORY Diagnosis Date Abnormal Pap smear of cervix Anemia AGE 17 Bacterial vaginitis Chlamydia 2012 Chronic headaches 2000 Gonorrhea 02/08/2013 Reactive airway disease, unspecified asthma severity, uncomplicated 09/21/2017 PAST SURGICAL HISTORY Procedure Laterality Date CONIZATION CERVIX W/WO D&C RPR ELTRD EXC 11/2013 LEEP-Cervix NEXPLANON INSERTION 09/04/2015 removed OTHER SURGICAL HISTORY (PLEASE SPECIFY) HX 10/23/15 diagnostic laparascopy FAMILY HISTORY Problem Relation Age of Onset Colon Cancer Father 52 Headache Mother Diabetes Paternal Grandmother Heart Paternal Grandfather Cancer Paternal Grandfather Heart Maternal Grandfather Allergies Brother SOCIAL HISTORY Social History Tobacco Use Smoking status: Never Smokeless tobacco: Never Vaping Use Vaping Use: Never used Substance Use Topics Alcohol use: Yes Comment: occasionally, NOT WHILE Drug use: No REVIEW OF SYSTEMS Abdomen: No abdominal pain, nausea, vomiting, diarrhea, or constipation. No bloating, early satiety, indigestion, or increased flatulence. Bladder: No dysuria, gross hematuria, urinary frequency, urinary urgency, or incontinence. Breast: No breast lumps, nipple d/c, overlying skin changes, redness or skin retraction. Allergies and current medication updated:Yes EXAM: There were no vitals taken for this visit. GENERAL: pleasant, female in no apparent distress HEENT: Normocephalic, atraumatic, mucus membranes moist, and no lesions NECK: Supple, full range of motion, no adenopathy, and thyroid normal DERMATOLOGY: Normal, without lesions, non-icteric, and non-hirsute BREAST: soft, non-tender, symmetric, no dominant mass, normal nipple-areolar complex, no lymphadenopathy, and no nipple discharge CHEST: Normal inspiratory effort ABDOMEN: soft, non-tender, and no masses PELVIC: external genitalia normal, normal Bartholin's glands, urethra, [place]'s glands, no vulvar lesions, no cervical lesions, good vaginal support, physiologic discharge present, normal appearing perineal body and perianal region BIMANUAL: uterus normal size, shape and consistency, no adnexal masses, and non-tender RECTOVAGINAL: deferred. NEURO: alert and oriented x3,exam grossly non-focal EXTREMITIES: normal ASSESSMENT/PLAN: 1) Health maintenance: Pap/HPV up to date. Mammogram starting age 40. Nutrition, exercise and routine health maintenance exams reviewed. 2) Contraception: none. Contraceptive options reviewed and information provided. 3) STD screening: Accepted STD check for Gonorrhea and Chlamydia. 4) Follow up one year or sooner as needed Namita Becker APRN.VALERIY documented in this encounter [facility] 04-17-2022 Miscellaneous Notes Pt informed, verbalized understanding. Pt reports she will start vitamin D again. Skylar Pappas Ma Please call patient and let her know that blood work results look great! No acute concerns. Vitamin D level is low. I see from medication list that she has not been taking her Vitamin D supplement anymore. Please clarify. I would recommend a 5000 units per day OTC vitamin D3 supplement to restart. Otherwise, no other concerns with lab work at all. TB screen is still in process and I will let her know via [employer] how this comes back. Thank you, Lauren Encinas APRN.VALERIY documented in this encounter [facility] 04-16-2022 History of Presen t illness Narrative Chief Complaint Patient presents with: physical for employment: States could just have a letter stating in good health. Could get blood testing for tb HPI Sloane Linder is a 32 year old female who presents here today for Above Complaints. Sloane is an established patient of Dr. James MD. Sloane is a new patient to me today. Concerns today.. Switching jobs. 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 Needs routine physical and letter stating she has no restrictions with work activity and is in overall good health. Chronic conditions--- Migraines -- Depends on stress level, but takes imitrex on average about 2-3 tablets per month. Imitrex gives relief. On amitriptyline at bedtime for prevention. Symptoms are stable and well controlled on this regimen. Asthma -- Albuterol inhaler as needed -- normally only needs in the winter months. Takes 1-2 x per week in winter. Not exercise-induced. Has not needed inhaler all summer. Vitamin D deficiency--- Instructed to take 4000 units per day of Vitamin D supplement. Reports poor compliance and only taking when she remembers which is occasionally. Denies any symptoms of fatigue, depression, or muscle aches. On control Sprintec. Again, pt admits noncomplaint. Not sexually active currently so has not been taking this routinely. HM --- Discussed colonoscopy screening early at age 41 d/t family history with father dx with colon cancer at age 52 -- pt agreeable. Past medical history, appointments, medications, allergies reviewed. Previous Medical History PAST MEDICAL HISTORY Diagnosis Date Abnormal Pap smear of cervix Anemia AGE 17 Bacterial vaginitis Chlamydia 2012 Chronic headaches 2000 Gonorrhea 02/08/2013 Reactive airway disease, unspecified asthma severity, uncomplicated 09/21/2017 Previous Surgical History PAST SURGICAL HISTORY Procedure Laterality Date CONIZATION CERVIX W/WO D&C RPR ELTRD EXC 11/2013 LEEP-Cervix NEXPLANON INSERTION 09/04/2015 removed OTHER SURGICAL HISTORY (PLEASE SPECIFY) HX 10/23/15 diagnostic laparascopy Family History FAMILY HISTORY Problem Relation Age of Onset Colon Cancer Father 52 Headache Mother Diabetes Paternal Grandmother Heart Paternal Grandfather Cancer Paternal Grandfather Heart Maternal Grandfather Allergies Brother Patient Allergies ALLERGIES Allergen Reactions Morphine Mental Status Change Current Medications Current Outpatient Medications on File Prior to Visit Medication Sig SUMAtriptan (IMITREX) 50 mg tablet Take 1 tablet by mouth as needed for migraine headache (see administration instructions). at onset of headache. May repeat after 2 hours. norgestimate 0.25 mg-ethinyl estradiol 35 mcg (SPRINTEC) 0.25-35 mg-mcg per tablet Take 1 tablet by mouth once daily. albuterol HFA (VENTOLIN HFA) 90 mcg/actuation inhaler Inhale 2 Puffs as instructed every 4 hours as needed for wheezing/shortness of breath. montelukast (SINGULAIR) 10 mg tablet Take 1 tablet by mouth daily at bedtime. fluticasone (FLONASE) 50 mcg/actuation nasal spray Use 1 [place] in each nostril once daily. Rinse mouth after use. ibuprofen (MOTRIN) 800 mg tablet Take 1 tablet by mouth every 8 hours as needed for Pain. FOR PAIN. amitriptyline (ELAVIL) 10 mg tablet Take 2 tablets by mouth daily at bedtime. ergocalciferol 50,000 unit capsule (VITAMIN D2, DRISDOL) Take 1 capsule by mouth two times a week. TO BE TAKEN ORALLY DIRECTED. Take 1 tablet by mouth twice weekly [id number], then decrease to 1 tablet weekly. (Patient not taking: Reported on 04/16/2022) Cholecalciferol, Vitamin D3, 2,000 unit cap Take 2 capsules by mouth once daily. (Patient not taking: Reported on 04/16/2022) No current facility-administered medications on file prior to visit. Social History Social History Tobacco Use Smoking status: Never Smokeless tobacco: Never Vaping Use Vaping Use: Never used Substance Use Topics Alcohol use: Yes Comment: occasionally, NOT WHILE Drug use: No REVIEW OF SYSTEMS: as above Reviewed relevant PMHx, PSHx, Social Hx, current medications and allergies. Review of Symptoms REVIEW OF SYSTEMS See HPI. All other systems are negative. EXAM: BP 120/78 (BP Site: Left Arm, BP Position: Sitting, BP Cuff Size: Large Adult) Pulse 64 Resp 18 Ht 166 cm (5' 5.35) Wt 117.2 kg (258 lb 6.4 oz) LMP (LMP Unknown) BMI 42.54 kg/m General Appearance: Well appearing, alert, in no acute distress, well-hydrated, well nourished.. Skin: Skin color, texture, turgor normal, no suspicious rashes or lesions. Head: Normocephalic, no masses, lesions, tenderness or abnormalities. Lungs: Lungs clear to auscultation. No wheezing, rhonchi, rales.. Heart: RRR without murmur, gallop, or rubs. No ectopy. Abdomen: Normal abdominal exam, Abdomen soft, non-tender. Bowel sounds normal. No masses, organomegaly. Extremities: No deformities, edema, skin discoloration, clubbing or cyanosis. Good capillary refill. . Musculoskeletal: No joint swelling, deformity, or tenderness. Peripheral Pulses: Normal. Neurologic: Gait normal. Reflexes normal and symmetric. Sensation grossly intact.. Health Maintenance List HEPATITIS C SCREENING Never done INFLUENZA(1) due on 04/24/2022 COVID-19 VACCINE(3 - Booster for Moderna series) due on 04/24/2022 DEPRESSION SCREENING due on 10/10/2022 DTAP,TDAP,TD(7 - Td or Tdap) due on 05/31/2023 PAP TESTING due on 05/05/2024 HPV TESTING due on 05/05/2024 HEPATITIS B Completed HIV SCREENING Completed ASSESSMENT/PLAN: 1. Wellness examination - ICD9: V70.0, ICD10: Z00.00 (primary diagnosis) - Counseled on healthy diet and regular exercise - Calcium intake with supplements or by diet of 1000 mg/day for under 50, 4263-6518 mg/day for 50+ - Discussed need and benefit for weight loss. BMI 42.54 kg/(m^2) - Depression screening tool completed and reviewed with patient. Based on score and interview, patient is not at risk for depression and recommended no further intervention at this time. - Letter filled out for work. - Follow up for annual exam in one year - VITAMIN D 25 HYDROXY - COMP METABOLIC PANEL - CBC - LIPID PANEL BASIC - TSH BLD - HGB A1C - BLOOD TB SCREEN 2. Chronic nonintractable headache, unspecified headache type - ICD9: 784.0, ICD10: R51.9, G89.29 Migraines well controlled on current regimen. Continue this regimen. 3. Obesity (BMI 30.0-34.9) - ICD9: 278.00, ICD10: E66.9 Stable - Behavioral intervention and - Eat well program 4. Reactive airway disease, unspecified asthma severity, uncomplicated - ICD9: 493.90, ICD10: J45.909 Mild intermittent Asthma stable - Continue current meds - Avoidance of triggers recommended - Asthma Action Plan reviewed - Asthma education of Defined asthma, Reviewed signs and symptoms, Instruction on inhalation device/technique, Monitoring of control by symptoms, and environmental control: avoidance of precipitants and use of allergy medications - Flu shot in the fall recommended 5. Vitamin D deficiency - ICD9: 268.9, ICD10: E55.9 Recheck Vitamin D level today with blood work to determine supplement dosage accuracy. 6. Family hx of colon cancer - ICD9: V16.0, ICD10: Z80.0 Agreeable to colonoscopy screening at age 41. RTO annually and as needed. Prescription instructions reviewed with patient as applicable. Potential red flag symptoms discussed with the patient. Reviewed appropriate action plan to take if red flag symptoms occur. Patient agreeable to treatment plan. Lauren Encinas APRN.VIDEO GAME TESTER [address] [place] [address] documented in this encounter [facility] 06-01-2013 History of Past i llness Narrative Problem Noted Date Resolved Date Anemia in 06/01/2013 09/26/2013 Low lying placenta without hemorrhage, antepartu m 04/04/2013 09/26/2013 Overview: 05/26/13:resolved. April 04, 2013 low lying placenta. Chandler Moran MD Gonorrhea 02/08/2013 10/22/2015 Overview: February 08, 2013 Chlamydia trachomatis infection of lower genitou rinary sites 02/08/2013 10/22/2015 Overview: 05/31/13 neg for GC/Chlamydia MH February 08, 2013 Papanicolaou smear of cervix with atypical squamous cells of undetermined significance (ASC-US) 11/05/2011 11/06/2015 Overview: 01/31/2013 Patient had an abnormal Pap October 13, 2011. She had a colposcopy done in October 2011. She was to have a followup Pap in 6 months, which she did not do.Daphney Rolle BSN RN documented as of this encounter (statuses as of 04/16/2022) [facility] History of Past illness Narrative* Problem Noted Date Resolved Date Anemia in 06/01/2013 09/26/2013 Low lying placenta without hemorrhage, antepartu m 04/04/2013 09/26/2013 Overview: 05/26/13:resolved. April 04, 2013 low lying placenta. Chandler Moran MD Gonorrhea 02/08/2013 10/22/2015 Overview: February 08, 2013 Chlamydia trachomatis infection of lower genitou rinary sites 02/08/2013 10/22/2015 Overview: 05/31/13 neg for GC/Chlamydia MH February 08, 2013 Papanicolaou smear of cervix with atypical squamous cells of undetermined significance (ASC-US) 11/05/2011 11/06/2015 Overview: 01/31/2013 Patient had an abnormal Pap October 13, 2011. She had a colposcopy done in October 2011. She was to have a followup Pap in 6 months, which she did not do.Daphney ANG RN documented as of this encounter (statuses as of 04/17/2022) [facility] History of Past illness Narrative* Problem Noted Date Resolved Date Anemia in 06/01/2013 09/26/2013 Low lying placenta without hemorrhage, antepartu 04/04/2013 09/26/2013 Overview: 05/26/13:resolved. April 04, 2013 low lying placenta. Chandler Moran MD Gonorrhea 02/08/2013 10/22/2015 Overview: February 08, 2013 Chlamydia trachomatis infection of lower genitou rinary sites 02/08/2013 10/22/2015 Overview: 05/31/13 neg for GC/Chlamydia MH February 08, 2013 Papanicolaou smear of cervix with atypical squamous cells of undetermined significance (ASC-US) 11/05/2011 11/06/2015 Overview: 01/31/2013 Patient had an abnormal Pap October 13, 2011. She had a colposcopy done in October 2011. She was to have a followup Pap in 6 months, which she did not do.Daphney ANG RN documented as of this encounter (statuses as of 05/27/2022) [facility] History of Past illness Narrative* Problem Noted Date Diagnosed Date Resolved Date Anemia in 06/01/2013 09/26/19 14 Low lying placenta without h emorrhage, antepartum 04/04/2013 09/26/2013 Overview: 05/26/13:resolved. April 04, 2013 low lying placenta. Chandler Moran MD Gonorrhea 02/08/2013 10/22/2015 Overview: February 08, 2013 Chlamydia trachomatis infect ion of lower genitourinary sites 02/08/2013 10/22/2015 Overview: 05/31/13 neg for GC/Chlamydia MH February 08, 2013 Papanicolaou smear of cervix with atypical squamous cells of undetermined significance (ASC-US) 11/05/2011 11/06/2015 Overview: 01/31/2013 Patient had an abnormal Pap October 13, 2011. She had a colposcopy done in October 2011. She was to have a followup Pap in 6 months, which she did not do.Daphney ANG RN documented as of this encounter (statuses as of 07/20/2023) [facility] History of Past illness Narrative* Problem Noted Date Diagnosed Date Resolved Date Anemia in 06/01/2013 09/26/19 14 Low lying placenta without h emorrhage, antepartum 04/04/2013 09/26/2013 Overview: 05/26/13:resolved. April 04, 2013 low lying placenta. Chandler Moran MD Gonorrhea 02/08/2013 10/22/2015 Overview: February 08, 2013 Chlamydia trachomatis infect ion of lower genitourinary sites 02/08/2013 10/22/2015 Overview: 05/31/13 neg for GC/Chlamydia MH February 08, 2013 Papanicolaou smear of cervix with atypical squamous cells of undetermined significance (ASC-US) 11/05/2011 11/06/2015 Overview: 01/31/2013 Patient had an abnormal Pap October 13, 2011. She had a colposcopy done in October 2011. She was to have a followup Pap in 6 months, which she did not do.Daphney ANG RN documented as of this encounter (statuses as of 11/05/2023) [facility] History of Past illness Narrative* Problem Noted Date Diagnosed Date Resolved Date Anemia in 06/01/2013 09/26/19 14 Low lying placenta without h emorrhage, antepartum 04/04/2013 09/26/2013 Overview: 05/26/13:resolved. April 04, 2013 low lying placenta. Chandler Moran MD Gonorrhea 02/08/2013 10/22/2015 Overview: February 08, 2013 Chlamydia trachomatis infect ion of lower genitourinary sites 02/08/2013 10/22/2015 Overview: 05/31/13 neg for GC/Chlamydia February 08, 2013 Papanicolaou smear of cervix with atypical squamous cells of undetermined significance (ASC-US) 11/05/2011 11/06/2015 Overview: 01/31/2013 Patient had an abnormal Pap October 13, 2011. She had a colposcopy done in October 2011. She was to have a followup Pap in 6 months, which she did not do.Daphney ANG RN documented as of this encounter (statuses as of 11/17/2023) [facility] History of Past illness Narrative* Problem Noted Date Diagnosed Date Resolved Date Anemia in 06/01/2013 09/26/19 14 Low lying placenta without h emorrhage, antepartum 04/04/2013 09/26/2013 Overview: 05/26/13:resolved. April 04, 2013 low lying placenta. Chandler Moran MD Gonorrhea 02/08/2013 10/22/2015 Overview: February 08, 2013 Chlamydia trachomatis infect ion of lower genitourinary sites 02/08/2013 10/22/2015 Overview: 05/31/13 neg for GC/Chlamydia MH February 08, 2013 Papanicolaou smear of cervix with atypical squamous cells of undetermined significance (ASC-US) 11/05/2011 11/06/2015 Overview: 01/31/2013 Patient had an abnormal Pap October 13, 2011. She had a colposcopy done in October 2011. She was to have a followup Pap in 6 months, which she did not do.Daphney ANG RN documented as of this encounter (statuses as of 12/05/2023) [facility] [place] [facility] No data available for this section [facility] Evaluation note* Diagnosis Wellness examination- Primary Chronic nonintractable headache, unspecified headache type Obesity (BMI 30.0-34.9) Obesity, unspecified Reactive airway disease, unspecified asthma severity, uncomplicated Vitamin D deficiency Unspecified vitamin D deficiency Family hx of colon cancer Family history of malignant neoplasm of gastrointestinal tract documented [facility] [place] [facility]* Diagnosis Encounter for gynecological examination (general) (routine) without abnormal findings- Primary Screen for STD (sexually transmitted disease) Screening examination for venereal disease [facility] [place] [facility] Diagnosis Chronic nonintractable headache, unspecified headache type- Primary [facility] [place] [facility]* Diagnosis Encounter for gynecological examination (general) (routine) without abnormal findings- Primary Screening for cervical cancer Screening for malignant neoplasm of the cervix Encounter for screening for human papillomavirus (HPV) Special screening examination for human papillomavirus (HPV) [facility] Routine medical exam- Primary Routine general medical examination at a health care facility Special screening examination for viral disease Special screening examination for unspecified viral disease Encounter for immunization Need for other specified prophylactic vaccination against single bacterial disease Reactive airway disease, unspecified asthma severity, uncomplicated SOB (shortness of breath) Shortness of breath Vitamin D deficiency Unspecified vitamin D deficiency Chronic nonintractable headache, unspecified headache type documented in this encounter [facility] [place] note* Diagnosis Pain, dental- Primary Unspecified disorder of the teeth and supporting structures documented in this encounter [facility] [place] note* Diagnosis Supervision of other high risk , antepartum- Primary with uncertain dates, antepartum state, incidental Marijuana use disorder in remission Obesity in Obesity complicating , childbirth, or the puerperium, unspecified as to episode of care or not applicable Date of last menstrual period (LMP) unknown Irregular menses Irregular menstrual cycle Heartburn during in first trimester Constipation during in first trimester headache, antepartum Other specified complication, antepartum 7 weeks gestation of state, incidental documented in this encounter [facility] [place] note* Diagnosis Strep pharyngitis- Primary Streptococcal sore throat Sore throat Acute pharyngitis Right ear pain Otalgia, unspecified documented in this encounter [facility] [place] note* Diagnosis Supervision of other high risk , antepartum- Primary Obesity in Obesity complicating , childbirth, or the puerperium, unspecified as to episode of care or not applicable 12 weeks gestation of state, incidental AMA (advanced maternal age) multigravida 35+, first trimester Vitamin D deficiency Unspecified vitamin D deficiency History of hemorrhage, currently in first trimester Supervision of other high risk pregnancies, second trimester * Assessment & Plan Note - Chandler Moran MD - 08/30/2024 10:49 AM EST Associated Problem(s): Obesity in asa 162 mg qhs * Assessment & Plan Note - Chandler Moran MD - 08/30/2024 10:49 AM EST Associated Problem(s): Vitamin D deficiency Orders: VITAMIN D 25 HYDROXY; Future * Assessment & Plan Note - Chandler Moran MD - 08/30/2024 10:49 AM EST Associated Problem(s): History of hemorrhage, currently in first trimester * Assessment & Plan Note - Chandler Moran MD - 08/30/2024 10:49 AM EST Associated Problem(s): Supervision of other high risk pregnancies, second trimester documented in this encounter [facility] [place] note* Diagnosis Supervision of other high risk , antepartum- Primary Obesity in Obesity complicating , childbirth, or the puerperium, unspecified as to episode of care or not applicable 12 weeks gestation of state, incidental AMA (advanced maternal age) multigravida 35+, first trimester Vitamin D deficiency Unspecified vitamin D deficiency History of hemorrhage, currently in first trimester Supervision of other high risk pregnancies, second trimester Encounter for screening for malformation using ultrasound- Primary 12 weeks gestation of state, incidental documented in this encounter [facility] [place] note* Diagnosis Supervision of other high risk , antepartum- Primary Obesity in Obesity complicating , childbirth, or the puerperium, unspecified as to episode of care or not applicable 12 weeks gestation of state, incidental AMA (advanced maternal age) multigravida 35+, first trimester Vitamin D deficiency Unspecified vitamin D deficiency History of hemorrhage, currently in first trimester Supervision of other high risk pregnancies, second trimester Supervision of other high risk , antepartum- Primary Obesity in Obesity complicating , childbirth, or the puerperium, unspecified as to episode of care or not applicable AMA (advanced maternal age) multigravida 35+, first trimester 15 weeks gestation of state, incidental documented in this encounter [facility] [place] note* Diagnosis Supervision of other high risk , antepartum- Primary Obesity in Obesity complicating , childbirth, or the puerperium, unspecified as to episode of care or not applicable 12 weeks gestation of state, incidental AMA (advanced maternal age) multigravida 35+, first trimester Vitamin D deficiency Unspecified vitamin D deficiency History of hemorrhage, currently in first trimester Supervision of other high risk pregnancies, second trimester Sore throat- Primary Acute pharyngitis URI, acute Acute upper respiratory infections of unspecified site Acute cough documented in this encounter [facility] [place] note* Diagnosis Supervision of other high risk , antepartum- Primary Obesity in Obesity complicating , childbirth, or the puerperium, unspecified as to episode of care or not applicable 12 weeks gestation of state, incidental AMA (advanced maternal age) multigravida 35+, first trimester Vitamin D deficiency Unspecified vitamin D deficiency History of hemorrhage, currently in first trimester Supervision of other high risk pregnancies, second trimester Non-recurrent acute serous otitis media of right ear documented in this encounter [facility] [place] note* Diagnosis Supervision of other high risk , antepartum- Primary Obesity in Obesity complicating , childbirth, or the puerperium, unspecified as to episode of care or not applicable 12 weeks gestation of state, incidental AMA (advanced maternal age) multigravida 35+, first trimester Vitamin D deficiency Unspecified vitamin D deficiency History of hemorrhage, currently in first trimester Supervision of other high risk pregnancies, second trimester Encounter for screening for malformation using ultrasound- Primary Obesity in Obesity complicating , childbirth, or the puerperium, unspecified as to episode of care or not applicable 15 weeks gestation of state, incidental Multigravida of advanced maternal age in second trimester documented in this encounter [facility] [place] note* Diagnosis Supervision of other high risk , antepartum- Primary Obesity in Obesity complicating , childbirth, or the puerperium, unspecified as to episode of care or not applicable 12 weeks gestation of state, incidental AMA (advanced maternal age) multigravida 35+, first trimester Vitamin D deficiency Unspecified vitamin D deficiency History of hemorrhage, currently in first trimester Supervision of other high risk pregnancies, second trimester Supervision of other high risk , antepartum- Primary AMA (advanced maternal age) multigravida 35+, second trimester 19 weeks gestation of state, incidental Obesity in Obesity complicating , childbirth, or the puerperium, unspecified as to episode of care or not applicable Marijuana use disorder in remission History of hemorrhage, currently in first trimester Constipation during in first trimester Heartburn during in first trimester Reactive airway disease, unspecified asthma severity, uncomplicated [facility] [place] [facility] Diagnosis Supervision of other high risk , antepartum- Primary Obesity in Obesity complicating , childbirth, or the puerperium, unspecified as to episode of care or not applicable 12 weeks gestation of state, incidental AMA (advanced maternal age) multigravida 35+, first trimester Vitamin D deficiency Unspecified vitamin D deficiency History of hemorrhage, currently in first trimester Supervision of other high risk pregnancies, second trimester Non-recurrent acute serous otitis media of right ear [facility] [place] [facility] Diagnosis Supervision of other high risk , antepartum- Primary Obesity in Obesity complicating , childbirth, or the puerperium, unspecified as to episode of care or not applicable 12 weeks gestation of state, incidental AMA (advanced maternal age) multigravida 35+, first trimester Vitamin D deficiency Unspecified vitamin D deficiency History of hemorrhage, currently in first trimester Supervision of other high risk pregnancies, second trimester Encounter for anatomic survey- Primary Obesity in Obesity complicating , childbirth, or the puerperium, unspecified as to episode of care or not applicable 19 weeks gestation of state, incidental Multigravida of advanced maternal age in second trimester [facility] [place] [facility] Diagnosis Supervision of other high risk , antepartum- Primary Obesity in Obesity complicating , childbirth, or the puerperium, unspecified as to episode of care or not applicable 12 weeks gestation of state, incidental AMA (advanced maternal age) multigravida 35+, first trimester Vitamin D deficiency Unspecified vitamin D deficiency History of hemorrhage, currently in first trimester Supervision of other high risk pregnancies, second trimester Encounter for follow-up ultrasound of anatomy- Primary AMA (advanced maternal age) multigravida 35+, second trimester Obesity in Obesity complicating , childbirth, or the puerperium, unspecified as to episode of care or not applicable History of loop electrical excision procedure (LEEP) Other postprocedural status documented in this encounter [facility] [place] note* Diagnosis Supervision of other high risk , antepartum- Primary Obesity in Obesity complicating , childbirth, or the puerperium, unspecified as to episode of care or not applicable 12 weeks gestation of state, incidental AMA (advanced maternal age) multigravida 35+, first trimester Vitamin D deficiency Unspecified vitamin D deficiency History of hemorrhage, currently in first trimester Supervision of other high risk pregnancies, second trimester Supervision of other high risk , antepartum- Primary AMA (advanced maternal age) multigravida 35+, second trimester Obesity in Obesity complicating , childbirth, or the puerperium, unspecified as to episode of care or not applicable Marijuana use disorder in remission Screening for diabetes mellitus documented in this encounter [facility] [place] note* Diagnosis Supervision of other high risk , antepartum (HCC)- Primary Obesity in (HCC) Obesity complicating , childbirth, or the puerperium, unspecified as to episode of care or not applicable 12 weeks gestation of (HCC) state, incidental AMA (advanced maternal age) multigravida 35+, first trimester (HCC) Vitamin D deficiency Unspecified vitamin D deficiency History of hemorrhage, currently in first trimester (HCC) Supervision of other high risk pregnancies, second trimester (HCC) AMA (advanced maternal age) multigravida 35+, second trimester (HCC)- Primary Obesity in (HCC) Obesity complicating , childbirth, or the puerperium, unspecified as to episode of care or not applicable Screening for diabetes mellitus 27 weeks gestation of (HCC) state, incidental documented in this encounter [facility] [place] note* Diagnosis Supervision of other high risk , antepartum (HCC)- Primary Obesity in (HCC) Obesity complicating , childbirth, or the puerperium, unspecified as to episode of care or not applicable 12 weeks gestation of (HCC) state, incidental AMA (advanced maternal age) multigravida 35+, first trimester (HCC) Vitamin D deficiency Unspecified vitamin D deficiency History of hemorrhage, currently in first trimester (HCC) Supervision of other high risk pregnancies, second trimester (HCC) AMA (advanced maternal age) multigravida 35+, third trimester (HCC)- Primary Obesity in (HCC) Obesity complicating , childbirth, or the puerperium, unspecified as to episode of care or not applicable 29 weeks gestation of (HCC) state, incidental Supervision of high risk in third trimester ([facility]) Unspecified high-risk Reactive airway disease, unspecified asthma severity, uncomplicated (HCC) Heartburn during in third trimester ([facility]) documented in this encounter [facility] [place] note* Diagnosis Supervision of other high risk , antepartum (HCC)- Primary Obesity in (HCC) Obesity complicating , childbirth, or the puerperium, unspecified as to episode of care or not applicable 12 weeks gestation of (HCC) state, incidental AMA (advanced maternal age) multigravida 35+, first trimester ([facility]) Vitamin D deficiency Unspecified vitamin D deficiency History of hemorrhage, currently in first trimester ([facility]) Supervision of other high risk pregnancies, second trimester ([facility]) AMA (advanced maternal age) multigravida 35+, third trimester ([facility])- Primary Obesity in (HCC) Obesity complicating , childbirth, or the puerperium, unspecified as to episode of care or not applicable Anemia during in third trimester ([facility]) 33 weeks gestation of ([facility]) state, incidental * Assessment & Plan Note - Ruthie Beckman MD - 01/20/2025 1:19 PM EDT Associated Problem(s): Obesity in (HCC) NSTs weekly and growth us monthly 39 week iOL indicated documented in this encounter [facility] [place] note* Diagnosis Supervision of other high risk , antepartum (HCC)- Primary Obesity in (HCC) Obesity complicating , childbirth, or the puerperium, unspecified as to episode of care or not applicable 12 weeks gestation of (HCC) state, incidental AMA (advanced maternal age) multigravida 35+, first trimester ([facility]) Vitamin D deficiency Unspecified vitamin D deficiency History of hemorrhage, currently in first trimester ([facility]) Supervision of other high risk pregnancies, second trimester (HCC) AMA (advanced maternal age) multigravida 35+, third trimester (HCC)- Primary Obesity in (HCC) Obesity complicating , childbirth, or the puerperium, unspecified as to episode of care or not applicable Anemia during in third trimester (HCC) 33 weeks gestation of (HCC) state, incidental Anemia during in third trimester (HCC)- Primary documented in this encounter [facility] [place] note* Diagnosis Supervision of other high risk , antepartum (HCC)- Primary Obesity in (HCC) Obesity complicating , childbirth, or the puerperium, unspecified as to episode of care or not applicable 12 weeks gestation of (HCC) state, incidental AMA (advanced maternal age) multigravida 35+, first trimester ([facility]) Vitamin D deficiency Unspecified vitamin D deficiency History of hemorrhage, currently in first trimester ([facility]) Supervision of other high risk pregnancies, second trimester ([facility]) AMA (advanced maternal age) multigravida 35+, third trimester ([facility])- Primary Obesity in (HCC) Obesity complicating , childbirth, or the puerperium, unspecified as to episode of care or not applicable Anemia during in third trimester (HCC) 33 weeks gestation of ([facility]) state, incidental Maternal iron deficiency anemia complicating , third trimester ([facility])- Primary documented in this encounter [facility] [place] note* Diagnosis Supervision of other high risk , antepartum (HCC)- Primary Obesity in (HCC) Obesity complicating , childbirth, or the puerperium, unspecified as to episode of care or not applicable 12 weeks gestation of ([facility]) state, incidental AMA (advanced maternal age) multigravida 35+, first trimester ([facility]) Vitamin D deficiency Unspecified vitamin D deficiency History of hemorrhage, currently in first trimester ([facility]) Supervision of other high risk pregnancies, second trimester ([facility]) AMA (advanced maternal age) multigravida 35+, third trimester ([facility])- Primary Obesity in (HCC) Obesity complicating , childbirth, or the puerperium, unspecified as to episode of care or not applicable Anemia during in third trimester ([facility]) 33 weeks gestation of ([facility]) state, incidental Maternal iron deficiency anemia complicating , third trimester (HCC)- Primary documented in this encounter [facility] [place] note* Diagnosis Supervision of other high risk , antepartum (HCC)- Primary Obesity in (HCC) Obesity complicating , childbirth, or the puerperium, unspecified as to episode of care or not applicable 12 weeks gestation of ([facility]) state, incidental AMA (advanced maternal age) multigravida 35+, first trimester ([facility]) Vitamin D deficiency Unspecified vitamin D deficiency History of hemorrhage, currently in first trimester ([facility]) Supervision of other high risk pregnancies, second trimester ([facility]) AMA (advanced maternal age) multigravida 35+, third trimester ([facility])- Primary Obesity in ([facility]) Obesity complicating , childbirth, or the puerperium, unspecified as to episode of care or not applicable Anemia during in third trimester ([facility]) 33 weeks gestation of ([facility]) state, incidental AMA (advanced maternal age) multigravida 35+, third trimester ([facility])- Primary 34 weeks gestation of ([facility]) state, incidental Obesity in ([facility]) Obesity complicating , childbirth, or the puerperium, unspecified as to episode of care or not applicable Supervision of high risk in third trimester ([facility]) Unspecified high-risk documented in this encounter [facility] [place] note* Diagnosis Supervision of other high risk , antepartum (HCC)- Primary Obesity in (HCC) Obesity complicating , childbirth, or the puerperium, unspecified as to episode of care or not applicable 12 weeks gestation of ([facility]) state, incidental AMA (advanced maternal age) multigravida 35+, first trimester ([facility]) Vitamin D deficiency Unspecified vitamin D deficiency History of hemorrhage, currently in first trimester ([facility]) Supervision of other high risk pregnancies, second trimester ([facility]) AMA (advanced maternal age) multigravida 35+, third trimester ([facility])- Primary Obesity in ([facility]) Obesity complicating , childbirth, or the puerperium, unspecified as to episode of care or not applicable Anemia during in third trimester ([facility]) 33 weeks gestation of ([facility]) state, incidental AMA (advanced maternal age) multigravida 35+, third trimester ([facility])- Primary Obesity in (HCC) Obesity complicating , childbirth, or the puerperium, unspecified as to episode of care or not applicable Supervision of high risk in third trimester ([facility]) Unspecified high-risk Anemia during in third trimester (HCC) 35 weeks gestation of ([facility]) state, incidental [facility] [place] [facility] Diagnosis Supervision of other high risk , antepartum (HCC)- Primary Obesity in (HCC) Obesity complicating , childbirth, or the puerperium, unspecified as to episode of care or not applicable 12 weeks gestation of ([facility]) state, incidental AMA (advanced maternal age) multigravida 35+, first trimester ([facility]) Vitamin D deficiency Unspecified vitamin D deficiency History of hemorrhage, currently in first trimester ([facility]) Supervision of other high risk pregnancies, second trimester ([facility]) AMA (advanced maternal age) multigravida 35+, third trimester ([facility])- Primary Obesity in ([facility]) Obesity complicating , childbirth, or the puerperium, unspecified as to episode of care or not applicable Anemia during in third trimester ([facility]) 33 weeks gestation of ([facility]) state, incidental Maternal iron deficiency anemia complicating , third trimester ([facility])- Primary [facility] [place] [facility] Diagnosis Supervision of other high risk , antepartum (HCC)- Primary Obesity in (HCC) Obesity complicating , childbirth, or the puerperium, unspecified as to episode of care or not applicable 12 weeks gestation of ([facility]) state, incidental AMA (advanced maternal age) multigravida 35+, first trimester ([facility]) Vitamin D deficiency Unspecified vitamin D deficiency History of hemorrhage, currently in first trimester ([facility]) Supervision of other high risk pregnancies, second trimester ([facility]) AMA (advanced maternal age) multigravida 35+, third trimester ([facility])- Primary Obesity in (HCC) Obesity complicating , childbirth, or the puerperium, unspecified as to episode of care or not applicable Anemia during in third trimester ([facility]) 33 weeks gestation of ([facility]) state, incidental Maternal iron deficiency anemia complicating , third trimester ([facility])- Primary documented in this encounter [facility] [place] note* Diagnosis Supervision of other high risk , antepartum (HCC)- Primary Obesity in (HCC) Obesity complicating , childbirth, or the puerperium, unspecified as to episode of care or not applicable 12 weeks gestation of (HCC) state, incidental AMA (advanced maternal age) multigravida 35+, first trimester (HCC) Vitamin D deficiency Unspecified vitamin D deficiency History of hemorrhage, currently in first trimester (HCC) Supervision of other high risk pregnancies, second trimester (HCC) AMA (advanced maternal age) multigravida 35+, third trimester (HCC)- Primary Obesity in (HCC) Obesity complicating , childbirth, or the puerperium, unspecified as to episode of care or not applicable Anemia during in third trimester (HCC) 33 weeks gestation of ([facility]) state, incidental AMA (advanced maternal age) multigravida 35+, second trimester (HCC) Obesity in (HCC) Obesity complicating , childbirth, or the puerperium, unspecified as to episode of care or not applicable [facility] [place] [facility] Diagnosis Supervision of other high risk , antepartum (HCC)- Primary Obesity in (HCC) Obesity complicating , childbirth, or the puerperium, unspecified as to episode of care or not applicable 12 weeks gestation of (HCC) state, incidental AMA (advanced maternal age) multigravida 35+, first trimester ([facility]) Vitamin D deficiency Unspecified vitamin D deficiency History of hemorrhage, currently in first trimester ([facility]) Supervision of other high risk pregnancies, second trimester (HCC) AMA (advanced maternal age) multigravida 35+, third trimester ([facility])- Primary Obesity in (HCC) Obesity complicating , childbirth, or the puerperium, unspecified as to episode of care or not applicable Anemia during in third trimester (HCC) 33 weeks gestation of (HCC) state, incidental 36 weeks gestation of ([facility])- Primary state, incidental AMA (advanced maternal age) multigravida 35+, third trimester (HCC) Obesity in (HCC) Obesity complicating , childbirth, or the puerperium, unspecified as to episode of care or not applicable Supervision of high risk in third trimester (HCC) Unspecified high-risk [facility] [place] [facility] Diagnosis Supervision of other high risk , antepartum (HCC)- Primary Obesity in (HCC) Obesity complicating , childbirth, or the puerperium, unspecified as to episode of care or not applicable 12 weeks gestation of ([facility]) state, incidental AMA (advanced maternal age) multigravida 35+, first trimester ([facility]) Vitamin D deficiency Unspecified vitamin D deficiency History of hemorrhage, currently in first trimester ([facility]) Supervision of other high risk pregnancies, second trimester ([facility]) AMA (advanced maternal age) multigravida 35+, third trimester ([facility])- Primary Obesity in ([facility]) Obesity complicating , childbirth, or the puerperium, unspecified as to episode of care or not applicable Anemia during in third trimester ([facility]) 33 weeks gestation of ([facility]) state, incidental Maternal iron deficiency anemia complicating , third trimester ([facility])- Primary documented in this encounter [facility] [place] note* Diagnosis Supervision of other high risk , antepartum ([facility])- Primary Obesity in (HCC) Obesity complicating , childbirth, or the puerperium, unspecified as to episode of care or not applicable 12 weeks gestation of ([facility]) state, incidental AMA (advanced maternal age) multigravida 35+, first trimester ([facility]) Vitamin D deficiency Unspecified vitamin D deficiency History of hemorrhage, currently in first trimester ([facility]) Supervision of other high risk pregnancies, second trimester ([facility]) AMA (advanced maternal age) multigravida 35+, third trimester ([facility])- Primary Obesity in ([facility]) Obesity complicating , childbirth, or the puerperium, unspecified as to episode of care or not applicable Anemia during in third trimester ([facility]) 33 weeks gestation of ([facility]) state, incidental Annual physical exam- Primary Routine general medical examination at a health care facility Reactive airway disease, unspecified asthma severity, uncomplicated ([facility]) with 37 weeks completed gestation ([facility]) Maternal iron deficiency anemia complicating in third trimester ([facility]) documented in this encounter [facility] [place] note* Diagnosis Supervision of other high risk , antepartum (HCC)- Primary Obesity in (HCC) Obesity complicating , childbirth, or the puerperium, unspecified as to episode of care or not applicable 12 weeks gestation of (HCC) state, incidental AMA (advanced maternal age) multigravida 35+, first trimester (HCC) Vitamin D deficiency Unspecified vitamin D deficiency History of hemorrhage, currently in first trimester ([facility]) Supervision of other high risk pregnancies, second trimester (HCC) AMA (advanced maternal age) multigravida 35+, third trimester (HCC)- Primary Obesity in (HCC) Obesity complicating , childbirth, or the puerperium, unspecified as to episode of care or not applicable Anemia during in third trimester (HCC) 33 weeks gestation of ([facility]) state, incidental Maternal iron deficiency anemia complicating , third trimester ([facility])- Primary [facility] [place] [facility]* Diagnosis Supervision of other high risk , antepartum ([facility])- Primary Obesity in (HCC) Obesity complicating , childbirth, or the puerperium, unspecified as to episode of care or not applicable 12 weeks gestation of ([facility]) state, incidental AMA (advanced maternal age) multigravida 35+, first trimester ([facility]) Vitamin D deficiency Unspecified vitamin D deficiency History of hemorrhage, currently in first trimester ([facility]) Supervision of other high risk pregnancies, second trimester ([facility]) AMA (advanced maternal age) multigravida 35+, third trimester ([facility])- Primary Obesity in (HCC) Obesity complicating , childbirth, or the puerperium, unspecified as to episode of care or not applicable Anemia during in third trimester (HCC) 33 weeks gestation of (HCC) state, incidental 37 weeks gestation of ([facility])- Primary state, incidental AMA (advanced maternal age) multigravida 35+, third trimester (HCC) Obesity in (HCC) Obesity complicating , childbirth, or the puerperium, unspecified as to episode of care or not applicable Supervision of high risk in third trimester ([facility]) Unspecified high-risk [facility] [place] [facility]* Diagnosis Supervision of other high risk , antepartum ([facility])- Primary Obesity in (HCC) Obesity complicating , childbirth, or the puerperium, unspecified as to episode of care or not applicable 12 weeks gestation of ([facility]) state, incidental AMA (advanced maternal age) multigravida 35+, first trimester ([facility]) Vitamin D deficiency Unspecified vitamin D deficiency History of hemorrhage, currently in first trimester ([facility]) Supervision of other high risk pregnancies, second trimester ([facility]) AMA (advanced maternal age) multigravida 35+, third trimester ([facility])- Primary Obesity in ([facility]) Obesity complicating , childbirth, or the puerperium, unspecified as to episode of care or not applicable Anemia during in third trimester ([facility]) 33 weeks gestation of ([facility]) state, incidental Maternal iron deficiency anemia complicating , third trimester ([facility])- Primary documented in this encounter [facility] [place] note* Diagnosis Supervision of other high risk , antepartum ([facility])- Primary Obesity in ([facility]) Obesity complicating , childbirth, or the puerperium, unspecified as to episode of care or not applicable 12 weeks gestation of ([facility]) state, incidental AMA (advanced maternal age) multigravida 35+, first trimester ([facility]) Vitamin D deficiency Unspecified vitamin D deficiency History of hemorrhage, currently in first trimester ([facility]) Supervision of other high risk pregnancies, second trimester ([facility]) AMA (advanced maternal age) multigravida 35+, third trimester ([facility])- Primary Obesity in ([facility]) Obesity complicating , childbirth, or the puerperium, unspecified as to episode of care or not applicable Anemia during in third trimester ([facility]) 33 weeks gestation of ([facility]) state, incidental 38 weeks gestation of ([facility])- Primary state, incidental AMA (advanced maternal age) multigravida 35+, third trimester ([facility]) Obesity in ([facility]) Obesity complicating , childbirth, or the puerperium, unspecified as to episode of care or not applicable [facility] [place] [facility]* Diagnosis Supervision of other high risk , antepartum ([facility])- Primary Obesity in ([facility]) Obesity complicating , childbirth, or the puerperium, unspecified as to episode of care or not applicable 12 weeks gestation of ([facility]) state, incidental AMA (advanced maternal age) multigravida 35+, first trimester (HCC) Vitamin D deficiency Unspecified vitamin D deficiency History of hemorrhage, currently in first trimester (HCC) Supervision of other high risk pregnancies, second trimester (HCC) AMA (advanced maternal age) multigravida 35+, third trimester (HCC)- Primary Obesity in (HCC) Obesity complicating , childbirth, or the puerperium, unspecified as to episode of care or not applicable Anemia during in third trimester (HCC) 33 weeks gestation of (HCC) state, incidental 38 weeks gestation of (HCC)- Primary state, incidental AMA (advanced maternal age) multigravida 35+, third trimester (HCC) Obesity in (HCC) Obesity complicating , childbirth, or the puerperium, unspecified as to episode of care or not applicable Supervision of high risk in third trimester (HCC) Unspecified high-risk documented in this encounter [facility] for referral (narrative)* Diagnostic Procedure Only (Routine) - Authorized Specialty Diagnoses / Procedures Referred By Contac t Referred To Contact [facility] Diagnoses Obesity in Procedures OBSTETRIC ULTRASOUND WHI US PREG UTERUS AFTER 1ST TRIMEST GESTATION Shi Rubi APRN.CNM [address] [place] [address] [address] [address] [place] [address] Referral ID Status Reason Start Date Expiration Date Visits Requested Visits Authorized [id number] Authorized Auto-Generat ed Referral 07/22/2025 2 1 * Diagnostic Procedure Only (Routine) - Authorized Specialty Diagnoses / Procedures Referred By Contac t Referred To Contact [facility] Diagnoses with uncertain dates, antepartum Procedures NUCHAL TRANSLUCENCY WHI US NUCHAL TRANSLUCENCY 1ST GESTATION Shi Rubi APRN.CNM [address] [place] [address] [facility] [address] [place] [address] Referral ID Status Reason Start Date Expiration Date Visits Requested Visits Authorized [id number] Authorized Auto-Generat ed Referral 4 07/22/2025 1 1 [facility] for visit Narrative* Consult, Test, Treat (Routine) - Authorized Specialty Diagnoses / Procedures Referred By Contmiranda t 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 Diagnoses (HCC) OB Procedures OFFICE/OUTPATIENT ESTABLISHED HIGH MDM 40 MIN OFFICE/OUTPATIENT EST PT MAY NOT REQ PHYS/QHP EST WHI Shi Argueta APRN.CNM [address] [place] [address] Phone: tel: fax: Faye Torres MD [address] [place] [address] Phone: tel: fax: Referral ID Status Reason Start Date Expiration Date V isits Requested Visits Authorized [id number] Authorized 08/19/2024 08/23/2025 99 99 [facility] Summary Purpose Family History No Family History Records FoundNo Family History Records FoundNo Family History Records FoundNo Family History Records FoundNo Family History Records Found Advance Directives No Advanced Directives Records FoundNo Advanced Directives Records FoundNo Advanced Directives Records FoundNo Advanced Directives Records FoundNo Advanced Directives Records Found Additional Source Comments INFORMATION SOURCE (unrecogn ized section and content) DATE CREATED AUTHOR 03/13/2020 [facility] DATE CREATED AUTHOR AUTHOR'S ORGANIZ ATION 04/18/2020 [facility] DATE CREATED AUTHOR AUTHOR'S ORGANIZ ATION 02/22/2023 [facility] ([place]) DATE CREATED AUTHOR AUTHOR'S ORGANIZ ATION 06/14/2024 [facility] DATE CREATED AUTHOR AUTHOR'S ORGANIZ ATION 02/25/2025 [facility] Source Comments (unrecognize d section and content) In the event this informatio n is protected by the Federal Confidentiality of Alcohol and Drug Abuse Patient Records regulations: The Federal rules restrict any use of the information to criminally investigate or prosecute any alcohol or drug abuse patient.[facility] the event this information is protected by the Federal Confidentiality of Alcohol and Drug Abuse Patient Records regulations: The Federal rules restrict any use of the information to criminally investigate or prosecute any alcohol or drug abuse patient.[facility] HospitalIn the event this information is protected by the Federal Confidentiality of Alcohol and Drug Abuse Patient Records regulations: The Federal rules restrict any use of the information to criminally investigate or prosecute any alcohol or drug abuse patient.[facility] HospitalIn the event this information is protected by the Federal Confidentiality of Alcohol and Drug Abuse Patient Records regulations: The Federal rules restrict any use of the information to criminally investigate or prosecute any alcohol or drug abuse patient.[facility] HospitalIn the event this information is protected by the Federal Confidentiality of Alcohol and Drug Abuse Patient Records regulations: The Federal rules restrict any use of the information to criminally investigate or prosecute any alcohol or drug abuse patient.[facility] HospitalIn the event this information is protected by the Federal Confidentiality of Alcohol and Drug Abuse Patient Records regulations: The Federal rules restrict any use of the information to criminally investigate or prosecute any alcohol or drug abuse patient.[facility] HospitalIn the event this information is protected by the Federal Confidentiality of Alcohol and Drug Abuse Patient Records regulations: The Federal rules restrict any use of the information to criminally investigate or prosecute any alcohol or drug abuse patient.[facility] HospitalIn the event this information is protected by the Federal Confidentiality of Alcohol and Drug Abuse Patient Records regulations: The Federal rules restrict any use of the information to criminally investigate or prosecute any alcohol or drug abuse patient.[facility] HospitalIn the event this information is protected by the Federal Confidentiality of Alcohol and Drug Abuse Patient Records regulations: The Federal rules restrict any use of the information to criminally investigate or prosecute any alcohol or drug abuse patient.[facility] HospitalIn the event this information is protected by the Federal Confidentiality of Alcohol and Drug Abuse Patient Records regulations: The Federal rules restrict any use of the information to criminally investigate or prosecute any alcohol or drug abuse patient.[facility] HospitalIn the event this information is protected by the Federal Confidentiality of Alcohol and Drug Abuse Patient Records regulations: The Federal rules restrict any use of the information to criminally investigate or prosecute any alcohol or drug abuse patient.[facility] HospitalIn the event this information is protected by the Federal Confidentiality of Alcohol and Drug Abuse Patient Records regulations: The Federal rules restrict any use of the information to criminally investigate or prosecute any alcohol or drug abuse patient.[facility] HospitalIn the event this information is protected by the Federal Confidentiality of Alcohol and Drug Abuse Patient Records regulations: The Federal rules restrict any use of the information to criminally investigate or prosecute any alcohol or drug abuse patient.[facility] HospitalIn the event this information is protected by the Federal Confidentiality of Alcohol and Drug Abuse Patient Records regulations: The Federal rules restrict any use of the information to criminally investigate or prosecute any alcohol or drug abuse patient.[facility] HospitalIn the event this information is protected by the Federal Confidentiality of Alcohol and Drug Abuse Patient Records regulations: The Federal rules restrict any use of the information to criminally investigate or prosecute any alcohol or drug abuse patient.[facility] HospitalIn the event this information is protected by the Federal Confidentiality of Alcohol and Drug Abuse Patient Records regulations: The Federal rules restrict any use of the information to criminally investigate or prosecute any alcohol or drug abuse patient.[facility] HospitalIn the event this information is protected by the Federal Confidentiality of Alcohol and Drug Abuse Patient Records regulations: The Federal rules restrict any use of the information to criminally investigate or prosecute any alcohol or drug abuse patient.[facility] HospitalIn the event this information is protected by the Federal Confidentiality of Alcohol and Drug Abuse Patient Records regulations: The Federal rules restrict any use of the information to criminally investigate or prosecute any alcohol or drug abuse patient.[facility] HospitalIn the event this information is protected by the Federal Confidentiality of Alcohol and Drug Abuse Patient Records regulations: The Federal rules restrict any use of the information to criminally investigate or prosecute any alcohol or drug abuse patient.[facility] HospitalIn the event this information is protected by the Federal Confidentiality of Alcohol and Drug Abuse Patient Records regulations: The Federal rules restrict any use of the information to criminally investigate or prosecute any alcohol or drug abuse patient.[facility] HospitalIn the event this information is protected by the Federal Confidentiality of Alcohol and Drug Abuse Patient Records regulations: The Federal rules restrict any use of the information to criminally investigate or prosecute any alcohol or drug abuse patient.[facility] HospitalIn the event this information is protected by the Federal Confidentiality of Alcohol and Drug Abuse Patient Records regulations: The Federal rules restrict any use of the information to criminally investigate or prosecute any alcohol or drug abuse patient.[facility] HospitalIn the event this information is protected by the Federal Confidentiality of Alcohol and Drug Abuse Patient Records regulations: The Federal rules restrict any use of the information to criminally investigate or prosecute any alcohol or drug abuse patient.[facility] HospitalIn the event this information is protected by the Federal Confidentiality of Alcohol and Drug Abuse Patient Records regulations: The Federal rules restrict any use of the information to criminally investigate or prosecute any alcohol or drug abuse patient.[facility] HospitalIn the event this information is protected by the Federal Confidentiality of Alcohol and Drug Abuse Patient Records regulations: The Federal rules restrict any use of the information to criminally investigate or prosecute any alcohol or drug abuse patient.[facility] HospitalIn the event this information is protected by the Federal Confidentiality of Alcohol and Drug Abuse Patient Records regulations: The Federal rules restrict any use of the information to criminally investigate or prosecute any alcohol or drug abuse patient.[facility] HospitalIn the event this information is protected by the Federal Confidentiality of Alcohol and Drug Abuse Patient Records regulations: The Federal rules restrict any use of the information to criminally investigate or prosecute any alcohol or drug abuse patient.[facility] HospitalIn the event this information is protected by the Federal Confidentiality of Alcohol and Drug Abuse Patient Records regulations: The Federal rules restrict any use of the information to criminally investigate or prosecute any alcohol or drug abuse patient.[facility] HospitalIn the event this information is protected by the Federal Confidentiality of Alcohol and Drug Abuse Patient Records regulations: The Federal rules restrict any use of the information to criminally investigate or prosecute any alcohol or drug abuse patient.[facility] HospitalIn the event this information is protected by the Federal Confidentiality of Alcohol and Drug Abuse Patient Records regulations: The Federal rules restrict any use of the information to criminally investigate or prosecute any alcohol or drug abuse patient.[facility] HospitalIn the event this information is protected by the Federal Confidentiality of Alcohol and Drug Abuse Patient Records regulations: The Federal rules restrict any use of the information to criminally investigate or prosecute any alcohol or drug abuse patient.[facility] HospitalIn the event this information is protected by the Federal Confidentiality of Alcohol and Drug Abuse Patient Records regulations: The Federal rules restrict any use of the information to criminally investigate or prosecute any alcohol or drug abuse patient.[facility] HospitalIn the event this information is protected by the Federal Confidentiality of Alcohol and Drug Abuse Patient Records regulations: The Federal rules restrict any use of the information to criminally investigate or prosecute any alcohol or drug abuse patient.[facility] HospitalIn the event this information is protected by the Federal Confidentiality of Alcohol and Drug Abuse Patient Records regulations: The Federal rules restrict any use of the information to criminally investigate or prosecute any alcohol or drug abuse patient.[facility] HospitalIn the event this information is protected by the Federal Confidentiality of Alcohol and Drug Abuse Patient Records regulations: The Federal rules restrict any use of the information to criminally investigate or prosecute any alcohol or drug abuse patient.[facility] HospitalIn the event this information is protected by the Federal Confidentiality of Alcohol and Drug Abuse Patient Records regulations: The Federal rules restrict any use of the information to criminally investigate or prosecute any alcohol or drug abuse patient.[facility] HospitalIn the event this information is protected by the Federal Confidentiality of Alcohol and Drug Abuse Patient Records regulations: The Federal rules restrict any use of the information to criminally investigate or prosecute any alcohol or drug abuse patient.[facility] HospitalIn the event this information is protected by the Federal Confidentiality of Alcohol and Drug Abuse Patient Records regulations: The Federal rules restrict any use of the information to criminally investigate or prosecute any alcohol or drug abuse patient.[facility] HospitalIn the event this information is protected by the Federal Confidentiality of Alcohol and Drug Abuse Patient Records regulations: The Federal rules restrict any use of the information to criminally investigate or prosecute any alcohol or drug abuse patient.[facility] HospitalIn the event this information is protected by the Federal Confidentiality of Alcohol and Drug Abuse Patient Records regulations: The Federal rules restrict any use of the information to criminally investigate or prosecute any alcohol or drug abuse patient.[facility] HospitalIn the event this information is protected by the Federal Confidentiality of Alcohol and Drug Abuse Patient Records regulations: The Federal rules restrict any use of the information to criminally investigate or prosecute any alcohol or drug abuse patient.[facility] HospitalIn the event this information is protected by the Federal Confidentiality of Alcohol and Drug Abuse Patient Records regulations: The Federal rules restrict any use of the information to criminally investigate or prosecute any alcohol or drug abuse patient.[facility] HospitalIn the event this information is protected by the Federal Confidentiality of Alcohol and Drug Abuse Patient Records regulations: The Federal rules restrict any use of the information to criminally investigate or prosecute any alcohol or drug abuse patient.[facility] HospitalIn the event this information is protected by the Federal Confidentiality of Alcohol and Drug Abuse Patient Records regulations: The Federal rules restrict any use of the information to criminally investigate or prosecute any alcohol or drug abuse patient.[facility] HospitalIn the event this information is protected by the Federal Confidentiality of Alcohol and Drug Abuse Patient Records regulations: The Federal rules restrict any use of the information to criminally investigate or prosecute any alcohol or drug abuse patient.[facility] HospitalIn the event this information is protected by the Federal Confidentiality of Alcohol and Drug Abuse Patient Records regulations: The Federal rules restrict any use of the information to criminally investigate or prosecute any alcohol or drug abuse patient.[facility] HospitalIn the event this information is protected by the Federal Confidentiality of Alcohol and Drug Abuse Patient Records regulations: The Federal rules restrict any use of the information to criminally investigate or prosecute any alcohol or drug abuse patient.[facility] HospitalIn the event this information is protected by the Federal Confidentiality of Alcohol and Drug Abuse Patient Records regulations: The Federal rules restrict any use of the information to criminally investigate or prosecute any alcohol or drug abuse patient.[facility] HospitalIn the event this information is protected by the Federal Confidentiality of Alcohol and Drug Abuse Patient Records regulations: The Federal rules restrict any use of the information to criminally investigate or prosecute any alcohol or drug abuse patient.[facility] Reason for Visit (unrecogniz ed section and content) Reason Onset Date Comments Care 02/23/2025 Specialty Diagnoses / Procedures Referred By Mendoza t 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 Diagnoses (HCC) OB Procedures OFFICE/OUTPATIENT ESTABLISHED HIGH MDM 40 MIN OFFICE/OUTPATIENT EST PT MAY NOT REQ PHYS/QHP EST WHI OB Shi Rubi APRN.CNM [address] [place] [address] Phone: tel: fax: Faye Torres MD [address] [place] [address] Phone: tel: fax: Referral ID Status Reason Start Date Expiration Date V isits Requested Visits Authorized [id number] Authorized 08/19/2024 08/23/2025 99 99 Reason Onset Date Comments Care 02/17/2025 Reason Comments Anemia Specialty Diagnoses / Procedures Referred By Contac t Referred To Contact Diagnoses Maternal iron deficiency anemia complicating , third trimester (HCC) Procedures IRON SUCROSE INJECTION PER 1 MG Cristal Brito PA-C [address] [place] [address] Phone: tel: fax: Hematology/Oncology [address] [place] [address] Phone: tel: fax: Referral ID Status Reason Start Date Expiration Date V isits Requested Visits Authorized [id number] Authorized 01/26/2025 08/23/2025 99 99 Reason Onset Date Comments Care 02/10/2025 Reason Onset Date Comments Care 02/03/2025 Reason Onset Date Comments Care 01/27/2025 Reason Comments Care Reason Comments physical for employment States could jus t have a letter stating in good health. Could get blood testing for tb Reason Comments Results Reason Comments Well Woman Reason Comments Follow Up Migraines Specialty Diagnoses / Procedures Referred By Contac t Referred To Contact Neurology / NEUROLOGY Diagnoses 3 mo follow up Procedures EST NI PATIENT Farida Nagy MD [address] [place] [address] Farida Nagy MD [address] [place] [address] Referral ID Status Reason Start Date Expiration Date Visits Requested Visits Authorized [id number] Authorized Patient Cleared - Qualified 100% FAS 07/02/2023 09/30/2023 99 99 Reason Comments Yearly Exam Reason Comments Employment Physical Reason Comments Mouth/Lip Problem Right side of mouth pain x 1 day Reason Comments Initial OB Visit Reason Comments Ear Pain R ear pain x 1 day s ore throat on R side as well, chills fatigue x 1 day Reason Comments US Specialty Diagnoses / Procedures Referred By Contac t Referred To Contact [facility] Diagnoses with uncertain dates, antepartum Procedures NUCHAL TRANSLUCENCY WHI US NUCHAL TRANSLUCENCY 1ST GESTATION Shi Rubi APRN.CNM [address] [place] [address] [address] Referral ID Status Reason Start Date Expiration Date V isits Requested Visits Authorized [id number] Closed Auto-Generate d Referral 08/19/2024 09/02/2024 1 1 Reason Comments Future Appointment Reason Onset Date Comments Care 09/16/2024 Specialty Diagnoses / Procedures Referred By Contac t 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 Diagnoses OB Procedures OFFICE/OUTPATIENT ESTABLISHED HIGH MDM 40 MIN OFFICE/OUTPATIENT EST PT MAY NOT REQ PHYS/QHP EST WHI OB Shi Rubi APRN.CNM [address] [place] [address] Faye Torres MD [address] [place] [address] Reason Comments Nasal Congestion drainage, cough, and bilateral ear pain x 5 days Reason Onset Date Comments Refill Request 09/18/2024 Reason Comments Positive RSV Specialty Diagnoses / Procedures Referred By Contac t Referred To Contact [facility] Diagnoses Obesity in Encounter for supervision of normal , unspecified, unspecified trimester Procedures OBSTETRIC ULTRASOUND WHI US PREG UTERUS AFTER 1ST TRIMEST GESTATION Shi Rubi APRN.CNM [address] [place] [address] [address] Referral ID Status Reason Start Date Expiration Date Visits Requested Visits Authorized [id number] Authorized Auto-Generat ed Referral 09/16/2024 08/23/2025 20 20 Reason Onset Date Comments Care 10/14/2024 Specialty Diagnoses / Procedures Referred By Contac t 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 Diagnoses OB Procedures OFFICE/OUTPATIENT ESTABLISHED HIGH MDM 40 MIN OFFICE/OUTPATIENT EST PT MAY NOT REQ PHYS/QHP EST WHI OB Shi Rubi APRN.CN [address] [place] [address] Phone: tel: fax: Faye Torres MD [address] [place] [address] Phone: tel: fax: Reason Comments Med Change Request Specialty Diagnoses / Procedures Referred By Mendoza t Referred To Contact [facility] Diagnoses Obesity in Encounter for supervision of normal , unspecified, unspecified trimester Procedures OBSTETRIC ULTRASOUND WHI US PREG UTERUS AFTER 1ST TRIMEST GESTATION Shi Rubi APRN.ROLA [address] [place] [address] Phone: tel: fax: [place] [phone] Referral ID Status Reason Start Date Expiration Date Visits Requested Visits Authorized [id number] Authorized Auto-Generat ed Referral 09/16/2024 08/23/2025 20 20 Reason Comments Orders OB US - Anatomy Specialty Diagnoses / Procedures Referred By Mendoza t Referred To Contact [facility] Diagnoses Supervision of other high risk , antepartum AMA (advanced maternal age) multigravida 35+, second trimester 19 weeks gestation of Obesity in Procedures OBSTETRIC ULTRASOUND WHI US PREG UTERUS AFTER 1ST TRIMEST GESTATION Shi Rubi APRN.ROLA [address] [place] [address] Phone: tel: fax: [address] [address] Referral ID Status Reason Start Date Expiration Date V isits Requested Visits Authorized [id number] Closed Auto-Generate d Referral 10/14/2024 10/14/2025 3 1 Reason Onset Date Comments Care 11/11/2024 Specialty Diagnoses / Procedures Referred By Carlyac t 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 Diagnoses OB Procedures OFFICE/OUTPATIENT ESTABLISHED HIGH MDM 40 MIN OFFICE/OUTPATIENT EST PT MAY NOT REQ PHYS/QHP EST I OB Shi Rubi APRN.CN [address] [place] [address] Phone: tel: fax: Faye Torres MD [address] [place] [address] Phone: tel: fax: Reason Onset Date Comments Care 12/23/2024 Reason Comments Blood Management Reason Comments Hematology Reason Comments Non-Chemotherapy Treatment Specialty Diagnoses / Procedures Referred By Contac t Referred To Contact [facility] Diagnoses Supervision of other high risk , antepartum (HCC) AMA (advanced maternal age) multigravida 35+, second trimester (HCC) 19 weeks gestation of (HCC) Obesity in (HCC) Procedures OBSTETRIC ULTRASOUND [facility] US PREG UTERUS AFTER 1ST TRIMEST GESTATION Shi Rubi APRN.CNKendall [address] [place] [address] Phone: tel: fax: [facility] [address] [place] [address] Reason Onset Date Comments Care 02/27/2025 Care Teams (unrecognized sec tion and content) Bunghole Borer Relationship Specialty Start Date End Date Laverne Ramirez MD [address] [place] [address] PCP - General Internal Medicine 04/13/14 Bunghole Borer Relationship Specialty Start Date End Date Laverne Ramirez MD [address] [place] [address] PCP - General Internal Medicine 04/13/14 Bunghole Borer Relationship Specialty Start Date End Date Laverne Ramirez MD [address] [place] [address] PCP - General Internal Medicine 04/13/14 Bunghole Borer Relationship Specialty Start Date End Date Laverne Ramirez MD [address] [place] [address] PCP - General Internal Medicine 04/13/14 Bunghole Borer Relationship Specialty Start Date End Date Laverne Ramirez MD [address] [place] [address] PCP - General Internal Medicine 04/13/14 Bunghole Borer Relationship Specialty Start Date End Date Laverne Ramirez MD [address] [place] [address] PCP - General Internal Medicine 04/13/14 Bunghole Borer Relationship Specialty Start Date End Date Laverne Ramirez MD [address] [place] [address] PCP - General Internal Medicine 04/13/14 Bunghole Borer Relationship Specialty Start Date End Date Laverne Ramirez MD [address] [place] [address] PCP - General Internal Medicine 04/13/14 Bunghole Borer Relationship Specialty Start Date End Date Laverne Ramirez MD [address] [place] [address] PCP - General Internal Medicine 04/13/14 Jaky Chiu PA-C [address] [place] [address] Maintenance Technician 2Nd Shift Family Medicine 07/31/24 Stormy Hope APRN.CNP [address] [place] [address] Maintenance Technician 2Nd Shift Internal Medicine 07/31/24 Mee Lanier PA-C [address] [place] [address] Maintenance Technician 2Nd Shift Family Medicine 07/31/24 Bunghole Borer Relationship Specialty Start Date End Date Laverne Ramirez MD [address] [place] [address] PCP - General Internal Medicine 04/13/14 Jaky Chiu PA-C [address] [place] [address] Maintenance Technician 2Nd Shift Family Medicine 07/31/24 Stormy Hope APRN.VIDEO GAME TESTER [address] [place] [address] Maintenance Technician 2Nd Shift Internal Medicine 07/31/24 Mee Lanier PA-C [address] [place] [address] Maintenance Technician 2Nd Shift Family Medicine 07/31/24 Bunghole Borer Relationship Specialty Start Date End Date Lavrene Ramirez MD [address] [place] [address] PCP - General Internal Medicine 04/13/14 Jaky Chiu PA-C [address] [place] [address] Maintenance Technician 2Nd Shift Family Medicine 07/31/24 Stormy Hope APRN.VIDEO GAME TESTER [address] [place] [address] Maintenance Technician 2Nd Shift Internal Medicine 07/31/24 Mee Lanier PA-C [address] [place] [address] Maintenance Technician 2Nd Shift Family Medicine 07/31/24 Bunghole Borer Relationship Specialty Start Date End Date Laverne Ramirez MD [address] [place] [address] PCP - General Internal Medicine 04/13/14 Jaky Chiu PA-C [address] [place] [address] Maintenance Technician 2Nd Shift Family Medicine 07/31/24 Stormy Hope APRN.VIDEO GAME TESTER [address] [place] [address] Maintenance Technician 2Nd Shift Internal Medicine 07/31/24 Mee Lanier PA-C [address] [place] [address] Maintenance Technician 2Nd Shift Family Medicine 07/31/24 Bunghole Borer Relationship Specialty Start Date End Date Laverne Ramirez MD [address] [place] [address] PCP - General Internal Medicine 04/13/14 Jaky Chiu PA-C [address] [place] [address] Maintenance Technician 2Nd Shift Family Medicine 07/31/24 Stormy Hope, TOW TRUCK OPERATOR.VIDEO GAME TESTER [address] [place] [address] Maintenance Technician 2Nd Shift Internal Medicine 07/31/24 Mee Lanier PA-C [address] [place] [address] Maintenance Technician 2Nd Shift Family Medicine 07/31/24 Bunghole Borer Relationship Specialty Start Date End Date Laverne Ramirez MD [address] [place] [address] PCP - General Internal Medicine 04/13/14 Jaky Chiu PA-C [address] [place] [address] Maintenance Technician 2Nd Shift Family Medicine 07/31/24 Stormy Hope APRN.VIDEO GAME TESTER [address] [place] [address] Maintenance Technician 2Nd Shift Internal Medicine 07/31/24 Mee Lanier PA-C [address] [place] [address] Maintenance Technician 2Nd Shift Family Medicine 07/31/24 Bunghole Borer Relationship Specialty Start Date End Date Laverne Ramirez MD [address] [place] [address] PCP - General Internal Medicine 04/13/14 Jaky Chiu PA-C [address] [place] [address] Maintenance Technician 2Nd Shift Family Medicine 07/31/24 Stormy Hope APRN.VIDEO GAME TESTER [address] [place] [address] Maintenance Technician 2Nd Shift Internal Medicine 07/31/24 Mee Lanier PA-C [address] [place] [address] Maintenance Technician 2Nd Shift Family Medicine 07/31/24 Bunghole Borer Relationship Specialty Start Date End Date Laverne Ramirez MD [address] [place] [address] PCP - General Internal Medicine 04/13/14 Jaky Chiu PA-C [address] [place] [address] Maintenance Technician 2Nd Shift Family [facility] 07/31/24 Stormy Hope APRN.VIDEO GAME TESTER [address] [place] [address] Maintenance Technician 2Nd Shift Internal Medicine 07/31/24 Mee Lanier PA-C [address] [place] [address] [facility] 07/31/24 Bunghole Borer Relationship Specialty Start Date End Date Laverne Ramirez MD [address] [place] [address] PCP - General Internal Medicine 04/13/14 Jaky Chiu PA-C [address] [place] [address] [facility] Medicine 07/31/24 Stormy Hope APRN.VIDEO GAME TESTER [address] [place] [address] Maintenance Technician 2Nd Shift Internal Medicine 07/31/24 Mee Lanier PA-C [address] [place] [address] [facility] Family [facility] 07/31/24 Bunghole Borer Relationship Specialty Start Date End Date Laverne Ramirez MD [address] [place] [address] PCP - General Internal Medicine 04/13/14 Jaky Chiu PA-C [address] [place] [address] Maintenance Technician 2Nd Shift Family Medicine 07/31/24 Stormy Hope APRN.VIDEO GAME TESTER [address] [place] [address] Maintenance Technician 2Nd Shift Internal Medicine 07/31/24 Mee Lanier PA-C [address] [place] [address] Maintenance Technician 2Nd Shift Family Medicine 07/31/24 Bunghole Borer Relationship Specialty Start Date End Date Laverne Ramirez MD [address] [place] [address] PCP - General Internal Medicine 04/13/14 Jaky Chiu PA-C [address] [place] [address] Maintenance Technician 2Nd Shift Family Medicine 07/31/24 Stormy Hope APRN.VIDEO GAME TESTER [address] [place] [address] Maintenance Technician 2Nd Shift Internal Medicine 07/31/24 Mee Lanier PA-C [address] [place] [address] Maintenance Technician 2Nd Shift [facility] 07/31/24 Bunghole Borer Relationship Specialty Start Date End Date Laverne Ramirez MD [address] [place] [address] PCP - General Internal Medicine 04/13/14 Jaky Chiu PA-C [address] [place] [address] Maintenance Technician 2Nd Shift Family Medicine 07/31/24 Stormy Hope APRN.VIDEO GAME TESTER [address] [facility] [place] [address] Maintenance Technician 2Nd Shift Internal Medicine 07/31/24 Mee Lanier PA-C [address] [place] [address] Maintenance Technician 2Nd Shift Family Medicine 07/31/24 Bunghole Borer Relationship Specialty Start Date End Date Laverne Ramirez MD [address] [place] [address] PCP - General Internal Medicine 04/13/14 Jaky Chiu PA-C [address] [place] [address] Maintenance Technician 2Nd Shift Family Medicine 07/31/24 Stormy Hope APRN.VIDEO GAME TESTER [address] [place] [address] Maintenance Technician 2Nd Shift Internal Medicine 07/31/24 Mee Lanier PA-C [address] [place] [address] Maintenance Technician 2Nd Shift Family Medicine 07/31/24 Bunghole Borer Relationship Specialty Start Date End Date Laverne Ramirez MD [address] [place] [address] PCP - General Internal Medicine 04/13/14 Stormy Hope APRN.VIDEO GAME TESTER [address] [facility] [address] Maintenance Technician 2Nd Shift Internal Medicine 07/31/24 Bunghole Borer Relationship Specialty Start Date End Date Laverne Ramirez MD [address] [place] [address] PCP - General Internal Medicine 04/13/14 Jaky Chiu PA-C [address] [place] [address] Maintenance Technician 2Nd Shift Family Medicine 07/31/24 11/13/24 Stormy Hope APRN.VIDEO GAME TESTER [address] [place] [address] Maintenance Technician 2Nd Shift Internal Medicine 07/31/24 Mee Lanier PA-C [address] [place] [address] Maintenance Technician 2Nd Shift Family Medicine 07/31/24 11/13/24 Bunghole Borer Relationship Specialty Start Date End Date Laverne Ramirez MD [address] [place] [address] PCP - General Internal Medicine 04/13/14 Stormy Hope APRN.VIDEO GAME TESTER [address] [facility] [address] Maintenance Technician 2Nd Shift Internal Medicine 07/31/24 Bunghole Borer Relationship Specialty Start Date End Date Laverne Ramirez MD [address] [place] [address] PCP - General Internal Medicine 04/13/14 Stormy Hope APRN.VIDEO GAME TESTER [address] [facility] [address] Maintenance Technician 2Nd Shift Internal Medicine 07/31/24 Bunghole Borer Relationship Specialty Start Date End Date Laverne Ramirez MD [address] [place] [address] PCP - General Internal Medicine 04/13/14 Stormy Hope APRN.VIDEO GAME TESTER [address] [place] [address] Maintenance Technician 2Nd Shift Internal Medicine 07/31/24 Bunghole Borer Relationship Specialty Start Date End Date Laverne Ramirez MD [address] [place] [address] PCP - General Internal Medicine 04/13/14 Stormy Hope APRN.VIDEO GAME TESTER [address] [place] [address] Maintenance Technician 2Nd Shift Internal Medicine 07/31/24 Bunghole Borer Relationship Specialty Start Date End Date Laverne Ramirez MD [address] [place] [address] PCP - General Internal Medicine 04/13/14 Stormy Hope APRN.VIDEO GAME TESTER [address] [place] [address] Maintenance Technician 2Nd Shift Internal Medicine 07/31/24 Bunghole Borer Relationship Specialty Start Date End Date Laverne Ramirez MD [address] [place] [address] PCP - General Internal Medicine 04/13/14 Stormy Hope APRN.VIDEO GAME TESTER [address] [place] [address] Maintenance Technician 2Nd Shift Internal Medicine 07/31/24 Bunghole Borer Relationship Specialty Start Date End Date Laverne Ramirez MD [address] [place] [address] PCP - General Internal Medicine 04/13/14 Stormy Hope APRN.VIDEO GAME TESTER [address] [place], [place] [address] Maintenance Technician 2Nd Shift Internal Medicine 07/31/24 Bunghole Borer Relationship Specialty Start Date End Date Laverne Ramirez MD [address] [place] [address] PCP - General Internal Medicine 04/13/14 Stormy Hope APRN.VIDEO GAME TESTER [address] [place], [place] 87[address] [phone] Maintenance Technician 2Nd Shift Internal Medicine 07/31/24 Bunghole Borer Relationship Specialty Start Date End Date Laverne Ramirez MD [address] [place] [address] PCP - General Internal Medicine 04/13/14 Stormy Hope APRN.VIDEO GAME TESTER [address] [place], [place] [address] [phone] [facility] Internal Medicine 07/31/24 Bunghole Borer Relationship Specialty Start Date End Date Laverne Ramirez MD [address] [place] [address] PCP - General Internal Medicine 04/13/14 Stormy Hope APRN.VIDEO GAME TESTER [address] [place], [place] [address] [facility] Internal Medicine 07/31/24 FOR RECORDS PERTAINING TO PATIENTS WHO ARE OR HAVE BEEN ENROLLED IN A CHEMICAL DEPENDENCY/SUBSTANCEABUSE PROGRAM, SOME INFORMATION MAY BE OMITTED. This clinical summary was aggregated from multiple sources. Caution should be exercised in using it in the provision of clinical care. This summary normalizes information from multiple sources, and as a consequence, information in this document may materially change the coding, format and clinical context of patient data. In addition, data may be omitted in some cases. CLINICAL DECISIONS SHOULD BE BASED ON THE PRIMARY CLINICAL RECORDS. [facility]. provides no warranty or guarantee of the accuracy or completeness of information in this document.
[2025-03-02] MEDS: Lactated Ringers 1,000 ML 50 ML IV (08:00)
--- NOTE | 2025-03-02 08:06 | HP.PCM.OB_ITS ---
HPI - General General Date of Admission: 03/02/25 HPI Narrative IVY LINDER, is a 34 F at 39 weeks who presents for scheduled induction of labor. Maternal Data Information MATI Calculator Estimated Delivery Date Method Current WG Current Estimate 03/09/25 Manual 39w 0d PFSH [facility] Medical History (Updated 03/02/25 @ 08:52 by Karin Ignacio CNM) Asthma hemorrhage Headache Home Medications ?Medication ?Instructions ?Recorded ?Last Taken ?Type vits,calcium no.78-iron 1 tab PO DAILY pregan ncy 08/11/13 03/02/25 History fumarate-folic acid 29 mg-1 mg tablet (Prenatabs FA) ferrous sulfate 325 mg (65 mg 325 mg PO DAILY anemia # 30 TABLETS 08/13/13 03/01/25 Rx iron) tablet (Iron (ferrous sulfate)) albuterol sulfate 90 mcg/actuation 2 puff inhalation Q 4H PRN PRN 03/02/25 Unknown History aerosol inhaler wheezing aspirin 81 mg tablet,delayed 162 mg PO DAILY 03/02/25 Unknown History release pantoprazole 40 mg tablet,delayed 40 mg PO DAILY heart burn 03/02/25 03/02/25 History release (Protonix) Allergy/AdvReac Type Severity Reaction Status Date / Time morphine Allergy Unknown mental Verified 03/02/25 07:31 status changes Social History Smoking Status: Never smoker History Elective abortions Hx Para 1 Spontaneous abortions Hx # Term Pregnancies Ectopic pregnancies Hx # Pregnancies Multiple births # of living children NST FHR Rate Baby A Baseline: 130 Variability:: Moderate Accelerations:: 15 x 15 Decelerations:: None NST Reactive:: Yes FHR Category:: Category I Uterine Activity:: Irritability ROS Eyes Eyes: Denies blurry vision, change in vision or spots in vision ENT HEENT: Denies dizziness or headache(s) Cardiovascular Cardiovascular: Denies abdominal pain, chest pain or dyspnea Respiratory/Chest Respiratory/Chest: Denies cough, dyspnea, shortness of breath at rest or shortness of breath with exertion Gastrointestinal Gastrointestinal: Denies abdominal pain, diarrhea or vomiting Genitourinary Genitourinary: Denies change in urinary stream, difficulty urinating or dysuria Musculoskeletal Musculoskeletal: Reports none Integumentary Integumentary: Denies rash Neurologic Neurologic: Denies dizziness, headache(s), memory loss or weakness Psychiatric Psychiatric: Reports none Vital Signs Vital Signs Vital Signs: 03/02/25 07:38 03/02/25 07:38 03/02/25 07:41 Temperature Temperature Source Temporal Pulse Rate 85 Respiratory Rate Blood Pressure 124/82 H BP Systolic 124 BP Diastolic 82 Pulse Ox 03/02/25 07:41 03/02/25 07:41 03/02/25 07:41 Temperature 97.6 F L Temperature Source Pulse Rate Respiratory Rate 17 Blood Pressure BP Systolic BP Diastolic Pulse Ox 98 Weight Weight: 260 lb Body Mass Index (BMI) 41.9 Physical Exam Const alert, oriented x3 and no apparent distress General Appearance: cooperative Orientation / Consciousness: awake Exam Limitations: no limitations HEENT normocephalic Head and Scalp: normal to inspection Eyes General Eye: normal appearance of both eyes Neck full ROM and no lymphadenopathy Lymph Lymphatic: no lymphadenopathy noted Chest inspection of chest normal Resp normal respiratory effort, normal air movement and clear to auscultation bilaterally Effort and Inspection: able to speak in complete sentences and symmetric chest movement Cardio regular rate and regular rhythm GI normal to inspection, nondistended, normoactive bowel sounds Manual OB Exam: presentation cephalic Back/Spine normal ROM Extremity full ROM and no calf tenderness Skin no rashes or lesions noted General Skin Exam: no breakdown Neuro oriented x3 and CN's II-XII intact bilaterally Psych mental status grossly normal and thought process normal Labs Labs Labs: Blood Type A POSITIVE Antibody Screen NEGATIVE Hct 23.5 % (37-47) L Hgb 7.7 g/dl (12.0-15.0) L Syphilis Total Ab Pending Rhogam given: No Assessment & Plan (1) 39 weeks gestation of : (2) Encounter for induction of labor: (3) Obesity affecting : (4) Positive GBS test: (5) History of hemorrhage, currently : (6) Asthma: PLAN: Plan CE /-2 Salas bulb inserted without difficulty and filled with 30 cc N/S Start Pitocin at 2 mu/min and increase per policy GBS positive - Start PCN IV protocol Pain medications when indicated Dr. Elizabeth notified of admission and is collaborating physician
[2025-03-02] MEDS: 0.9% Normal Saline Single 100 ML IV.SOLN. INTRA-UTER (08:20)
[2025-03-02] MEDS: Oxytocin 15 Units/NS 250ml 15 UNITS/250 ML IV.SOLN 2 UNITS IV (08:25)
[2025-03-02 08:48] LABS: Hematocrit 33.7 % (37-47); Hemoglobin 10.6 g/dL (12.0-15.0); Immature Granulocytes Count 0.040 X10^3/uL (0.0-0.0); Mean Corp Hgb Conc 31.5 g/dL (32-36); Mean Corpuscular Volume 87.1 fL (81-99); Mean Platelet Vol. 10.6 fl (6.2-12.0); NRBC Flagged by Analyzer 0 % (0-5); Platelet Count 203 K/mm3 (150-450); RBC Distribution Width CV 17.1 % (11.6-14.6); RBC Distribution Width SD 53.9 fl (35.1-43.9); Red Blood Count 3.87 M/mm3 (4.2-5.4); White Blood Count 7.8 K/mm3 (4.4-11.0)
[2025-03-02] MEDS: Penicillin G Pot 5,000,000 UNITS in 0.9% Normal Saline (100mL MB+) 100 ML 150 UNITS IV (09:19)
[2025-03-02 10:03] LABS: Syphilis Antibodies Nonreactive (Nonreactive)
--- NOTE | 2025-03-02 12:42 | PN.OBGYN_ITS ---
Subjective Subjective Patient seen at bedside. Feeling pain in back during contractions. Desires epidural. Objective Data Objective Data Vital Signs: Vital Signs Temp Pulse Resp BP Pulse Ox 97.6 F L 83 17 141/90 H 98 03/02/25 07:41 03/02/25 11:32 03/02/25 07:41 03/02/25 11:32 03/02/25 07:41 Weight: 260 lb Body Mass Index (BMI) 41.9 Intake & Output: Intake and Output for Last 24 Hours 02/28/25 03/01/25 03/02/25 23:59 23:59 23:59 Intake Total 112.73 / 112.73 Balance 112.73 / 112.73 Lab / Micro Data 03/02/25 08:35 Labs: Laboratory Results - last 24 hr 03/02/25 08:35: WBC 7.8, RBC 3.87 L, Hgb 10.6 L, Hct 33.7 L, MCV 87.1, MCH 27.4, MCHC 31.5 L, RDW Std Deviation 53.9 H, RDW Coeff of Anjali 17.1 H, Plt Count 203, MPV 10.6, Immature Gran % (Auto) 0.500, Neut % (Auto) 60.5, Lymph % (Auto) 28.5, [place] % (Auto) 8.9, Eos % (Auto) 1.3, Baso % (Auto) 0.3, Absolute Neuts (auto) 4.7, Absolute Lymphs (auto) 2.21, Nucleated RBC % 0, Syphilis Total Ab Nonreactive, Blood Type A POSITIVE Assessment & Plan (1) History of hemorrhage, currently : (2) Positive GBS test: (3) Obesity affecting : (4) Encounter for induction of labor: (5) 39 weeks gestation of : (6) Asthma: PLAN: Plan Salas bulb out at this time CE /-3 Patient unable to tolerate vaginal exam at this time Plan to get epidural and then rupture membranes GBS positive- adequately treated
[2025-03-02] MEDS: Lactated Ringers 1,000 ML 999 ML IV (12:43)
[2025-03-02] MEDS: fentaNYL-bupivacaine (epidural) 100 ML BAG EPIDURAL (14:24)
[2025-03-02] MEDS: Penicillin G 3,000,000 Units 50 ML 100 UNITS IV (14:38)
--- NOTE | 2025-03-02 16:32 | PN.OBGYN_ITS ---
Subjective Subjective Patient is comfortable with epidural. Objective Data Objective Data Vital Signs: Vital Signs Temp Pulse Resp BP Pulse Ox 97.5 F L 87 16 123/74 H 100 03/02/25 14:20 03/02/25 15:37 03/02/25 15:38 03/02/25 15:37 03/02/25 15:38 Weight: 260 lb Body Mass Index (BMI) 41.9 Intake & Output: Intake and Output for Last 24 Hours 02/28/25 03/01/25 03/02/25 23:59 23:59 23:59 Intake Total 1490.33 / 1490.33 Balance 1490.33 / 1490.33 Lab / Micro Data 03/02/25 08:35 Labs: Laboratory Results - last 24 hr 03/02/25 08:35: WBC 7.8, RBC 3.87 L, Hgb 10.6 L, Hct 33.7 L, MCV 87.1, MCH 27.4, MCHC 31.5 L, RDW Std Deviation 53.9 H, RDW Coeff of Anjali 17.1 H, Plt Count 203, MPV 10.6, Immature Gran % (Auto) 0.500, Neut % (Auto) 60.5, Lymph % (Auto) 28.5, [place] % (Auto) 8.9, Eos % (Auto) 1.3, Baso % (Auto) 0.3, Absolute Neuts (auto) 4.7, Absolute Lymphs (auto) 2.21, Nucleated RBC % 0, Syphilis Total Ab Nonreactive, Blood Type A POSITIVE, Antibody Screen NEGATIVE Assessment & Plan (1) History of hemorrhage, currently : (2) Positive GBS test: (3) Obesity affecting : (4) Encounter for induction of labor: (5) 39 weeks gestation of : (6) Asthma: PLAN: Plan CE complete dilation +1 station Patient to start pushing Do not feel amniotic sac- Patient feels like SROM was earlier today when she got up to bathroom Anticipate
[2025-03-02] MEDS: Oxytocin 15 Units/NS 250ml 15 UNITS/250 ML IV.SOLN 83 UNITS IV (17:00)
--- NOTE | 2025-03-02 17:05 | EX.PCM.OBVAG ---
Assessment & Plan (1) (spontaneous vaginal delivery): (2) Care and examination of lactating mother: Maternal Data Information MATI Calculator Estimated Delivery Date Method Current WG Current Estimate 03/09/25 Manual 39w 0d Vaginal Delivery Maternal Presentation Maternal Presentation: Medically Indicated Induction Maternal Presentation: at 39 weeks gestation for induction of labor for obesity. Type of Induction: Pitocin and Salas Bulb Medical Reason for Induction: Other (Obesity) Vaginal Delivery Information Procedure Performed: Spontaneous Vaginal Delivery Surgeon/Practitioner: Karin Ignacio Date of Procedure: 03/02/25 Pre-Procedure Diagnosis: Term gestation, induction of labor Post-Procedure Diagnosis: , Live female Type of anesthesia: Epidural Estimated Blood Loss: 250 Time of Delivery: 16:45 Findings Description of procedure: Patient quickly progressed to complete dilation. With good maternal effort, head delivered followed by anterior shoulder and remainder of infant body without any force, delay, or traction. Vigorous female was delivered atraumatically and placed on maternal abdomen. Pitocin IV started for active management of the third stage of labor. 3 vessel cord clamped and cut after delay and infant placed immediately skin to skin with patient. Placenta delivered spontaneously and intact. After inspection, vagina and perineum are intact. Vaginal sweep performed. Fundus is firm 2 below U and bleeding is hemostatic. Sponge and sharps counts correct. Patient and bonding well at this time. Dr. Elizabeth notified of delivery. Routine post orders placed. Presentation: Vertex Amniotic Membrane Rupture Type: Spontaneous Amniotic Fluid Description: Clear Placental Delivery Description: Spontaneous Placenta Disposition: [facility] Specimen collected: No Cord Vessel Description: 3 Vessels Cord Entanglement: None Nuchal Cord Compression: Without compression Infant A Gender: Female (1 minute): 8 (5 minute): 9 Delayed Cord Clamping: Yes Certified Medication Aide qual research manager: No Post Vaginal Deli Medications given after delivery: IV Pitocin Episiotomy Description: None Laceration: None Complication Complications: No
[2025-03-03] VITALS (13 sets, daily range): BP systolic 133–145; BP diastolic 73–84; PULSE 82–100; RESP 16–18; TEMP 36.3–36.8; O2SAT 96–100
--- NOTE | 2025-03-03 07:15 | PCM.DC.SUM ---
Providers Date of Admission: 03/02/25 Primary Care Physician: Dr. Maye Wyatt MD Reason For Visit: VAGINAL DELIVERY Diagnosis Discharge Diagnosis (1) (spontaneous vaginal delivery): Status: Acute Code(s): O80 - Encounter for full-term uncomplicated delivery (2) Care and examination of lactating mother: Status: Acute Code(s): Z39.1 - Encounter for care and examination of lactating mother Plan PPD 1 intact support Pain controlled D/C home after 24 hours with follow up in office Medications at Discharge Home Medications vits,calcium no.78-iron fumarate-folic acid 29 mg-1 mg tablet (Prenatabs FA) 1 tab PO DAILY preganncy 08/11/13 ferrous sulfate 325 mg (65 mg iron) tablet (Iron (ferrous sulfate)) 325 mg PO DAILY anemia #30 TABLETS 08/13/13 albuterol sulfate 90 mcg/actuation aerosol inhaler 2 puff inhalation Q4H PRN PRN wheezing 03/02/25 pantoprazole 40 mg tablet,delayed release (Protonix) 40 mg PO DAILY heartburn 03/02/25 naproxen 500 mg tablet 500 mg PO Q8H PRN PRN Pain Score 1-10 #0 tabs 03/03/25 Hospital Course Operations None Procedures None Summary of Care Provided Minutes Spent on Discharge: 15 Hospital Course: Patient had vaginal delivery. Hospital course was uneventful. Physical Exam Narrative Patient seen at bedside. Denies pain. Ambulating and voiding without difficulty. Lochia decreased. Desires discharge home today. Const alert and no apparent distress General Appearance: cooperative and comfortable Exam Limitations: no limitations HEENT normocephalic Eyes General Eye: normal appearance of both eyes Neck full ROM General: normal visual inspection Chest Chest: symmetrical chest wall rise Resp normal respiratory effort and normal air movement Effort and Inspection: symmetric chest movement Auscultation: clear to auscultation bilaterally Cardio regular rate and regular rhythm Peripheral Pulses: pulses 2+ throughout GI normal to inspection, nondistended, normoactive bowel sounds Narrative: Ice to perineum OB / External & Speculum: vaginal bleeding and other Lochia decreasing Uterus Palpation: uterus fundus firm (Below U) Back/Spine normal ROM Extremity full ROM and no calf tenderness General Extremity: normal exam except as noted Skin no rashes or lesions noted Neuro oriented x3 Speech: speech normal Psych mental status grossly normal Thought Process: normal thought process Weight / BMI Weight Weight: 260 lb Body Mass Index (BMI) 41.9 ABG / Lab / Microbiology Data 03/02/25 08:35 Laboratory: Laboratory Results - last 24 hr 03/02/25 08:35: WBC 7.8, RBC 3.87 L, Hgb 10.6 L, Hct 33.7 L, MCV 87.1, MCH 27.4, MCHC 31.5 L, RDW Std Deviation 53.9 H, RDW Coeff of Anjali 17.1 H, Plt Count 203, MPV 10.6, Immature Gran % (Auto) 0.500, Neut % (Auto) 60.5, Lymph % (Auto) 28.5, [place] % (Auto) 8.9, Eos % (Auto) 1.3, Baso % (Auto) 0.3, Absolute Neuts (auto) 4.7, Absolute Lymphs (auto) 2.21, Nucleated RBC % 0, Syphilis Total Ab Nonreactive, Blood Type A POSITIVE, Antibody Screen NEGATIVE D/C Instructions Discharge Diet: No restrictions Discharge Activity: Return to Normal Activity, No Restrictions, May Drive, May Shower and May Take a Tub Bath (Warm water only. No bath salts, soaps, bubbles) May resume sexual activity in: 6-8 weeks Weight Bearing Status: Weight bearing as tolerated Call your doctor if you observe: Fever of 101 or Higher, Inability to urinate, Using more than 1 pad per hour, Shortness of breath, Dizziness, Chest pain, Calf discomfort and Uncontrolled pain DC O2, CPAP, BIPAP Needs Home O2 Discharge instructions: No Please Follow Up With: [facility] Brendan BROWNING When: 2 weeks in office or virtual Meaningful Use Info Meaningful Use Meaningful Use Diagnoses (Choose all that apply): None applicable Ischemic Stroke Statin Dosing Therapy Reference: STATIN DOSE THERAPY REFERENCE: * Patients > 75 years receive moderate or high dose statin therapy. * Patients 75 years or YOUNGER should receive HIGH intensity statin dose unless contraindicated. You will be required to document reason for non-treatment if statin daily dose does not meet guidelines. HIGH DOSE STATIN THERAPY DAILY Atorvastatin > than or = to 40 mg Rosuvastatin > than or = to 20 mg Amlodipine + Atorvastatin > than or = to 2.5/40 mg Ezetimibe + Simvastatin 10/80 mg Simvastatin 80mg Discharge Plan Admission Admit Date/Time: 03/02/25 07:00 Primary Reason for Your Visit: Labor and Delivery Attending Provider: Karin Ignacio Primary Care Provider: Maye Wyatt Discharge Orders/Prescriptions Prescriptions: New naproxen 500 mg Tablet 500 mg PO Q8H PRN PRN (Reason: Pain Score 1-10) Qty: 0 0RF Continued Prenatabs FA 1 TABLET tablet 1 tab PO DAILY ferrous sulfate [Iron (ferrous sulfate)] 325 MG tablet 325 mg PO DAILY Qty: 30 1RF albuterol sulfate 90 mcg/actuation HFA aerosol inhaler 2 puff inhalation Q4H PRN PRN (Reason: wheezing) pantoprazole [Protonix] 40 mg tablet,delayed release (DR/EC) 40 mg PO DAILY Discontinued aspirin 81 mg tablet,delayed release (DR/EC) 162 mg PO DAILY Referrals / Follow Up: Karin Ignacio CNM [Med Staff - [facility] Practice [facility]] - Maye Wyatt MD [Primary Care Provider] - Disposition Disposition (needs filled in before D/C Order can be placed): Home, Self Care
[2025-03-03] MEDS: MEASLES,MUMPS,RUBELLA VACC/PF 0.5 ML SC (16:11)
--- NOTE | 2025-03-03 20:32 | CASEMGMT ---
Social Work Assessment Labor and Delivery Unit Patient Address:[address] [place] [address] Phone number: [phone] Date of Referral: 03/03/2025 Time of Referral:? 11:00 Referred By: Sandee Date of Intervention: ??03/03/2025 Time of Intervention:? 13:00 Reason for Referral:? Substance Use SW completed chart review and acknowledges social work consult due to maternal substance use.? FLORENCE presented to bedside and introduced self to YEISON ([place]loane).? FLORENCE completed social work assessment .? FOB , MOB 11 year old son and friend present for interview with mothers permission.? History obtained from: medical records, MOB Household composition:? YEISON lives with FOB and their 11 year old son. [place] baby will reside with MOB and FOB at discharge Patient's parent/guardian status:? ?YEISON reports that she and FOMilagro have been together for 12 years. They have one child together, 11 year old son.? SHERIE has an older child that he does not have contact with. Medical History: ??YEISON is a 34 year old female who is 2 para 1 now 2 following the labor and delivery of .? YEISON received routine care during through [facility].? YEISON reported to the hospital for scheduled induction. YEISON delivered baby on 03/02/2025 at 39 weeks gestation . baby Girl, Alba, was born weighing? 8 pounds 6 ounces with apgars of 8 and 9 at one and 5 minutes of life.? Educational Status:? 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 No concerns with reading, learning or comprehension. Financial Status: ?YEISON reports to being the financially stable person in the relationship, states her sig other is a union laborer and is sometimes in between jobs.? YEISON reports to working extra hours in order to pay the bills. YEISON states that she is planning on taking at least 6 weeks off and then plans to only work weekends so they would not need a wire weaver helper, Supplies: YEISON has obtained all necessary baby supplies including car seat, safe sleep space, clothes, diapers and wipes. Childcare/Caregiver(s):? YEISON will be primary patient centered care specialist to baby, along with help from FOB, close friend, sister and ABELINO.? Transportation:?? ?YEISON has her drivers license and reliable transportation. No barriers at this time.? Programs/Agencies Involved: ???MOB has applied for the medical card and WIC.? Children Services/Legal Issues:??? No history of children services involvement , no issues or concerns warranting referral be made at this time.? Behavioral Health Issues: ??Mental Health History: Denies ?Substance Use History:.YEISON states that prior to , she used TCH to help with headaches, denies any use during and denies intent to use post discharge from hospital. ??Family History:?? MOB describes paternal grandfather as a ?on again off again recovering addict?. MOB reports limited contact and feels that he tends to be overly controlling of her son.? MOB reports she feels that he is trying to make up for not being around when she was a child?? Drug Screens: None noted in babies chart. Family/Social Stressors:? MOB report to paternal grandfather being a stressor at times but feels she is able to handle the situation.? MOB also reports that her mother lives out of state and that is a stressor as she would like to have her closer.? Support Systems: MOB report that her sister, her sister in law, and several close friends are her support system.? Depression/Shaken Baby/Safe Sleeping: ??SW educated MOB on signs and symptoms of baby blues, and mod and anxiety disorders to be mindful of during this post period.? SW provided literature for MOB to review regarding these topics. MOB was receptive of information.?? SW educated MOB on shaken baby prevention and ABCs of safe sleep. MOB expressed understanding.?? ASSESSMENT:? MOBs friend was holding baby while SW was in the room. MOB was very relaxed and expressed desire to go home with FOB and baby. MOB was receptive to visit, was responsive to questions and appeared engaged in conversation. PLAN:?? No other services requested or indicated. MOB and baby to be discharged when medically ready. Parents were provided literature regarding: signs and symptoms of baby blues and mood and anxiety disorders, Help Me Grow, shaken baby prevention, ABCs of safe sleep, marijuana and breast feeding Q and A, and a list of county resources that are available for them should any needs present themselves. Zoila Logan, OBSERVATION NURSE, PRODUCT SUPPORT REP
== END 2025-03-03 22:15 | disposition home or self-care (01) | DRG 560 ==
PROVIDERS: Admitting Provider Advanced Practice Midwife; PCP Internal Medicine; Visit Provider Advanced Practice Midwife
DX: O99.214 Obesity complicating childbirth (principal); Z37.0 Single live birth; J45.909 Unspecified asthma, uncomplicated; O99.824 Streptococcus B carrier state complicating childbirth; O99.52 Diseases of the respiratory system complicating childbirth; Z3A.39 39 weeks gestation of pregnancy; Z79.82 Long term (current) use of aspirin; Z79.899 Other long term (current) drug therapy
CPT/HCPCS: 59025; 59050; 85025; 86780; 86850; 86900; 86901; 99221; G0378